=== PATIENT | female | born 1940 | race Caucasian/White ===

== ENCOUNTER 2017-03-21 16:44 | Emergency (ER) | payer MEDICARE, OTHER ==
[2017-03-21] MEDS ORDERED: DOXYcycline CAP(*) 100 MG PO ONE (17:03)
--- NOTE | 2017-03-21 17:10 | UC ---
Skin Complaint HPI - HPI Summary HPI Summary: 76 y/o female with PMX of HTN and Hypothyrodism presents to the urgent care c/o tick that still on her RT knee. Patient reports she was gardening 4 hrs ago and then when she was in the pool she noticed the tick. She didn't attempt to take it out since still alive. Patient denies SOB, fever, chest pain, N/V/D. Patient states took her BP medication this morning. - History of Current Complaint Chief Complaint: UCSkin Time Seen by Provider: 03/21/17 16:49 Stated Complaint: TICK BITE Hx Obtained From: Patient Onset/Duration: Sudden Onset, Lasting Hours, Still Present Skin Exposure Onset/Duration: Hours Ago - 4 hrs Timing: Constant Current Severity: Mild Pain Intensity: 0 Pain Scale Used: 0-10 Numeric Location: Other - tick bite at RT knee Aggravating: Touch Alleviating: Nothing Associated Signs & Symptoms: Negative: Nausea, Vomiting, Fever, Chills, Rash - Allergy/Home Medications Allergies/Adverse Reactions: Allergies Allergy/AdvReac Type Severity Reaction Status Date / Time Nitrofurantoin Allergy Unknown Verified 03/21/17 16:53 [From Macrodantin] Reaction Details Home Medications: Home Medications oxyCODONE SR TAB(*) [Oxycontin 20 mg (*)] 60 mg PO BEDTIME 03/21/17 [History Confirmed 03/21/17] Review of Systems Constitutional: Negative Skin: Other - tick bit donato RT knee Eyes: Negative ENT: Negative Respiratory: Negative Cardiovascular: Negative Gastrointestinal: Negative Genitourinary: Negative Motor: Negative Neurovascular: Negative Musculoskeletal: Negative Neurological: Negative Psychological: Negative All Other Systems Reviewed And Are Negative: Yes PMH/Surg Hx/FS Hx/Imm Hx Endocrine History: Hypothyroidism Cardiovascular History: Hypertension - Surgical History Surgical History: Yes Surgery Procedure, Year, and Place: L4-5 Laminectomy 11/2015. 4 SHOULDER SURGERYS,2 [age] ,HYSTERECTOMY 88,TONSILLECTOMY 1960,GOITER REMOVED BY RADIOACTIVE IODINE 1961,1971 TUMOR REMOVED FROM LEFT OVARY AND FALLOPIAN TUBE ,1996BENIGN, reconstruction surgery right FOOT-2013, [facility] TUMOR REMOVED LT FOOT; Mid right foot fusion 12/30/13 at [facility] in [place], [place] CHEEK , right CARPAL TUNNEL 2001,NEUROMA REMOVED L FOOT 2001, 2008 GANGLION CYST REMOVED FROM LEFT HAND, left eye glaucomasurgery; Mid Right Foot Fusion at Aug 2014 right reverse total shoulder replacement--[facility], dental implant; CATARACT IOL IMPLANT W/ DR SHABAZZ. 12/2016 L5/S1 LAMINECTOMY - Family History Known Family History: Positive: Hypertension, Other - colon cancer - Social History Lives: With Family Alcohol Use: None Substance Use Type: None Smoking Status (MU): Former Smoker Type: Cigarettes Amount Used/How Often: 1-1/2 PPD Length of Time of Smoking/Using Tobacco: 6 YEARS Have You Smoked in the Last Year: No When Did the Patient Quit Smoking/Using Tobacco: 1966 - Immunization History Most Recent Influenza Vaccination: 07/05 Most Recent Tetanus Shot: unknown Physical Exam Triage Information Reviewed: Yes Appearance: Well-Appearing, No Pain Distress, Well-Nourished, Obese Vital Signs: Initial Vital Signs Temp 96.3 F 03/21/17 16:51 Pulse 76 03/21/17 16:51 Resp 16 03/21/17 16:51 BP 154/79 03/21/17 16:51 Pulse Ox 99 03/21/17 16:51 Vital Signs Reviewed: Yes Eye Exam: Normal Eyes: Positive: Conjunctiva Clear ENT Exam: Normal ENT: Positive: Normal ENT inspection, Hearing grossly normal, Pharynx normal, TMs normal Neck exam: Normal Neck: Positive: Supple, Nontender, No Lymphadenopathy Respiratory Exam: Normal Respiratory: Positive: Chest non-tender, Lungs clear, Normal breath sounds Cardiovascular Exam: Normal Cardiovascular: Positive: RRR, No Murmur, Pulses Normal Abdominal Exam: Normal Abdomen Description: Positive: Nontender, No Organomegaly, Soft Bowel Sounds: Positive: Present Musculoskeletal Exam: Normal Neurological Exam: Normal Psychological Exam: Normal Skin: Positive: Other - tick bite on the superior side of the RT knee, Tick alive. Course/Dx - Course Course Of Treatment: Tick was removed from superior part of the RT knee using tick twister technique. After tick removal and the skin cleansing. Pt advised PLease observe the area for the development or Erythema Migrans for upto 30 days following exposure. Components of the tick saliva can cause transient erythema that should no be confused with Erythema Migrans. Antibiotic prophylaxis with Doxycycline given to the patient to prevent lyme Disease.. Pt tolerated well medication. - Differential Diagnoses - Skin Complaint Differential Diagnoses: Cellulitis, Contact Dermatitis, Tick Born Illness, Other - tick bite - Diagnoses Provider Diagnoses: tick bite, uncontrolled HTN Discharge - Discharge Plan Condition: Stable Disposition: HOME Patient Education Materials: Tick Bite (ED), Low Sodium Diet (ED) Referrals: Valentin Sam MD [Primary Care Provider] - Additional Instructions: PLease observe the area for the development or Erythema Migrans for upto 30 days following exposure. Components of the tick saliva can cause transient erythema that should no be confused with Erythema Migrans. Please if a rash or fevedevelops return for further treatment. You were given prophylactic Doxycycline to prevent Lyme Disease. Please decrease salt intake since your BP today was high and f/u with your PCP for further evaluation.
[2017-03-21 17:15] VITALS: BP 154/79
== END 2017-03-21 17:33 | disposition home or self-care (01) ==
LOC: UCEAST 16:44
DX: S80.261A Insect bite (nonvenomous), right knee, initial encounter (principal); W57.XXXA Bitten or stung by nonvenomous insect and other nonvenomous arthropods, initial encounter; Y93.H2 Activity, gardening and landscaping; Y92.017 Garden or yard in single-family (private) house as the place of occurrence of the external cause; Y99.9 Unspecified external cause status; I10 Essential (primary) hypertension
CPT/HCPCS: 99212; A9270-GY; G0463

== ENCOUNTER 2018-04-16 06:21 | Day surgery (SDC) | payer MEDICARE, OTHER ==
[~2018-04-16 06:21] MED LIST: Buffered Lidocaine 0.9% SYRIN* 5 ML/SYR SYRINGE INTRADERM ONE; mitoMYcin PWD* 0.2 MG in Sterile Water for Inj* 1 ML OPHTHALMIC SCH
[2018-04-16] MEDS ORDERED: Lidocaine 2% PF* 10 ML AMP ONE (07:11)
[2018-04-16] MEDS ORDERED: BSS OPTH.SOL* BTL ONE (07:12)
[2018-04-16] MEDS ORDERED: Triamcinolone Acetonide* 40 MG/ML 1 ML VIAL ONE (07:12)
[2018-04-16] MEDS ORDERED: Sodium Bicarbonate 8.4% SYR* 10 ML SYRINGE ONE (07:12)
[2018-04-16] MEDS ORDERED: Acetylcholine 1:100 OPTH* OPHTH.SOLN ONE (07:12)
[2018-04-16] MEDS ORDERED: Neomycin/Polymy/Dex OPTH.SUSP* MAXITROL 0.1% 5 ML ONE (07:13)
[2018-04-16] MEDS ORDERED: Lidocaine 2% EPI 1:200000 MPF*10-20 ML VIAL ONE (07:13)
[2018-04-16] MEDS ORDERED: Hyaluronidase OVINE* 200 UNIT/ML ML SUBCUT ONE (07:13)
[2018-04-16] MEDS ORDERED: Povidone Iodine 5% OPTH* 30 ML BTL ONE (07:13)
[2018-04-16] MEDS ORDERED: Atropine 1% OPHTH.SOL* 2 ML BOT - 2 ML ONE (07:15)
[2018-04-16] MEDS ORDERED: fentaNYL* 50 MCG/ML 2 ML VIAL (100 MCG VIAL) ONE (07:26)
[2018-04-16] MEDS ORDERED: Midazolam* 1 MG/ML 2 ML VIAL (2 MG) ONE (07:26)
[2018-04-16] MEDS ORDERED: Propofol* 10 MG/ML 20 ML BTL IV PUSH ONE (07:43)
[2018-04-16] MEDS ORDERED: Lidocaine 2% MPF* 2 ML VIAL ONE (07:43)
[2018-04-16] MEDS ORDERED: Naloxone* 0.4 MG/ML 1 ML VIAL IV PRN (07:54)
[2018-04-16 09:09] VITALS: BP 120/77
--- NOTE | 2018-04-17 06:58 | OP ---
DATE OF OPERATION: 04/16/18 - [facility] DATE OF : 44 ANESTHESIA: Local with MAC. PRE-OP DIAGNOSIS: Uncontrolled glaucoma, right eye. POST-OP DIAGNOSIS: OPERATIVE PROCEDURE: Trabeculectomy, right eye. COMPLICATIONS: None. DESCRIPTION OF PROCEDURE: The retrobulbar anesthesia was given in the operating room, 50:50 mixture of 0.75% Marcaine with 2% lidocaine with epinephrine, 4 cc given into the muscle cone without difficulty. The eye was prepped and draped in the usual sterile fashion with speculum placed. A superior 6-0 silk traction suture placed through the superior limbus and the eye rotated inferiorly. A fornix- based conjunctival peritomy was made with a Sujit scissors from the 10 o'clock to 12 o'clock position. Hemostasis achieved with cautery. A triangular limbal based half scleral thickness flap was created using the 75 blade and the crescent blade. Anterior chamber entered using a 3-mm keratome. Miochol was instilled into the anterior chamber , a little bit of DisCoVisc. A 3 x 1 trabecular block excised using the Xiomara punch. The triangular flap sutured with three 10-0 nylon sutures. Conjunctiva then closed after placing mitomycin 0.2 mg/mL for 30 seconds. Conjunctiva was closed using a combination of running locking 10-0 nylon and 9-0 Prolene sutures. All wounds checked and found to be watertight. Traction sutures removed. Sub-tenon's Kenalog 40 mg/mL, 1 mL given. Atropine and Maxitrol given and the eye was patched. [id number]/[facility] #: [id number] [facility]
== END 2018-04-16 09:00 | disposition home or self-care (01) ==
LOC: OREAST 06:21
PROVIDERS: ATTEND Specialist
DX: H40.1110 Primary open-angle glaucoma, right eye, stage unspecified (principal); M05.9 Rheumatoid arthritis with rheumatoid factor, unspecified; E78.4 Other hyperlipidemia; D47.2 Monoclonal gammopathy; M54.5 Low back pain; Z87.891 Personal history of nicotine dependence; Z79.899 Other long term (current) drug therapy; E03.9 Hypothyroidism, unspecified; F11.90 Opioid use, unspecified, uncomplicated
CPT/HCPCS: A9270-GY; J2001; J2250; J2704; J3010; J3301; J3471; J9280

== ENCOUNTER 2018-05-14 06:18 | Day surgery (SDC) | payer MEDICARE, OTHER ==
[~2018-05-14 06:18] MED LIST changes: +Proparacaine 0.5% OPHTH.SOL* 15 ML BTL ONE
[2018-05-14] MEDS ORDERED: Acetylcholine 1:100 OPTH* OPHTH.SOLN ONE (07:12)
[2018-05-14] MEDS ORDERED: Triamcinolone Acetonide* 40 MG/ML 1 ML VIAL ONE (07:12)
[2018-05-14] MEDS ORDERED: Lidocaine 2% PF* 10 ML AMP ONE (07:12)
[2018-05-14] MEDS ORDERED: Sodium Bicarbonate 8.4% SYR* 10 ML SYRINGE ONE (07:12)
[2018-05-14] MEDS ORDERED: Lidocaine 2% EPI 1:200000 MPF*10-20 ML VIAL ONE ×2 (07:13→15:29)
[2018-05-14] MEDS ORDERED: BSS OPTH.SOL* BTL ONE (07:13)
[2018-05-14] MEDS ORDERED: Neomycin/Polymy/Dex OPTH.SUSP* MAXITROL 0.1% 5 ML ONE ×2 (07:13→15:29)
[2018-05-14] MEDS ORDERED: Povidone Iodine 5% OPTH* 30 ML BTL ONE ×2 (07:13→15:30)
[2018-05-14] MEDS ORDERED: Hyaluronidase OVINE* 200 UNIT/ML ML SUBCUT ONE (07:14)
[2018-05-14] MEDS ORDERED: Atropine 1% OPHTH.SOL* 2 ML BOT - 2 ML ONE (07:14)
[2018-05-14] MEDS ORDERED: Midazolam* 1 MG/ML 2 ML VIAL (2 MG) ONE ×2 (07:27→07:49)
[2018-05-14] MEDS ORDERED: fentaNYL* 50 MCG/ML 2 ML VIAL (100 MCG VIAL) ONE (07:32)
[2018-05-14] MEDS ORDERED: Ondansetron INJ* 2 MG/ML VIAL IV PRN (08:23)
[2018-05-14] MEDS ORDERED: oxyCODONE TAB* 5 MG TAB PO PRN (08:23)
[2018-05-14] MEDS ORDERED: Naloxone* 0.4 MG/ML 1 ML VIAL IV PRN (08:23)
[2018-05-14 08:51] VITALS: BP 134/78
[2018-05-14] MEDS ORDERED: Lidocaine 1%* 5 ML VIAL ONE (15:29)
[2018-05-14] MEDS ORDERED: acetaZOLAMIDE TAB* 250 MG ONE (15:29)
[2018-05-14] MEDS ORDERED: Cyclopentolate 1% OPTH.SOL* 2 ML BTL ONE (15:29)
[2018-05-14] MEDS ORDERED: Phenylephrine 2.5% OPTH.SOL* 2 ML BTL ONE (15:30)
[2018-05-14] MEDS ORDERED: Proparacaine 0.5% OPHTH.SOL* 15 ML BTL ONE (15:30)
[2018-05-14] MEDS ORDERED: Ketorolac 0.5% OPHTH (NF) 0.5 % 5 ML BTL ONE (15:30)
--- NOTE | 2018-05-15 05:49 | OP ---
DATE OF OPERATION: 05/14/18 - [facility] DATE OF : 44 SURGEON: David Hicks MD. ANESTHESIA: Local with MAC. PREOPERATIVE DIAGNOSES: Glaucoma, left. POSTOPERATIVE DIAGNOSIS: OPERATIVE PROCEDURE: Trabeculectomy, left. COMPLICATIONS: None. DESCRIPTION OF PROCEDURE: The patient was given retrobulbar anesthesia in the operating room, 50:50 mixture of 0.75% Marcaine with 2% lidocaine with epi, 4 cc given into the muscle cone without difficulty. The patient was prepped and draped in the usual sterile fashion with speculum placed. A 6-0 silk traction suture placed through the superior limbus and the eye rotated inferiorly. A fornix-based conjunctival peritomy was made from the 9:30 o'clock to 12 o'clock position with the Sujit scissors. Lidocaine 2% with epinephrine injected sub -tenon's, mitomycin C 0.2 mg/mL left in place for 1 minute, then thoroughly irrigated sub- tenon's. Triangular limbal based half scleral thickness flap was created with the 75 blade and the crescent blade centered at the 10:30 position. Paracentesis was made at the 3 o'clock position with 75 blade. Anterior chamber entered with 3-mm keratome. Miochol and DisCoVisc injected into the anterior chamber. Peripheral iridotomy made with the Vannas scissors, 10:30. Trabecular block 3.3 x 1 mm excised using the Xiomara punch from under the flap. Flap secured with two 10-0 nylon interrupted suture. Then the conjunctiva closed using a running locking 10-0 nylon and 10-0 Vicryl suture closure. Traction suture removed. All wounds checked and found to be water tight. Kenalog 40 mg/mL, 1 mL injected into sub-tenon's inferior temporally. Topical atropine and Maxitrol given and the eye was patched. [id number]/[facility] #: [id number] [facility]
== END 2018-05-14 09:01 | disposition home or self-care (01) ==
LOC: OREAST 06:18
PROVIDERS: ATTEND Specialist
DX: H40.1123 Primary open-angle glaucoma, left eye, severe stage (principal); M06.9 Rheumatoid arthritis, unspecified; E03.9 Hypothyroidism, unspecified; I10 Essential (primary) hypertension; E78.5 Hyperlipidemia, unspecified; G89.29 Other chronic pain; Z79.891 Long term (current) use of opiate analgesic
CPT/HCPCS: A9270-GY; J2001; J2250; J3010; J3301; J3471; J9280

== ENCOUNTER 2018-10-17 13:41 | Inpatient (IN) | payer MEDICARE, OTHER ==
--- NOTE | 2018-10-17 14:16 | ED ---
Neurological HPI - HPI Summary HPI Summary: Time seen by provider: [14:00]. The patient is a 78 y/o F presenting to [facility] with a chief complaint of confusion and aphasia for four days. At time of onset, the patient was playing a game of clue with her grandchildren when they noticed that she was not able to understand anything. She states that she has been unable to put things into words, and she also has been feeling weak with pain in her left arm. She is not feeling any other pain at this time, including chest pain and abd pain. - History of Current Complaint Chief Complaint: EDNeurologicalDeficit Stated Complaint: SLURRING OF SPEECH, PAIN IN LEFT ARM Hx Obtained From: Patient Onset/Duration: Sudden Onset, Started days ago - four, Still Present Timing: Sudden Onset Onset Severity: Moderate Current Severity: Moderate Pain Intensity: 0 Pain Scale Used: 0-10 Numeric Character: Impaired Speech, Confusion Aggravating: Nothing Alleviating: Nothing Associated Signs and Symptoms: Positive: Confusion, Weakness, Pain - in left arm , Impaired Speech. Negative: Chest Pain - Allergy/Home Medications Allergies/Adverse Reactions: Allergies Allergy/AdvReac Type Severity Reaction Status Date / Time nitrofurantoin Allergy Severe See Comment Verified 08/12/18 13:35 [From Macrodantin] PMH/Surg Hx/FS Hx/Imm Hx Endocrine/Hematology History: Reports: Hx Thyroid Disease - had a goiter removed , Hx Anemia - MILD ANEMIA Denies: Hx Diabetes Cardiovascular History: Reports: Hx Hypertension - ON MEDS, Hx Valvular Heart Disease - very small leakage from mitral valve- not remarkable Denies: Hx Angina, Hx Pacemaker/ICD Respiratory History: Denies: Hx Asthma, Hx Chronic Obstructive Pulmonary Disease (COPD) GI History: Reports: Hx Gastroesophageal Reflux Disease, Hx Irritable Bowel, Other GI Disorders - ESOPHAGEAL STRICTURE CORRECTED Denies: Hx Ulcer History: Reports: Other Problems/Disorders - CHRONIC UTI Denies: Hx Renal Disease Musculoskeletal History: Reports: Hx Arthritis - osteoarthritis, Hx Back Problems - chronic back pain, surgery done on 07/24/17 Dr Persaud, Hx Osteoporosis, Other Musculoskeletal History - RHUMATOID ARTHRITIS Sensory History: Reports: Hx Cataracts, Hx Contacts or Glasses - glasses, Hx Glaucoma, Hx Hearing Aid - BRADLEY left ear Opthamlomology History: Reports: Hx Cataracts, Hx Contacts or Glasses - glasses , Hx Glaucoma Neurological History: Reports: Hx Migraine - IN THE DISTANT PAST, Other Neuro Impairments/Disorders - PAIN CLINIC PATIENT Denies: Hx Dementia, Hx Developmental Delay, Hx Nerve Disease, Hx Seizures, Hx Spinal Cord Injury, Hx Transient Ischemic Attacks (TIA) Psychiatric History: Denies: Hx Panic Disorder - Cancer History Cancer Type, Location and Year: see surgical histroy Hx Chemotherapy: No Hx Radiation Therapy: No - Surgical History Surgery Procedure, Year, and Place: Rt shoulder reverse Total x2, 2012 removal of screw from right shoulder, Laminectomy, disc removal x2, Rt foot surgery. hysterectomy 1985, goiter removed 50 years ago, use radiative iodine,. 2016 right eye cataract surgery with IOL and I-stent, left eye cataract surgery Hx Anesthesia Reactions: No - Immunization History Date of Tetanus Vaccine: Up to date Date of Influenza Vaccine: Fall 2011 Infectious Disease History: No Infectious Disease History: Reports: Hx Shingles - 2010 Denies: Hx Clostridium Difficile, Hx Hepatitis, Hx Human Immunodeficiency Virus (HIV), Hx of Known/Suspected MRSA, Hx Tuberculosis, Hx Known/Suspected VRE , Hx Known/Suspected VRSA, History Other Infectious Disease, Traveled Outside the in Last 30 Days - Family History Known Family History: Positive: Hypertension, Other - colon cancer - Social History Alcohol Use: None Substance Use Type: Reports: None Smoking Status (MU): Former Smoker Type: Cigarettes Amount Used/How Often: 1-1/2 PPD, smoked for 5 years Length of Time of Smoking/Using Tobacco: 6 YEARS Have You Smoked in the Last Year: No Review of Systems Negative: Chest Pain Negative: Abdominal Pain Positive: Other - pain in left arm Neurological: Other - aphasia Positive: Weakness, Slurred Speech All Other Systems Reviewed And Are Negative: Yes Physical Exam - Summary Physical Exam Summary: Appearance: The patient is well-nourished in no acute distress and in no acute pain. Skin: The skin is warm and dry and skin color reflects adequate perfusion. HEENT: The head is normocephalic and atraumatic. The pupils are equal and reactive. The conjunctivae are clear and without drainage. Nares are patent and without drainage. Mouth reveals moist mucous membranes and the throat is without erythema and exudate. The external ears are intact. The ear canals are patent and without drainage. The tympanic membranes are intact. Neck: The neck is supple with full range of motion and non-tender. There are no carotid bruits. There is no neck vein distension. Respiratory: Chest is non-tender. Lungs are clear to auscultation and breath sounds are symmetrical and equal. Cardiovascular: Heart is regular rate and rhythm. There is no murmur or rub auscultated. There is no peripheral edema and pulses are symmetrical and equal. Abdomen: The abdomen is soft and non-tender. There are normal bowel sounds heard in all four quadrants and there is no organomegaly palpated. Musculoskeletal: There is no back tenderness noted. Extremities are non-tender with full range of motion. There is good capillary refill. There is no peripheral edema or calf tenderness elicited. Neurological: Patient is alert and oriented to person, place and time but displays signs of mild aphasia. The patient has symmetrical motor strength in all four extremities except left upper extremity displays dysmetria. Cranial nerves are grossly intact. Deep tendon reflexes are symmetrical and equal in all four extremities. GCS: 15. NIH: 2. Psychiatric: The patient has an appropriate affect and does not exhibit any anxiety or depression. Triage Information Reviewed: Yes Vital Signs On Initial Exam: Initial Vitals Temp Pulse Resp BP Pulse Ox 98.8 F 72 16 167/86 99 10/17/18 14:02 10/17/18 14:02 10/17/18 14:02 10/17/18 14:02 10/17/18 14:02 Vital Signs Reviewed: Yes - Edward Coma Scale Best Eye Response: 4 - Spontaneous Best Motor Response: 6 - Obeys Commands Best Verbal Response: 5 - Oriented Coma Scale Total: 15 Diagnostics - Vital Signs Vital Signs Temp Pulse Resp BP Pulse Ox 10/17/18 14:02 98.8 F 72 16 167/86 99 - Laboratory Result Diagrams: 10/17/18 15:01 10/17/18 15:01 Lab Statement: Any lab studies that have been ordered have been reviewed, and results considered in the medical decision making process. - CT Brain CT CT Interpretation Completed By: Radiologist Summary of CT Findings: No acute intracranial pathology. ED physician has reviewed this report. - EKG 14:22 Cardiac Rate: NL - 95 BPM EKG Rhythm: Sinus Rhythm Summary of EKG Findings: No STEMI. NIH Scale - NIH Scale Level of Consciousness: Alert/Keenly Responsive Ask Patient the Month and His/Her Age: Both Correct Ask Pt to Open/Close Eyes and Franchise Manager/Release Non-Paretic Hand: Both Correctly Best Gaze (Only Horizontal Eye Movement): Normal Visual Field Testing: No Visual Loss Facial Paresis-Pt to Smile & Close Eyes or Grimace Symmetry: Normal/Symmetrical Motor Function - Right Arm: No Drift-Holds 10 Seconds Motor Function - Left Arm: Drifts LT 10 seconds Motor Function - Right Leg: No Drift-Holds 10 Seconds Motor Function - Left Leg: No Drift-Holds 10 Seconds Limb Ataxia-Must be out of Proportion to Weakness Present: Absent Sensory (Use Pinprick to Test Arms/Legs/Trunk/Face): Normal Best Language (Describe Picture, Name Items): Some Loss Dysarthria (Read Several Words): Normal Extinction and Inattention: No Abnormality Total Score: 2 Re-Evaluation - Re-Evaluation First Eval Re-Evaluation Time: 15:40 Change: Unchanged Comment: I spoke with the patient concerning admission to [facility]. Course/Dx - Course Course Of Treatment: Ms. Brown presented to the emergency department with a concern for confusion versus aphasia for the last 4 days. It started on [place] when she was playing the game clue. I saw her in the triage area and did a quick NIH stroke scale which revealed some dysmetria on her left upper extremity and some difficulty with expressing what was going on of the picture and that the items were in the picture. She was sent for CT scan and labs and there is no evidence for acute stroke and I contacted who recommended admission to the hospitalist for further workup. While speaking with the hospitalist her calcium returned at 13.3. The hospitalist will evaluate her for admission. - Diagnoses Provider Diagnoses: Acute confusional state, Hypercalcemia - Physician Notifications Discussed Care Of Patient With: James Kim - neurology Time Discussed With Above Provider: 15:30 Instructed by Provider To: Other - I consulted with Dr. Kim, who will come see the patient in the ED. I consulted with Dr. Walker, hospitalist, who accepts the patient for admission. - Critical Care Time Critical Care Time: 30-74 min Discharge - Sign-Out/Discharge Documenting (check all that apply): Patient Departure - Patient will be admitted to [facility] for further care by Dr. Walker. - Discharge Plan Condition: Stable Disposition: ADMITTED TO [facility] - Billing Disposition and Condition Condition: STABLE Disposition: Admitted to [facility] - Attestation Statements Document Initiated by Lizzy: Yes Documenting Scribe: Ana Franklin Provider For Whom Lizzy is Documenting (Include Credential): Dr. Rafael Gibson MD Scribe Attestation: IAna scribed for Dr. Rafael Gibson MD on 10/17/18 at 1839. Scribe Documentation Reviewed: Yes Provider Attestation: The documentation as recorded by the Ana martin accurately reflects the service I personally performed and the decisions made by me, Dr. Rafael Gibson MD Status of Scribe Document: Viewed
--- OUTSIDE RECORDS SUMMARY | 2018-10-17 15:07 | XMS REPORT | Continuity of Care Document ---
:1940 External Reference #:[id number] Author Name Richelle Montoya Care Team Providers Name Role Phone Valentin Sam MD Primary Care Physician Unavailable Payers Type Date Identification Numbers Payment Provider Subscriber Policy Number: [id number] Medicare Yamileth Brown PayID: [id number] [address] [place] [address] Policy Number: [id number] [facility] Yamileth Brown Group Number: [id number] [address] [address] PayID: [id number] [place] [address] Policy Number: [id number] For Life Robin Brown PayID: [id number] [address] [place] [address] Expires: 2018 Policy Number: [id number] [facility] [place] Group Number: [id number] [address] PayID: [id number] [place] [address] Advance Directives Description No Information Available Problems Date Description Provider Status Onset: 12/21/2010 Rheumatoid arthritis Tavo Mosqueda M.D. 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 Active myelopathy Onset: 11/07/2012 Delay when starting to pass urine Tavo Mosqueda M.D. Active Onset: 06/10/2013 Cervical spondylosis without myelopathy Tavo Mosqueda M.D. Active Onset: 06/10/2013 Chronic pain syndrome Tavo Mosqueda M.D. Active Onset: 10/07/2014 Disorder of shoulder Brad Brownlee M.D. Active Onset: 11/09/2014 Low back pain Brad Brownlee M.D. Active Onset: 11/26/2014 Disorder of lumbar disc Tavo Mosqueda M.D. Active Onset: 11/26/2014 Cervical disc disorder Tavo Mosqueda M.D. Active Onset: 11/26/2014 Taking medication Tavo Mosqueda M.D. Active Onset: 09/30/2015 Dyspnea Francine Sparks MD Active Onset: 10/31/2015 Spinal stenosis of lumbar region Prosper Gruber M.D. Active Onset: 10/31/2015 Displacement of lumbar intervertebral Prosper Gruber M.D. Active disc without myelopathy Onset: 10/31/2015 Acquired spondylolisthesis Prosper Gruber M.D. 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 Tobacco Use Start: Unknown Former Cigarette End: Unknown Smoker Smoking Status Reviewed: 10/02/18 Former Cigarette Smoker ETOH Use Denies alcohol use Tobacco Use Start: Unknown Patient is a former pt quit in 1967 End: Unknown smoker Recreational Drug Use Denies Drug Use Recreational Drug Use Denies Drug Use pt is prescribed medical marijuana Exercise Type/Frequency Does not exercise Allergies, Adverse Reactions, Alerts Date Description Reaction Status Severity Comments 12/21/2010 Macrodantin multiple problems Active Severe 05/04/2011 Methotrexate severe fatigue Inactive 05/04/2011 Leflunomide blurred vision, stomach upsetand Inactive diarreha Medications Medication Date Status Form Strength Qnty SIG Indications Ordering Provider Xellucyz 10/02 Active Tablets 5mg 60tab 1 by mouth s twice a Mago, day M.D. Magnesium Oxide 08/20 Active Capsules 500mg 30cap Take one (Antacid) s capsule/ta Mago, blet daily M.D. by mouth as needed for cramps/ spasms/ acid reflux Fluzone High-Dose 08/20 Active Queenie 0.5ml .500m Please M06.9 nishi Quintero M.D. Clotrimazole 08/20 Active Cream 1% 15gm Apply to daily to sondra Mercedes of [place] lips Iron Slow Release 11/14 Active Tablets ER 143(45Fe) 90tab Take one mg s capsule/ta Mago, blet by MJason mouth twice daily Prednisone 11/14 Active Tablets 10mg 30tab Take one s capsule/ta Mago, blet daily M.D. by mouth as needed for flare of Ra Isosorbide 09/23 Active Tablets 5mg 45tab 10/22 tab by Manoj Rodríguez s mouth F. every Mauser, morning M.DJason Vitamin D3 08/20 Active Capsules 2000Unit 1 by mouth M05.40 bid Dameon Mercedes Caltrate 600+D 10/11 Active Tablets 600-800mg 180ta take one E83.51 -Unit bs capsule/ta Mago, blet by Dameon mouth twice daily Cyanocobalamin 05/30 Active Tablets Sub 2500mcg 90tab take one s three Mago, times per M.D. week Botox 09/29 Active Solution as needed Rec for esophageal spasms (usually every 2 years or so) Levothyroxine Active Tablets 88mcg 90tab 1 po qd Unknown Sodium s Cyclobenzaprine Active Tablets 10mg 90tab one po tid Unknown HCL /0000 s prn spasm Ondansetron HCL Active Tablets 8mg 40tab 1 po q8h Unknown / s for nausea Premarin Active Tablets 0.625mg 90tab 1 po qd Unknown s Nitrostat Active Tablets Sub 0.4mg one sl q5min up to 3 doses as needed Oxycontin Active Tab ER 12H 30mg 1 po bid Abuse-Det Multiple Vitamin Active Tablets 1 by mouth every day Librax Active Capsules 5-2.5mg 1 po q am, 2 po qpm Oxycodone HCL Active Tablets 20mg 1 tab twice per day or as needed Metoprolol Active Tablets ER 25mg 1 by mouth Unknown Succinate ER 24HR every day Vitamin C Active Chewtabs 250mg 1 tab by mouth twice a day take with iron Biotin Active Capsules 5mg 1 po bid Unknown Tumeric Active Tablets 1 by mouth daily Medical Active Unknown Mariijuan Folic Acid Active Tablets 1mg 1 by mouth every day Actemra 09/10 Hx Solution 80mg/4ML M06.9 Mago, - M.D. 09/10 Orencia 08/20 Hx Solution 250mg 750 mg M06.9 Rec orencia iv Mago, - every 4 M.D. Clotrimazole 08/20 Hx Cream 2% 21gm apply twice Mago, - daily to M.D. 08/20 sides lips Lipitor 09/23 Hx Tablets 20mg 90tab one tab by Manoj s mouth F. - every Mauser, 04/05 night at M.D. bedtime (0t is not taking 08/20/18) Isosorbide 09/23 Hx Tablets Sub 2.5mg 60tab 1 tab Manoj Dinitrate s sublingual F. - ly every Mauser, 09/23 morning M.D. and 1 tab sublingual ly every noon Vitamin D3 08/14 Hx Capsules 5000Unit 90cap take one M05.40 Strength s capsule/ta Mago, - blet daily M.D. 08/20 by mouth Orencia Clickject 08/14 Hx Solution 125mg/ml 12uni inject one M05.40 Auto-Inject ts pen as Mago, - directed M.D. 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 06/24 Oxycontin 11/09 Hx Tab ER 12H 80mg 90tab 1 tablet Abuse-Det s by mouth Randy, - every 8 M.D. 11/02 hours needed for pain Orencia 08/13 Hx Soln 125mg/ml 4unit inject 1 M06.9 Prefill s prefilled Mago, - Syringe syringe M.D. 08/20 subcutane us weekly (script clarificat ion) Bactrim DS 11/07 Hx Tablets 800-160mg 14tab 1 po bid 788.64 s Endo, - M.D. 11/09 Oxycodone HCL 10/15 Hx Tablets 5mg 30tab 1-2 po q3h s prn pain Young, - M.D. 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 11/09 Fentanyl 08/29 Hx Patches 12mcg/HR 10uni apply one 72HR ts patch Randy, - every 3 M.D. Prednisone 06/27 Hx Tablets 5mg 70tab 4 qd x 1 s week, 3 qd Endo, - x 1 week, M.D. 08/13 2 qd x week, 1 qd x 1 week Humira 04/25 Hx Kit 40mg/0.8M 6unit every L s other week Endo, - M.D. 04/25 Enbrel 04/25 Hx Solution 50mg/ml 12uni Inject ts 50MG Endo, - Subcutaneo M.D. 08/13 usly Once Weekly Oxycodone/Acetami 02/20 Hx Tablets 5-325mg 60tab 2 tabs po Elvin s q4 hours Randy, - prn pain M.D. 06/10 Ciprofloxacin HCL 02/04 Hx Tablets 250mg 10tab 1 bid x 5 s days - 03/18 Folic Acid 02/04 Hx Tablets 1mg 90tab 1 po qd s Endo, - M.D. 01/10 Methotrexate 02/04 Hx Tablets 2.5mg 36tab Take 3 s Tablets By Endo, - Mouth Once M.D. 03/09 Percocet 12/06 Hx Tablets 5-325mg 60tab 1-2 tabs s po q4-6 Randy, - prn pain M.D. 02/20 Voltaren 07/03 Hx Gel 1% 5tube apply to s affected Endo, - area qid M.D. 06/10 Oxycontin 07/03 Hx Tablets ER 20mg 100ta 1-2 po bid 12HR bs Endo, - M.D. 09/07 Nabumetone 07/03 Hx Tablets 750mg 90tab Take One s Tablet By Endo, - Mouth M.D. 11/16 Times A Day Prednisone 05/04 Hx Tablets 5mg 45tab 1 po q am s 1 po q pm Endo, - for 1 week M.D. 03/18 then 1 Enbrel 05/04 Hx Solution 50mg/ml 4unit 1 s subcutaneo Endo, - usly once M.D. 11/16 Azathioprine 02/05 Hx Tablets 50mg 30tab 1/2 qd and s increase Endo, - as M.D. 07/24 Leflunomide 01/31 Hx Tablets 10mg 90tab 1 po qd s Endo, - M.D. 05/04 Prednisone 12/21 Hx Tablets 5mg 1 po qd Endo, - M.D. 05/04 Leflunomide 12/21 Hx Tablets 20mg 30tab 1 tab s every day Endo, - M.D. 01/31 Atenolol Hx Tablets 25mg 100ta 1 po qd Unknown /0000 bs - 08/14 Gemfibrozil Hx Tablets 600mg 60.0t 1 po bid Unknown /0000 abs - 03/09 Librax Hx Capsules 2.5-5mg 1 daily as Unknown /0000 needed - 07/02 Tylenol/Codeine Hx Tablets 300-30mg 40tab 1-2 qid Unknown #3 /0000 s prn - 08/07 Vitamin D-1000 Hx Tablets 50 Miu Jimmy M05.40 Unknown Maximum Strength / - 08/14 Ciprofloxacin HCL Hx Tablets 250mg 10tab 1 bid x 5 Unknown /0000 s days - 02/04 Hyoscyamine Hx Tablets Sub 0.125mg 50tab po tid prn Unknown Sulfate /0000 s sublingual - 11/09 Canasa Hx Suppository 1000mg Unknown / - 09/07 Cosopt Hx Solution 22.3-6.8m 1 drop Unknown /0000 g/ml both eyes - bid 12/23 Travatan Z Hx Solution 0.004% 1 ggt ou Unknown /0000 qhs - 08/30 [place] Oil-1000 Hx Capsules 200mg 2 po qd Unknown / - 08/07 Lutein 00 Hx Capsules 20mg Unknown / - 08/07 Multi Vitamin 00 Hx Tablets 1 po qd Unknown / - 03/09 Amitriptyline HCL 00 Hx Tablets 50mg 30tab 1 po qhs Unknown /0000 s - 02/04 Isosorbide Hx Tablets Sub 2.5mg 1 under Unknown Dinitrate /0000 tounge prn - 06/24 Lyrica Hx Capsules 25mg 60cap 1 po tid Unknown /0000 s - 08/07 Butrans 00 Hx Patches 10mcg/HR 4unit topical Unknown /0000 Weekly s q7days - 08/07 Amoxicillin/Potas Hx Tablets 500-125mg 20tab 1 po bid Unknown sium Clavulanate /0000 s - 02/04 Prednisolone Hx Suspension 1% Unknown Acetate /0000 - 08/07 Valium Hx Tablets 5mg 3tabs 1 po 2 Unknown / hours - prior to 02/23 mri february take one more q 1 hr prn anxiety Nabumetone Hx Tablets 750mg 60tab 1 po bid Unknown /0000 s - 08/07 Hydrocodone/Aceta Hx Tablets 10-325mg 20tab 1 po qid Unknown minophen / s prn - 03/09 Vesicare Hx Tablets 5mg 90tab 1 po qd Unknown / s - 03/09 Alphagan P Hx Solution 0.1% 1 gtt bid Unknown / both eyes - 08/20 Oxycontin Hx Tab ER 12H 60mg 90tab 1 tablet Unknown /0000 Abuse-Det s by mouth - every 10/31 12hou Oxycodone HCL Hx Tablets 20mg 50tab 1 tablet Unknown /0000 s by mouth - qid 09/25 Metronidazole Hx Gel 0.75% Unknown / - 06/24 Metronidazole Hx Tablets 500mg Unknown / - 06/24 Premarin Hx Cream 0.625mg/G use1 Unknown /0000 M applicator - intavagina 11/16 l 2x per /2015 week Isosorbide DN Hx Tablets 2.5mg 60tab 1 by mouth Manoj /0000 s every F. - morning Mauser, 09/23 and 1 by M.D. /2016 mouth every noon Morphine Sulfate Hx Tablets ER 100mg 1 by mouth Unknown ER /0000 twice a - day 11/16 Chlordiazepoxide Hx Capsules 25mg tid Unknown HCL /0000 - 09/24 Bactrim DS Hx Tablets 800-160mg 1 by mouth Unknown /0000 twice a - day 01/10 Medical Marijuana 00/ Hx bid M05.40 Unknown /0000 - 11/14 Iron High-Potency Hx Tablets 325mg 1 by mouth Unknown /0000 every day - 11/14 CBD Hx Unknown /0000 - 08/20 Actemra Hx Soln 162mg/0.9 inject 0.9 Unknown /0000 Prefill ML milliliter - Syringe s subq 09/10 every pre filled syringe once a month Medications Administered in Office Medication Date Status Form Strength Qnty SIG Indications Ordering Provider Depomedrol Administered Injection Elvin 80MG 012 Dameon Padilla Depomedrol Administered Injection Elvin 80MG 011 Dameon Padilla Depomedrol Administered Injection Elvin 80MG 011 Dameon Padilla PPD Administered Injection Nurse Visit 011 RH Immunizations CPT Code Status Date Vaccine Lot # [id number] Given 06/24/2015 Pneumococcal Conjugate Vaccine 13 Valent For [id number] Intramuscular Use Q2037 Given 06/21/2015 Fluvirin Im 3Yrs And Older [id number] Given 06/21/2015 Pneumonia Vaccine [id number] Given 08/13/2013 Flu Vaccine Split Virus Preservative Free For [id number] Indiv 3Yr Older Q2037 Given 08/07/2012 Fluvirin Im 3Yrs And Older [id number] Q2038 Given 09/07/2011 Fluzone Vaccine [id number] Vital Signs Date Vital Result Comment 10/02/2018 8:41am Height 64 inches 5'4" Weight 153.50 lb Heart Rate 89 /min BP Systolic 124 mmHg BP Diastolic 68 mmHg Pain Level 6 O2 % BldC Oximetry 95 % BMI (Body Mass Index) 26.3 kg/m2 09/05/2018 2:43pm Height 64 inches 5'4" Weight 156.50 lb Heart Rate 52 /min BP Systolic Sitting 122 mmHg with shoes BP Diastolic Sitting 78 mmHg with shoes BMI (Body Mass Index) 26.9 kg/m2 Ejection Fraction 60-65% echo 08/27/17 08/20/2018 9:46am Height 64 inches 5'4" Weight 158.00 lb Heart Rate 80 /min BP Systolic Sitting 104 mmHg BP Diastolic Sitting 60 mmHg Respiratory Rate 14 /min Pain Level 4 BMI (Body Mass Index) 27.1 kg/m2 06/20/2018 8:17am Height 64 inches 5'4" Weight 163.38 lb Heart Rate 73 /min BP Systolic Sitting 120 mmHg BP Diastolic Sitting 80 mmHg Pain Level 7 O2 % BldC Oximetry 96 % BMI (Body Mass Index) 28.0 kg/m2 02/12/2018 1:24pm Height 64 inches 5'4" Weight 64.00 lb Heart Rate 72 /min BP Systolic Sitting 110 mmHg BP Diastolic Sitting 70 mmHg Respiratory Rate 14 /min Pain Level 5 BMI (Body Mass Index) 11.0 kg/m2 12/24/2017 1:35pm Height 64 inches 5'4" Weight 147.00 lb Heart Rate 68 /min BP Systolic Sitting 130 mmHg LA, reg cuff BP Diastolic Sitting 68 mmHg LA, reg cuff BMI (Body Mass Index) 25.2 kg/m2 Ejection Fraction 60%-65% echo 08/27/17 11/14/2017 1:45pm Height 64 inches 5'4" Weight 153.00 lb Heart Rate 77 /min BP Systolic Sitting 123 mmHg BP Diastolic Sitting 70 mmHg Respiratory Rate 15 /min Pain Level 6 BMI (Body Mass Index) 26.3 kg/m2 10/08/2017 2:57pm Height 64 inches 5'4" Weight 150.00 lb Heart Rate 68 /min BP Systolic Sitting 134 mmHg Lue reg cuff BP Diastolic Sitting 74 mmHg Lue reg cuff BP Systolic Standing 106 mmHg BP Diastolic Standing 72 mmHg Respiratory Rate 16 /min BMI (Body Mass Index) 25.7 kg/m2 Ejection Fraction 60-65% 08/27/17 08/20/2017 2:01pm Height 64 inches 5'4" Weight 159.00 lb w/shoes Heart Rate 74 /min BP Systolic Sitting 134 mmHg LA lg cuff BP Diastolic Sitting 68 mmHg LA lg cuff BMI (Body Mass Index) 27.3 kg/m2 Ejection Fraction 55-60% Echo 08/19/15 08/14/2017 1:51pm Height 64 inches 5'4" Weight 157.00 lb Heart Rate 68 /min BP Systolic Sitting 109 mmHg BP Diastolic Sitting 58 mmHg Respiratory Rate 14 /min Pain Level 5 BMI (Body Mass Index) 26.9 kg/m2 01/10/2017 11:05am Height 64 inches 5'4" Heart Rate 74 /min BP Systolic Sitting 144 mmHg BP Diastolic Sitting 86 mmHg Respiratory Rate 14 /min Body Temperature 97.5 F 10/11/2016 10:15am Height 64 inches 5'4" Weight 167.00 lb Heart Rate 80 /min BP Systolic Sitting 110 mmHg BP Diastolic Sitting 60 mmHg Respiratory Rate 14 /min Body Temperature 96.0 F Pain Level 4 BMI (Body Mass Index) 28.7 kg/m2 05/30/2016 1:24pm Weight 155.38 lb Heart Rate 72 /min irr irr BP Systolic Sitting 122 mmHg BP Diastolic Sitting 80 mmHg Respiratory Rate 14 /min Body Temperature 98.1 F Pain Level 3 02/24/2016 11:03am Weight 162.00 lb Heart Rate 76 /min BP Systolic Sitting 140 mmHg BP Diastolic Sitting 84 mmHg Respiratory Rate 14 /min Body Temperature 99.0 F Pain Level 3 11/16/2015 9:15am Weight 170.00 lb Heart Rate 84 /min BP Systolic Sitting 146 mmHg BP Diastolic Sitting 80 mmHg O2 % BldC Oximetry 92 % 10/31/2015 1:37pm Height 64 inches 5'4" Weight 162.00 lb BP Systolic 140 mmHg BP Diastolic 90 mmHg Pain Level 8 BMI (Body Mass Index) 27.8 kg/m2 10/28/2015 11:35am Height 64 inches 5'4" Weight 159.00 lb Heart Rate 61 /min BP Systolic Sitting 134 mmHg BP Diastolic Sitting 74 mmHg Respiratory Rate 18 /min O2 % BldC Oximetry 95 % BMI (Body Mass Index) 27.3 kg/m2 09/30/2015 2:56pm Height 64 inches 5'4" Weight 159.00 lb Heart Rate 86 /min BP Systolic Sitting 132 mmHg BP Diastolic Sitting 76 mmHg Respiratory Rate 16 /min O2 % BldC Oximetry 98 % BMI (Body Mass Index) 27.3 kg/m2 06/24/2015 1:26pm Height 64 inches 5'4" Weight 157.25 lb Heart Rate 72 /min BP Systolic Sitting 130 mmHg BP Diastolic Sitting 78 mmHg Pain Level 6 BMI (Body Mass Index) 27.0 kg/m2 04/01/2015 11:23am Height 64 inches 5'4" Weight 167.38 lb Heart Rate 80 /min BP Systolic Sitting 152 mmHg BP Diastolic Sitting 84 mmHg Respiratory Rate 14 /min Pain Level 8 BMI (Body Mass Index) 28.7 kg/m2 01/07/2015 11:16am Height 64 inches 5'4" Weight 173.00 lb Heart Rate 72 /min BP Systolic Sitting 138 mmHg BP Diastolic Sitting 78 mmHg Pain Level 4 BMI (Body Mass Index) 29.7 kg/m2 11/26/2014 10:28am Height 64 inches 5'4" Weight 180.00 lb Heart Rate 84 /min BP Systolic Sitting 120 mmHg BP Diastolic Sitting 64 mmHg Pain Level 7 BMI (Body Mass Index) 30.9 kg/m2 11/09/2014 11:03am Height 64 inches 5'4" Weight 182.00 lb Heart Rate 88 /min BP Systolic Sitting 128 mmHg BP Diastolic Sitting 74 mmHg Pain Level 8 BMI (Body Mass Index) 31.2 kg/m2 10/07/2014 11:12am Weight 173.25 lb Heart Rate 66 /min BP Systolic Sitting 126 mmHg BP Diastolic Sitting 62 mmHg Pain Level 8 06/09/2014 12:51pm Weight 167.00 lb Heart Rate 84 /min BP Systolic Sitting 122 mmHg BP Diastolic Sitting 78 mmHg 03/09/2014 10:16am Height 64 inches 5'4" Heart Rate 81 /min BP Systolic Sitting 118 mmHg BP Diastolic Sitting 56 mmHg 12/25/2013 11:39am Height 64 inches 5'4" Weight 160.00 lb Heart Rate 76 /min BP Systolic Sitting 106 mmHg BP Diastolic Sitting 58 mmHg BMI (Body Mass Index) 27.5 kg/m2 10/30/2013 1:50pm Height 64 inches 5'4" Weight 170.00 lb Heart Rate 84 /min BP Systolic Sitting 112 mmHg BP Diastolic Sitting 78 mmHg BMI (Body Mass Index) 29.2 kg/m2 08/13/2013 1:53pm Height 64 inches 5'4" Weight 162.50 lb Heart Rate 68 /min BP Systolic Sitting 110 mmHg BP Diastolic Sitting 62 mmHg BMI (Body Mass Index) 27.9 kg/m2 06/10/2013 1:01pm Height 64 inches 5'4" Weight 158.00 lb Heart Rate 60 /min BP Systolic 116 mmHg BP Diastolic 58 mmHg BMI (Body Mass Index) 27.1 kg/m2 02/10/2013 1:36pm Height 64 inches 5'4" Weight 162.00 lb Heart Rate 82 /min BP Systolic Sitting 132 mmHg BP Diastolic Sitting 80 mmHg BMI (Body Mass Index) 27.8 kg/m2 11/07/2012 11:35am Height 64 inches 5'4" Weight 150.00 lb Heart Rate 80 /min BP Systolic Sitting 128 mmHg BP Diastolic Sitting 72 mmHg BMI (Body Mass Index) 25.7 kg/m2 08/07/2012 11:29am Height 64 inches 5'4" Weight 155.00 lb Heart Rate 78 /min BP Systolic Sitting 118 mmHg BP Diastolic Sitting 67 mmHg BMI (Body Mass Index) 26.6 kg/m2 06/10/2012 3:51pm Height 64 inches 5'4" Weight 164.00 lb Heart Rate 78 /min BP Systolic Sitting 126 mmHg BP Diastolic Sitting 71 mmHg BMI (Body Mass Index) 28.1 kg/m2 04/25/2012 2:05pm Height 64 inches 5'4" Weight 160.00 lb Heart Rate 73 /min BP Systolic Sitting 120 mmHg BP Diastolic Sitting 66 mmHg BMI (Body Mass Index) 27.5 kg/m2 03/18/2012 1:53pm Height 64 inches 5'4" Weight 160.00 lb Heart Rate 76 /min BP Systolic Sitting 119 mmHg BP Diastolic Sitting 64 mmHg BMI (Body Mass Index) 27.5 kg/m2 02/05/2012 11:49am Height 64 inches 5'4" Weight 164.00 lb Heart Rate 73 /min BP Systolic Sitting 124 mmHg BP Diastolic Sitting 76 mmHg BMI (Body Mass Index) 28.1 kg/m2 11/16/2011 11:52am Height 64 inches 5'4" Weight 158.00 lb Heart Rate 76 /min BP Systolic Sitting 112 mmHg BP Diastolic Sitting 64 mmHg BMI (Body Mass Index) 27.1 kg/m2 09/07/2011 12:01pm Height 64 inches 5'4" Weight 160.00 lb Heart Rate 58 /min BP Systolic Sitting 110 mmHg BP Diastolic Sitting 70 mmHg BMI (Body Mass Index) 27.5 kg/m2 07/24/2011 12:46pm Weight 156.00 lb Heart Rate 76 /min BP Systolic 130 mmHg BP Diastolic 70 mmHg 07/03/2011 10:56am Weight 155.00 lb BP Systolic 118 mmHg BP Diastolic 78 mmHg 05/04/2011 1:35pm Weight 152.00 lb BP Systolic 140 mmHg BP Diastolic 90 mmHg 03/16/2011 11:37am Weight 146.00 lb Heart Rate 80 /min BP Systolic 120 mmHg BP Diastolic 80 mmHg 01/31/2011 1:06pm Weight 147.00 lb Heart Rate 82 /min BP Systolic 122 mmHg BP Diastolic 75 mmHg 12/21/2010 11:25am Height 63 inches 5'3" Weight 148.00 lb Heart Rate 80 /min BP Systolic 130 mmHg BP Diastolic 72 mmHg BMI (Body Mass Index) 26.2 kg/m2 Results Test Date Facility Test Result H/L Range Note Order 09/05/2018 [facility] In-House EKG <pending> Laboratory test 08/20/2018 [facility] [place] CRP C-Reactive <pending> finding Protein Esr Sedimentation Rate <pending> CBC W/Auto Diff 08/20/2018 [facility] [place] Standing Orders White Blood Count <pending> RBC Red Blood Count <pending> Hemoglobin <pending> Hematocrit <pending> MCV (Corpuscular Volume) <pending> MCH (Corpuscular Hemoglobin) <pending> MCHC (Corpuscular Hemog Conc) <pending> RDW <pending> Platelet Count <pending> MPV <pending> Neutrophils <pending> Bands <pending> Lymphocytes <pending> Monocytes <pending> Eosinophils <pending> Basophils <pending> Absolute Basophil <pending> Absolute Eosinophil <pending> Absolute Lymphocyte <pending> Absolute Monocytes <pending> Absolute Neutrophils <pending> CMP Panel 08/20/2018 [facility] [place] Standing Orders Albumin <pending> Alt - SGPT <pending> Calcium <pending> Carbon Dioxide <pending> Chloride <pending> Creatinine <pending> Glucose Serum <pending> Alkaline Phosphatase <pending> Potassium <pending> Total Protein <pending> Sodium <pending> Ast - Sgot <pending> BUN - Urea Nitrogen <pending> Laboratory test finding 08/20/2018 [facility] [place] Standing Orders Magnesium <pending> Lipid Profile 08/12/2018 [facility] Triglycerides 228 mg/dL 1 (Trig/Chol/HDL) [address] [place] [address] [phone] Cholesterol 214 mg/dL 2 HDL Cholesterol 65.9 mg/dL 3 LDL Cholesterol 103 mg/dL 4 Comp Metabolic Panel 08/12/2018 [facility] Sodium 136 mmol/L N 135-145 [address] [place] [address] [phone] Potassium 3.7 mmol/L N 3.5-5.0 Chloride 99 mmol/L Low 101-111 Co2 Carbon Dioxide 32 mmol/L N 22-32 Anion Gap 5 mmol/L N 2-11 Glucose 96 mg/dL N 70-100 Blood Urea Nitrogen 10 mg/dL N 6-24 Creatinine 0.88 mg/dL N 0.51-0.95 BUN/Creatinine Ratio 11.4 N 8-20 Calcium 9.4 mg/dL N 8.6-10.3 Total Protein 6.5 g/dL N 6.4-8.9 Albumin 3.9 g/dL N 3.2-5.2 Globulin 2.6 g/dL N 2-4 Albumin/Globulin Ratio 1.5 N 1-3 Total Bilirubin 0.40 mg/dL N 0.2-1.0 Alkaline Phosphatase 49 U/L N 34-104 Alt 19 U/L N 7-52 Ast 27 U/L N 13-39 Egfr Non- 62.5 >60 Egfr 75.6 >60 5 Laboratory test 08/12/2018 [facility] C Reactive 9.70 mg/L High <8.[address] [place] [address] [phone] CBC Auto Diff 08/12/2018 [facility] White Blood 5.0 N 3.5- 10.[address] Count 10^3/[place] [address] [phone] Red Blood Count 3.65 10^6/uL Low 4.00-5.40 Hemoglobin 12.0 g/dL N 12.0-16.0 Hematocrit 36 % N 35-47 Mean Corpuscular Volume 98 fL High 80-97 Mean Corpuscular Hemoglobin 33 pg High 27-31 Mean Corpuscular HGB Conc 34 g/dL N 31-36 Red Cell Distribution Width 13 % N 10.5-15 Platelet Count 169 10^3/uL N 150-450 Mean Platelet Volume 9.1 um3 N 7.4-10.4 Abs Neutrophils 3.0 10^3/uL N 1.5-7.7 Abs Lymphocytes 1.6 10^3/uL N 1.0-4.8 Abs Monocytes 0.4 10^3/uL N 0-0.8 Abs Eosinophils 0 10^3/uL N 0-0.6 Abs Basophils 0 10^3/uL N 0-0.2 Abs Nucleated RBC 0 10^3/uL Granulocyte % 59.4 % N 38-83 Lymphocyte % 31.8 % N 25-47 Monocyte % 8.1 % High 0-7 Eosinophil % 0.2 % N 0-6 Basophil % 0.5 % N 0-2 Nucleated Red Blood Cells % 0.1 Laboratory test 08/12/2018 [facility] Erythrocyte Sed 44 mm/Hr High 0-[address] [place] [address] [phone] Laboratory test 07/08/2018 [facility] Erythrocyte Sed 57 mm/Hr High 0-[address] [place] [address] [phone] C Reactive Protein 3.21 mg/L N <8.01 CBC W/Auto 07/08/2018 [facility] White Blood 5.7 10^3/uL N 3.5 -10.[address] [place] [address] [phone] Red Blood Count 3.81 10^6/uL Low 4.00-5.40 Hemoglobin 12.5 g/dL N 12.0-16.0 Hematocrit 37 % N 35-47 Mean Corpuscular Volume 97 fL N 80-97 Mean Corpuscular Hemoglobin 33 pg High 27-31 Mean Corpuscular HGB Conc 34 g/dL N 31-36 Red Cell Distribution Width 14 % N 10.5-15 Platelet Count 177 10^3/uL N 150-450 Mean Platelet Volume 9.1 um3 N 7.4-10.4 Abs Neutrophils 3.6 10^3/uL N 1.5-7.7 Abs Lymphocytes 1.6 10^3/uL N 1.0-4.8 Abs Monocytes 0.5 10^3/uL N 0-0.8 Abs Eosinophils 0 10^3/uL N 0-0.6 Abs Basophils 0 10^3/uL N 0-0.2 Abs Nucleated RBC 0 10^3/uL Granulocyte % 63.3 % N 38-83 Lymphocyte % 28.0 % N 25-47 Monocyte % 7.8 % High 0-7 Eosinophil % 0.2 % N 0-6 Basophil % 0.7 % N 0-2 Nucleated Red Blood Cells % 0.3 CMP Panel 07/08/2018 [facility] Sodium 137 mmol/L N 135-[address] [place] [address] [phone] Potassium 4.0 mmol/L N 3.5-5.0 Chloride 100 mmol/L Low 101-111 Co2 Carbon Dioxide 31 mmol/L N 22-32 Anion Gap 6 mmol/L N 2-11 Glucose 110 mg/dL High 70-100 Blood Urea Nitrogen 15 mg/dL N 6-24 Creatinine 0.90 mg/dL N 0.51-0.95 BUN/Creatinine Ratio 16.7 N 8-20 Calcium 9.4 mg/dL N 8.6-10.3 Total Protein 7.1 g/dL N 6.4-8.9 Albumin 4.1 g/dL N 3.2-5.2 Globulin 3.0 g/dL N 2-4 Albumin/Globulin Ratio 1.4 N 1-3 Total Bilirubin 0.30 mg/dL N 0.2-1.0 Alkaline Phosphatase 62 U/L N 34-104 Alt 28 U/L N 7-52 Ast 35 U/L N 13-39 Egfr Non- 61.0 >60 Egfr 73.9 >60 6 Laboratory test 06/19/2018 [facility] C Reactive 6.68 mg/L N < 8.[address] [place] [address] [phone] Erythrocyte Sed Rate 66 mm/Hr High 0-40 CBC W/Auto 06/19/2018 [facility] White Blood 4.7 10^3/uL N 3.5 -10.[address] [place] [address] [phone] Red Blood Count 3.65 10^6/uL Low 4.00-5.40 Hemoglobin 11.9 g/dL Low 12.0-16.0 Hematocrit 36 % N 35-47 Mean Corpuscular Volume 98 fL High 80-97 Mean Corpuscular Hemoglobin 33 pg High 27-31 Mean Corpuscular HGB Conc 33 g/dL N 31-36 Red Cell Distribution Width 14 % N 10.5-15 Platelet Count 186 10^3/uL N 150-450 Mean Platelet Volume 9.1 um3 N 7.4-10.4 Abs Neutrophils 2.7 10^3/uL N 1.5-7.7 Abs Lymphocytes 1.6 10^3/uL N 1.0-4.8 Abs Monocytes 0.3 10^3/uL N 0-0.8 Abs Eosinophils 0 10^3/uL N 0-0.6 Abs Basophils 0 10^3/uL N 0-0.2 Abs Nucleated RBC 0 10^3/uL Granulocyte % 57.7 % N 38-83 Lymphocyte % 34.5 % N 25-47 Monocyte % 7.2 % High 0-7 Eosinophil % 0.2 % N 0-6 Basophil % 0.4 % N 0-2 Nucleated Red Blood Cells % 0.1 CMP Panel 06/19/2018 [facility] Sodium 138 mmol/L N 135-[address] [place] [address] [phone] Potassium 4.0 mmol/L N 3.5-5.0 Chloride 101 mmol/L N 101-111 Co2 Carbon Dioxide 34 mmol/L High 22-32 Anion Gap 3 mmol/L N 2-11 Glucose 72 mg/dL N 70-100 Blood Urea Nitrogen 13 mg/dL N 6-24 Creatinine 0.90 mg/dL N 0.51-0.95 BUN/Creatinine Ratio 14.4 N 8-20 Calcium 8.7 mg/dL N 8.6-10.3 Total Protein 6.2 g/dL Low 6.4-8.9 Albumin 3.7 g/dL N 3.2-5.2 Globulin 2.5 g/dL N 2-4 Albumin/Globulin Ratio 1.5 N 1-3 Total Bilirubin 0.40 mg/dL N 0.2-1.0 Alkaline Phosphatase 65 U/L N 34-104 Alt 24 U/L N 7-52 Ast 25 U/L N 13-39 Egfr Non- 61.0 >60 Egfr 73.9 >60 7 Iron And Tibc Serum 06/19/2018 [facility] Iron 85 g/dL N 50- [address] [place] [address] [phone] Unsaturated Iron Binding 244 g/dL Total Iron Binding Capacity 329 g/dL N 250-450 Transferrin 235 mg/dL N 203-362 % Iron Saturation 26 % N 15-55 Laboratory test 01/23/2018 [facility] Erythrocyte Sed 51 mm/Hr High 0-[address] [place] [address] [phone] C Reactive Protein 9.44 mg/L High < 5.00 8 Comp Metabolic Panel 01/23/2018 [facility] Sodium 137 mmol/L Low 139-[address] [place] [address] [phone] Potassium 3.6 mmol/L N 3.5-5.0 Chloride 99 mmol/L Low 101-111 Co2 Carbon Dioxide 33 mmol/L High 22-32 Anion Gap 5 mmol/L N 2-11 Glucose 121 mg/dL High 70-100 Blood Urea Nitrogen 12 mg/dL N 6-24 Creatinine 0.85 mg/dL N 0.51-0.95 BUN/Creatinine Ratio 14.1 N 8-20 Calcium 9.7 mg/dL N 8.6-10.3 Total Protein 6.3 g/dL Low 6.4-8.9 Albumin 3.7 g/dL N 3.2-5.2 Globulin 2.6 g/dL N 2-4 Albumin/Globulin Ratio 1.4 N 1-3 Total Bilirubin 0.40 mg/dL N 0.2-1.0 Alkaline Phosphatase 59 U/L N 34-104 Alt 26 U/L N 7-52 Ast 27 U/L N 13-39 Egfr Non- 65.2 >60 Egfr 83.9 >60 9 CBC Auto Diff 01/23/2018 [facility] White Blood 4.7 10^3/uL N 3.5-10.[address] [place] [address] [phone] Red Blood Count 3.64 10^6/uL Low 4.0-5.4 Hemoglobin 11.7 g/dL Low 12.0-16.0 Hematocrit 35 % N 35-47 Mean Corpuscular Volume 96 fL N 80-97 Mean Corpuscular Hemoglobin 32 pg High 27-31 Mean Corpuscular HGB Conc 34 g/dL N 31-36 Red Cell Distribution Width 13 % N 10.5-15 Platelet Count 171 10^3/uL N 150-450 Mean Platelet Volume 9.4 um3 N 7.4-10.4 Abs Neutrophils 2.5 10^3/uL N 1.5-7.7 Abs Lymphocytes 1.8 10^3/uL N 1.0-4.8 Abs Monocytes 0.4 10^3/uL N 0-0.8 Abs Eosinophils 0 10^3/uL N 0-0.6 Abs Basophils 0 10^3/uL N 0-0.2 Abs Nucleated RBC 0 10^3/uL Granulocyte % 53.6 % N 38-83 Lymphocyte % 38.2 % N 25-47 Monocyte % 7.7 % High 0-7 Eosinophil % 0.2 % N 0-6 Basophil % 0.3 % N 0-2 Nucleated Red Blood Cells % 0 Iron & Iron Binding 01/23/2018 [facility] Iron 87 g/dL N 50- [address] [place] [address] [phone] Unsaturated Iron Binding 199 g/dL Total Iron Binding Capacity 286 g/dL N 250-450 Transferrin 204 mg/dL N 203-362 % Iron Saturation 30 % N 15-55 Laboratory test 11/06/2017 [facility] Erythrocyte Sed 41 mm/Hr High 0-40 [address] [place] [address] [phone] C Reactive Protein 2.45 mg/L N < 5.00 11 CBC Auto Diff 11/06/2017 [facility] White Blood 4.0 10^3/uL N 3.5-10.[address] [place] [address] [phone] Red Blood Count 3.74 10^6/uL Low 4.0-5.4 Hemoglobin 11.7 g/dL Low 12.0-16.0 Hematocrit 35 % N 35-47 Mean Corpuscular Volume 93 fL N 80-97 Mean Corpuscular Hemoglobin 31 pg N 27-31 Mean Corpuscular HGB Conc 34 g/dL N 31-36 Red Cell Distribution Width 14 % N 10.5-15 Platelet Count 176 10^3/uL N 150-450 Mean Platelet Volume 10 um3 N 7.4-10.4 Abs Neutrophils 2.1 10^3/uL N 1.5-7.7 Abs Lymphocytes 1.5 10^3/uL N 1.0-4.8 Abs Monocytes 0.3 10^3/uL N 0-0.8 Abs Eosinophils 0 10^3/uL N 0-0.6 Abs Basophils 0 10^3/uL N 0-0.2 Abs Nucleated RBC 0 10^3/uL Granulocyte % 53.3 % N 38-83 Lymphocyte % 38.2 % N 25-47 Monocyte % 7.9 % N 1-9 Eosinophil % 0.2 % N 0-6 Basophil % 0.4 % N 0-2 Nucleated Red Blood Cells % 0.1 Comp Metabolic Panel 11/06/2017 [facility] Sodium 135 mmol/L N 133-[address] [place] [address] [phone] Potassium 4.3 mmol/L N 3.5-5.0 Chloride 100 mmol/L Low 101-111 Co2 Carbon Dioxide 29 mmol/L N 22-32 Anion Gap 6 mmol/L N 2-11 Glucose 93 mg/dL N 70-100 Blood Urea Nitrogen 14 mg/dL N 6-24 Creatinine 0.82 mg/dL N 0.51-0.95 BUN/Creatinine Ratio 17.1 N 8-20 Calcium 9.0 mg/dL N 8.6-10.3 Total Protein 6.2 g/dL Low 6.4-8.9 Albumin 3.7 g/dL N 3.2-5.2 Globulin 2.5 g/dL N 2-4 Albumin/Globulin Ratio 1.5 N 1-3 Total Bilirubin 0.30 mg/dL N 0.2-1.0 Alkaline Phosphatase 71 U/L N 34-104 Alt 27 U/L N 7-52 Ast 26 U/L N 13-39 Egfr Non- 68.0 >60 Egfr 87.4 >60 12 Vitamin D 1,25 11/06/2017 [facility] Vitamin D Total 45.6 ng/mL N 20-50 13 And Vitamin D,[address] 25(Oh) [place] [address] [phone] Vitamin D, 1,25 Dihydroxy 31 pg/mL 18-78 14 Laboratory 11/06/2017 [facility] TSH (Thyroid Stim 3.15 N 0.34 -5.60 [address] Horm) mcIU/[place] [address] [phone] Lipid Panel - 11/06/2017 [facility] Creatine 119 U/L N 10-[address] Kinase(CK) [place] [address] [phone] Lipid Profile 11/06/2017 [facility] Triglycerides 177 mg/dL 16 (Trig/Chol/HDL [address] ) [place] [address] [phone] Cholesterol 139 mg/dL 17 HDL Cholesterol 69.2 mg/dL 18 LDL Cholesterol 34 mg/dL 19 Laboratory test 01/04/2017 [facility] Erythrocyte Sed 36 mm/Hr N 0-40 [address] [place] [address] [phone] C Reactive Protein 4.04 mg/L N < 5.00 21 CBC Auto 01/04/2017 [facility] White Blood 12.1 10^3/uL High 3.5-10.[address] [place] [address] [phone] Red Blood Count 4.10 10^6/uL N 4.0-5.4 Hemoglobin 12.6 g/dL N 12.0-16.0 Hematocrit 38 % N 35-47 Mean Corpuscular Volume 94 fL N 80-97 Mean Corpuscular Hemoglobin 31 pg N 27-31 Mean Corpuscular HGB Conc 33 g/dL N 31-36 Red Cell Distribution Width 14 % N 10.5-15 Platelet Count 186 10^3/uL N 150-450 Mean Platelet Volume 11 um3 High 7.4-10.4 Abs Neutrophils 9.4 10^3/uL High 1.5-7.7 Abs Lymphocytes 1.8 10^3/uL N 1.0-4.8 Abs Monocytes 0.8 10^3/uL N 0-0.8 Abs Eosinophils 0 10^3/uL N 0-0.6 Abs Basophils 0 10^3/uL N 0-0.2 Abs Nucleated RBC 0.01 10^3/uL N Granulocyte % 77.8 % N 38-83 Lymphocyte % 15.1 % Low 25-47 Monocyte % 6.8 % N 1-9 Eosinophil % 0 % N 0-6 Basophil % 0.3 % N 0-2 Nucleated Red Blood Cells % 0.1 N Comp Metabolic Panel 01/04/2017 [facility] Sodium 137 mmol/L N 133-[address] [place] [address] [phone] Potassium 3.9 mmol/L N 3.5-5.0 Chloride 100 mmol/L Low 101-111 Co2 Carbon Dioxide 32 mmol/L N 22-32 Anion Gap 5 mmol/L N 2-11 Glucose 118 mg/dL High 70-100 Blood Urea Nitrogen 30 mg/dL High 6-24 Creatinine 0.80 mg/dL N 0.51-0.95 BUN/Creatinine Ratio 37.5 High 8-20 Calcium 8.7 mg/dL N 8.6-10.3 Total Protein 6.3 g/dL Low 6.4-8.9 Albumin 3.7 g/dL N 3.2-5.2 Globulin 2.6 g/dL N 2-4 Albumin/Globulin Ratio 1.4 N 1-3 Total Bilirubin 0.30 mg/dL N 0.2-1.0 Alkaline Phosphatase 55 U/L N 34-104 Alt 38 U/L N 7-52 Ast 17 U/L N 13-39 Egfr Non- 70.1 N >60 Egfr 90.2 N >60 22 Laboratory test 01/04/2017 [facility] Magnesium 2.1 mg/dL N 1.9-2.7 [address] [place] [address] [phone] Comp Metabolic 10/08/2016 [facility] Sodium 135 mmol/L N 133- [address] [place] [address] [phone] Potassium 3.8 mmol/L N 3.5-5.0 Chloride 101 mmol/L N 101-111 Co2 Carbon Dioxide 30 mmol/L N 22-32 Anion Gap 4 mmol/L N 2-11 Glucose 93 mg/dL N 70-100 Blood Urea Nitrogen 14 mg/dL N 6-24 Creatinine 0.80 mg/dL N 0.51-0.95 BUN/Creatinine Ratio 17.5 N 8-20 Calcium 8.2 mg/dL Low 8.6-10.3 Total Protein 6.1 g/dL Low 6.4-8.9 Albumin 3.4 g/dL N 3.2-5.2 Globulin 2.7 g/dL N 2-4 Albumin/Globulin Ratio 1.3 N 1-3 Total Bilirubin 0.20 mg/dL N 0.2-1.0 Alkaline Phosphatase 57 U/L N 34-104 Alt 10 U/L N 7-52 Ast 15 U/L N 13-39 Egfr Non- 70.1 N >60 Egfr 90.2 N >60 24 Laboratory test 10/08/2016 [facility] C Reactive 7.94 mg/L High < 5.00 [address] [place] [address] [phone] CBC Auto Diff 10/08/2016 [facility] White Blood 4.1 N 3.5- 10.[address] Count 10^3/[place] [address] [phone] Red Blood Count 3.67 10^6/uL Low 4.0-5.4 Hemoglobin 11.3 g/dL Low 12.0-16.0 Hematocrit 34 % Low 35-47 Mean Corpuscular Volume 92 fL N 80-97 Mean Corpuscular Hemoglobin 31 pg N 27-31 Mean Corpuscular HGB Conc 33 g/dL N 31-36 Red Cell Distribution Width 13 % N 10.5-15 Platelet Count 170 10^3/uL N 150-450 Mean Platelet Volume 9 um3 N 7.4-10.4 Abs Neutrophils 1.9 10^3/uL N 1.5-7.7 Abs Lymphocytes 1.6 10^3/uL N 1.0-4.8 Abs Monocytes 0.4 10^3/uL N 0-0.8 Abs Eosinophils 0 10^3/uL N 0-0.6 Abs Basophils 0 10^3/uL N 0-0.2 Abs Nucleated RBC 0 10^3/uL N Granulocyte % 47.9 % N 38-83 Lymphocyte % 40.5 % N 25-47 Monocyte % 10.4 % High 1-9 Eosinophil % 0.3 % N 0-6 Basophil % 0.9 % N 0-2 Nucleated Red Blood Cells % 0 N Laboratory test 10/08/2016 [facility] Erythrocyte Sed 64 mm/Hr High 0-40 [address] [place] [address] [phone] Laboratory test 07/20/2016 [facility] Erythrocyte Sed 69 mm/Hr High 0-40 [address] [place] [address] [phone] C Reactive Protein 21.74 mg/L High < 5.00 28 CBC Auto Diff 07/20/2016 [facility] White Blood 4.9 10^3/uL N 3.5-10.[address] [place] [address] [phone] Red Blood Count 3.73 10^6/uL Low 4.0-5.4 Hemoglobin 11.1 g/dL Low 12.0-16.0 Hematocrit 34 % Low 35-47 Mean Corpuscular Volume 92 fL N 80-97 Mean Corpuscular Hemoglobin 30 pg N 27-31 Mean Corpuscular HGB Conc 33 g/dL N 31-36 Red Cell Distribution Width 15 % N 10.5-15 Platelet Count 183 10^3/uL N 150-450 Mean Platelet Volume 10 um3 N 7.4-10.4 Abs Neutrophils 2.9 10^3/uL N 1.5-7.7 Abs Lymphocytes 1.5 10^3/uL N 1.0-4.8 Abs Monocytes 0.4 10^3/uL N 0-0.8 Abs Eosinophils 0 10^3/uL N 0-0.6 Abs Basophils 0 10^3/uL N 0-0.2 Abs Nucleated RBC 0 10^3/uL N Granulocyte % 60.3 % N 38-83 Lymphocyte % 30.0 % N 25-47 Monocyte % 9.1 % High 1-9 Eosinophil % 0 % N 0-6 Basophil % 0.6 % N 0-2 Nucleated Red Blood Cells % 0.1 N Comp Metabolic Panel 07/20/2016 [facility] Sodium 135 mmol/L N 133-145 [address] [place] [address] [phone] Potassium 4.6 mmol/L N 3.5-5.0 Chloride 102 mmol/L N 101-111 Co2 Carbon Dioxide 28 mmol/L N 22-32 Anion Gap 5 mmol/L N 2-11 Glucose 110 mg/dL High 70-100 Blood Urea Nitrogen 14 mg/dL N 6-24 Creatinine 0.88 mg/dL N 0.51-0.95 BUN/Creatinine Ratio 15.9 N 8-20 Calcium 9.0 mg/dL N 8.6-10.3 Total Protein 6.6 g/dL N 6.4-8.9 Albumin 3.7 g/dL N 3.2-5.2 Globulin 2.9 g/dL N 2-4 Albumin/Globulin Ratio 1.3 N 1-3 Total Bilirubin 0.40 mg/dL N 0.2-1.0 Alkaline Phosphatase 67 U/L N 34-104 Alt 10 U/L N 7-52 Ast 16 U/L N 13-39 Egfr Non- 62.8 N >60 Egfr 80.8 N >60 29 Pthi 05/28/2016 [facility] Calcium (PTH Intact) 8.6 mg/dL N 8.6-10.[address] [place] [address] [phone] PTH Intact 5.3 pmol/L N 1.3-9.3 Comp Metabolic Panel 05/28/2016 [facility] Sodium 133 mmol/L N 133-145 [address] [place] [address] [phone] Potassium 4.3 mmol/L N 3.5-5.0 Chloride 101 mmol/L N 101-111 Co2 Carbon Dioxide 26 mmol/L N 22-32 Anion Gap 6 mmol/L N 2-11 Glucose 101 mg/dL High 70-100 Blood Urea Nitrogen 16 mg/dL N 6-24 Creatinine 0.88 mg/dL N 0.51-0.95 BUN/Creatinine Ratio 18.2 N 8-20 Calcium 8.8 mg/dL N 8.6-10.3 Total Protein 6.4 g/dL N 6.4-8.9 Albumin 3.6 g/dL N 3.2-5.2 Globulin 2.8 g/dL N 2-4 Albumin/Globulin Ratio 1.3 N 1-3 Total Bilirubin 0.40 mg/dL N 0.2-1.0 Alkaline Phosphatase 63 U/L N 34-104 Alt 7 U/L N 7-52 Ast 13 U/L N 13-39 Egfr Non- 63.0 N >60 Egfr 81.0 N >60 30 Iron & Iron Binding 05/28/2016 [facility] Iron 90 g/dL N 50- 212 [address] [place] [address] [phone] Unsaturated Iron Binding 277 g/dL N Total Iron Binding Capacity 367 g/dL N 250-450 % Iron Saturation 25 % N 15-55 Laboratory test 05/28/2016 [facility] C Reactive 12.05 mg/L High < 5.00 31 finding [address] [facility] [place] [address] [phone] Ferritin 30.5 ng/mL N 11-307 Vitamin B12 371 pg/mL N 180-914 32 CBC Auto Diff 05/28/2016 [facility] White Blood 3.9 10^3/uL N 3.5-10.[address] [place] [address] [phone] Red Blood Count 4.05 10^6/uL N 4.0-5.4 Hemoglobin 11.7 g/dL Low 12.0-16.0 Hematocrit 36 % N 35-47 Mean Corpuscular Volume 88 fL N 80-97 Mean Corpuscular Hemoglobin 29 pg N 27-31 Mean Corpuscular HGB Conc 33 g/dL N 31-36 Red Cell Distribution Width 15 % N 10.5-15 Platelet Count 157 10^3/uL N 150-450 Mean Platelet Volume 11 um3 High 7.4-10.4 Abs Neutrophils 2.7 10^3/uL N 1.5-7.7 Abs Lymphocytes 0.8 10^3/uL Low 1.0-4.8 Abs Monocytes 0.4 10^3/uL N 0-0.8 Abs Eosinophils 0 10^3/uL N 0-0.6 Abs Basophils 0 10^3/uL N 0-0.2 Abs Nucleated RBC 0 10^3/uL N Granulocyte % 69.0 % N 38-83 Lymphocyte % 21.2 % Low 25-47 Monocyte % 9.3 % High 1-9 Eosinophil % 0 % N 0-6 Basophil % 0.5 % N 0-2 Nucleated Red Blood Cells % 0.1 N Laboratory test 05/28/2016 [facility] Erythrocyte Sed 51 mm/Hr High 0-[address] [place] [address] [phone] Protein 05/28/2016 [facility] Total 6.9 g/dL N 6.3 - Electrophoresis [address] Protein(Pep) 7.9 [place] [address] [phone] Albumin 3.2 g/dL Abnormal 3.4-4.7 Alpha-1 Globulin 0.3 g/dL N 0.1-0.3 Alpha-2 Globulin 1.0 g/dL N 0.6-1.0 Beta Globulin 1.0 g/dL N 0.7-1.2 Gamma Globulin 1.4 g/dL N 0.6-1.6 Albumin/Globulin Ratio 0.87 N M Jong 0.5 g/dL N Impression See Comment N 33 Laboratory test 05/28/2016 [facility] TSH (Thyroid 1.18 mcIU/mL N 0.34-5.[address] Stim Horm) [place] [address] [phone] Free T4 (Free Thyroxine) 0.80 ng/dL N 0.61-1.12 T3 Free 2.90 pg/mL N 2.5-3.9 RBC Folic Acid 05/28/2016 [facility] Red Blood Cell Folate 1474 N [address] [place] [address] [phone] RBC Folate HCT 34.5 N 35 RBC Folate Hemolysate 508.7 N 36 Laboratory test 02/23/2016 [facility] C Reactive 10.43 mg/L High < 5.00 [address] [place] [address] [phone] Erythrocyte Sed Rate 61 mm/Hr High 0-40 38 CBC Auto Diff 02/23/2016 [facility] White Blood 4.5 10^3/uL N 3.5-10.[address] [place] [address] [phone] Red Blood Count 3.45 10^6/uL Low 4.0-5.4 Hemoglobin 10.5 g/dL Low 12.0-16.0 Hematocrit 32 % Low 35-47 Mean Corpuscular Volume 94 fL N 80-97 Mean Corpuscular Hemoglobin 30 pg N 27-31 Mean Corpuscular HGB Conc 32 g/dL N 31-36 Red Cell Distribution Width 14 % N 10.5-15 Platelet Count 212 10^3/uL N 150-450 Mean Platelet Volume 10 um3 N 7.4-10.4 Abs Neutrophils 2.7 10^3/uL N 1.5-7.7 Abs Lymphocytes 1.2 10^3/uL N 1.0-4.8 Abs Monocytes 0.6 10^3/uL N 0-0.8 Abs Eosinophils 0 10^3/uL N 0-0.6 Abs Basophils 0 10^3/uL N 0-0.2 Abs Nucleated RBC 0 10^3/uL N Granulocyte % 59.3 % N 38-83 Lymphocyte % 26.9 % N 25-47 Monocyte % 13.3 % High 1-9 Eosinophil % 0 % N 0-6 Basophil % 0.5 % N 0-2 Nucleated Red Blood Cells % 0.1 N Comp Metabolic Panel 02/23/2016 [facility] Sodium 134 mmol/L N 133-[address] [place] [address] [phone] Potassium 4.0 mmol/L N 3.5-5.0 Chloride 101 mmol/L N 101-111 Co2 Carbon Dioxide 27 mmol/L N 22-32 Anion Gap 6 mmol/L N 2-11 Glucose 94 mg/dL N 70-100 Blood Urea Nitrogen 12 mg/dL N 6-24 Creatinine 0.84 mg/dL N 0.51-0.95 BUN/Creatinine Ratio 14.3 N 8-20 Calcium 8.5 mg/dL Low 8.6-10.3 Total Protein 6.7 g/dL N 6.4-8.9 Albumin 3.8 g/dL N 3.2-5.2 Globulin 2.9 g/dL N 2-4 Albumin/Globulin Ratio 1.3 N 1-3 Total Bilirubin 0.30 mg/dL N 0.2-1.0 Alkaline Phosphatase 63 U/L N 34-104 Alt 15 U/L N 7-52 Ast 20 U/L N 13-39 Egfr Non- 66.5 N >60 Egfr 85.5 N >60 39 CBC Auto 11/11/2015 [facility] White Blood 10.9 10^3/uL High 3.5-10.8 [address] [place] [address] [phone] Red Blood Count 3.74 10^6/uL Low 4.0-5.4 Hemoglobin 11.7 g/dL Low 12.0-16.0 Hematocrit 37 % N 35-47 Mean Corpuscular Volume 98 fL High 80-97 Mean Corpuscular Hemoglobin 31 pg N 27-31 Mean Corpuscular HGB Conc 32 g/dL N 31-36 Red Cell Distribution Width 15 % N 10.5-15 Platelet Count 170 10^3/uL N 150-450 Mean Platelet Volume 10 um3 N 7.4-10.4 Abs Neutrophils 10.2 10^3/uL High 1.5-7.7 Abs Lymphocytes 0.5 10^3/uL Low 1.0-4.8 Abs Monocytes 0.1 10^3/uL N 0-0.8 Abs Eosinophils 0 10^3/uL N 0-0.6 Abs Basophils 0 10^3/uL N 0-0.2 Abs Nucleated RBC 0 10^3/uL N Granulocyte % 94.0 % High 38-83 Lymphocyte % 4.8 % Low 25-47 Monocyte % 1.2 % N 1-9 Eosinophil % 0 % N 0-6 Basophil % 0 % N 0-2 Nucleated Red Blood Cells % 0 N Comp Metabolic Panel 11/11/2015 [facility] Sodium 134 mmol/L N 133-[address] [place] [address] [phone] Potassium 4.4 mmol/L N 3.5-5.0 Chloride 100 mmol/L Low 101-111 Co2 Carbon Dioxide 27 mmol/L N 22-32 Anion Gap 7 mmol/L N 2-11 Glucose 170 mg/dL High 70-100 Blood Urea Nitrogen 19 mg/dL N 6-24 Creatinine 0.80 mg/dL N 0.51-0.95 BUN/Creatinine Ratio 23.8 High 8-20 Calcium 8.5 mg/dL Low 8.6-10.3 Total Protein 6.3 g/dL Low 6.4-8.9 Albumin 4.1 g/dL N 3.2-5.2 Globulin 2.2 g/dL N 2-4 Albumin/Globulin Ratio 1.9 N 1-3 Total Bilirubin 0.30 mg/dL N 0.2-1.0 Alkaline Phosphatase 41 U/L N 34-104 Alt 20 U/L N 7-52 Ast 16 U/L N 13-39 Egfr Non- 70.3 N >60 Egfr 90.4 N >60 41 Laboratory test 11/11/2015 [facility] Erythrocyte Sed 27 mm/Hr N 0-40 [address] [place] [address] [phone] C Reactive Protein 2.89 mg/L N < 5.00 43 Pthi 11/11/2015 [facility] Calcium (PTH Intact) 8.5 mg/dL Low 8.6-10.[address] [place] [address] [phone] PTH Intact 13.0 pmol/L High 1.3-9.3 CBC Auto 06/21/2015 [facility] White Blood 4.6 10^3/uL Low 4.8 -10.[address] [place] [address] [phone] Red Blood Count 3.99 10^6/uL Low 4.0-5.4 Hemoglobin 12.3 g/dL N 12.0-16.0 Hematocrit 38 % N 35-47 Mean Corpuscular Volume 95 fL N 80-97 Mean Corpuscular Hemoglobin 31 pg N 27-31 Mean Corpuscular HGB Conc 32 g/dL N 31-36 Red Cell Distribution Width 14 % N 10.5-15 Platelet Count 186 10^3/uL N 150-450 Mean Platelet Volume 10 um3 N 7.4-10.4 Abs Neutrophils 2.3 10^3/uL N 1.5-7.7 Abs Lymphocytes 1.3 10^3/uL N 1.0-4.8 Abs Monocytes 0.6 10^3/uL N 0-0.8 Abs Eosinophils 0.3 10^3/uL N 0-0.6 Abs Basophils 0.1 10^3/uL N 0-0.2 Abs Nucleated RBC 0.01 10^3/uL N Granulocyte % 50.9 % N 38-83 Lymphocyte % 28.7 % N 25-47 Monocyte % 13.0 % High 1-9 Eosinophil % 5.8 % N 0-6 Basophil % 1.6 % N 0-2 Nucleated Red Blood Cells % 0.1 N Comp Metabolic Panel 06/21/2015 [facility] Sodium 136 mmol/L N 133-[address] [place] [address] [phone] Potassium 4.8 mmol/L N 3.5-5.0 Chloride 101 mmol/L N 101-111 Co2 Carbon Dioxide 31 mmol/L N 22-32 Anion Gap 4 mmol/L N 2-11 Glucose 105 mg/dL High 70-100 Blood Urea Nitrogen 12 mg/dL N 6-24 Creatinine 0.80 mg/dL N 0.51-0.95 BUN/Creatinine Ratio 15.0 N 8-20 Calcium 9.0 mg/dL N 8.6-10.3 Total Protein 6.7 g/dL N 6.4-8.9 Albumin 3.9 g/dL N 3.2-5.2 Globulin 2.8 g/dL N 2-4 Albumin/Globulin Ratio 1.4 N 1-3 Total Bilirubin 0.40 mg/dL N 0.2-1.0 Alkaline Phosphatase 62 U/L N 34-104 Alt 12 U/L N 7-52 Ast 17 U/L N 13-39 Egfr Non- 70.5 N >60 Egfr 90.7 N >60 44 Laboratory test 06/21/2015 [facility] C Reactive 10.66 mg/L High < 5.00 [address] [place] [address] [phone] Erythrocyte Sed Rate 60 mm/Hr High 0-40 CBC Auto 05/24/2015 [facility] White Blood 3.1 10^3/uL Low 4.8 -10.[address] [place] [address] [phone] Red Blood Count 3.74 10^6/uL Low 4.0-5.4 Hemoglobin 11.6 g/dL Low 12.0-16.0 Hematocrit 35 % N 35-47 Mean Corpuscular Volume 95 fL N 80-97 Mean Corpuscular Hemoglobin 31 pg N 27-31 Mean Corpuscular HGB Conc 33 g/dL N 31-36 Red Cell Distribution Width 13 % N 10.5-15 Platelet Count 166 10^3/uL N 150-450 Mean Platelet Volume 10 um3 N 7.4-10.4 Abs Neutrophils 1.6 10^3/uL N 1.5-7.7 Abs Lymphocytes 0.9 10^3/uL Low 1.0-4.8 Abs Monocytes 0.4 10^3/uL N 0-0.8 Abs Eosinophils 0.1 10^3/uL N 0-0.6 Abs Basophils 0 10^3/uL N 0-0.2 Abs Nucleated RBC 0 10^3/uL N Granulocyte % 52.4 % N 38-83 Lymphocyte % 30.0 % N 25-47 Monocyte % 12.0 % High 1-9 Eosinophil % 4.6 % N 0-6 Basophil % 1.0 % N 0-2 Nucleated Red Blood Cells % 0.1 N Comp Metabolic Panel 05/24/2015 [facility] Sodium 136 mmol/L N 133-[address] [place] [address] [phone] Potassium 4.7 mmol/L N 3.5-5.0 Chloride 103 mmol/L N 101-111 Co2 Carbon Dioxide 30 mmol/L N 22-32 Anion Gap 3 mmol/L N 2-11 Glucose 106 mg/dL High 70-100 Blood Urea Nitrogen 10 mg/dL N 6-24 Creatinine 0.88 mg/dL N 0.51-0.95 BUN/Creatinine Ratio 11.4 N 8-20 Calcium 9.0 mg/dL N 8.6-10.3 Total Protein 6.2 g/dL Low 6.4-8.9 Albumin 3.8 g/dL N 3.2-5.2 Globulin 2.4 g/dL N 2-4 Albumin/Globulin Ratio 1.6 N 1-3 Total Bilirubin 0.40 mg/dL N 0.2-1.0 Alkaline Phosphatase 52 U/L N 34-104 Alt 15 U/L N 7-52 Ast 23 U/L N 13-39 Egfr Non- 63.2 N >60 Egfr 81.2 N >60 46 Laboratory test 05/24/2015 [facility] Erythrocyte Sed 47 mm/Hr High 0-[address] [place] [address] [phone] C Reactive Protein 8.05 mg/L High < 5.00 47 Urinalysis Profile 04/07/2015 [facility] Urine Color Yellow N [address] [place] [address] [phone] Urine Appearance Cloudy N Urine Specific [place] 1.013 N 1.010-1.030 Urine pH 5.0 N 5-9 Urine Urobilinogen Negative N Negative Urine Ketones Negative N Negative Urine Protein Negative N Negative Urine Leukocytes Negative N Negative Urine Blood Negative N Negative Urine Nitrite Negative N Negative Urine Bilirubin Negative N Negative Urine Glucose Negative N Negative Lipid Profile 04/07/2015 [facility] Triglycerides 154 mg/dL N 48 (Trig/Chol/HDL) [address] [place] [address] [phone] Cholesterol 191 mg/dL N 49 HDL Cholesterol 59.8 mg/dL N 50 LDL Cholesterol 100 mg/dL N 51 Laboratory test 04/07/2015 [facility] Creatine 122 U/L N 10- [address] Kinase(CK) [place] [address] [phone] TSH (Thyroid Stim Horm) 4.90 ?IU/mL N 0.34-5.60 CBC Auto 04/07/2015 [facility] White Blood 3.5 10^3/uL Low 4.8 -10.[address] [place] [address] [phone] Red Blood Count 3.97 10^6/uL Low 4.0-5.4 Hemoglobin 12.2 g/dL N 12.0-16.0 Hematocrit 37 % N 35-47 Mean Corpuscular Volume 94 fL N 80-97 Mean Corpuscular Hemoglobin 31 pg N 27-31 Mean Corpuscular HGB Conc 33 g/dL N 31-36 Red Cell Distribution Width 13 % N 10.5-15 Platelet Count 165 10^3/uL N 150-450 Mean Platelet Volume 9 um3 N 7.4-10.4 Abs Neutrophils 1.9 10^3/uL N 1.5-7.7 Abs Lymphocytes 1.1 10^3/uL N 1.0-4.8 Abs Monocytes 0.5 10^3/uL N 0-0.8 Abs Eosinophils 0 10^3/uL N 0-0.6 Abs Basophils 0 10^3/uL N 0-0.2 Abs Nucleated RBC 0 10^3/uL N Granulocyte % 54.9 % N 38-83 Lymphocyte % 30.0 % N 25-47 Monocyte % 13.2 % High 1-9 Eosinophil % 1.0 % N 0-6 Basophil % 0.9 % N 0-2 Nucleated Red Blood Cells % 0.1 N Comp Metabolic Panel 04/07/2015 [facility] Sodium 135 mmol/L N 133-145 [address] [place] [address] [phone] Potassium 4.0 mmol/L N 3.5-5.0 Chloride 99 mmol/L Low 101-111 Co2 Carbon Dioxide 29 mmol/L N 22-32 Anion Gap 7 mmol/L N 2-11 Glucose 105 mg/dL High 70-100 Blood Urea Nitrogen 12 mg/dL N 6-24 Creatinine 0.88 mg/dL N 0.51-0.95 BUN/Creatinine Ratio 13.6 N 8-20 Calcium 9.1 mg/dL N 8.6-10.3 Total Protein 6.6 g/dL N 6.4-8.9 Albumin 3.9 g/dL N 3.2-5.2 Globulin 2.7 g/dL N 2-4 Albumin/Globulin Ratio 1.4 N 1-3 Total Bilirubin 0.40 mg/dL N 0.2-1.0 Alkaline Phosphatase 52 U/L N 34-104 Alt 12 U/L N 7-52 Ast 18 U/L N 13-39 Egfr Non- 63.2 N >60 Egfr 81.2 N >60 52 Laboratory test 04/07/2015 [facility] C Reactive 12.00 mg/L High < 5.00 [address] [place] [address] [phone] Erythrocyte Sed Rate 54 mm/Hr High 0-40 Laboratory test 01/06/2015 [facility] Erythrocyte Sed 46 mm/Hr High 0-[address] [place] [address] [phone] C Reactive Protein 13.29 mg/L High < 5.00 54 Comp Metabolic Panel 01/06/2015 [facility] Sodium 133 mmol/L N 133-[address] [place] [address] [phone] Potassium 4.3 mmol/L N 3.5-5.0 Chloride 100 mmol/L Low 101-111 Co2 Carbon Dioxide 31 mmol/L N 22-32 Anion Gap 2 mmol/L N 2-11 Glucose 112 mg/dL High 70-100 Blood Urea Nitrogen 12 mg/dL N 6-24 Creatinine 0.90 mg/dL N 0.51-0.95 BUN/Creatinine Ratio 13.3 N 8-20 Calcium 9.2 mg/dL N 8.6-10.3 Total Protein 6.7 g/dL N 6.4-8.9 Albumin 3.9 g/dL N 3.2-5.2 Globulin 2.8 g/dL N 2-4 Albumin/Globulin Ratio 1.4 N 1-3 Total Bilirubin 0.30 mg/dL N 0.2-1.0 Alkaline Phosphatase 55 U/L N 34-104 Alt 15 U/L N 7-52 Ast 20 U/L N 13-39 Egfr Non- 61.5 N >60 Egfr 79.2 N >60 55 CBC Auto 01/06/2015 [facility] White Blood 4.2 10^3/uL Low 4.8 -10.[address] [place] [address] [phone] Red Blood Count 3.98 10^6/uL Low 4.0-5.4 Hemoglobin 12.1 g/dL N 12.0-16.0 Hematocrit 37 % N 35-47 Mean Corpuscular Volume 92 fL N 80-97 Mean Corpuscular Hemoglobin 30 pg N 27-31 Mean Corpuscular HGB Conc 33 g/dL N 31-36 Red Cell Distribution Width 14 % N 10.5-15 Platelet Count 198 10^3/uL N 150-450 Mean Platelet Volume 10 um3 N 7.4-10.4 Abs Neutrophils 2.3 10^3/uL N 1.5-7.7 Abs Lymphocytes 1.5 10^3/uL N 1.0-4.8 Abs Monocytes 0.4 10^3/uL N 0-0.8 Abs Eosinophils 0 10^3/uL N 0-0.6 Abs Basophils 0 10^3/uL N 0-0.2 Abs Nucleated RBC 0 10^3/uL N Granulocyte % 53.9 % N 38-83 Lymphocyte % 35.6 % N 25-47 Monocyte % 9.7 % High 1-9 Eosinophil % 0.1 % N 0-6 Basophil % 0.7 % N 0-2 Nucleated Red Blood Cells % 0 N CBC Auto 10/29/2014 [facility] White Blood 4.6 10^3/uL Low 4.8 -10.[address] [place] [address] [phone] Red Blood Count 3.48 10^6/uL Low 4.0-5.4 Hemoglobin 11.0 g/dL Low 12.0-16.0 Hematocrit 33 % Low 35-47 Mean Corpuscular Volume 96 fL N 80-97 Mean Corpuscular Hemoglobin 32 pg High 27-31 Mean Corpuscular HGB Conc 33 g/dL N 31-36 Red Cell Distribution Width 13 % N 10.5-15 Platelet Count 218 10^3/uL N 150-450 Mean Platelet Volume 9 um3 N 7.4-10.4 Abs Neutrophils 2.8 10^3/uL N 1.5-7.7 Abs Lymphocytes 1.3 10^3/uL N 1.0-4.8 Abs Monocytes 0.4 10^3/uL N 0-0.8 Abs Eosinophils 0 10^3/uL N 0-0.6 Abs Basophils 0 10^3/uL N 0-0.2 Abs Nucleated RBC 0 10^3/uL N Granulocyte % 61.4 % N 38-83 Lymphocyte % 28.8 % N 25-47 Monocyte % 9.0 % N 1-9 Eosinophil % 0.1 % N 0-6 Basophil % 0.7 % N 0-2 Nucleated Red Blood Cells % 0.1 N Comp Metabolic Panel 10/29/2014 [facility] Sodium 133 mmol/L N 133-[address] [place] [address] [phone] Potassium 4.6 mmol/L N 3.5-5.0 Chloride 98 mmol/L Low 101-111 Co2 Carbon Dioxide 32 mmol/L N 22-32 Anion Gap 3 mmol/L N 2-11 Glucose 100 mg/dL N 70-100 Blood Urea Nitrogen 10 mg/dL N 6-24 Creatinine 0.84 mg/dL N 0.51-0.95 BUN/Creatinine Ratio 11.9 N 8-20 Calcium 8.7 mg/dL N 8.6-10.3 Total Protein 6.6 g/dL N 6.4-8.9 Albumin 3.7 g/dL N 3.2-5.2 Globulin 2.9 g/dL N 2-4 Albumin/Globulin Ratio 1.3 N 1-3 Total Bilirubin 0.30 mg/dL N 0.2-1.0 Alkaline Phosphatase 82 U/L N 34-104 Alt 6 U/L Low 7-52 Ast 12 U/L Low 13-39 Egfr Non- 66.6 N >60 Egfr 85.7 N >60 56 Laboratory test 10/29/2014 [facility] C Reactive 18.35 mg/L High < 5.00 [address] [place] [address] [phone] Erythrocyte Sed Rate 73 mm/Hr High 0-40 CBC Auto 06/08/2014 [facility] White Blood 3.7 10^3/uL Low 4.8 -10.[address] [place] [address] [phone] Red Blood Count 3.80 10^6/uL Low 4.0-5.4 Hemoglobin 11.8 g/dL Low 12.0-16.0 Hematocrit 35 % N 35-47 Mean Corpuscular Volume 92 fL N 80-97 Mean Corpuscular Hemoglobin 31 pg N 27-31 Mean Corpuscular HGB Conc 34 g/dL N 31-36 Red Cell Distribution Width 14 % N 10.5-15 Platelet Count 179 10^3/uL N 150-450 Mean Platelet Volume 9 um3 N 7.4-10.4 Abs Neutrophils 1.7 10^3/uL N 1.5-7.7 Abs Lymphocytes 1.5 10^3/uL N 1.0-4.8 Abs Monocytes 0.5 10^3/uL N 0-0.8 Abs Eosinophils 0 10^3/uL N 0-0.6 Abs Basophils 0 10^3/uL N 0-0.2 Abs Nucleated RBC 0 10^3/uL N Granulocyte % 46.1 % N 38-83 Lymphocyte % 39.9 % N 25-47 Monocyte % 13.0 % High 1-9 Eosinophil % 0 % N 0-6 Basophil % 1.0 % N 0-2 Nucleated Red Blood Cells % 0.1 N Comp Metabolic Panel 06/08/2014 [facility] Sodium 136 mmol/L N 133-[address] [place] [address] [phone] Potassium 4.1 mmol/L N 3.7-5.6 Chloride 102 mmol/L N 101-111 Co2 Carbon Dioxide 30 mmol/L N 22-32 Anion Gap 4 mmol/L N 2-11 Glucose 123 mg/dL High 70-100 Blood Urea Nitrogen 10 mg/dL N 6-24 Creatinine 0.83 mg/dL N 0.51-0.95 BUN/Creatinine Ratio 12.0 N 8-20 Calcium 9.0 mg/dL N 8.6-10.3 Total Protein 7.0 g/dL N 6.4-8.9 Albumin 3.6 g/dL N 3.2-5.2 Globulin 3.4 g/dL N 2-4 Albumin/Globulin Ratio 1.1 N 1-3 Total Bilirubin 0.30 mg/dL N 0.2-1.0 Alkaline Phosphatase 67 U/L N 34-104 Alt 9 U/L N 7-52 Ast 14 U/L N 13-39 Egfr Non- 67.8 N >60 Egfr 87.2 N >60 58 Laboratory test 06/08/2014 [facility] Erythrocyte Sed 52 mm/Hr High 0-[address] [place] [address] [phone] C Reactive Protein 18.09 mg/L High < 5.00 59 Comp Metabolic Panel 10/28/2013 [facility] Sodium 136 mmol/L 133-[address] [place] [address] [phone] Potassium 4.2 mmol/L 3.5-5.0 Chloride 100 mmol/L Low 101-111 Co2 Carbon Dioxide 30.0 mmol/L 22-32 Anion Gap 6.0 mmol/L 2-11 Glucose 92 mg/dL 70-100 Blood Urea Nitrogen 13 mg/dL 6-24 Creatinine 0.90 mg/dL 0.50-1.40 BUN/Creatinine Ratio 14.4 8-20 Calcium 8.7 mg/dL 8.1-9.9 Total Protein 6.4 g/dL 6.2-8.1 Albumin 3.6 g/dL 3.2-5.2 Globulin 2.8 g/dL 2-4 Albumin/Globulin Ratio 1.3 1-3 Total Bilirubin 0.6 mg/dL 0.4-1.5 Alkaline Phosphatase 42 U/L 30-110 Alt 15 U/L 14-54 Ast 22 U/L 12-42 Egfr Non- 61.7 >60 Egfr 79.4 >60 60 Laboratory test 10/28/2013 [facility] C Reactive 1.1 mg/dL High Less than finding [address] Protein 0.5 [place] [address] [phone] CBC With Manual 10/28/2013 [facility] White Blood 5.1 4.8- 10.[address] Count 10^3/[place] [address] [phone] Red Blood Count 3.78 10^6/uL Low 4.0-5.4 Hemoglobin 12.6 g/dL 12.0-16.0 Hematocrit 36 % 35-47 Mean Corpuscular Volume 95 fL 80-97 Mean Corpuscular Hemoglobin 33 pg High 27-31 Mean Corpuscular HGB Conc 35 g/dL 31-36 Red Cell Distribution Width 13 % 10.5-15 Platelet Count 188 10^3/uL 150-450 Mean Platelet Volume 10 um3 7.4-10.4 Abs Neutrophils 2.3 10^3/uL 1.5-7.7 Abs Lymphocytes 2.0 10^3/uL 1.0-4.8 Abs Monocytes 0.6 10^3/uL 0-0.8 Abs Eosinophils 0.2 10^3/uL 0-0.6 Abs Basophils 0 10^3/uL 0-0.2 Abs Nucleated RBC 0.02 10^3/uL Neutrophil % 44 % 38-83 Band % 2 % 0-8 Lymphocytes % 32 % 25-47 Monocytes % 13 % 0-13 Eosinophils % 3 % 0-6 Reactive Lymph % 6 % 0-6 RBC Morphology Normal Normal Laboratory test 10/28/2013 [facility] Erythrocyte Sed 30 mm/Hr 0-[address] [place] [address] [phone] Comp Metabolic 06/05/2013 [facility] Sodium 138 mmol/L 133- [address] [place] [address] [phone] Potassium 4.1 mmol/L 3.5-5.0 Chloride 104 mmol/L 101-111 Co2 Carbon Dioxide 29.0 mmol/L 22-32 Anion Gap 5.0 mmol/L 2-11 Glucose 94 mg/dL 70-100 Blood Urea Nitrogen 7 mg/dL 6-24 Creatinine 0.80 mg/dL 0.50-1.40 BUN/Creatinine Ratio 8.8 8-20 Calcium 8.9 mg/dL 8.1-9.9 Total Protein 5.7 g/dL Low 6.2-8.1 Albumin 3.5 g/dL 3.2-5.2 Globulin 2.2 g/dL 2-4 Albumin/Globulin Ratio 1.6 1-3 Total Bilirubin 0.3 mg/dL Low 0.4-1.5 Alkaline Phosphatase 46 U/L 30-110 Alt 20 U/L 14-54 Ast 24 U/L 12-42 Egfr Non- 70.9 >60 Egfr 91.2 >60 61 Laboratory test 06/05/2013 [facility] C Reactive 0.7 mg/dL High Less than finding [address] Protein 0.5 [place] [address] [phone] CBC With Manual 06/05/2013 [facility] White Blood 4.4 Low 4.8- 10.[address] Count 10^3/[place] [address] [phone] Red Blood Count 3.42 10^6/uL Low 4.0-5.4 Hemoglobin 11.3 g/dL Low 12.0-16.0 Hematocrit 34 % Low 35-47 Mean Corpuscular Volume 99 fL High 80-97 Mean Corpuscular Hemoglobin 33 pg High 27-31 Mean Corpuscular HGB Conc 34 g/dL 31-36 Red Cell Distribution Width 13 % 10.5-15 Platelet Count 160 10^3/uL 150-450 Mean Platelet Volume 11 um3 High 7.4-10.4 Abs Neutrophils 2.2 10^3/uL 1.5-7.7 Abs Lymphocytes 1.7 10^3/uL 1.0-4.8 Abs Monocytes 0.4 10^3/uL 0-0.8 Abs Eosinophils 0.1 10^3/uL 0-0.6 Abs Basophils 0 10^3/uL 0-0.2 Abs Nucleated RBC 0 10^3/uL Neutrophil % 48 % 38-83 Band % 1 % 0-8 Lymphocytes % 40 % 25-47 Monocytes % 7 % 0-13 Eosinophils % 3 % 0-6 Reactive Lymph % 1 % 0-6 Hypochromasia 1+ Laboratory test 06/05/2013 [facility] Erythrocyte Sed 28 mm/Hr 0-[address] [place] [address] [phone] CBC With Manual 05/12/2013 [facility] White Blood 3.9 Low 4.8- 10.[address] Count 10^3/uL [place], [place] [id number] [phone] Red Blood Count 3.68 10^6/uL Low 4.0-5.4 Hemoglobin 12.4 g/dL 12.0-16.0 Hematocrit 36 % 35-47 Mean Corpuscular Volume 99 fL High 80-97 Mean Corpuscular Hemoglobin 34 pg High 27-31 Mean Corpuscular HGB Conc 34 g/dL 31-36 Red Cell Distribution Width 12 % 10.5-15 Platelet Count 197 10^3/uL 150-450 Mean Platelet Volume 11 um3 High 7.4-10.4 Abs Neutrophils 1.9 10^3/uL 1.5-7.7 Abs Lymphocytes 1.4 10^3/uL 1.0-4.8 Abs Monocytes 0.6 10^3/uL 0-0.8 Abs Eosinophils 0 10^3/uL 0-0.6 Abs Basophils 0 10^3/uL 0-0.2 Abs Nucleated RBC 0 10^3/uL Neutrophil % 46 % 38-83 Band % 1 % 0-8 Lymphocytes % 42 % 25-47 Monocytes % 7 % 0-13 Reactive Lymph % 4 % 0-6 Macrocytosis 1+ Comp Metabolic Panel 05/12/2013 [facility] Sodium 133 mmol/L 133-[address] [place] [address] [phone] Potassium 4.0 mmol/L 3.5-5.0 Chloride 100 mmol/L Low 101-111 Co2 Carbon Dioxide 27.0 mmol/L 22-32 Anion Gap 6.0 mmol/L 2-11 Glucose 107 mg/dL High 70-100 Blood Urea Nitrogen 11 mg/dL 6-24 Creatinine 1.00 mg/dL 0.50-1.40 BUN/Creatinine Ratio 11.0 8-20 Calcium 8.8 mg/dL 8.1-9.9 Total Protein 6.0 g/dL Low 6.2-8.1 Albumin 3.5 g/dL 3.2-5.2 Globulin 2.5 g/dL 2-4 Albumin/Globulin Ratio 1.4 1-3 Total Bilirubin 0.5 mg/dL 0.4-1.5 Alkaline Phosphatase 46 U/L 30-110 Alt 17 U/L 14-54 Ast 21 U/L 12-42 Egfr Non- 54.8 >60 Egfr 70.5 >60 62 Laboratory test 05/12/2013 [facility] C Reactive 0.8 mg/dL High Less than finding [address] Protein 0.5 [place] [address] [phone] Erythrocyte Sed Rate 35 mm/Hr 0-40 Laboratory test 01/27/2013 [facility] Erythrocyte Sed 22 mm/Hr 0-[address] [place] [address] [phone] CBC With Manual 01/27/2013 [facility] White Blood 4.1 Low 4.8- 10.[address] Count 10^3/[place] [address] [phone] Red Blood Count 3.18 10^6/uL Low 4.0-5.4 Hemoglobin 11.0 g/dL Low 12.0-16.0 Hematocrit 32 % Low 35-47 Mean Corpuscular Volume 101 fL High 80-97 Mean Corpuscular Hemoglobin 35 pg High 27-31 Mean Corpuscular HGB Conc 34 g/dL 31-36 Red Cell Distribution Width 14 % 10.5-15 Platelet Count 182 10^3/uL 150-450 Mean Platelet Volume 10 um3 7.4-10.4 Abs Neutrophils 1.8 10^3/uL 1.5-7.7 Abs Lymphocytes 1.8 10^3/uL 1.0-4.8 Abs Monocytes 0.4 10^3/uL 0-0.8 Abs Eosinophils 0 10^3/uL 0-0.6 Abs Basophils 0 10^3/uL 0-0.2 Abs Nucleated RBC 0 10^3/uL Neutrophil % 39 % 38-83 Band % 4 % 0-8 Lymphocytes % 41 % 25-47 Monocytes % 15 % High 0-13 Reactive Lymph % 1 % 0-6 RBC Morphology Normal Normal Laboratory test 01/27/2013 [facility] C Reactive 0.5 mg/dL Less than finding [address] Protein 0.5 [place] [address] [phone] Comp Metabolic 01/27/2013 [facility] Sodium 137 mmol/L 133- [address] [place] [address] [phone] Potassium 4.0 mmol/L 3.5-5.0 Chloride 106 mmol/L 101-111 Co2 Carbon Dioxide 27.0 mmol/L 22-32 Anion Gap 4.0 mmol/L 2-11 Glucose 89 mg/dL 70-100 Blood Urea Nitrogen 12 mg/dL 6-24 Creatinine 0.60 mg/dL 0.50-1.40 BUN/Creatinine Ratio 20.0 8-20 Calcium 8.5 mg/dL 8.1-9.9 Total Protein 6.0 g/dL Low 6.2-8.1 Albumin 3.3 g/dL 3.2-5.2 Globulin 2.7 g/dL 2-4 Albumin/Globulin Ratio 1.2 1-3 Total Bilirubin 0.3 mg/dL Low 0.4-1.5 Alkaline Phosphatase 40 U/L 30-110 Alt 13 U/L Low 14-54 Ast 19 U/L 12-42 Egfr Non- 98.8 >60 Egfr 127.1 >60 63 Comp Metabolic Panel 11/04/2012 [facility] Sodium 139 mmol/L 133-[address] [place] [address] [phone] Potassium 3.7 mmol/L 3.5-5.0 Chloride 106 mmol/L 101-111 Co2 Carbon Dioxide 27.0 mmol/L 22-32 Anion Gap 6.0 mmol/L 2-11 Glucose 151 mg/dL High 70-100 Blood Urea Nitrogen 10 mg/dL 6-24 Creatinine 0.90 mg/dL 0.50-1.40 BUN/Creatinine Ratio 11.1 8-20 Calcium 8.8 mg/dL 8.1-9.9 Total Protein 5.6 g/dL Low 6.2-8.1 Albumin 3.5 g/dL 3.2-5.2 Globulin 2.1 g/dL 2-4 Albumin/Globulin Ratio 1.7 1-3 Total Bilirubin 0.5 mg/dL 0.4-1.5 Alkaline Phosphatase 43 U/L 30-110 Alt 15 U/L 14-54 Ast 22 U/L 12-42 Egfr Non- 61.9 >60 Egfr 79.6 >60 64 Laboratory test 11/04/2012 [facility] C Reactive < 0.5 Less than finding [address] Protein mg/dL 0.5 [place] [address] [phone] CBC With Manual 11/04/2012 [facility] White Blood 3.6 Low 4.8- 10.[address] Count 10^3/[place] [address] [phone] Red Blood Count 3.66 10^6/uL Low 4.0-5.4 Hemoglobin 12.3 g/dL 12.0-16.0 Hematocrit 36 % 35-47 Mean Corpuscular Volume 99 fL High 80-97 Mean Corpuscular Hemoglobin 34 pg High 27-31 Mean Corpuscular HGB Conc 34 g/dL 31-36 Red Cell Distribution Width 14 % 10.5-15 Platelet Count 186 10^3/uL 150-450 Mean Platelet Volume 11 um3 High 7.4-10.4 Abs Neutrophils 1.5 10^3/uL 1.5-7.7 Abs Lymphocytes 1.7 10^3/uL 1.0-4.8 Abs Monocytes 0.4 10^3/uL 0-0.8 Abs Eosinophils 0 10^3/uL 0-0.6 Abs Basophils 0 10^3/uL 0-0.2 Abs Nucleated RBC 0 10^3/uL Neutrophil % 40 % 38-83 Band % 3 % 0-8 Lymphocytes % 47 % 25-47 Monocytes % 8 % 0-13 Reactive Lymph % 1 % 0-6 Metamyelocytes % 1 % 0-2 Macrocytosis 1+ Laboratory test 11/04/2012 [facility] Pathologist Review (SEE NOTE) [address] [place] [address] [phone] Erythrocyte Sed Rate 22 mm/Hr 0-40 Comp Metabolic Panel 08/13/2012 [facility] Sodium 133 mmol/L 133-[address] [place] [address] [phone] Potassium 4.6 mmol/L 3.5-5.0 Chloride 102 mmol/L 101-111 Co2 Carbon Dioxide 26.0 mmol/L 22-32 Anion Gap 5.0 mmol/L 2-11 Glucose 127 mg/dL High 70-100 Blood Urea Nitrogen 14 mg/dL 6-24 Creatinine 0.80 mg/dL 0.50-1.40 BUN/Creatinine Ratio 17.5 8-20 Calcium 9.2 mg/dL 8.1-9.9 Total Protein 6.2 GM/DL 6.2-8.1 Albumin 3.6 GM/DL 3.2-5.2 Globulin 2.6 GM/DL 2-4 Albumin/Globulin Ratio 1.4 1-3 Total Bilirubin 0.5 mg/dL 0.1-1.0 66 Alkaline Phosphatase 51 U/L 30-110 Alt 16 U/L 14-54 Ast 22 U/L 12-42 Egfr Non- 70.9 >60 Egfr 91.2 >60 67 Laboratory test 08/13/2012 [facility] C Reactive 0.9 mg/dL High Less Than finding [address] Protein 0.5 [place] [address] [phone] CBC With Manual 08/13/2012 [facility] White Blood 3.8 Low 4.8- 10.[address] Count 10^3/[place] [address] [phone] Red Blood Count 3.67 10^6/uL Low 4.0-5.4 Hemoglobin 12.0 g/dL 12.0-16.0 Hematocrit 35 % 35-47 Mean Corpuscular Volume 96 fL 80-97 Mean Corpuscular Hemoglobin 33 pg High 27-31 Mean Corpuscular HGB Conc 34 g/dL 31-36 Red Cell Distribution Width 14 % 10.5-15 Platelet Count 191 10^3/uL 150-450 Mean Platelet Volume 10 um3 7.4-10.4 Abs Neutrophils 2.4 10^3/uL 1.5-7.7 Abs Lymphocytes 0.9 10^3/uL Low 1.0-4.8 Abs Monocytes 0.6 10^3/uL 0-0.8 Abs Eosinophils 0 10^3/uL 0-0.6 Abs Basophils 0 10^3/uL 0-0.2 Abs Nucleated RBC 0 10^3/uL Neutrophil % 64.0 % 38-83 Band % 6.0 % 0-8 Lymphocytes % 15.0 % Low 25-47 Monocytes % 13.0 % 0-13 Eosinophils % 0 % 0-6 Basophil % 0 % 0-2 Reactive Lymph % 2.0 % 0-6 Metamyelocytes % 0 % 0-2 Myelocytes % 0 % 0-1 Promyelocytes % 0 % Blast % 0 % RBC Morphology Normal Normal Laboratory test 08/13/2012 [facility] Erythrocyte Sed 43 MM/HR High 0-[address] [place] [address] [phone] Basic Metabolic 06/04/2012 [facility] Sodium 135 135-[address] mmol/[place] [address] [phone] Potassium 4.8 mmol/L 3.5-5.0 Chloride 101 mmol/L 101-111 Co2 (Carbon Dioxide) 29.0 mmol/L 22-32 Anion Gap 5.0 mmol/L 2-11 68 Glucose 96 mg/dL 70-100 BUN 8 mg/dL 6-24 Creatinine 0.8 mg/dL 0.50-1.40 One Over Creatinine 1.25 BUN/Creatinine Ratio 10.0 8-20 Calcium 9.6 mg/dL 8.1-9.9 eGFR Non- 71.1 > 60 eGFR 91.5 > 60 69 Liver Function 06/04/2012 [facility] Total Protein 7.2 GM/DL 6.2-8.[address] [place] [address] [phone] Albumin 4.1 GM/DL 3.2-5.2 Globulin 3.1 GM/DL 2-4 Albumin/Globulin Ratio 1.3 1-3 Bilirubin Total 0.6 mg/dL 0.4-1.5 70 Bilirubin Direct 0.1 mg/dL 0.1-0.5 Indirect Bilirubin 0.5 mg/dL 0.3-1.0 71 Alkaline Phosphatase 56 U/L 30-110 Alt (SGPT) 23 U/L 14-54 Ast (Sgot) 28 U/L 12-42 Laboratory test 06/04/2012 [facility] C Reactive 0.5 mg/dL Less Than finding [address] Protein 0.5 [place] [address] [phone] CBC With Manual 06/04/2012 [facility] White Blood 3.6 CUMM Low 4.8-10.[address] [place] [address] [phone] Red Cell Count 3.80 CUMM Low 4.2-5.4 Hemoglobin 12.6 g/dL 12.0-16.0 Hematocrit 36 % 35-47 Mean Corpuscular Volume 95 um3 79-97 Mean Corpuscular Hemoglob 33 pg High 27-31 Mean Corpuscular HGB Cone 35 g/dL 32-36 Redcell Distribution WDTH 13 % 10.5-15 Platelet Count 195 CUMM 150-450 Mean Platelet Volume 10.4 um3 7.4-10.4 Absolute Neutrophil Count 2.3 1.5-7.7 Polysegmented Neutrophil 65 % 38-83 Lymphocyte 35 % 25-47 RBC Morphology NORMAL Laboratory test 06/04/2012 [facility] Erythrocyte Sed 34 MM/HR 0-[address] [place] [address] [phone] Basic Metabolic 04/22/2012 [facility] Sodium 137 mmol/L 135- [address] [place] [address] [phone] Potassium 4.8 mmol/L 3.5-5.0 Chloride 103 mmol/L 101-111 Co2 (Carbon Dioxide) 29.0 mmol/L 22-32 Anion Gap 5.0 mmol/L 2-11 72 Glucose 90 mg/dL 70-100 BUN 9 mg/dL 6-24 Creatinine 0.6 mg/dL 0.50-1.40 One Over Creatinine 1.66 BUN/Creatinine Ratio 15.0 8-20 Calcium 8.8 mg/dL 8.1-9.9 eGFR Non- 99.1 > 60 eGFR 127.5 > 60 73 Liver Function 04/22/2012 [facility] Total Protein 6.3 GM/DL 6.2-8.[address] [place] [address] [phone] Albumin 3.4 GM/DL 3.2-5.2 Globulin 2.9 GM/DL 2-4 Albumin/Globulin Ratio 1.2 1-3 Bilirubin Total 0.5 mg/dL 0.4-1.5 74 Bilirubin Direct 0.1 mg/dL 0.1-0.5 Indirect Bilirubin 0.4 mg/dL 0.3-1.0 75 Alkaline Phosphatase 54 U/L 30-110 Alt (SGPT) 19 U/L 14-54 Ast (Sgot) 28 U/L 12-42 Laboratory test 04/22/2012 [facility] C Reactive 1.3 mg/dL High Less Than finding [address] Protein 0.5 [place] [address] [phone] CBC With Manual 04/22/2012 [facility] White Blood 4.8 CUMM 4.8-10.[address] [place] [address] [phone] Red Cell Count 3.52 CUMM Low 4.2-5.4 Hemoglobin 11.1 g/dL Low 12.0-16.0 Hematocrit 33 % Low 35-47 Mean Corpuscular Volume 94 um3 79-97 Mean Corpuscular Hemoglob 32 pg High 27-31 Mean Corpuscular HGB Cone 34 g/dL 32-36 Redcell Distribution WDTH 13 % 10.5-15 Platelet Count 188 CUMM 150-450 Mean Platelet Volume 10.0 um3 7.4-10.4 Absolute Neutrophil Count 3.5 1.5-7.7 Polysegmented Neutrophil 78 % 38-83 Lymphocyte 15 % Low 25-47 Monocyte 7 % 0-13 RBC Morphology NORMAL Laboratory test 04/22/2012 [facility] Erythrocyte Sed 62 MM/HR High 0-[address] [place] [address] [phone] CBC With Manual 02/28/2012 [facility] White Blood 6.2 CUMM 4.8-10.[address] [place] [address] [phone] Red Cell Count 3.58 CUMM Low 4.2-5.4 Hemoglobin 11.6 g/dL Low 12.0-16.0 Hematocrit 34 % Low 35-47 Mean Corpuscular Volume 94 um3 79-97 Mean Corpuscular Hemoglob 33 pg High 27-31 Mean Corpuscular HGB Cone 35 g/dL 32-36 Redcell Distribution WDTH 14 % 10.5-15 Platelet Count 313 CUMM 150-450 Mean Platelet Volume 9.1 um3 7.4-10.4 Polysegmented Neutrophil 79 % 38-83 Lymphocyte 15 % Low 25-47 Monocyte 5 % 0-13 Atypical Lymph 1 % 0-6 Absolute Neutrophil Count 4.80 Anisocytosis SLIGHT Hypochromasia SLIGHT Laboratory test 02/28/2012 [facility] Erythrocyte Sed 92 MM/HR High 0-[address] [place] [address] [phone] Basic Metabolic 02/28/2012 [facility] Sodium 137 135-[address] mmol/[place] [address] [phone] Potassium 5.3 mmol/L High 3.5-5.0 Chloride 101 mmol/L 101-111 Co2 (Carbon Dioxide) 28.0 mmol/L 22-32 Anion Gap 8.0 mmol/L 2-11 76 Glucose 91 mg/dL 70-100 BUN 11 mg/dL 6-24 Creatinine 0.8 mg/dL 0.50-1.40 One Over Creatinine 1.25 BUN/Creatinine Ratio 13.8 8-20 Calcium 9.4 mg/dL 8.1-9.9 eGFR Non- 71.1 > 60 eGFR 91.5 > 60 77 Liver Function 02/28/2012 [facility] Total Protein 6.9 GM/DL 6.2-8.[address] [place] [address] [phone] Albumin 3.8 GM/DL 3.2-5.2 Globulin 3.1 GM/DL 2-4 Albumin/Globulin Ratio 1.2 1-3 Bilirubin Total 0.5 mg/dL 0.4-1.5 78 Bilirubin Direct 0.1 mg/dL 0.1-0.5 Indirect Bilirubin 0.4 mg/dL 0.3-1.0 79 Alkaline Phosphatase 83 U/L 30-110 Alt (SGPT) 15 U/L 14-54 Ast (Sgot) 20 U/L 12-42 Laboratory test 02/28/2012 [facility] C Reactive 1.4 mg/dL High Less Than finding [address] Protein 0.5 [place] [address] [phone] 1 Desirable: <150 Borderline High: 150-199 High: 200-499 Very High: >500 2 Desirable: <200 Borderline High: 200-239 High: >239 3 Low: <40 Desirable: 40-60 High: >60 4 Desirable: <100 Near Optimal: 100-129 Borderline High: 130-159 High: 160-189 Very High: >189 5 Because ethnic data is not always readily available, this report includes an eGFR for both -Americans and non- Americans. The National Kidney Disease Education Program (NKDEP) does not endorse the use of the MDRD equation for patients that are not between the ages of 18 and 70, are , have extremes of body size, muscle mass, or nutritional status, or are non- or non-. According to the National Kidney Foundation, irrespective of diagnosis, the stage of the disease is based on the level of kidney function: Stage Description GFR(mL/min/1.73 m(2)) 1 Kidney damage with normal or decreased GFR 90 2 Kidney damage with mild decrease in GFR 60-89 3 Moderate decrease in GFR 30-59 4 Severe decrease in GFR 15-29 5 Kidney failure <15 (or dialysis) 6 Because ethnic data is not always readily available, this report includes an eGFR for both -Americans and non- Americans. The National Kidney Disease Education Program (NKDEP) does not endorse the use of the MDRD equation for patients that are not between the ages of 18 and 70, are , have extremes of body size, muscle mass, or nutritional status, or are non- or non-. According to the National Kidney Foundation, irrespective of diagnosis, the stage of the disease is based on the level of kidney function: Stage Description GFR(mL/min/1.73 m(2)) 1 Kidney damage with normal or decreased GFR 90 2 Kidney damage with mild decrease in GFR 60-89 3 Moderate decrease in GFR 30-59 4 Severe decrease in GFR 15-29 5 Kidney failure <15 (or dialysis) 7 Because ethnic data is not always readily available, this report includes an eGFR for both -Americans and non- Americans. The National Kidney Disease Education Program (NKDEP) does not endorse the use of the MDRD equation for patients that are not between the ages of 18 and 70, are , have extremes of body size, muscle mass, or nutritional status, or are non- or non-. According to the National Kidney Foundation, irrespective of diagnosis, the stage of the disease is based on the level of kidney function: Stage Description GFR(mL/min/1.73 m(2)) 1 Kidney damage with normal or decreased GFR 90 2 Kidney damage with mild decrease in GFR 60-89 3 Moderate decrease in GFR 30-59 4 Severe decrease in GFR 15-29 5 Kidney failure <15 (or dialysis) 8 Acute inflammation: >10.00 9 Because ethnic data is not always readily available, this report includes an eGFR for both -Americans and non- Americans. The National Kidney Disease Education Program (NKDEP) does not endorse the use of the MDRD equation for patients that are not between the ages of 18 and 70, are , have extremes of body size, muscle mass, or nutritional status, or are non- or non-. According to the National Kidney Foundation, irrespective of diagnosis, the stage of the disease is based on the level of kidney function: Stage Description GFR(mL/min/1.73 m(2)) 1 Kidney damage with normal or decreased GFR 90 2 Kidney damage with mild decrease in GFR 60-89 3 Moderate decrease in GFR 30-59 4 Severe decrease in GFR 15-29 5 Kidney failure <15 (or dialysis) 10 Please check 2 days before follow up 11 Acute inflammation: >10.00 12 Because ethnic data is not always readily available, this report includes an eGFR for both -Americans and non- Americans. The National Kidney Disease Education Program (NKDEP) does not endorse the use of the MDRD equation for patients that are not between the ages of 18 and 70, are , have extremes of body size, muscle mass, or nutritional status, or are non- or non-. According to the National Kidney Foundation, irrespective of diagnosis, the stage of the disease is based on the level of kidney function: Stage Description GFR(mL/min/1.73 m(2)) 1 Kidney damage with normal or decreased GFR 90 2 Kidney damage with mild decrease in GFR 60-89 3 Moderate decrease in GFR 30-59 4 Severe decrease in GFR 15-29 5 Kidney failure <15 (or dialysis) 13 Please check 2 days before follow up 14 ADDITIONAL INFORMATION This test was developed and its performance characteristics determined by [facility] in a manner consistent with CLIA requirements. This test has not been cleared or approved by the U.S. Food and Drug Administration. Test Performed by: [facility] [address] [place] [id number] 15 Please check 2 days before follow up 16 Desirable: <150 Borderline High: 150-199 High: 200-499 Very High: >500 17 Desirable: <200 Borderline High: 200-239 High: >239 18 Low: <40 Desirable: 40-60 High: >60 19 Desirable: <100 Near Optimal: 100-129 Borderline High: 130-159 High: 160-189 Very High: >189 20 Please check labs every 3 months 21 Acute inflammation: >10.00 22 Because ethnic data is not always readily available, this report includes an eGFR for both -Americans and non- Americans. The National Kidney Disease Education Program (NKDEP) does not endorse the use of the MDRD equation for patients that are not between the ages of 18 and 70, are , have extremes of body size, muscle mass, or nutritional status, or are non- or non-. According to the National Kidney Foundation, irrespective of diagnosis, the stage of the disease is based on the level of kidney function: Stage Description GFR(mL/min/1.73 m(2)) 1 Kidney damage with normal or decreased GFR 90 2 Kidney damage with mild decrease in GFR 60-89 3 Moderate decrease in GFR 30-59 4 Severe decrease in GFR 15-29 5 Kidney failure <15 (or dialysis) 23 Please check labs every 3 months 24 Because ethnic data is not always readily available, this report includes an eGFR for both -Americans and non- Americans. The National Kidney Disease Education Program (NKDEP) does not endorse the use of the MDRD equation for patients that are not between the ages of 18 and 70, are , have extremes of body size, muscle mass, or nutritional status, or are non- or non-. According to the National Kidney Foundation, irrespective of diagnosis, the stage of the disease is based on the level of kidney function: Stage Description GFR(mL/min/1.73 m(2)) 1 Kidney damage with normal or decreased GFR 90 2 Kidney damage with mild decrease in GFR 60-89 3 Moderate decrease in GFR 30-59 4 Severe decrease in GFR 15-29 5 Kidney failure <15 (or dialysis) 25 Acute inflammation: >10.00 26 STANDING ORDER VALID 05/30/16-11/30/16 Q 8 WEEKS 27 STANDING ORDER VALID 05/30/16-11/30/16 Q 8 WEEKS 28 Acute inflammation: >10.00 29 Because ethnic data is not always readily available, this report includes an eGFR for both -Americans and non- Americans. The National Kidney Disease Education Program (NKDEP) does not endorse the use of the MDRD equation for patients that are not between the ages of 18 and 70, are , have extremes of body size, muscle mass, or nutritional status, or are non- or non-. According to the National Kidney Foundation, irrespective of diagnosis, the stage of the disease is based on the level of kidney function: Stage Description GFR(mL/min/1.73 m(2)) 1 Kidney damage with normal or decreased GFR 90 2 Kidney damage with mild decrease in GFR 60-89 3 Moderate decrease in GFR 30-59 4 Severe decrease in GFR 15-29 5 Kidney failure <15 (or dialysis) 30 Because ethnic data is not always readily available, this report includes an eGFR for both -Americans and non- Americans. The National Kidney Disease Education Program (NKDEP) does not endorse the use of the MDRD equation for patients that are not between the ages of 18 and 70, are , have extremes of body size, muscle mass, or nutritional status, or are non- or non-. According to the National Kidney Foundation, irrespective of diagnosis, the stage of the disease is based on the level of kidney function: Stage Description GFR(mL/min/1.73 m(2)) 1 Kidney damage with normal or decreased GFR 90 2 Kidney damage with mild decrease in GFR 60-89 3 Moderate decrease in GFR 30-59 4 Severe decrease in GFR 15-29 5 Kidney failure <15 (or dialysis) 31 Acute inflammation: >10.00 32 Normal Range 180 to 914 Indeterminate Range 145 to 180 Deficient Range <145 33 M-spike in gamma fraction. Size of monoclonal protein not changed significantly since 04/09/2016. Test Performed by: [place] [address] [employer] Fitter: Martin Su II, M.D., Ph.D. 34 units: ng/mL range: >498 35 units: % range: 34.0-46.6 36 units: ng/mL range: not established 01 RN [facility] [address] [id number] Dir: Hortencia Robertson MD For inquiries, the physician may contact Branch: [phone] Lab: [phone] 37 Acute inflammation: >10.00 38 TO do 1 week before her visit 39 Because ethnic data is not always readily available, this report includes an eGFR for both -Americans and non- Americans. The National Kidney Disease Education Program (NKDEP) does not endorse the use of the MDRD equation for patients that are not between the ages of 18 and 70, are , have extremes of body size, muscle mass, or nutritional status, or are non- or non-. According to the National Kidney Foundation, irrespective of diagnosis, the stage of the disease is based on the level of kidney function: Stage Description GFR(mL/min/1.73 m(2)) 1 Kidney damage with normal or decreased GFR 90 2 Kidney damage with mild decrease in GFR 60-89 3 Moderate decrease in GFR 30-59 4 Severe decrease in GFR 15-29 5 Kidney failure <15 (or dialysis) [address] SAM TO BE AWARE OF PT'S ELEVATED GLUCOSE. DR. MERCEDES IS ADDRESSING THE HYPOCALCEMIA BY ADDING ON SERUM INTACT PTH 41 Because ethnic data is not always readily available, this report includes an eGFR for both -Americans and non- Americans. The National Kidney Disease Education Program (NKDEP) does not endorse the use of the MDRD equation for patients that are not between the ages of 18 and 70, are , have extremes of body size, muscle mass, or nutritional status, or are non- or non-. According to the National Kidney Foundation, irrespective of diagnosis, the stage of the disease is based on the level of kidney function: Stage Description GFR(mL/min/1.73 m(2)) 1 Kidney damage with normal or decreased GFR 90 2 Kidney damage with mild decrease in GFR 60-89 3 Moderate decrease in GFR 30-59 4 Severe decrease in GFR 15-29 5 Kidney failure <15 (or dialysis) 42 STANDING ORDER DIRECTED 43 Acute inflammation: >10.00 44 Because ethnic data is not always readily available, this report includes an eGFR for both -Americans and non- Americans. The National Kidney Disease Education Program (NKDEP) does not endorse the use of the MDRD equation for patients that are not between the ages of 18 and 70, are , have extremes of body size, muscle mass, or nutritional status, or are non- or non-. According to the National Kidney Foundation, irrespective of diagnosis, the stage of the disease is based on the level of kidney function: Stage Description GFR(mL/min/1.73 m(2)) 1 Kidney damage with normal or decreased GFR 90 2 Kidney damage with mild decrease in GFR 60-89 3 Moderate decrease in GFR 30-59 4 Severe decrease in GFR 15-29 5 Kidney failure <15 (or dialysis) 45 Acute inflammation: >10.00 46 Because ethnic data is not always readily available, this report includes an eGFR for both -Americans and non- Americans. The National Kidney Disease Education Program (NKDEP) does not endorse the use of the MDRD equation for patients that are not between the ages of 18 and 70, are , have extremes of body size, muscle mass, or nutritional status, or are non- or non-. According to the National Kidney Foundation, irrespective of diagnosis, the stage of the disease is based on the level of kidney function: Stage Description GFR(mL/min/1.73 m(2)) 1 Kidney damage with normal or decreased GFR 90 2 Kidney damage with mild decrease in GFR 60-89 3 Moderate decrease in GFR 30-59 4 Severe decrease in GFR 15-29 5 Kidney failure <15 (or dialysis) 47 Acute inflammation: >10.00 48 Desirable <150 Borderline high 150-199 High 200-499 Very High >500 49 Desirable <200 Borderline high 200-239 High >239 50 Low <40 Desirable: 40-60 High: >60 51 Desirable: <100 mg/dL Near Optimal: 100-129 mg/dL Borderline High: 130-159 mg/dL High: 160-189 mg/dL Very High: >189 mg/dL 52 Because ethnic data is not always readily available, this report includes an eGFR for both -Americans and non- Americans. The National Kidney Disease Education Program (NKDEP) does not endorse the use of the MDRD equation for patients that are not between the ages of 18 and 70, are , have extremes of body size, muscle mass, or nutritional status, or are non- or non-. According to the National Kidney Foundation, irrespective of diagnosis, the stage of the disease is based on the level of kidney function: Stage Description GFR(mL/min/1.73 m(2)) 1 Kidney damage with normal or decreased GFR 90 2 Kidney damage with mild decrease in GFR 60-89 3 Moderate decrease in GFR 30-59 4 Severe decrease in GFR 15-29 5 Kidney failure <15 (or dialysis) 53 Acute inflammation: >10.00 54 Acute inflammation: >10.00 55 Because ethnic data is not always readily available, this report includes an eGFR for both -Americans and non- Americans. The National Kidney Disease Education Program (NKDEP) does not endorse the use of the MDRD equation for patients that are not between the ages of 18 and 70, are , have extremes of body size, muscle mass, or nutritional status, or are non- or non-. According to the National Kidney Foundation, irrespective of diagnosis, the stage of the disease is based on the level of kidney function: Stage Description GFR(mL/min/1.73 m(2)) 1 Kidney damage with normal or decreased GFR 90 2 Kidney damage with mild decrease in GFR 60-89 3 Moderate decrease in GFR 30-59 4 Severe decrease in GFR 15-29 5 Kidney failure <15 (or dialysis) 56 Because ethnic data is not always readily available, this report includes an eGFR for both -Americans and non- Americans. The National Kidney Disease Education Program (NKDEP) does not endorse the use of the MDRD equation for patients that are not between the ages of 18 and 70, are , have extremes of body size, muscle mass, or nutritional status, or are non- or non-. According to the National Kidney Foundation, irrespective of diagnosis, the stage of the disease is based on the level of kidney function: Stage Description GFR(mL/min/1.73 m(2)) 1 Kidney damage with normal or decreased GFR 90 2 Kidney damage with mild decrease in GFR 60-89 3 Moderate decrease in GFR 30-59 4 Severe decrease in GFR 15-29 5 Kidney failure <15 (or dialysis) 57 Acute inflammation: >10.00 58 Because ethnic data is not always readily available, this report includes an eGFR for both -Americans and non- Americans. The National Kidney Disease Education Program (NKDEP) does not endorse the use of the MDRD equation for patients that are not between the ages of 18 and 70, are , have extremes of body size, muscle mass, or nutritional status, or are non- or non-. According to the National Kidney Foundation, irrespective of diagnosis, the stage of the disease is based on the level of kidney function: Stage Description GFR(mL/min/1.73 m(2)) 1 Kidney damage with normal or decreased GFR 90 2 Kidney damage with mild decrease in GFR 60-89 3 Moderate decrease in GFR 30-59 4 Severe decrease in GFR 15-29 5 Kidney failure <15 (or dialysis) 59 Acute inflammation: >10.00 60 Because ethnic data is not always readily available, this report includes an eGFR for both -Americans and non- Americans. The National Kidney Disease Education Program (NKDEP) does not endorse the use of the MDRD equation for patients that are not between the ages of 18 and 70, are , have extremes of body size, muscle mass, or nutritional status, or are non- or non-. According to the National Kidney Foundation, irrespective of diagnosis, the stage of the disease is based on the level of kidney function: Stage Description GFR(mL/min/1.73 m(2)) 1 Kidney damage with normal or decreased GFR 90 2 Kidney damage with mild decrease in GFR 60-89 3 Moderate decrease in GFR 30-59 4 Severe decrease in GFR 15-29 5 Kidney failure <15 (or dialysis) 61 Because ethnic data is not always readily available, this report includes an eGFR for both -Americans and non- Americans. The National Kidney Disease Education Program (NKDEP) does not endorse the use of the MDRD equation for patients that are not between the ages of 18 and 70, are , have extremes of body size, muscle mass, or nutritional status, or are non- or non-. According to the National Kidney Foundation, irrespective of diagnosis, the stage of the disease is based on the level of kidney function: Stage Description GFR(mL/min/1.73 m(2)) 1 Kidney damage with normal or decreased GFR 90 2 Kidney damage with mild decrease in GFR 60-89 3 Moderate decrease in GFR 30-59 4 Severe decrease in GFR 15-29 5 Kidney failure <15 (or dialysis) 62 Because ethnic data is not always readily available, this report includes an eGFR for both -Americans and non- Americans. The National Kidney Disease Education Program (NKDEP) does not endorse the use of the MDRD equation for patients that are not between the ages of 18 and 70, are , have extremes of body size, muscle mass, or nutritional status, or are non- or non-. According to the National Kidney Foundation, irrespective of diagnosis, the stage of the disease is based on the level of kidney function: Stage Description GFR(mL/min/1.73 m(2)) 1 Kidney damage with normal or decreased GFR 90 2 Kidney damage with mild decrease in GFR 60-89 3 Moderate decrease in GFR 30-59 4 Severe decrease in GFR 15-29 5 Kidney failure <15 (or dialysis) 63 Because ethnic data is not always readily available, this report includes an eGFR for both -Americans and non- Americans. The National Kidney Disease Education Program (NKDEP) does not endorse the use of the MDRD equation for patients that are not between the ages of 18 and 70, are , have extremes of body size, muscle mass, or nutritional status, or are non- or non-. According to the National Kidney Foundation, irrespective of diagnosis, the stage of the disease is based on the level of kidney function: Stage Description GFR(mL/min/1.73 m(2)) 1 Kidney damage with normal or decreased GFR 90 2 Kidney damage with mild decrease in GFR 60-89 3 Moderate decrease in GFR 30-59 4 Severe decrease in GFR 15-29 5 Kidney failure <15 (or dialysis) 64 Because ethnic data is not always readily available, this report includes an eGFR for both -Americans and non- Americans. The National Kidney Disease Education Program (NKDEP) does not endorse the use of the MDRD equation for patients that are not between the ages of 18 and 70, are , have extremes of body size, muscle mass, or nutritional status, or are non- or non-. According to the National Kidney Foundation, irrespective of diagnosis, the stage of the disease is based on the level of kidney function: Stage Description GFR(mL/min/1.73 m(2)) 1 Kidney damage with normal or decreased GFR 90 2 Kidney damage with mild decrease in GFR 60-89 3 Moderate decrease in GFR 30-59 4 Severe decrease in GFR 15-29 5 Kidney failure <15 (or dialysis) 65 REVIEWED BY PREET GU MD CBC and smear reviewed. Inverted PMN/lymph ratio noted. No blasts seen. 66 A metabolite of Naproxen, O-desmethylnaproxen, has been shown to interfere with the Jendrassik-Alix method for measuring total bilirubin. Samples from patients who have taken Naproxen have shown spurious elevation in total bilirubin levels. 67 Because ethnic data is not always readily available, this report includes an eGFR for both -Americans and non- Americans. The National Kidney Disease Education Program (NKDEP) does not endorse the use of the MDRD equation for patients that are not between the ages of 18 and 70, are , have extremes of body size, muscle mass, or nutritional status, or are non- or non-. According to the National Kidney Foundation, irrespective of diagnosis, the stage of the disease is based on the level of kidney function: Stage Description GFR(mL/min/1.73 m(2)) 1 Kidney damage with normal or decreased GFR 90 2 Kidney damage with mild decrease in GFR 60-89 3 Moderate decrease in GFR 30-59 4 Severe decrease in GFR 15-29 5 Kidney failure <15 (or dialysis) 68 Anion gap measurement may be of limited value in the presence of any alkalosis, especially in a combined acid base disorder. . 69 Because ethnic data is not always readily available, this report includes an eGFR for both -Americans and non- Americans. The National Kidney Disease Education Program (NKDEP) does not endorse the use of the MDRD equation for patients that are not between the ages of 18 and 70, are , have extremes of body size, muscle mass, or nutritional status, or are non- or non-. According to the National Kidney Foundation, irrespective of diagnosis, the stage of the disease is based on the level of kidney function: Stage Description GFR(mL/min/1.73 m(2)) 1 Kidney damage with normal or decreased GFR 90 2 Kidney damage with mild decrease in GFR 60-89 3 Moderate decrease in GFR 30-59 4 Severe decrease in GFR 15-29 5 Kidney failure <15 (or dialysis) 70 A metabolite of Naproxen, O-desmethylnaproxen, has been shown to interfere with the Jendrassik-Latanya method for measuring total bilirubin. Samples from patients who have taken Naproxen have shown spurious elevation in total bilirubin levels. 71 Please note updated reference range, effective 05/11/10 72 Anion gap measurement may be of limited value in the presence of any alkalosis, especially in a combined acid base disorder. . 73 Because ethnic data is not always readily available, this report includes an eGFR for both -Americans and non- Americans. The National Kidney Disease Education Program (NKDEP) does not endorse the use of the MDRD equation for patients that are not between the ages of 18 and 70, are , have extremes of body size, muscle mass, or nutritional status, or are non- or non-. According to the National Kidney Foundation, irrespective of diagnosis, the stage of the disease is based on the level of kidney function: Stage Description GFR(mL/min/1.73 m(2)) 1 Kidney damage with normal or decreased GFR 90 2 Kidney damage with mild decrease in GFR 60-89 3 Moderate decrease in GFR 30-59 4 Severe decrease in GFR 15-29 5 Kidney failure <15 (or dialysis) 74 A metabolite of Naproxen, O-desmethylnaproxen, has been shown to interfere with the Jendrassik-Alix method for measuring total bilirubin. Samples from patients who have taken Naproxen have shown spurious elevation in total bilirubin levels. 75 Please note updated reference range, effective 05/11/10 76 Anion gap measurement may be of limited value in the presence of any alkalosis, especially in a combined acid base disorder. . 77 Because ethnic data is not always readily available, this report includes an eGFR for both -Americans and non- Americans. The National Kidney Disease Education Program (NKDEP) does not endorse the use of the MDRD equation for patients that are not between the ages of 18 and 70, are , have extremes of body size, muscle mass, or nutritional status, or are non- or non-. According to the National Kidney Foundation, irrespective of diagnosis, the stage of the disease is based on the level of kidney function: Stage Description GFR(mL/min/1.73 m(2)) 1 Kidney damage with normal or decreased GFR 90 2 Kidney damage with mild decrease in GFR 60-89 3 Moderate decrease in GFR 30-59 4 Severe decrease in GFR 15-29 5 Kidney failure <15 (or dialysis) 78 A metabolite of Naproxen, O-desmethylnaproxen, has been shown to interfere with the Jendrassik-Latanya method for measuring total bilirubin. Samples from patients who have taken Naproxen have shown spurious elevation in total bilirubin levels. 79 Please note updated reference range, effective 05/11/10 Procedures Date Code Description Status 09/05/2018 54534 EKG Tracing & Interpretation Completed 12/24/2017 47028 EKG Tracing & Interpretation Completed 09/20/2017 74044 Treadmill Interp/Report Only Completed 09/20/2017 71471 Stress Test Supervsn W/Out I/R Completed 08/27/2017 18612 ECHO Transthoracic, Real-Time 2D With Doppler And Color Completed Flow 08/20/2017 09710 EKG Tracing & Interpretation Completed 08/30/2015 67189 Diffusing Capacity Completed 08/30/2015 04212 Spirometry Incl Graphic Record Completed 08/19/2015 64628 ECHO Transthoracic, Real-Time 2D With Doppler And Color Completed Flow 05/19/2013 20227 ECHO Transthorasic Realtime 2D W Doppler & Color Flow Hosp Completed 05/19/2013 54036 Pulse Wave/Continuous-Interp.RPT Completed 05/19/2013 45651 Color Flow Doppler/Interp & Reprt Completed 05/01/2012 51685 Rad Exam; Ankle Comp Completed 03/28/2012 79660 Rad Shoulder Comp, Min. 2 Views Completed 03/06/2012 56570 Removal Implant Deep Wire,Screw Nail,Santo Or Plate Completed 02/28/2012 60233 Rad Shoulder Comp, Min. 2 Views Completed 02/18/2012 44315 Repair Ruptured Musculotendinous Cuff Open, Chronic Completed 02/18/2012 17471 Repair Ruptured Musculotendinous Cuff Open, Chronic Completed 02/18/2012 47672 FX Scapula Open TX Includes Internal Fixation When Completed Performed 02/18/2012 49341 FX Scapula Open TX Includes Internal Fixation When Completed Performed 01/09/2012 50916 Rad Shoulder Comp, Min. 2 Views Completed 12/11/2011 49483 Rad Shoulder Comp, Min. 2 Views Completed 12/03/2011 70723 Arthroscopy Shoulder Debridement Limited Completed 12/03/2011 13651 Arthroscopy Shoulder Debridement Limited Completed 12/03/2011 93778 FX Scapula Open TX Includes Internal Fixation When Completed Performed 12/03/2011 48026 FX Scapula Open TX Includes Internal Fixation When Completed Performed 12/03/2011 73312 Repair Rotator Cuff Rupture open Acute Completed 12/03/2011 57178 Repair Rotator Cuff Rupture open Acute Completed 10/30/2011 67986 Inject/Drain Joint/Bursa Major W/O US Completed 07/18/2011 01167 Rad Exam; Spine, Cervical Completed 06/27/2011 Inject/Drain Joint/Bursa Major W/O US Completed 05/10/2011 08096 Rad Shoulder Comp, Min. 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 D64.9 Anemia, unspecified Z79.899 Other long-term (current) drug therapy E83.51 Hypocalcemia L65.9 Nonscarring hair loss, unspecified Office Visit 01/10/2017 11:00a Rheumatology David 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 D64.9 Anemia, unspecified Z79.899 Other long-term (current) drug therapy E83.51 Hypocalcemia Office Visit 10/11/2016 10:00a Rheumatology David 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 therapy E83.51 Hypocalcemia Office Visit 10/31/2015 2:00p Neurosurgery Prosper Gruber, M48.06 Spinal Services Of [facility]im[facility] Xiao stenosis, lumbar region M51.26 Other intervertebral disc displacement, lumbar region M43.16 Spondylolisthesis, lumbar region Office Visit 10/28/2015 11:30a Pulmonology And Francine R06.02 Shortness of Sleep Services Of MD Clare breath [facility] R06.02 Shortness of breath Office Visit 09/30/2015 2:45p Pulmonology And Francine R06.02 Shortness of Sleep Services Of MD Clare breath [facility] M06.9 Rheumatoid arthritis, unspecified Office Visit 06/24/2015 1:30p Rheumatology Antony Brooks, 714.0 Rheumatoid Services Of [facility] Arthritis 726.2 Shoulder Region Affections Other Not Elsewhere Class 722.93 Disc Disorder Other & Unspec Lumbar Region V58.69 Medications 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 Inspector (Current) Use Encounter V03.82 Streptococcus Pneumoniae Vaccination Spec Other 715.91 Osteoarthrosis Unspec Genlzd Or Localized Shoulder 722.52 Intervertebral Disc Degeneration Lumbar Office Visit 04/01/2015 11:20a Rheumatology Tavo Mosqueda, 714.0 [facility] Of [facility] Xiao Arthritis 722.91 Disc Disorder Other & Unspec Cervical Region 726.2 Shoulder Region Affections Other Not Elsewhere Class V58.69 Medications 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 Inspector (Current) Use Encounter 722.93 Disc Disorder Other & Unspec Lumbar Region Office Visit 01/07/2015 11:20a Rheumatology Tavo Mosqueda, 714.0 Rheumatoid Services Of [facility] Xiao Arthritis 722.93 Disc Disorder Other & Unspec Lumbar Region 722.91 Disc Disorder Other & Unspec Cervical Region 726.2 Shoulder Region Affections Other Not Elsewhere Class V58.69 Medications Senior Living (Current) Use Encounter Office Visit 11/26/2014 10:40a Rheumatology Tavo Mosqueda, 714.0 Rheumatoid Services Of Abim[facility] Xiao Arthritis 722.93 Disc Disorder Other & Unspec Lumbar Region 722.91 Disc Disorder Other & Unspec Cervical Region 726.2 Shoulder Region Affections Other Not Elsewhere Class V58.69 Medications [facility] Living (Current) Use Encounter Office Visit 11/09/2014 10:40a Rheumatology Brad Brownlee, 714.0 Rheumatoid Services Of [facility] Xiao Arthritis 338.4 Chronic Pain Syndrome 724.2 Lumbago Office Visit 10/07/2014 10:40a Rheumatology Brad Brownlee, 714.0 Rheumatoid Services Of [facility] Xiao Arthritis 726.2 Shoulder Region Affections Other Not Elsewhere Class Office Visit 06/09/2014 1:00p Rheumatology Tavo Mosqueda, 714.0 Rheumatoid Services Of [facility] Xiao Arthritis 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 V58.69 Medications 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 Inspector (Current) Use Encounter Office Visit 03/09/2014 10:20a Rheumatology Tavo Mosqueda, 714.0 Rheumatoid Services Of [facility] Ahumada.Tony Arthritis 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 338.4 Chronic Pain Syndrome Office Visit 05/19/2013 10:57a [place] Dee Giles 435.9 [facility],pc Rene Currie C[facility] Hospitalists Transient Unspec 401.9 Hypertension Unspec 714.0 Rheumatoid Arthritis 272.1 Hypertriglyceridemia Pure Office Visit 05/18/2013 10:57a [facility] Ruth Aguila 435.9 TIA Ischemia Assoc,lázaro Xiao Cerebral Hospitalists Transient Unspec 401.9 Hypertension Unspec 714.0 Rheumatoid Arthritis 272.1 Hypertriglyceridemia Pure Office Visit 05/18/2013 11:21a [facility] Coco Young 435.9 TIA Ischemia Services Of Abimael Xiao Cerebral Transient Unspec 401.9 Hypertension Unspec Office Visit 02/25/2013 Orthopedic Chan 715.27 Osteoarthrosis 1:15p Services Of Marcial Hand M.D. 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 & Foot Office Visit 11/19/2012 3:00p Orthopedic Chan 714.0 Rheumatoid Services Of Marcial Hand M.D. Arthritis Office Visit 11/07/2012 11:40a Rheumatology Tavo Mosqueda 714.0 Rheumatoid Services Of Abim[facility] Xiao Arthritis 721.3 Spondylosis Lumbar W/O Myelopathy V58.69 Medications Senior Living (Current) Use Encounter 788.64 Urinary Hesitancy Office Visit 10/02/2012 1:45p Orthopedic Surya Guerrero, 716.91 Arthropathy Unspec Services Of M.D. Shoulder Region C.M.A. 840.4 Sprains & Strains Rotator Cuff (Capsule) Office Visit 08/29/2012 1:15p Orthopedic Services Elvin 840.4 Sprains & Of C.MBeatriz Padilla M.D. Strains Rotator Cuff (Capsule) Office Visit 08/20/2012 11:15a Orthopedic Services Elvin 840.4 Sprains & Of C.M.Helen Padilla M.D. Strains Rotator Cuff (Capsule) Office Visit 08/07/2012 11:00a Rheumatology Tavo Mosqueda, 714.0 Rheumatoid Services Of Expert Medical Writer M.D. Arthritis V58.69 Medications Senior Living (Current) Use Encounter 721.3 Spondylosis Lumbar W/O Myelopathy V04.81 Need For Prophylactic Vaccination & Inoculation/Influenza Office Visit 07/02/2012 2:15p Orthopedic Elvin Padilla, 840.4 Sprains & Services Of M.D. Strains Rotator C.M.A. Cuff (Capsule) 726.2 Shoulder Region Affections Other Not Elsewhere Class Office Visit 06/10/2012 4:00p Rheumatology Tavo Mosqueda, 714.0 Rheumatoid Services Of Expert Medical Writer M.D. Arthritis V58.69 Medications [facility] Living (Current) Use Encounter Office Visit 06/04/2012 2:00p Orthopedic Elvin Padilla, 840.4 Sprains & Services Of M.D. Strains Rotator C.M.A. Cuff (Capsule) 726.2 Shoulder Region Affections Other Not Elsewhere Class 840.4 Sprains & Strains Rotator Cuff (Capsule) Office Visit 04/25/2012 2:00p Rheumatology Tavo Mosqueda, 714.0 Rheumatoid Services Of [facility] [employer] Writer M.D. 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 Arthritis V58.69 Medications 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 Inspector (Current) Use Encounter Office Visit 02/05/2012 11:40a Rheumatology Tavo Mosqueda, 714.0 Rheumatoid Services Of [facility] [employer] Writer M.D. Arthritis V58.69 Medications [facility] Living (Current) Use Encounter 726.10 Bursae & Tendon Disorders Shoulder Region Unspec 840.4 Sprains & Strains Rotator Cuff (Capsule) Office Visit 11/16/2011 11:40a Rheumatology Tavo Mosqueda, 714.0 Rheumatoid Services Of Abimael MJason Arthritis V58.69 Medications [facility] Living (Current) Use Encounter Office Visit 11/13/2011 Carmella Oconnor 726.2 Shoulder Region 11:15a Services Of Marcial Padilla M.D. Affections Other Not Elsewhere Class Office Visit 10/30/2011 Carmella Oconnor 726.2 Shoulder Region 11:45a Services Of Marcial Padilla M.D. Affections Other Not Elsewhere Class Office Visit 09/12/2011 Carmella Oconnor 840.4 Sprains & Strains 2:00p Services Of Marcial Padilla M.D. Rotator Cuff (Capsule) Office Visit 09/07/2011 Rheumatology Tavo Mosqueda, v04.81 Need For 11:40a Services Of Abimael Xiao Prophylactic Vaccination & Inoculation/Influe nza 714.0 Rheumatoid Arthritis 721.3 Spondylosis Lumbar W/O Myelopathy V58.69 Medications [facility] Living (Current) Use Encounter Office Visit 08/08/2011 1:30p Orthopedic Elvin Padilla, 840.4 Sprains & Services Of M.D. Strains Rotator C.M.A. Cuff (Capsule) 726.2 Shoulder Region Affections Other Not Elsewhere Class Office Visit 07/24/2011 1:00p Rheumatology Tavo Mosqueda, 714.0 Rheumatoid Services Of [facility] [employer] Writer M.D. Arthritis V58.69 Medications [facility] Living (Current) Use Encounter 840.4 Sprains & Strains Rotator Cuff (Capsule) Office Visit 07/18/2011 10:15a Carmella Padilla, 714.0 Rheumatoid Services Of M.D. Arthritis C.M.A. 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 Arthritis C.M.A. Office Visit 06/21/2011 9:00a Carmella Padilla 726.2 Shoulder Region Services Of M.D. Affections Other C.M.A. Not Elsewhere Class 840.4 Sprains & Strains Rotator Cuff (Capsule) Office Visit 05/10/2011 8:00a Orthopedic Elvin Padilla, 726.2 Shoulder Region Services Of Brandyn.D. Affections Other C.M.A. Not Elsewhere Class 726.19 Shoulder Disorders Other Spec Office Visit 05/04/2011 1:40p Rheumatology Tavo Endo, 714.0 Rheumatoid Services Of [facility] M.Tony Arthritis V58.69 Medications Senior Living (Current) Use Encounter 053.9 Herpes Zoster W/O Complication Office Visit 03/20/2011 Rheumatology Tavo Endo, V58.69 Medications Long 10:00a Services Of [facility] M.D. Term (Current) Use Encounter Office Visit 03/16/2011 Rheumatology Tavo Endo, 714.0 Rheumatoid 11:20a Services Of [facility] M.D. Arthritis V58.69 Medications 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 Inspector (Current) Use Encounter Office Visit 01/31/2011 1:00p Rheumatology Tavo Endo, 714.0 Rheumatoid Services Of Expert Medical Writer M.D. Arthritis V58.69 Medications Senior Living (Current) Use Encounter 715.94 Osteoarthrosis Unspec Genlzd Or Localized Hand Office Visit 12/21/2010 11:00a Rheumatology Tavo Endo, 714.0 Rheumatoid Services Of [facility] M.DJason Arthritis V58.69 Medications 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 Inspector (Current) Use Encounter Plan of Treatment Future Appointment(s):11/20/2018 9:40 am - David Mercedes M.D. at [facility]10/02/2018 - David Mercedes M.D.M06.9 Rheumatoid arthritis, unspecifiedFollow up:Follow up in 5 to 6 weeks or sooner if [id number] Other long-term (current) drug bgdzihkT40.9 Anemia, exaaeznhjqfR28.40 Rheumatoid myopathy with rheumatoid arthritis of unspecified
--- OUTSIDE RECORDS SUMMARY | 2018-10-17 15:07 | XMS REPORT | Continuity of Care Document ---
:1940 External Reference #:[id number] Author Name David Hicks M.D. Address [address] [place] [address] Care Team Providers Name Role Phone Valentin Sam M.D. Primary Care Physician Unavailable Payers Type Date Identification Numbers Payment Provider Subscriber Policy Number: [id number] Medicare - NGS Yamileth Winreal PayID: [id number] [address] [place] [address] Policy Number: [id number] [facility] Yamileth Brown Group Number: [id number] [address] [address] Group Name: [id number] [place] [address] PayID: [id number] Policy Number: [id number] [place] [address] Yamileth Winreal PayID: [id number] [address] [place] [address] Advance Directives Description No Information Available Problems Date Description Provider Status Onset: 05/10/2015 Rheumatoid arthritis David Hicks M.D. Active Onset: 05/10/2015 Chronic back pain David Hicks M.D. Active Onset: 05/10/2015 Hypothyroidism David Hicks M.D. Active Onset: 05/10/2015 Essential hypertension David Hicks M.D. Active Onset: 05/10/2015 Cellulitis David Hicks M.D. Active Onset: 05/10/2015 Primary open angle glaucoma David Hicks M.D. Active Onset: 05/10/2015 Nuclear senile cataract David Hicks M.D. Active Onset: 05/10/2015 Severe / Advanced / End Stage Glaucoma David Hicks M.D. Active Onset: 05/10/2015 Pseudophakia David Hicks M.D. Active Onset: 09/02/2015 Combined form of senile cataract David Hicks M.D. Active Onset: 03/29/2016 Presence of intraocular lens David Hicks M.D. Active Onset: 11/20/2016 Bilateral primary open angle glaucoma David Hicks M.D. Active Family History Date Family Member(s) Problem(s) Comments Father No Current Problems Mother No Current Problems Social History Type Date Description Comments Sex Unknown Marital Status Legal Status: Occupation [employer] Work Status Retired ETOH Use Denies alcohol use Tobacco Use Start: Unknown Patient has never smoked Recreational Drug Use Denies Drug Use Smoking Status Reviewed: 09/23/18 Patient has never smoked Allergies, Adverse Reactions, Alerts Date Description Reaction Status Severity Comments 05/10/2015 Macrodantin Active Medications Medication Date Status Form Strength Qnty SIG Indications Ordering Provider Brimonidine 09/02 Active Solution 0.2% 20uni Instill 1 David Moise Tartrate ts Drop Into Arleo, Both Eyes M.D. Two Times A Day Travatan Z 08/14 Active Solution 0.004% 15ml 1 drop Sheri Moise /2017 both eyes Stock[place], every O.D. night Artificial Tears 04/11 Active Solution 1.4% 1 drop David Moise both eyes Arleo, as needed M.D. Chlordiazepoxide Active Capsules 5-2.5mg prn Shallish, HCL/Clidinium / Valentin M.DJason [place] Oxycodone HCL Active Tablets 30mg [place], /0000 Zeyad Briggs M.D. Nitrostat Active Tablets Sub 0.3mg Shallish, /0000 Valentin M.DJason Folic Acid Active Tablets 1mg Shallish, /0000 Valentin M.DJason Cyclobenzaprine Active Tablets 10mg Shallish, HCL /0000 Valentin M.DJason Vitamin D Active Capsules [id number] Shallish, (Ergocalciferol) /0000 Valentin M.D. Premarin Active Tablets 0.625mg Shallish, /0000 Valentin M.D. Levothyroxine Active Tablets 88mcg Take One Unknown Sodium Tablet By Mouth Every Day Oxycontin Active Tab ER 12H 20mg Unknown Abuse-Det Calcium 500/D Active Chewtabs 500-400mg -Unit Isosorbide Active Tablets 5mg Mauser, Dinitrate MD Manoj Metoprolol Active Tablets ER 25mg Unknown Succinate ER 24HR Iron Active Tablets 325(65Fe) mg Biotin Active Chewtabs 3000mcg Vitamin C Active Tablets 250mg Medical Marijuana Active Gel Tab as needed Actemra 08/01 Hx Solution 80mg/4ML (unsure of MG) - 09/22 Prednisolone 07/04 Hx Suspension 1% 15ml One drop David JJason Acetate left eye Arleo, - twice per M.D. Atropine Sulfate 05/16 Hx Solution 1% 3 times Sheri J. daily left Stock[place], - eye O.D. 05/29 Vigamox 04/04 Hx Solution 0.5% 6ml one drop David Briggs. left eye [place]o, - three M.D. 05/29 times day Prednisolone 04/04 Hx Suspension 1% 15ml 1 drop David Moise Acetate both eyes Arleo, - 2 times M.D. 07/07 Travatan Z 04/03 Hx Solution 0.004% One drop David Moise left eye [place], - every M.D. 05/14 night before bed Alphagan P 04/03 Hx Solution 0.1% 15uni One drop David Moise /2017 ts left eye [place]o, - twice per M.D. Pilocarpine HCL /03 Hx Solution 1% 15uni instill 1 H40.1133 David Briggs. /2018 ts drop four [place]o, - times M.D. 03/10 daily in both eyes Pilocarpine HCL 05/03 Hx Solution 1% 15uni instill 1 H40.1133 David Briggs. /2018 ts drop four [place]leo, - times M.D. 04/03 daily in both eyes. Pred Forte 12/26 Hx Suspension 1% 5ml one drop H40.1133 David Moise three [place]o, - times a M.D. 01/20 day in the right eye for three days, then discontinu e. Azopt 10/31 Hx Suspension 1% 45ml One drop David Moise left eye [place]o, - twice per M.D. Timolol Maleate 10/31 Hx Solution 0.5% 15ml One drop David Moise left eye [place]o, - twice per M.D. Pred Forte 11/20 Hx Suspension 1% 5ml One drop H40.1133 David Moise three [place]leo, - times a M.D. 01/21 day in the left eye for three days, then discontinu e. Ciprofloxacin HCL 03/08 Hx Solution 0.3% 10ml instill David Moise one drop Ardavid, - in the M.D. 04/11 right eye /2015 three times a day, start the day before surgery Ketorolac 03/08 Hx Solution 0.5% 10ml use one David Moise Tromethamine /2015 drop in [place]o, - the right M.D. 08/06 eye times a day, start the day before surgery Prednisolone 03/08 Hx Suspension 1% 15ml 1 drops David Moise Acetate right eye Arleo, - three M.D. 08/06 times a day. taper as directed Acetazolamide 03/08 Hx Tablets 250mg 60tab 1 tab by David Moise /2015 s mouth Armyrnao, - every 6 M.D. 07/31 hours Pred Forte 09/02 Hx Suspension 1% 1ml One drop H40.11x3 David Moise three [place]o, - times a M.D. 10/11 day in the right eye for three days, then discontinu e. Dorzolamide 09/02 Hx Solution 22.3-6.8m 90day 1 drop H40.11x3 David Moise HCL/Timolol /2014 g/ml both eyes Arleo, Maleate - twice a M.D. Atenolol 00/00 Hx Tablets 25mg Shallish, /0000 Valentin M.D. - 12/25 Gemfibrozil 00/00 Hx Tablets 600mg Shallish, /0000 Valentin M.D. - 12/25 Orencia /00 Hx Soln 125mg/ml Endo, /0000 Prefill Tavo, - Syringe M.D. 04/03 Oxycontin /00 Hx Tab ER 12H 80mg [place], /0000 Abuse-Det Zeyad Briggs - M.DJason 11/02 Leflunomide /00 Hx Tablets 10mg Endo, /0000 Tavo - M.DJason 10/11 Levothyroxine Hx Tablets 75mcg Shallish, Sodium /0000 Valentin M.D. - 09/25 Alphagan P Hx Solution 0.1% 90day 1 drop David Briggs. /0000 both eyes Kurt, - twice a M.D. Diazepam /00 Hx Tablets 10mg Shallish, /0000 Valentin M.D. - 03/07 Morphine Sulfate 00/ Hx Caps ER 100mg Unknown ER /0000 24HR - 03/07 Nystatin 00 Hx Suspension [id number] Swish 5 ML Unknown /0000 t/ML To 10 ML - By Mouth 08/18 Four Times A Day For 2 Minutes Then Spit Atorvastatin Hx Tablets 20mg Unknown Calcium /0000 - 01/20 Prednisone 00/00 Hx Tablets 10mg Unknown /0000 - 01/20 Canasa Hx Suppository 1000mg Unknown /0000 - 01/20 Botox 00/00 Hx Solution 100Unit for Unknown /0000 Rec esophageal - spasm 04/03 CBD Capsules 00/00 Hx Unknown (Hemp) /0000 - 01/20 Travatan Z 00 Hx Solution 0.004% 7.5un Instill David J. /0000 its One Drop Kurt, - In Each M.D. 04/03 Eye Evening Atropine Sulfate 00/00 Hx Solution 1% 5ml 1 drop David Briggs. /0000 right eye Kurt, - three M.D. 07/12 times day Immunizations Description No Information Available Vital Signs Date Vital Result Comment 01/06/2018 3:08pm BP Systolic 122 mmHg BP Diastolic 75 mmHg Heart Rate 74 /min Respiratory Rate 16 /min 12/25/2016 2:50pm BP Systolic 126 mmHg BP Diastolic 74 mmHg Heart Rate 64 /min Respiratory Rate 12 /min Results Description No Information Available Procedures Date Code Description Status 09/02/2018 13762 Est Patient Intermediate Exam Completed 08/01/2018 57639 Est Patient Comprehensive Exam Completed 05/14/2018 83837 Fistulization Sclera For Glaucoma, Trabeculectomy AB Completed Externo 04/16/2018 94097 Fistulization Sclera For Glaucoma, Trabeculectomy AB Completed Externo 01/06/2018 28392 Trabeculoplasty By Laser Surgery Completed 12/26/2017 73899 Visual Field Exam Extended Completed 12/26/2017 48820 Est Patient Intermediate Exam Completed 09/26/2017 55455 Visual Field Exam Extended Completed 09/26/2017 73469 Est Patient Intermediate Exam Completed 04/30/2017 78403 Scanning Computerized Ophthalmic Diagnostic Imag Posterior Completed Seg On 04/30/2017 10808 Visual Field Exam Extended Completed 04/30/2017 16018 Est Patient Intermediate Exam Completed 12/25/2016 17890 Trabeculoplasty By Laser Surgery Completed 11/20/2016 97809 Scanning Computerized Ophthalmic Diagnostic Imag Posterior Completed Seg On 11/20/2016 77361 Visual Field Exam Extended Completed 11/20/2016 05780 Est Patient Intermediate Exam Completed 08/07/2016 27730 Est Patient Intermediate Exam Completed 03/28/2016 99680 Extracapsular Cataract Extraction W/Intraocular Lens Completed 03/28/2016 0191T I-Stent Aqueous Drainage Device Completed 03/08/2016 89814 Ophthalmic Biometry Completed 03/08/2016 85754 Scanning Computerized Opthalmic Diagnostic Posterior Seg Completed Retina 03/08/2016 25475 Visual Field Exam Extended Completed 11/03/2015 34640 Scanning Computerized Ophthalmic Diagnostic Imag Posterior Completed Seg On 11/03/2015 36693 Est Patient Comprehensive Exam Completed 09/12/2015 89191 Trabeculoplasty By Laser Surgery Completed 09/02/2015 12264 Est Patient Intermediate Exam Completed 05/31/2015 40691 Est Patient Intermediate Exam Completed 05/31/2015 09057 Pachymetry Completed 05/27/2015 34701 Visual Field Exam Extended Completed 05/10/2015 38858 New Patient Comprehensive Exam Completed 03/08/2010 67242 Visual Field Exam Extended Completed 03/08/2010 85959 Est Patient Intermediate Exam Completed 11/01/2009 47657 Est Patient Intermediate Exam Completed 11/01/2009 45713 Scanning Laser W/Interp And Report Completed 08/01/2009 08467 Visual Field Exam Extended Completed 08/01/2009 80482 Est Patient Intermediate Exam Completed 08/01/2009 519 Eyeglass Garment Presser Completed 04/05/2009 29922 Determination Of Refractive State Completed 04/05/2009 27083 Est Patient Intermediate Exam Completed 12/30/2008 64362 Visual Field Exam Extended Completed 12/30/2008 54986 Est Patient Intermediate Exam Completed 11/11/2008 22217 Scanning Laser W/Interp And Report Completed 11/11/2008 95278 Est Patient Intermediate Exam Completed 09/07/2008 85663 Trabeculoplasty By Laser Surgery Completed 08/03/2008 74339 Visual Field Exam Extended Completed 04/14/2008 17030 Trabeculoplasty By Laser Surgery Completed 04/06/2008 29018 Fundus Photography With Interpretation And Report Completed 04/06/2008 59992 Gonioscopy Completed 04/05/2008 85502 Visual Field Exam Extended Completed 03/29/2008 29051 Est Patient Intermediate Exam Completed 11/06/2007 53212 Est Patient Intermediate Exam Completed 08/06/2007 40066 Scanning Laser W/Interp And Report Completed 08/06/2007 29916 Visual Field Exam Extended Completed 05/06/2007 86918 Est Patient Intermediate Exam Completed 03/12/2007 63575 Visual Field Exam Extended Completed 12/30/2006 57041 Determination Of Refractive State Completed 12/30/2006 23172 Est Patient Comprehensive Exam Completed 03/29/2006 09717 Visual Field Exam Extended Completed 10/23/2005 19678 Est Patient Intermediate Exam Completed 10/19/2005 29807 Scanning Laser W/Interp And Report Completed 10/19/2005 37505 Visual Field Exam Extended Completed 09/21/2005 28418 Est Patient Intermediate Exam Completed 08/20/2005 94531 Fundus Photography With Interpretation And Report Completed 08/20/2005 23396 Determination Of Refractive State Completed 08/20/2005 34701 New Patient Comprehensive Exam Completed 08/20/2005 74057 Pachymetry Completed Encounters Type Date Location Provider Dx Diagnosis Office Visit 05/02/2018 David Clayton, H40.1123 Primary 11:00a lázaro ARGUETA M.D. open-angle glaucoma, left eye, severe stage H40.1113 Primary open-angle glaucoma, right eye, severe stage Z96.1 Presence of intraocular lens Office Visit 04/04/2018 11:15a David Moise H40.1113 Yamile Hicks MD, lázaro Hicks M.D. open-angle glaucoma, right eye, severe stage H40.1123 Primary open-angle glaucoma, left eye, severe stage Z96.1 Presence of intraocular lens Office Visit 03/11/2018 11:30a David Moise H40.1133 Yamile Hicks MD, lázaro Hicks M.D. open-angle glaucoma, bilateral, severe stage Z96.1 Presence of intraocular lens Office Visit 02/20/2018 11:00a David Moise H40.1133 Yamile Hicks MD, lázaro Hicks M.D. open-angle glaucoma, bilateral, severe stage Z96.1 Presence of intraocular lens Office Visit 01/21/2018 11:00a David Moise H40.1133 Yamile Hicks MD, lázaro Hicks M.D. open-angle glaucoma, bilateral, severe stage Office Visit 01/22/2017 11:15a David Moise H40.1123 Yamile Hicks MD, lázaro Hicks M.D. open-angle glaucoma, left eye, severe stage H40.1113 Primary open-angle glaucoma, right eye, severe stage Z96.1 Presence of intraocular lens Office Visit 03/08/2016 12:45p David Moise H25.811 Combined forms of MD Kurt, lázaro Hicks M.D. age-related cataract, right eye Z96.1 Presence of intraocular lens H40.11x3 Primary open-angle glaucoma, severe stage Office Visit 08/10/2008 1:45p David Clayton 365.11 Primary Open lázaro ARGUETA M.D. Angle Glaucoma Office Visit 05/28/2008 9:15a David Clayton 365.11 Primary Open lázaro ARGUETA M.D. Angle Glaucoma Office Visit 04/06/2008 8:30a David Clayton.11 Primary Open lázaro ARGUETA M.D. Angle Glaucoma Office Visit 08/06/2007 9:00a David Clayton.11 Primary Open lázaro ARGUETA M.D. Angle Glaucoma Office Visit 08/06/2007 8:15a David Clayton.11 Primary Open lázaro ARGUETA M.D. Angle Glaucoma Office Visit 05/24/2006 11:00a David Clayton.11 Primary Open lázaro ARGUETA M.D. Angle Glaucoma Office Visit 02/22/2006 1:15p David Clayton.11 Primary lázaro Chapa MD, M.D. Angle Glaucoma Plan of Treatment 09/23/2018 - David Hicks M.D.H40.1133 Primary open-angle glaucoma, bilateral, severe stageComments:Smoking can increase the risk of developing or worsening any eye related disease, as well as affect your overall health. If you are a smoker, we strongly recommend that you quit.If you are not a smoker, we strongly recommend that you do not start. Your glaucoma is stable at this time.Your eye pressure is within an acceptable range, and your testing does not show any further deterioration at this time. Please continue your treatment.Follow up:3 Month Follow Up IOP Check Visual Field, Central 10 At your next visit, we are not planning to dilate your eyes. However, if you have any changes in your vision or new symptoms, there are certain situations that require us to dilate your eyes. If Dr. Hicks requests any additional testing, that may require extra time. If you have any questions before your next appointment, please call our office [phone].z96.7 Presence of intraocular lensComments:The artificial lens implants in both eyes appear to be stable at this time.
[2018-10-17 15:22] LABS: INR 1.02 (0.77-1.02)
[2018-10-17 15:27] LABS: ABS Basophils 0 10^3/ul (0-0.2); ABS Eosinophils 0 10^3/ul (0-0.6); ABS Lymphocytes 1.5 10^3/ul (1.0-4.8); ABS Monocytes 0.2 10^3/ul (0-0.8); ABS Neutrophils 8.5 10^3/ul (1.5-7.7); ABS Nucleated RBC 0 10^3/ul; Eosinophil % 0 %; Hematocrit 35 % (35-47); Hemoglobin 12.1 g/dl (12.0-16.0); Mean Corpuscular HGB Conc 35 g/dl (31-36); Mean Corpuscular Hemoglobin 32 pg (27-31); Mean Corpuscular Volume 90 fL (80-97); Mean Platelet Volume 7.9 fL (7.4-10.4); Nucleated Red Blood Cells % 0; Platelet Count 85 10^3/ul (150-450); Red Blood Count 3.83 10^6/ul (4.00-5.40); Red Cell Distribution Width 13 % (10.5-15); White Blood Count 10.3 10^3/ul (3.5-10.8)
[2018-10-17 15:29] LABS: ALT 40 U/L (7-52); AST 66 U/L (13-39); Albumin 4.1 g/dL (3.2-5.2); Albumin/Globulin Ratio 1.2 (1-3); Alkaline Phosphatase 120 U/L (34-104); Anion Gap 9 mmol/L (2-11); BUN/Creatinine Ratio 15.7 (8-20); Blood Urea Nitrogen 20 mg/dL (6-24); CO2 Carbon Dioxide 32 mmol/L (22-32); Chloride 96 mmol/L (101-111); EGFR African American 49.5 (>60); EGFR Non-African American 40.9 (>60); Globulin 3.3 g/dL (2-4); Glucose 140 mg/dL (70-100); Potassium 3.6 mmol/L (3.5-5.0); Sodium 137 mmol/L (135-145); Total Protein 7.4 g/dL (6.4-8.9)
[2018-10-17 15:30] LABS: Troponin I 0.03 ng/mL (<0.04)
[2018-10-17] MEDS ORDERED: Aspirin TAB* 325 MG PO ONE (15:34)
[2018-10-17 15:35] LABS: Calcium 13.3 mg/dL (8.6-10.3)
[2018-10-17 15:41] LABS: Alcohol < 10 mg/dL (<10)
[2018-10-17] MEDS ORDERED: Aspirin 81 mg CHEW TAB* 81 MG TAB.CHEW ONE (16:04)
[2018-10-17] MEDS ORDERED: Aspirin 81 mg CHEW TAB* 81 MG TAB.CHEW PO ONE (16:05)
[2018-10-17] MEDS ORDERED: Ondansetron INJ* 2 MG/ML VIAL IV PRN (16:33)
[2018-10-17 16:35] LABS: Vitamin D Total 25(OH) 78.7 ng/mL (20-50)
[2018-10-17] MEDS ORDERED: chlordiazePOXIDE/Clidinium 1 CAP CAP PO PRN (16:37)
[2018-10-17] MEDS ORDERED: oxyCODONE TAB* 5 MG TAB PO PRN (16:37)
[2018-10-17 16:52] LABS: T4, Total 10.05 g/dL (6.09-12.23)
--- NOTE | 2018-10-17 20:47 | HP ---
CC: Dr. Valentin Sam; Dr. Robin Walker* ADMISSION HISTORY AND PHYSICAL: DATE OF ADMISSION: 10/17/18 PRIMARY CARE PROVIDER: Dr. Valentin Sma. MY ATTENDING WHILE IN THE HOSPITAL: Dr. Robin Walker* (dictated by LURDES Rolle). CHIEF COMPLAINT: Difficulty with word-finding x4 days. HISTORY OF PRESENT ILLNESS: Ms. Brown is a 78-year-old female with past medical history significant for rheumatoid arthritis, osteoporosis, hypothyroidism after radioactive iodine treatment, and high blood pressure, who presents to the emergency department after [place]. On 10/13/18, her family began to notice that she was having a hard time finding words and was generally talking very slow. The patient has general difficulty ambulating due to her rheumatoid arthritis, but did not notice any increase in this nor any other focal weakness. The patient's family noticed no other neurologic deficits except for that she can be confused at times, but they cannot elaborate on this. The patient had some high doses of narcotics and was having pain in her shoulder that began on 10/13/18, was localized to the anterolateral portion of her shoulder and was not associated with any pops or clicks or trauma. The patient has not had pain in her shoulder like this before. The patient did not increase her narcotic dosing after this. The patient actually stopped her cyclobenzaprine due to possible interaction with her opiates per the recommendation of her . The patient continued to have symptoms of word- finding difficulty over the past 4 days, not getting any better or worse. The patient has not had any falls. The patient was recently started on Xeljanz for her rheumatoid arthritis. On 10/04/18, the patient was also started on D- mannose by her urologist due to frequent urinary tract infections. Due to ongoing concern and pressure from the children, the patient presented to the emergency department today for evaluation. In the emergency department, there was concern that the patient had a TIA and was seen in consultation by Dr. Kim of Neurology, who recommended admission and workup for CVA. However, the patient was found to have a calcium of 13.3 on her BMP. The patient is on high doses of vitamin D supplementation. The patient takes 50,000 units monthly as well as supplementation twice daily in oral tabs of unknown strength in combination with calcium for her osteoporosis and rheumatoid arthritis. The patient has never had issues with overtly high calcium before. The patient has had no recent illnesses, sick contacts, or other changes in her medications. Due to concern for hypercalcemia and possible TIA, we were asked to evaluate for admission. PAST MEDICAL HISTORY: Rheumatoid arthritis, hypertension, irritable bowel syndrome, hypertriglyceridemia, frequent urinary tract infections, iatrogenic hypothyroidism after radioactive iodine treatment for goiter, Zenker diverticulum, osteopenia, previous evaluation for TIA with left-sided facial droop. PAST SURGICAL HISTORY: Hysterectomy in 1985, bilateral carpal tunnel release, bilateral shoulder surgeries, ovarian tumor removal, Roland neuroma removal. MEDICATIONS: Per medication reconciliation which was confirmed by the patient' s : 1. Premarin 0.625 mg daily. 2. Synthroid 88 mcg p.o. daily. 3. Librax 1 cap p.o. t.i.d. as needed. 4. Cyclobenzaprine 10 mg p.o. t.i.d. as needed. 5. Metoprolol succinate 25 mg p.o. q.a.m. 6. Vitamin C 500 mg p.o. b.i.d. 7. Isosorbide dinitrate 2.5 mg p.o. q.a.m. 8. Caltrate 600 plus D 1 to 2 p.o. b.i.d. 9. Zofran 8 mg p.o. q.6 hours as needed. 10. Vitamin D3 50,000 units p.o. monthly. 11. Oxycodone 20 mg 1 tab p.o. q.6 hours as needed. 12. OxyContin 30mg p.o. b.i.d. 13. Multivitamin 1 tab p.o. q.a.m. 14. Biotin 3000 mcg p.o. q.a.m. 15. Folic acid 1 mg p.o. q.a.m. 16. Ferrous sulfate 65 mg p.o. q.a.m. 17. MegaRed [place]-3 Krill Oil 2 caps p.o. q.a.m. ALLERGIES: NITROFURANTOIN. FAMILY HISTORY: The patient's mother of colon cancer. The patient's father of heart disease. The patient's brother of complications of an abdominal surgery. The patient has a sister who is alive and well. SOCIAL HISTORY: The patient smoked for a brief time, approximately 30 years ago. The patient has never drank alcohol. The patient was on medical marijuana , but uses no other illicit drugs. 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 The patient's surrogate decision maker will be her , Gamal Brown. REVIEW OF SYSTEMS: A 14-point review of systems was reviewed and is negative except as above in the HPI. PHYSICAL EXAMINATION GENERAL: The patient is a 78-year-old female, who appears stated age and is sitting comfortably in bed, in no acute distress. VITAL SIGNS: Temperature 98.8, pulse rate 72, respiratory rate 16, oxygen saturation 99% on room air, blood pressure 167/86. HEENT: Head: Normocephalic, atraumatic. Sclerae anicteric. No conjunctival injection. Nasal mucosa moist. Oral mucosa moist. No pharyngeal erythema, discharge, or exudate. NECK: Supple, nontender. No lymphadenopathy. No carotid bruits auscultated. No JVD. RESPIRATORY: Clear to auscultation bilaterally. No wheezes, rales, or rhonchi. Good air exchange bilaterally. CARDIAC: Regular rate and rhythm. No clicks, murmurs, gallops, or rubs. Pulses are 2+ in the bilateral dorsalis pedis, posterior tibialis, and radial areas. No bilateral lower extremity edema noted. ABDOMEN: Soft, nontender, nondistended. Bowel sounds present and normoactive in all 4 quadrants. No hepatosplenomegaly. No abdominal bruits auscultated. No hepatojugular reflux. GENITOURINARY: No suprapubic or CVA tenderness. NEUROLOGIC: Cranial nerves II through XII intact except for slight left-sided facial droop in the eye and corner of the mouth with symmetrical forehead wrinkling bilaterally, which corrects with smiling. Strength preserved in the bilateral upper and lower extremities distally and proximally. Normal sensation to light touch in the bilateral upper and lower extremities distally and proximally. Reflexes are 1+ throughout. Downgoing Babinski's bilaterally. Possible slight dysmetria symmetrical bilaterally with [id number] testing. Finger taps equal bilaterally. Occasional word-finding difficulty. Alert and oriented x3. PSYCHIATRIC: Pleasant and cooperative. SKIN: Clean, dry, and intact. No rash except for slight bruising on the right shoulder. DIAGNOSTIC STUDIES/LAB DATA: White blood cell count of 10.3, hemoglobin 12.1, hematocrit 35, platelet count 85. INR 1.02. Sodium 137, potassium 3.6, chloride 96, carbon dioxide 32, anion gap 9, BUN 20, creatinine 1.27, glucose 140, lactic acid 1.3, calcium 13.3. Bilirubin 0.8, AST 33, ALT 40, alkaline phosphatase 120. Ammonia 43. Troponin I of 0.03. Total protein 7.4, albumin 4.1, globulin 3.3. Vitamin D 78.8. TSH 1.4, PTH less than 1. Alcohol less than 10. Studies: Brain CT read as no acute intracranial pathology. Electrocardiogram read as normal sinus rhythm, QTc of 444, rate of 95. No hypertrophy or enlargement. No ST segment abnormalities. No blocks. ASSESSMENT AND PLAN: Impression: Ms. Brown is a 78-year-old female with past medical history significant for rheumatoid arthritis, osteoporosis, frequent urinary tract infections, hypertension, and hypothyroidism, who presents to the emergency department with 5 days of word-finding difficulty and mild confusion. The patient was found to have hypercalcemia and admitted to the hospital for treatment of possible symptomatic hypercalcemia as well as evaluation for transient ischemic attack/cerebrovascular accident. 1. Confusion, word-finding difficulty. The most likely cause of this is symptomatic hypercalcemia likely due to vitamin D intoxication. The patient is on a large amount of vitamin D supplementation, has an elevated vitamin D level at this time. The patient's PTH level is appropriately suppressed with her hypercalcemia. The patient will have her vitamin D held at this time. The patient will be fluid expanded. The patient appears to be possibly somewhat dehydrated. The patient is also having elevated creatinine, which could be contributing to decreased clearance of calcium. Other causes of hypercalcemia are unlikely at this time and will be further investigated if response to primary treatment is not seen. Given the patient's osteoporosis, age, and rheumatoid arthritis, consideration for bisphosphonate therapy outpatient should be made with her primary care provider. 2. Hypercalcemia. Treatment as above. 3. Possible transient ischemic attack. The patient will have an evaluation for carotid stenosis and an MRI of her brain. The patient had negative CT scan of her head. The patient will have lipid profile as well as a hemoglobin A1c. The patient will be started on aspirin, but will not be started on clopidogrel at this time due to alternative explanation being more likely that clopidogrel will be added on if the patient was found to have a cerebrovascular accident on MRI. The patient will also have echocardiogram to assess for patent foramen ovale and anticoagulation will be instituted as indicated. 4. Rheumatoid arthritis. The patient's Xeljanz will be held while she is in the hospital. This may be resumed at discharge. 5. Frequent urinary tract infections. The patient's D-mannose will be held while in the hospital as well due to the temporal relationship to the onset of her symptoms. The patient may resume this at discharge after returning to her baseline. 6. Hypothyroidism. TFTs are pending at this time, continue levothyroxine at current dose. 7. DVT prophylaxis: Heparin subcu. 8. FEN: Fluids as above. The patient will have a heart-healthy diet without caffeine after passing her dysphagia screening. 9. Code status: The patient would like to be a full code. 10. Disposition: The patient is admitted to observation. TIME SPENT: Approximately 60 minutes were spent on the admission of this patient, 30 of which was spent [id number] with the patient obtaining history and physical and discussing treatment plan. Plan was discussed with my attending, Dr. Robin Walker, and he is in agreement. LURDES ROLLE [id number]/CPS #: [id number] EDD
[2018-10-17] MEDS: oxyCODONE SR TAB(*) 15 MG TAB.SR PO SCH (21:36)
[2018-10-17] MEDS: Heparin VIAL(*) 5000 UNITS/ML VIAL (FIVE THOUSAND) SUBCUT SCH ×2 (21:40→22:18)
[2018-10-17] MEDS: NS 0.9% 1000 ML** 1,000 ML IV SCH (21:53)
[2018-10-18 00:37] LABS: Urine Appearance Cloudy; Urine Bilirubin Negative (Negative); Urine Blood Negative (Negative); Urine Color Yellow; Urine Glucose Negative (Negative); Urine Ketones Negative (Negative); Urine Nitrite Negative (Negative); Urine Protein Negative (Negative); Urine Specific Gravity 1.008 (1.010-1.030); Urine Urobilinogen Negative (Negative)
[2018-10-18] MEDS: NS 0.9% 1000 ML** 1,000 ML IV SCH ×3 (05:29→20:25)
[2018-10-18] MEDS: Heparin VIAL(*) 5000 UNITS/ML VIAL (FIVE THOUSAND) SUBCUT SCH (05:30)
[2018-10-18] MEDS: Levothyroxine TAB* 88 MCG TAB PO SCH (05:30)
[2018-10-18 05:54] LABS: ABS Basophils 0 10^3/ul (0-0.2); ABS Eosinophils 0 10^3/ul (0-0.6); ABS Lymphocytes 2.9 10^3/ul (1.0-4.8); ABS Monocytes 0.7 10^3/ul (0-0.8); ABS Nucleated RBC 0 10^3/ul; Eosinophil % 0 %; Hematocrit 30 % (35-47); Hemoglobin 10.7 g/dl (12.0-16.0); Lymphocyte % 24.8 %; Mean Corpuscular HGB Conc 36 g/dl (31-36); Mean Corpuscular Hemoglobin 32 pg (27-31); Mean Corpuscular Volume 90 fL (80-97); Mean Platelet Volume 8.3 fL (7.4-10.4); Nucleated Red Blood Cells % 0.3; Platelet Count 73 10^3/ul (150-450); Red Blood Count 3.32 10^6/ul (4.00-5.40); Red Cell Distribution Width 13 % (10.5-15); White Blood Count 11.6 10^3/ul (3.5-10.8)
[2018-10-18 06:12] LABS: BUN/Creatinine Ratio 18.9 (8-20); Calcium 11.7 mg/dL (8.6-10.3); EGFR African American 51.9 (>60); EGFR Non-African American 42.9 (>60); HDL Cholesterol 70.5 mg/dL; Magnesium 1.4 mg/dL (1.9-2.7); Phosphorus 3.1 mg/dL (2.5-5.0)
[2018-10-18] MEDS ORDERED: Potassium Chloride LIQUID* 20 MEQ PACKET PO ONE (07:09)
[2018-10-18] MEDS ORDERED: Magnesium Sulfate IV* 3 GM in NS 0.9% 100 ML* 100 ML IVPB ONE (07:30)
[2018-10-18] MEDS: oxyCODONE SR TAB(*) 15 MG TAB.SR PO SCH ×2 (08:33→20:18)
[2018-10-18] MEDS: Folic Acid TAB* 1 MG PO SCH (08:33)
[2018-10-18] MEDS: Metoprolol Succinate XL TAB* 25 MG PO SCH ×2 (08:33→08:36)
[2018-10-18] MEDS ORDERED: Aspirin EC TAB* 81 MG TAB.EC PO SCH (09:00)
[2018-10-18] MEDS: oxyCODONE TAB* 5 MG TAB PO PRN ×2 (10:45→16:51)
--- NOTE | 2018-10-18 11:57 | PN ---
Subjective Date of Service: 10/18/18 Interval History: Patient is feeling better. Patient is having significant back pain, but her oxycodone was inadvertently decreased significantly at admission. Patient and state she has had significantly decreased word finding difficulty. Patient denies F/C, N/V, abdominal pain, diarrhea, constipation, CP, SOB. Family History: Unchanged from Admission Social History: Unchanged from Admission Past Medical History: Unchanged from Admission Objective Active Medications: Acetaminophen (Tylenol Tab*) 650 mg PO Q6H PRN PRN Reason: FEVER/PAIN Aspirin (Aspirin Ec Tab*) 81 mg PO DAILY [facility] Last Admin: 10/18/18 08:33 Dose: 81 mg Folic Acid (Folvite Tab*) 1 mg PO QAM [facility] Last Admin: 10/18/18 08:33 Dose: 1 mg Sodium Chloride (Ns 0.9% 1000 Ml*) 1,000 mls @ 150 mls/hr IV PER RATE [facility] Last Admin: 10/18/18 05:29 Dose: 150 mls/hr Levothyroxine Sodium (Synthroid Tab*) 88 mcg PO QAM@0600 [facility] Last Admin: 10/18/18 05:30 Dose: 88 mcg Metoprolol Succinate (Toprol Xl Tab*) 25 mg PO QAM [facility] Last Admin: 10/18/18 08:36 Dose: 25 mg Ondansetron HCl (Zofran Inj*) 4 mg IV Q6H PRN PRN Reason: NAUSEA Oxycodone HCl (Oxycontin(*)) 30 mg PO BID [facility] Last Admin: 10/18/18 08:33 Dose: 30 mg Oxycodone HCl (Roxycodone Tab*) 20 mg PO Q6H PRN PRN Reason: PAIN Last Admin: 10/18/18 10:45 Dose: 20 mg Vital Signs - 8 hr 10/18/18 10/18/18 10/18/18 07:41 08:33 10:45 Temperature 98.1 F Pulse Rate 91 Respiratory 16 16 16 Rate Blood Pressure 149/81 (mmHg) O2 Sat by Pulse 96 Oximetry Oxygen Devices in Use Now: None Appearance: Patient is a 78yo female who appears stated age and is sitting in the bed in [facility]. Eyes: No Scleral Icterus, PERRLA Ears/Nose/Mouth/Throat: NL Teeth, Lips, Gums, Clear Oropharnyx, Mucous Membranes Moist Neck: NL Appearance and Movements; NL JVP, Trachea Midline Respiratory: Symmetrical Chest Expansion and Respiratory Effort, Clear to Auscultation Cardiovascular: NL Sounds; No Murmurs; No JVD, RRR, No Edema Abdominal: NL Sounds; No Tenderness; No Distention, No Hepatosplenomegaly Lymphatic: No Cervical Adenopathy Extremities: No Edema, No Clubbing, Cyanosis Skin: No Rash or Ulcers, No Nodules or Sclerosis Neurological: Alert and Oriented x 3, NL Sensation, NL Muscle Strength and Tone , - - CN II-XII intact. No focal deficits. Single instance of word-finding difficulty. Result Diagrams: 10/18/18 05:19 10/18/18 05:19 Assess/Plan/Problems-Billing Assessment: Patient is a 78yo female with a PMH RA, HTN, Chronic Pain, and Osteopenia who presented with 4 days of word finding difficulty and confusion and was found to be profoundly hypercalcemic with hypervitaminosis D who is improving with fluids. - Patient Problems (1) Hypercalcemia Current Visit: Yes Status: Acute Code(s): E83.52 - HYPERCALCEMIA SNOMED Code(s): 72546637 Comment: - Likely caused by hypervitaminosis D. Stop Vitamin D and calcium supplementation - Improving with fluids - Neurological deficits improving with calcium level - MRI brain negative. Discontinue rest of TIA evaluation - No indication for Bisphosphonates or other more advanced treatments at this time. (2) Chronic pain Current Visit: Yes Status: Acute Code(s): G89.29 - OTHER CHRONIC PAIN SNOMED Code(s): 44890099 Comment: - Back Pain - Continue home meds (3) Rheumatoid arthritis Current Visit: No Status: Chronic Code(s): M06.9 - RHEUMATOID ARTHRITIS, UNSPECIFIED SNOMED Code(s): 32603085 Comment: - Patient recently started on Xeljanz. - Minimal disease activity - Thrombocytopenic, possibly due to Xeljanz, rare adverse reaction - Not likely due to RA with low disease activity. No splenomegaly on exam. - Plan to hold at discharge and follow up with Dr. Mercedes (4) Hypertension Current Visit: No Status: Chronic Code(s): I10 - ESSENTIAL (PRIMARY) HYPERTENSION SNOMED Code(s): 14107757 Comment: - Continue Metoprolol - Slightly Hypertensive (5) Full code status Current Visit: Yes Status: Acute Code(s): Z78.9 - OTHER SPECIFIED HEALTH STATUS SNOMED Code(s): 539942690 (6) DVT prophylaxis Current Visit: Yes Status: Acute Code(s): WUW4933 - SNOMED Code(s): 706520595 Comment: - SCDs and Ambulation per patient preference. Status and Disposition: Inpatient with persistent neurological deficits from high calcium level and possible need for more intensive intervention.
[2018-10-18] MEDS: Acetaminophen TAB* 325 MG PO PRN (20:17)
[2018-10-19] MEDS: oxyCODONE TAB* 5 MG TAB PO PRN (03:43)
[2018-10-19] MEDS ORDERED: hydrALAZINE IV* 20 MG/ML VIAL IV SLOW PU ONE (03:58)
[2018-10-19] MEDS: NS 0.9% 1000 ML** 1,000 ML IV SCH ×2 (04:32→12:15)
[2018-10-19] MEDS: Levothyroxine TAB* 88 MCG TAB PO SCH (05:47)
[2018-10-19 06:31] LABS: ABS Basophils 0 10^3/ul (0-0.2); ABS Eosinophils 0 10^3/ul (0-0.6); ABS Lymphocytes 2.4 10^3/ul (1.0-4.8); ABS Monocytes 0.5 10^3/ul (0-0.8); ABS Neutrophils 5.8 10^3/ul (1.5-7.7); ABS Nucleated RBC 0 10^3/ul; Eosinophil % 0 %; Hematocrit 30 % (35-47); Hemoglobin 10.7 g/dl (12.0-16.0); Lymphocyte % 27.5 %; Mean Corpuscular HGB Conc 36 g/dl (31-36); Mean Corpuscular Hemoglobin 33 pg (27-31); Mean Corpuscular Volume 90 fL (80-97); Mean Platelet Volume 7.6 fL (7.4-10.4); Nucleated Red Blood Cells % 0.1; Platelet Count 52 10^3/ul (150-450); Red Cell Distribution Width 13 % (10.5-15); White Blood Count 8.7 10^3/ul (3.5-10.8)
[2018-10-19 06:42] LABS: BUN/Creatinine Ratio 15.4 (8-20); Calcium 11.1 mg/dL (8.6-10.3); EGFR African American 62.3 (>60); EGFR Non-African American 51.5 (>60); Magnesium 1.4 mg/dL (1.9-2.7)
[2018-10-19] MEDS ORDERED: Potassium Chloride LIQUID* 20 MEQ PACKET PO ONE (07:01)
[2018-10-19] MEDS ORDERED: KCL 20 MEQ/100 ML IVPREMIX* 20 MEQ/100 ML BAG IV ONE (07:02)
[2018-10-19 07:51] LABS: C Reactive Protein 23.9 mg/L (<8.01)
[2018-10-19] MEDS ORDERED: Magnesium Sulfate IV* 3 GM in NS 0.9% 100 ML* 100 ML IVPB ONE (08:00)
[2018-10-19] MEDS ORDERED: Potassium Chlor TAB* 20 MEQ TAB.ER PO ONE (08:12)
[2018-10-19] MEDS: oxyCODONE SR TAB(*) 15 MG TAB.SR PO SCH ×2 (09:12→20:42)
[2018-10-19] MEDS: Folic Acid TAB* 1 MG PO SCH (09:12)
[2018-10-19] MEDS: Metoprolol Succinate XL TAB* 25 MG PO SCH (09:12)
[2018-10-19] MEDS ORDERED: amLODIPine TAB* 5 MG PO ONE (10:29)
[2018-10-19] MEDS ORDERED: Zoledronic Acid* 4 MG in NS 0.9% 100 ML* 95 ML IVPB ONE (10:30)
[2018-10-19] MEDS: Calcitonin (Salmon) INJ* 200 UNITS/ML 2 ML VIAL SUBCUT SCH ×2 (12:31→20:52)
--- NOTE | 2018-10-19 14:41 | PN ---
Subjective Date of Service: 10/19/18 Interval History: Patient has stable but persistent slow cognition and word finding difficulty. Patient has a mild tremor. Patient is urinating frequently and is not sleeping well. Patient denies F/C, N/V, abdominal pain, dysuria, diarrhea, CP, SOB, or other pain. Patient was unable to state why she previously was seen by hematology but stated that whatever that reason was has now resolved. Family History: Unchanged from Admission Social History: Unchanged from Admission Past Medical History: Unchanged from Admission Objective Active Medications: Acetaminophen (Tylenol Tab*) 650 mg PO Q6H PRN PRN Reason: FEVER/PAIN Last Admin: 10/18/18 20:17 Dose: 650 mg Calcitonin Lewis (Miacalcin Inj*) 50 units SUBCUT BID [facility] Stop: 10/19/18 21:01 Last Admin: 10/19/18 12:31 Dose: 50 units Folic Acid (Folvite Tab*) 1 mg PO QAM [facility] Last Admin: 10/19/18 09:12 Dose: 1 mg Sodium Chloride (Ns 0.9% 1000 Ml*) 1,000 mls @ 100 mls/hr IV PER RATE [facility] Last Admin: 10/19/18 12:15 Dose: 100 mls/hr Levothyroxine Sodium (Synthroid Tab*) 88 mcg PO QAM@0600 [facility] Last Admin: 10/19/18 05:47 Dose: 88 mcg Metoprolol Succinate (Toprol Xl Tab*) 25 mg PO QAM [facility] Last Admin: 10/19/18 09:12 Dose: 25 mg Ondansetron HCl (Zofran Inj*) 4 mg IV Q6H PRN PRN Reason: NAUSEA Oxycodone HCl (Oxycontin(*)) 30 mg PO BID [facility] Last Admin: 10/19/18 09:12 Dose: 30 mg Oxycodone HCl (Roxycodone Tab*) 20 mg PO Q6H PRN PRN Reason: PAIN Last Admin: 10/19/18 03:43 Dose: 20 mg Vital Signs - 8 hr 10/19/18 10/19/18 10/19/18 07:26 08:00 09:12 Temperature 98.1 F Pulse Rate 89 Respiratory 16 16 16 Rate Blood Pressure 175/92 (mmHg) O2 Sat by Pulse 97 Oximetry 10/19/18 11:35 Temperature 97.7 F Pulse Rate 86 Respiratory 16 Rate Blood Pressure 144/73 (mmHg) O2 Sat by Pulse 99 Oximetry Oxygen Devices in Use Now: None Appearance: Patient is a 78yo female who appears stated age and is sitting in the bed in [facility]. Eyes: No Scleral Icterus, PERRLA Ears/Nose/Mouth/Throat: NL Teeth, Lips, Gums, Clear Oropharnyx, Mucous Membranes Moist Neck: NL Appearance and Movements; NL JVP, Trachea Midline Respiratory: Symmetrical Chest Expansion and Respiratory Effort, Clear to Auscultation Cardiovascular: NL Sounds; No Murmurs; No JVD, RRR, No Edema Abdominal: NL Sounds; No Tenderness; No Distention, No Hepatosplenomegaly Lymphatic: No Cervical Adenopathy Extremities: No Edema, No Clubbing, Cyanosis Skin: No Rash or Ulcers, No Nodules or Sclerosis Neurological: Alert and Oriented x 3, NL Sensation, NL Muscle Strength and Tone , - - CN II- XII intact. Occasional tremor. Occasional word finding difficulty and slow responses. Result Diagrams: 10/19/18 05:47 10/19/18 05:47 Assess/Plan/Problems-Billing Assessment: Patient is a 78yo female with a PMH RA, HTN, Chronic Pain, and Osteopenia who presented with 4 days of word finding difficulty and confusion and was found to be profoundly hypercalcemic with hypervitaminosis D who is improving with fluids. - Patient Problems (1) Hypercalcemia Current Visit: Yes Status: Acute Code(s): E83.52 - HYPERCALCEMIA SNOMED Code(s): 20724755 Comment: - Likely caused by hypervitaminosis D. Stop Vitamin D and calcium supplementation - Was getting over 3,000 iu daily of D3 and 50,00iu monthly of D2. - Improving with fluids, will add on calcitonin and Zolendronic acid and decrease fluids to avoid fluid overload. - Neurological deficits improving with calcium level - MRI brain negative. Discontinue rest of TIA evaluation (2) Thrombocytopenia Current Visit: Yes Status: Acute Code(s): D69.6 - THROMBOCYTOPENIA, UNSPECIFIED SNOMED Code(s): 469559187 Comment: - Platelets down to 52 today. - Possibly due to Xeljanz. - Avoid AC - Hematology input appreciated. SPEP ordered for possible MM and consult pending. - No signs of bleeding. (3) Chronic pain Current Visit: Yes Status: Acute Code(s): G89.29 - OTHER CHRONIC PAIN SNOMED Code(s): 72989673 Comment: - Back Pain - Continue home meds (4) Rheumatoid arthritis Current Visit: No Status: Chronic Code(s): M06.9 - RHEUMATOID ARTHRITIS, UNSPECIFIED SNOMED Code(s): 35232981 Comment: - Patient recently started on Xeljanz. - Minimal disease activity - Thrombocytopenic, possibly due to Xeljanz, rare adverse reaction - Not likely due to RA with low disease activity. No splenomegaly on exam. - Plan to hold at discharge and follow up with Dr. Mercedes (5) Hypertension Current Visit: No Status: Chronic Code(s): I10 - ESSENTIAL (PRIMARY) HYPERTENSION SNOMED Code(s): 76814118 Comment: - Continue Metoprolol - Slightly Hypertensive (6) Full code status Current Visit: Yes Status: Acute Code(s): Z78.9 - OTHER SPECIFIED HEALTH STATUS SNOMED Code(s): 320323818 (7) DVT prophylaxis Current Visit: Yes Status: Acute Code(s): QHY2703 - SNOMED Code(s): 027271490 Comment: - SCDs and Ambulation per patient preference. Status and Disposition: Inpatient with persistent neurological deficits from high calcium level and possible need for more intensive intervention as well as thrombocytopenia.
[2018-10-19] MEDS: LORazepam TAB(*) 0.5 MG PO SCH ×2 (16:50→20:42)
[2018-10-20] MEDS: Acetaminophen TAB* 325 MG PO PRN (00:46)
[2018-10-20] MEDS: NS 0.9% 1000 ML** 1,000 ML IV SCH ×2 (00:49→20:32)
[2018-10-20] MEDS: Levothyroxine TAB* 88 MCG TAB PO SCH ×2 (04:59)
[2018-10-20 05:45] LABS: ABS Basophils 0 10^3/ul (0-0.2); ABS Eosinophils 0 10^3/ul (0-0.6); ABS Monocytes 0.3 10^3/ul (0-0.8); ABS Neutrophils 11.7 10^3/ul (1.5-7.7); ABS Nucleated RBC 0 10^3/ul; Eosinophil % 0 %; Hematocrit 34 % (35-47); Hemoglobin 12.3 g/dl (12.0-16.0); Lymphocyte % 7.8 %; Mean Corpuscular HGB Conc 37 g/dl (31-36); Mean Corpuscular Hemoglobin 33 pg (27-31); Mean Corpuscular Volume 90 fL (80-97); Mean Platelet Volume 8.1 fL (7.4-10.4); Nucleated Red Blood Cells % 0.1; Platelet Count 51 10^3/ul (150-450); Red Blood Count 3.77 10^6/ul (4.00-5.40); Red Cell Distribution Width 13 % (10.5-15)
[2018-10-20 06:08] LABS: Anion Gap 8 mmol/L (2-11); BUN/Creatinine Ratio 10.3 (8-20); Blood Urea Nitrogen 9 mg/dL (6-24); CO2 Carbon Dioxide 26 mmol/L (22-32); Calcium 9.4 mg/dL (8.6-10.3); Chloride 102 mmol/L (101-111); EGFR African American 76.6 (>60); EGFR Non-African American 63.3 (>60); Glucose 124 mg/dL (70-100); Magnesium 1.3 mg/dL (1.9-2.7); Potassium 3.3 mmol/L (3.5-5.0); Sodium 136 mmol/L (135-145)
[2018-10-20] MEDS: oxyCODONE TAB* 5 MG TAB PO PRN ×2 (06:26→13:10)
[2018-10-20] MEDS ORDERED: Magnesium Sulf 4 GM/100 ML IV* 4,000 MG/100 ML BAG IVPB ONE (07:30)
[2018-10-20] MEDS: KCL 20 MEQ/100 ML IVPREMIX* 20 MEQ/100 ML BAG IV SCH ×2 (08:06→15:06)
[2018-10-20] MEDS: LORazepam TAB(*) 0.5 MG PO SCH ×2 (08:07→22:06)
[2018-10-20] MEDS: Folic Acid TAB* 1 MG PO SCH (08:07)
[2018-10-20] MEDS: Metoprolol Succinate XL TAB* 25 MG PO SCH (08:07)
[2018-10-20] MEDS: oxyCODONE SR TAB(*) 15 MG TAB.SR PO SCH ×2 (08:07→22:05)
--- NOTE | 2018-10-20 08:23 | PN ---
Progress Note - Progress Note Date of Service: 10/20/18 SOAP: Patient well known to our service, as she follows with Dr. Matuet for IgG kappa MGUS. Most recently seen in July when her M-spike was stable at 0.5 g/dL. she had relatively recently been started on Actrema for her RA. She comes in now with AMS and is noted to have hypercalcemia, ARF, and new thrombocytopenia. At my request she was given zometa yesterday after 2 days of hydration and calcitonin failed to significantly lower her calcium. Today she is 9.4. Subjective: very confused this am. per daughter it has worsened significantly over the weekend. she is unable to tell me where she is or why. Objective: Vital Signs Temp Pulse Resp BP Pulse Ox 98.9 F 102 16 153/76 98 10/20/18 07:49 10/20/18 07:49 10/20/18 08:07 10/20/18 07:49 10/20/18 07:49 sitting up, confused op dry CTA bl s1 s2 tachy soft nt +bs no le edema RA changes hands confused, did not ambulate, following some directions Laboratory Results - last 24 hr 10/20/18 10/20/18 05:19 05:19 WBC 13.0 H RBC 3.77 L Hgb 12.3 Hct 34 L MCV 90 MCH 33 H MCHC 37 H RDW 13 Plt Count 51 L MPV 8.1 Neut % (Auto) 90.0 Lymph % (Auto) 7.8 [place] % (Auto) 2.0 Eos % (Auto) 0 Baso % (Auto) 0.2 Absolute Neuts (auto) 11.7 H Absolute Lymphs (auto) 1.0 Absolute Monos (auto) 0.3 Absolute Eos (auto) 0 Absolute Basos (auto) 0 Absolute Nucleated RBC 0 Nucleated RBC % 0.1 Sodium 136 Potassium 3.3 L Chloride 102 Carbon Dioxide 26 Anion Gap 8 BUN 9 Creatinine 0.87 Est GFR ( Amer) 76.6 Est GFR (Non-Af Amer) 63.3 BUN/Creatinine Ratio 10.3 Glucose 124 H Calcium 9.4 Magnesium 1.3 L Acetaminophen (Tylenol Tab*) 650 mg PO Q6H PRN PRN Reason: FEVER/PAIN Last Admin: 10/20/18 00:46 Dose: 650 mg Folic Acid (Folvite Tab*) 1 mg PO QAM [facility] Last Admin: 10/20/18 08:07 Dose: 1 mg Sodium Chloride (Ns 0.9% 1000 Ml*) 1,000 mls @ 100 mls/hr IV PER RATE [facility] Last Admin: 10/20/18 00:49 Dose: 100 mls/hr Magnesium Sulfate (Magnesium Sulf 4 Gm/100 Ml Iv*) 4,000 mg in 100 mls @ 33.333 mls/hr IVPB ONCE ONE Stop: 10/20/18 10:29 Potassium Chloride (Potassium Chloride 20 Meq/100 Ml Ivpremix*) 20 meq in 100 mls @ 50 mls/hr IV Q2H [facility] Stop: 10/20/18 10:59 Last Admin: 10/20/18 08:06 Dose: 50 mls/hr Levothyroxine Sodium (Synthroid Tab*) 88 mcg PO QAM@0600 [facility] Last Admin: 10/20/18 04:59 Dose: Not Given Lorazepam (Ativan Inj*) 0.5 mg IV PUSH Q4H PRN PRN Reason: ANXIETY Lorazepam (Ativan Tab(*)) 0.25 mg PO BID [facility] Last Admin: 10/20/18 08:07 Dose: 0.25 mg Metoprolol Succinate (Toprol Xl Tab*) 25 mg PO QAM [facility] Last Admin: 10/20/18 08:07 Dose: 25 mg Ondansetron HCl (Zofran Inj*) 4 mg IV Q6H PRN PRN Reason: NAUSEA Oxycodone HCl (Oxycontin(*)) 30 mg PO BID [facility] Last Admin: 10/20/18 08:07 Dose: 30 mg Oxycodone HCl (Roxycodone Tab*) 10 mg PO Q6H PRN PRN Reason: PAIN Last Admin: 10/20/18 06:26 Dose: 10 mg Laboratory Tests 10/17/18 10/20/18 15:01 05:19 WBC 13.0 H Hgb 12.3 MCV 90 Plt Count 51 L Creatinine 1.27 H Calcium 13.3 H* 25-OH Vitamin D Total 78.7 H Assessment: complicated 78 yo F w RA newly on acterma, also with IgG MGUS now p/w hypercalcemia, renal failure and thrombocytopenia. Her hypercalcemia may be explained by the elevated vitamin D, though honestly it is not so markedly elevated to expect a calcium that high. Her renal dysfunction was most certainly from the hypercalcemia and is resolved. Her thrombocytopenia may be from her RA drug, however with all of these together we are obligated to rule out multiple myeloma. Her daughter understands the rationale for that. Plan: -bone marrow biopsy and aspiration today -skeletal survey -repeat head CT given worsened AMS -check B12 we will continue to follow with you.
--- NOTE | 2018-10-20 09:10 | PN ---
Subjective Date of Service: 10/20/18 Interval History: Patient seen and examined at bedside with daughter, Ritu, present. Ms. Brown is using the bathroom when I enter. I assisted Ritu in getting Ms. Brown back to bed and note that Ms. Brown requires repeat prompts in order to complete her ADLs (i.e, "turn toward the sink," "wash your hands") and requires commands to be repeated multiple times. She often closes her eyes and her gaze and pupillary reactions are slowed. She is able to tell me who she is and who her daughter is but otherwise is tired and difficult to engage. She reports back pain which is chronic; she refused her pain medications overnight. Her daughter also notes that her mother has chronically been on opiates and Librium for several years (close to 30 years); upon admission, her medications were decreased and Librium was discontinued. Lorazepam was reinitiated yesterday due to concern for benzodiazepine withdrawal. Family History: Unchanged from Admission Social History: Unchanged from Admission Past Medical History: Unchanged from Admission Objective Active Medications: Acetaminophen (Tylenol Tab*) 650 mg PO Q6H PRN PRN Reason: FEVER/PAIN Last Admin: 10/20/18 00:46 Dose: 650 mg Folic Acid (Folvite Tab*) 1 mg PO QAM [facility] Last Admin: 10/20/18 08:07 Dose: 1 mg Sodium Chloride (Ns 0.9% 1000 Ml*) 1,000 mls @ 100 mls/hr IV PER RATE [facility] Last Admin: 10/20/18 00:49 Dose: 100 mls/hr Magnesium Sulfate (Magnesium Sulf 4 Gm/100 Ml Iv*) 4,000 mg in 100 mls @ 33.333 mls/hr IVPB ONCE ONE Stop: 10/20/18 10:29 Potassium Chloride (Potassium Chloride 20 Meq/100 Ml Ivpremix*) 20 meq in 100 mls @ 50 mls/hr IV Q2H [facility] Stop: 10/20/18 10:59 Last Admin: 10/20/18 08:06 Dose: 50 mls/hr Levothyroxine Sodium (Synthroid Tab*) 88 mcg PO QAM@0600 [facility] Last Admin: 10/20/18 04:59 Dose: Not Given Lorazepam (Ativan Inj*) 0.5 mg IV PUSH Q4H PRN PRN Reason: ANXIETY Lorazepam (Ativan Tab(*)) 0.25 mg PO BID [facility] Last Admin: 10/20/18 08:07 Dose: 0.25 mg Metoprolol Succinate (Toprol Xl Tab*) 25 mg PO QAM [facility] Last Admin: 10/20/18 08:07 Dose: 25 mg Ondansetron HCl (Zofran Inj*) 4 mg IV Q6H PRN PRN Reason: NAUSEA Oxycodone HCl (Oxycontin(*)) 30 mg PO BID [facility] Last Admin: 10/20/18 08:07 Dose: 30 mg Oxycodone HCl (Roxycodone Tab*) 10 mg PO Q6H PRN PRN Reason: PAIN Last Admin: 10/20/18 06:26 Dose: 10 mg Vital Signs - 8 hr 10/20/18 10/20/18 10/20/18 04:33 05:08 06:26 Temperature 99.0 F Pulse Rate 105 102 Respiratory 16 20 Rate Blood Pressure 167/99 148/74 (mmHg) O2 Sat by Pulse 99 Oximetry 10/20/18 10/20/18 10/20/18 07:49 07:52 08:07 Temperature 98.9 F Pulse Rate 102 Respiratory 18 18 16 Rate Blood Pressure 153/76 (mmHg) O2 Sat by Pulse 98 Oximetry Oxygen Devices in Use Now: None Appearance: 78 yo female, in NAD, appears to have some confusion and does not always respond or follow commands appropriately. Eyes: No Scleral Icterus, PERRLA Ears/Nose/Mouth/Throat: Clear Oropharnyx, Mucous Membranes Moist Neck: NL Appearance and Movements; NL JVP Respiratory: Symmetrical Chest Expansion and Respiratory Effort, Clear to Auscultation Cardiovascular: NL Sounds; No Murmurs; No JVD, RRR - tachycardic Abdominal: NL Sounds; No Tenderness; No Distention Lymphatic: No Cervical Adenopathy Extremities: No Edema, No Clubbing, Cyanosis Skin: No Rash or Ulcers Neurological: - - Awake, closes eyes frequently, oriented to self and that she' s in a hospital. Slow gait. Slowed responses Lines/Tubes/Other Access: Clean, Dry and Intact Peripheral IV Nutrition: Taking PO's Result Diagrams: 10/20/18 05:19 10/20/18 05:19 Microbiology and Other Data: Microbiology 10/19/18 16:32 Stool Occult Blood (MARIS) - Final Stool Assess/Plan/Problems-Billing Assessment: Ms. Brown is a 78yo female with a PMH of RA, MGUS, HTN, chronic pain, and osteopenia who presented with 4 days of word finding difficulty and confusion and was found to be profoundly hypercalcemic with hypervitaminosis D; hypercalcemia has improved with IVF and treatment but patient persists with AMS that is worsening. - Patient Problems (1) Altered mental status Code(s): R41.82 - ALTERED MENTAL STATUS, UNSPECIFIED Comment: Daughter and report acute neurological change on 10/13/18 from baseline. At baseline, has some forgetfulness and confusion but can make needs known, independently perform ADLs. Hypercalcemia and renal function have improved but mental status has worsened, even while here in hospital. Start more comprehensive neuro workup with CT brain, LFTs, ammonia, VBG, and evaluation for infection. Check EEG Consider neurology consultation MRI brain on admission did not find acute pathology. (2) Hypercalcemia Code(s): E83.52 - HYPERCALCEMIA Comment: Now improved With hypervitaminosis D on admission. Vitamin D and calcium supplementation discontinued. Was getting over 3,000 iu daily of D3 and 50,00iu monthly of D2. Improved with fluids, calcitonin, and Zolendronic acid (3) MGUS (monoclonal gammopathy of unknown significance) Code(s): D47.2 - MONOCLONAL GAMMOPATHY Comment: Follows with Dr. Matute as outpatient Appreciate oncology consult today Concern for multiple myeloma, given thrombocytopenia, renal dysfunction, and hypercalcemia Plan for bone scan and bone marrow biopsy SPEP sent and pending (4) Thrombocytopenia Code(s): D69.6 - THROMBOCYTOPENIA, UNSPECIFIED Comment: Platelets stable at 51,000 (52,000 yesterday) Possibly due to Xeljanz but also consider malignancy Anticoagulation not indicated Hematology input appreciated. SPEP ordered for possible MM and consult pending. No signs of bleeding. (5) Chronic pain Code(s): G89.29 - OTHER CHRONIC PAIN Comment: Back Pain Continue home meds (6) Rheumatoid arthritis Code(s): M06.9 - RHEUMATOID ARTHRITIS, UNSPECIFIED Comment: Patient recently started on Xeljanz. Minimal disease activity Thrombocytopenic, possibly due to Xeljanz, rare adverse reaction. Not likely due to RA with low disease activity. No splenomegaly on exam. Plan to hold at discharge and follow up with Dr. Mercedes (7) Hypertension Code(s): I10 - ESSENTIAL (PRIMARY) HYPERTENSION Comment: Continue metoprolol Slightly hypertensive (pain may be contributing factor). (8) DVT prophylaxis Comment: SCDs and Ambulation per patient preference. (9) Full code status Code(s): Z78.9 - OTHER SPECIFIED HEALTH STATUS Status and Disposition: Inpatient with persistent neurological deficits. More complex neurological evaluation needed. Attending: Chan Slater
[2018-10-20] MEDS ORDERED: Lidocaine 2% PF * 5 ML VIAL INJ ONE (09:30)
[2018-10-20] MEDS ORDERED: Lidocaine 2% PF * 5 ML VIAL ONE (09:30)
[2018-10-20 09:35] LABS: ALT 45 U/L (7-52); AST 76 U/L (13-39); Albumin/Globulin Ratio 1.3 (1-3); Alkaline Phosphatase 102 U/L (34-104); C Reactive Protein 43.84 mg/L (<8.01); Globulin 3.2 g/dL (2-4); Total Protein 7.2 g/dL (6.4-8.9)
--- NOTE | 2018-10-20 12:38 | PROCNOTE ---
Hematology/Oncology Procedure Hematology/Oncology Procedure Note: Bone Marrow Biopsy: Informed consent obtained from patient's . Time out completed per protocol. Anesthesia, 2% lidocaine, 5 mLs administered with good effect. Bone marrow biopsy and aspirate performed to left posterior superior iliac creast without obvious complications. Pt. tolerated well. Minimal blood loss.
[2018-10-20] MEDS ORDERED: levETIRAcetam IV* 1,000 MG in NS 0.9% 100 ML* 100 ML IVPB ONE (14:30)
[2018-10-20 16:52] LABS: INR 1.14 (0.77-1.02)
[2018-10-20] MEDS ORDERED: Morphine VIAL* 4 MG/ML VIAL (1 ml vial) IV ONE (17:08)
--- NOTE | 2018-10-20 17:20 | ECHO ---
Patient: ALFREDO FERMIN [facility] Rec#: [id number] : 1940 Date: 10/20/2018 Age: 78y Height: 163 cm / 64.2 in Weight: 66.7 kg / 147.0 lbs Sex: F BSA: 1.7 Room#: 434 Admit Date#: 10/19/2018 Type: Inpatient Referring: Disha Griffin Reading: Mikhail Alexander MD Critical Care Nurse: Tiff Ribeiro RN RDCS CC: Valentin Sam MD Transthoracic Echocardiogram Indication: TIA/CVA BP: 153/76 HR: 78 Rhythm: NSR Findings History: HTN, TIA, RA, hypothyroid Technical Comments: The study quality is fair. Left Ventricle: The left ventricular chamber size is decreased. Mild concentric left ventricular hypertrophy is observed. There is increased basal septal hypertrophy noted without evidence of an increased gradient across the left ventricular outflow tract. Global left ventricular wall motion and contractility are within normal limits. There is normal left ventricular systolic function. The estimated ejection fraction is 55-60%. There is no consistent Doppler evidence of clinically significant diastolic dysfunction. Left Atrium: The left atrial chamber size is normal. Right Ventricle: The right ventricular chamber size and systolic function are within normal limits. Right Atrium: The right atrial cavity size is normal. The bubble study is negative. A patent foramen ovale is not demonstrated with color Doppler and agitated contrast. Aortic Valve: The aortic valve is trileaflet. The aortic valve leaflets are mildly thickened. There is mild to moderate aortic regurgitation. There is no evidence of aortic stenosis. Mitral Valve: The mitral valve leaflets are mildly thickened. There is mild to moderate mitral regurgitation. Tricuspid Valve: The tricuspid valve leaflets are normal. There is trace to mild tricuspid regurgitation. No pulmonary hypertension is noted. Pulmonic Valve: The pulmonic valve appears normal. There is a trace pulmonic regurgitation. There is no pulmonic stenosis. Pericardium: There is no significant pericardial effusion. Aorta: There is mild dilatation of the ascending aorta. There is no dilatation of the aortic arch. There is no dilation of the aortic root. Pulmonary Artery: The main pulmonary artery is not well visualized. Venous: The inferior vena cava appears normal in size. There is a greater than 50% respiratory change in the inferior vena cava dimension. Contrast: Normal saline was used as contrast for the bubble study. Images 108 and 109. The patient was unable to perform Valsalva or cough. Conclusions There is normal left ventricular systolic function. The estimated ejection fraction is 55-60%. Global left ventricular wall motion and contractility are within normal limits. The left ventricular chamber size is decreased. Mild concentric left ventricular hypertrophy is observed. There is mild to moderate aortic regurgitation. There is mild to moderate mitral regurgitation. There is mild dilatation of the ascending aorta. A patent foramen ovale is not demonstrated with color Doppler and agitated contrast. Since the prior echocardiogram completed 05/19/13, mild dilatation of the ascending aorta is newly noted. Measurements Name Value Normal Range RVIDd (AP) 2D 2.3 cm (0.9 - 2.6) RVDdMajor (2D) 2.6 cm (2.2 - 4.4) RAd ISD 4CH 4.4 cm (3.4 - 4.9) RA (A4C)W 3.2 cm (2.9 - 4.6) IVSd (2D) 1.2 cm (0.6 - 1) LVPWd (2D) 1.1 cm (0.6 - 1) LVIDd (2D) 2.8 cm (3.6 - 5.4) LVIDs (2D) 2.1 cm - LV FS (2D) 25 % (25 - 45) Aortic Annulus 1.8 cm (1.4 - 2.6) Ao root diameter (2D) 3 cm (2.1 - 3.5) Ascending Ao 3.6 cm (2.1 - 3.4) Aortic arch 2.5 cm (1.8 - 3.4) LA dimension (AP) 2D 2.8 cm (2.3 - 3.8) LAd ISD 4CH 4.3 cm (2.9 - 5.3) LA ISD 4CH W 3.8 cm (2.5 - 4.5) Name Value Normal Range LA ESV BP (A/L) index 22.4 ml/m2 - Name Value Normal Range MV E-wave Vmax 0.93 m/sec - MV deceleration time 176 msec - MV A-wave Vmax 1 m/sec - LV septal e' Vmax 0.07 m/sec - LV lateral e' Vmax 0.09 m/sec - LV E:e' septal ratio 13.3 ratio - LV E:e' lateral ratio 10.3 ratio - Name Value Normal Range AV Vmax 1.5 m/sec - AV VTI 30.2 cm - AV peak gradient 9 mmHg - AV mean gradient 6 mmHg - LVOT Vmax 1.2 m/sec - LVOT VTI 24 cm - LVOT peak gradient 6 mmHg - LVOT mean gradient 4 mmHg - AR PHT 412 msec - ARON Vmax 0.7 m/sec - Name Value Normal Range TR Vmax 2.7 m/sec - TR peak gradient 29 mmHg - RAP 3 mmHg - RVSP 32 mmHg - IVC diameter 1.1 cm - Name Value Normal Range PV Vmax 0.99 m/sec -
[2018-10-20 17:28] LABS: Urine Appearance Clear; Urine Bacteria 1+ (Absent); Urine Bilirubin Negative (Negative); Urine Blood 1+ (Negative); Urine Color Yellow; Urine Glucose Negative (Negative); Urine Ketones Negative (Negative); Urine Nitrite Negative (Negative); Urine Protein Negative (Negative); Urine Red Blood Cell Trace(0-2/hpf) (Absent); Urine Squamous Epithelial Cell Present (Absent); Urine Urobilinogen Negative (Negative); Urine White Blood Cell Trace(0-5/hpf) (Absent)
--- NOTE | 2018-10-20 17:29 | CONSULT ---
Consult Consult: Ms. Brown is a 78 year old woman with a history of rheumatoid arthritis; recently failed Actemra and was started on Xejanz. She was admitted with altered mental status, hypercalcemia (which has resolved) and a bone survey concerning for multiple myeloma. She is having a bone marrow biopsy done and also LP and further imaging. Discussed her care with her daughter and hospitalist. Will pursue autoimmune evaluation.
--- NOTE | 2018-10-20 17:49 | PN ---
Hospitalist Progress Note Date of Service: 10/20/18 Ms. Brown seen for additional 60 minutes of care this shift, secondary to complex medical presentation and coordination of care, as well as re-evaluation for urinary retention and pain concerns. Appreciate neurology and rheumatology consults and recommendation. Plan to repeat MRI with contrast, obtain LP following infusion of platelets per anesthesiology. Autoimmune encephalitis panel and paraneoplastic antibodies sent. Echo ordered to evaluate for embolic causes. Patient continues to have pain control difficulties this afternoon, likely due to refusing previous doses of medication as well as downward titration of dose. Gave one time dose of IV morphine this afternoon with good effect. Continue prn dosing and increase frequency of oxycodone to q4h with careful attention to sedation and response. While we would like to avoid oversedation in a patient with AMS, we also recognize that uncontrolled pain can also contribute to increased confusion. Continue prn lorazepam for suspected benzodiazepine withdrawal.
[2018-10-20 18:49] LABS: Mean Platelet Volume 7.4 fL (7.4-10.4); Platelet Count 48 10^3/ul (150-450)
[2018-10-20 19:32] LABS: Body Fluid Source Cerebral Spinal
--- NOTE | 2018-10-20 19:41 | CONS ---
CONSULTATION REPORT: DATE OF CONSULT: 10/20/18 PATIENT OF: Disha Griffin NP; Dr. Mercedes; Dr. Sam. HISTORY OF PRESENT ILLNESS: This is a 78-year-old woman who I am asked to evaluate for confusion and speech difficulties. She has a complicated history with rheumatoid arthritis, receiving immunosuppressive infusions, but these were discontinued recently. Beginning the [place], she has had progressive difficulty with word finding and confusion. The family notes that in the past 2 days she has went from using a cane to having difficulty walking without a walker. She had recent frequent urinary tract infections. She had recently been started on Xeljanz for her rheumatoid arthritis, but this was stopped. She apparently was seen by Dr. Kim in the emergency room when the elevated calcium came back, there is no formal note in the chart for consultation. The family notes that her speech and confusion has gotten progressively worse in the past few days' time. She has had no headache, no visual symptoms, had noticed no ptosis. She has had no double vision. No numbness or weakness. She has had no recent rash. There has been no past history of double vision or ptosis. She has a history of rheumatoid arthritis, hypertension, irritable bowel syndrome, hypertriglyceridemia, frequent urinary tract infections, hypothyroidism after radioactive iodine treatment for goiter, Zenker's diverticulum, osteopenia. She has had a prior TIA workup with left facial droop. She is status post hysterectomy in 1985, bilateral carpal tunnel release , bilateral shoulder surgeries and she has recently had significant pain in her shoulder. She has had an ovarian tumor removal and a Roland's neuroma removal. MEDICINES ON ADMISSION: Include: 1. Premarin 0.625 daily. 2. Synthroid 88 mcg daily. 3. Librax 1 capsule t.i.d. p.r.n. 4. Cyclobenzaprine 10 mg t.i.d. p.r.n. 5. Metoprolol 25 mg p.o. q.a.m. 6. Isosorbide dinitrate 2.5 mg q.a.m. 7. Caltrate 600 mg 1 to 2 b.i.d. 8. Zofran 8 mg q.6 hours as needed. 9. Oxycodone 20 mg q.6 hours as needed. 10. OxyContin 30 mg b.i.d. 11. Vitamins. 12. [place]-3. ALLERGIES: She is allergic to NITROFURANTOIN. FAMILY HISTORY: Her mother of colon cancer. Father of heart disease. The brother of complications with abdominal surgery. She smoked a brief time 30 years ago and never drank. She has been on medical marijuana, but no illicit drugs. She is and has 2 children. REVIEW OF SYSTEMS: Negative in all 14 spheres other than the HPI. PHYSICAL EXAM: She is a poor historian. Much of her history is through her family, both her and daughter. Temperature 98.9, pulse 102, respirations 16, blood pressure 153/76. She is alert. She did not know her age. She knew she was in the hospital. She knew her name. She tended to perseverate and was confused. She had word finding difficulty but could name some but not all objects since she had significant hesitancy in her speech and this has been progressive. Cranial nerves II through XII showed a left ptosis, which was clearly worse on upper gaze for short of 15 seconds. She has full extraocular movements without double vision. No facial weakness. Discs were sharp. [id number]-ht-[id number] was intact. Strength was 5/5, although she was diffusely of frail appearance. She was not consistent with her sensory exam at all, including even to slight touch due to confusion. She was able to walk and take steps with assistance, but had a wide-based gait. Reflexes were 1 and equal with present ankle jerks. Toes were downgoing. Neck was supple. Chest: Clear. Cardiovascular: Regular rate and rhythm. Abdomen is soft with positive bowel sounds. DIAGNOSTIC STUDIES/LAB DATA: I reviewed both her MRI scan from the as well as her MRI scan from 2012. She has a pattern of white matter disease, which could be small vessel but could be due to other possibilities, especially since she had multiple subcortical lesions in this pattern that was present back in 2013, but appears to be changed over that interval with some of the lesions no longer present, but some others possibly being new. White count is 13 today, hematocrit 34, platelet count 51,000. She has an INR of 1.02, an unremarkable venous blood gas. CMP with a potassium of 3.3, glucose 122, magnesium today 1.3, AST 76, ammonia 42, C-reactive protein of 43 today, LDL of 68, B12 of 1450, calcium 13.3, PTH less than 1.0. UA was negative. Toxicology negative for alcohol. The EEG showed diffuse slowing as well as some left frontal sharp waves. ASSESSMENT AND PLAN: I discussed with the family and Disha Griffin in detail that this is a complicated case. She has both a generalized encephalopathy with some left frontal symptoms. It is possible that she has a meningoencephalitis either on the basis of autoimmune disease, paraneoplastic disease, something like cryptococcal or even herpes and because of this she is going to have a spinal tap looking for these possibilities including routine studies, VDRL, autoimmune encephalitis panel, cryptococcal antigen, herpes PCR, and cytology and discussed this with Disha Griffin. It is possible that this could represent autoimmune disease and the spinal tap would help with this or it could be immunological, if there is an underlying cancer she is being worked up for possible multiple myeloma. She has other things besides her confusion and aphasia from a neurological point of view. The EEG denotes a risk for seizures. It is possible that she even had subclinical seizures and for the time being we will have her on [facility], and Disha Griffin is loading and then we will go from there. In addition, she has ptosis, which appears fatigable. It is unclear from the family who did not notice it today when asked except after upper gaze where it became much more pronounced. If this is new, this could be some sort of myasthenic syndrome related to autoimmune disease or possibly paraneoplastic such as even Lambert. We are getting MuSK antibodies and acetylcholine receptor antibodies for now. I do not think that this is the primary problem but this is maybe one of the things that is going on. I have also asked her cardiolipin antibodies given the white matter disease as well as getting an MRI scan with contrast to see if there is any enhancement. We will do a cardiac echo to make sure there is no vegetation given the pattern of, on the MRI scan basis. This is unlikely to show a problem since her findings on MRI scan may have changed but they have been longstanding. Her gait disturbance may be secondary to a central process. It is possible that she could have a neuropathy in addition, she is very difficult to test in terms of her sensory exam. She does have intact reflexes but if things are changing, the reflexes may still be positive now but she could lose them. The has had Guillain [place] in the past, and we discussed that this would not be the only thing that is going on but it is something that we will need to continue to look for the CSF, may have a formulation and I would suggest this but again the gait disturbance has only begun in the past 2 days or so, and so it may be early for the spinal tap to show this and depending on how she evolves , we may need to pursue this further. We will get this workup started today but Dr. Patrick will be on tomorrow, signed out this case to him. Thank you for sharing her case. [id number]/[facility] #: [id number] EDD
[2018-10-20] MEDS: LORazepam INJ* 2 MG/ML 1 ML VIAL IV PUSH PRN (19:58)
[2018-10-20 20:09] LABS: Body Fluid Band 7 %; Body Fluid Mono 17 %
--- NOTE | 2018-10-20 20:49 | EEG ---
ELECTROENCEPHALOGRAPHY: DATE OF STUDY: - ROOM #434 DATE OF DICTATION: 10/20/18 PATIENT OF: Disha Griffin NP. CLINICAL PROBLEM: This is a 78-year-old woman with word finding difficulties and confusion, who was initially evaluated for a stroke. MEDICATIONS: Include: 1. Metoprolol. 2. Zofran. 3. Levothyroxine. 4. Folic acid. 5. Oxycodone. 6. OxyContin. 7. Lorazepam. REPORT: With the patient awake, background cerebral activity consists of moderate amplitude diffuse 6 Hz rhythm. There is frequent sharp activity arising out of the left frontal head region. No electrographic seizures are noted. The patient never falls asleep. CLINICAL IMPRESSION: This EEG is abnormal because of the diffuse slowing of background as well as left frontal sharp wave focus raising the issue of a tendency towards focal seizures or underlying focal irritation in addition to the generalized slowing noted. The EEG was discussed with Disha Griffin. [id number]/[facility] #: [id number] EDD
[2018-10-20] MEDS: levETIRAcetam TAB* 500 MG PO SCH (22:07)
[2018-10-20] MEDS ORDERED: levETIRAcetam 500 MG IVPREMIX* 500 MG/100 ML BAG IV ONE (22:35)
[2018-10-20] MEDS: Morphine VIAL* 4 MG/ML VIAL (1 ml vial) IV PRN (22:37)
[2018-10-21] MEDS: LORazepam INJ* 2 MG/ML 1 ML VIAL IV PUSH PRN ×2 (00:43→05:05)
--- NOTE | 2018-10-21 01:30 | CONS ---
CONSULTATION NOTE: DATE OF CONSULT: 10/20/18 CONSULTING PHYSICIAN: Disha Griffin NP REASON FOR CONSULT: Altered mental status in the setting of rheumatoid arthritis. CHIEF COMPLAINT: Altered mental status and confusion. HISTORY OF PRESENT ILLNESS: Yamileth Brown is a 78-year-old woman with a longstanding history of rheumatoid arthritis; initially followed by Dr. Mosqueda and then by myself. She had been on Actemra for her rheumatoid arthritis. I had seen her on 10/02/18 and it was decided that she would benefit from switching her disease-modifying drug from Actemra to Xeljanz. Also, she has a complicated history of a monoclonal gammopathy of unknown significance and has been seen by Dr. Matute for this. She does have a chronic pain syndrome in part related to degenerative disk disease as well. She has been on chronic immunosuppressive therapy. According to her daughter, as well as the chart, who I consulted this evening, she had progressive confusion over the last 2 days. It was initially felt that she may have some sort of dementia, but her symptoms progressively worsened. She had difficulty with finding words and she also had difficulty with ambulation as well as her gait. Of note, she does have a history of degenerative disk disease as well as frequent urinary tract infections in the past but her confusion has been the acute issue. It has progressed to the point that she has been unable to function or do regular activities. She was seen in the emergency room where a workup revealed hypercalcemia. This did improve, but she was also noted to have thrombocytopenia. Imaging studies were done showing no acute changes, but it was felt that she might have an underlying encephalopathic-type process. She had a bone skeletal survey, which showed some regions that were concerning for evolution of her hematologic condition to multiple myeloma and in deed to confirm this, she had a bone marrow biopsy done today. Given her thrombocytopenia, it was felt that an LP does carry some risk and therefore in order to do the lumbar puncture, she is receiving platelets to boost her platelet count up. She is being followed by Hematology as well as Neurology. In terms of her acute status, she has had increasing confusion over the last couple of days. It has persisted while she has been hospitalized and currently she complains of very severe pain, although she is able to recognize me and answer some simple questions. She denies any double vision, although she was noted to have some ptosis. She denies any recent rash. She does have a history of chronic pain as noted above as well as irritable bowel syndrome with chronic bladder infections. She has a longstanding history of hypothyroidism as well with treatment for this and a prior TIA with a left facial droop in the past. PAST SURGICAL HISTORY: She had a radioactive treatment for a goiter as well as a Zenker's diverticulum and she is status post hysterectomy in 1985, bilateral carpal tunnel release, bilateral shoulder surgeries, and recent increasing discomfort in her shoulder, but she has also had an ovarian tumor removal and a Roland's neuroma removal as well too. MEDICATIONS: On admission, include: 1. Premarin 0.625 mg daily. 2. Synthroid 88 mcg daily. 3. Librax 1 capsule t.i.d. p.r.n. 4. Cyclobenzaprine 10 mg t.i.d. p.r.n. 5. Metoprolol 25 mg in the morning. 6. Isosorbide dinitrate 2.5 mg in the morning. 7. Caltrate 600 mg 1 to 2 b.i.d. 8. Zofran 8 mg every 6 hours as needed. 9. Oxycodone 20 mg every 6 hours as needed. 10. OxyContin 30 mg b.i.d. 11. Vitamins. 12. Arnold-3 fatty acids. 13. She has also been on Xeljanz, however; which is on hold. ALLERGIES: Include NITROFURANTOIN. FAMILY HISTORY: Notable for father with heart disease, brother of complications from abdominal surgery. Her mother from colon cancer. SOCIAL HISTORY: She herself smoked for a very brief time 30 years ago, but never drank alcohol. She had been on medical marijuana, but no illicit drugs. She is , with 2 children. REVIEW OF SYSTEMS: General: She has been acutely confused. HEENT: No acute vision changes. Ears, Nose, and Mouth: Mildly dry mouth, but no acute symptoms. Cardiac: Denies chest wall pain. Pulmonary: Denies acute shortness of breath. GI: Denies abdominal discomfort currently, but she does complain of diffuse pain and she is in a curled position. 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 Hematologic: She is being seen by Hematology right now, but no acute bleeding has been noted or bruising. Neurologic: As noted above. Psychiatric: Some anxiety and as noted above. Other 14-point review of systems were reviewed, are otherwise negative. PHYSICAL EXAM: She had a temperature of 98.9, pulse initially of 102, respiratory rate 16 to 18, blood pressure 153/76. General: She appeared to be alert and comfortable, but she was able to answer simple questions. She was aware of who I was and recalled who I was. She was aware that she was in the hospital, but did not know the date and she was only able to answer simple questions. She had no facial weakness. It was difficult to do a neurologic exam as she was curled up in a position lying on the side of the bed. HEENT exam was normocephalic; otherwise, atraumatic. Lungs were clear to auscultation bilaterally. Cardiovascular exam revealed a regular rate and rhythm. Normal S1 and S2. No S3 or S4. Abdominal exam is benign. No organomegaly. Extremities: No cyanosis, clubbing, or edema. Neurologic: As noted above. She did seem to have some spasticity in her arms and gait and I was unable to assess her gait given that she was curled up. Musculoskeletal: Otherwise, she had no synovitis. Skin: No rash. Endocrine: No glandular swelling. DIAGNOSTIC STUDIES/LAB DATA: She had an MRI from 10/17/18 as well as from 2012. She did have a pattern of white matter disease, which felt could be a small vessel, but possibly other possibilities with subcortical lesions that was present in 2013, but appeared to be changed over that interval, some lesions no longer present, some other possibly being new. White count was 13,000, hematocrit of 34,000, platelet up to 21,000. She had an INR of 1.02 and an unremarkable blood gas. CMP with a potassium of 3.3, glucose of 122, magnesium of 1.3, AST of 76, ammonia 42, CRP at 43, LDL of 68, B12 of 1415, her calcium initially of 13.3. PTH less than 1. UA was negative. Toxicology negative for alcohol. EEG showed diffuse slowing as well as some left frontal sharp waves per Neurology. ASSESSMENT AND PLAN: Ms. Brown has a history of rheumatoid arthritis. She has been on chronic immunosuppressive therapy. Most recently over the last month, her Actemra was changed to Xeljanz. It it not clear how much Xeljanz she has actually taken but it has been held recently. Xeljanz does have a very short half life, so if there is any possibility of a toxicity from this medication it should be resolving. Mental status changes would not, however, be a common side effect from this medicine nor would hypercalcemia. I agree with holding Xeljanz in light of the acute alteration of her mental status and thrombocytopenia and also because a possible infection is in the differential diagnosis (she will have an LP done as soon as her platelets stabilize). There is alsoa concern for malignancy; in particular she had a monoclonal gammopathy of unknown significance which be evolving into a multiple myeloma pattern and this is suggested by her bone scan skeletal survey. She is (as noted ) also having an LP done and I agree that the differential includes an autoimmune disease, paraneoplastic disease, or some kind of viral encephalitis or autoimmune encephalitis. She have may have a paraneoplastic-type process as well, which is being reflected by her central nervous status changes. She is getting acetylcholine receptor antibodies checked as well as MuSK antibodies and Neurology notes that they have asked for anticardiolipin antibodies. To complete serologically her autoimmune workup, I would also add a connective tissue panel as well as ANCA and she will have her plasma cell dyscrasia followed up by Hematology as well too. I also agree with a cardiac echo to rule out any kind of agitation which seems unlikely. We will continue to follow daily. In terms of her RA, this seems stable with no active synovitis on exam. I suspect that her elevated inflammatory markers are due to another acute inflammatory process In terms of chronic pain, she has been on chronic pain medication therapy and is now having her acute pain addressed. [id number]/[facility] #: [id number] [facility] MEDICAL CENTERMarlee
[2018-10-21] MEDS: Morphine VIAL* 4 MG/ML VIAL (1 ml vial) IV PRN ×3 (04:50→14:50)
[2018-10-21] MEDS ORDERED: Levothyroxine INJ* 100 MCG/5 ML VIAL IV SCH (06:00)
[2018-10-21 07:13] LABS: ABS Basophils 0 10^3/ul (0-0.2); ABS Eosinophils 0 10^3/ul (0-0.6); ABS Lymphocytes 0.8 10^3/ul (1.0-4.8); ABS Monocytes 0.4 10^3/ul (0-0.8); ABS Neutrophils 8.9 10^3/ul (1.5-7.7); ABS Nucleated RBC 0 10^3/ul; Eosinophil % 0 %; Hematocrit 31 % (35-47); Hemoglobin 10.8 g/dl (12.0-16.0); Lymphocyte % 7.7 %; Mean Corpuscular HGB Conc 36 g/dl (31-36); Mean Corpuscular Hemoglobin 32 pg (27-31); Mean Corpuscular Volume 90 fL (80-97); Nucleated Red Blood Cells % 0.1; Platelet Count 64 10^3/ul (150-450); Red Blood Count 3.38 10^6/ul (4.00-5.40); Red Cell Distribution Width 13 % (10.5-15); White Blood Count 10.1 10^3/ul (3.5-10.8)
[2018-10-21] MEDS: NS 0.9% 1000 ML** 1,000 ML IV SCH ×2 (07:26→23:37)
[2018-10-21 07:47] LABS: Calcium 7.8 mg/dL (8.6-10.3); EGFR African American 88.2 (>60); EGFR Non-African American 72.9 (>60); Magnesium 1.6 mg/dL (1.9-2.7); Potassium 3.4 mmol/L (3.5-5.0)
[2018-10-21] MEDS: oxyCODONE SR TAB(*) 15 MG TAB.SR PO SCH ×2 (08:48→20:53)
[2018-10-21] MEDS: Folic Acid TAB* 1 MG PO SCH (08:48)
[2018-10-21] MEDS: levETIRAcetam TAB* 500 MG PO SCH (08:49)
[2018-10-21] MEDS: LORazepam TAB(*) 0.5 MG PO SCH ×2 (08:49→20:53)
[2018-10-21] MEDS: Metoprolol Succinate XL TAB* 25 MG PO SCH (08:49)
[2018-10-21] MEDS ORDERED: Magnesium Sulf 4 GM/100 ML IV* 4,000 MG/100 ML BAG IVPB ONE (10:56)
[2018-10-21] MEDS ORDERED: Potassium Chlor TAB* 20 MEQ TAB.ER PO SCH (11:00)
[2018-10-21] MEDS ORDERED: LORazepam INJ* 2 MG/ML 1 ML VIAL IV PUSH ONE (11:11)
--- NOTE | 2018-10-21 11:12 | PN ---
Subjective Date of Service: 10/21/18 Interval History: Yamileth is in the room with her daughter; she was reported to be progressively more agitated overnight, unable to complete MRI. She slept for a few hours only. She is in bed right now with only blankets covering her and is notably restless. She states she is angry but then cannot elaborate. Word repetition noted ("I'm feeling feeling feeling..."). Agitation more pronounced and notable since late afternoon and early evening yesterday. Family History: Unchanged from Admission Social History: Unchanged from Admission Past Medical History: Unchanged from Admission Objective Active Medications: Acetaminophen (Tylenol Tab*) 650 mg PO Q6H PRN PRN Reason: FEVER/PAIN Last Admin: 10/20/18 00:46 Dose: 650 mg Folic Acid (Folvite Tab*) 1 mg PO QAM [facility] Last Admin: 10/21/18 08:48 Dose: 1 mg Sodium Chloride (Ns 0.9% 1000 Ml*) 1,000 mls @ 100 mls/hr IV PER RATE [facility] Last Admin: 10/21/18 07:26 Dose: 100 mls/hr Magnesium Sulfate (Magnesium Sulf 4 Gm/100 Ml Iv*) 4,000 mg in 100 mls @ 33.333 mls/hr IVPB ONCE ONE Stop: 10/21/18 13:55 Levetiracetam (Keppra Tab*) 500 mg PO BID [facility] Last Admin: 10/21/18 08:49 Dose: 500 mg Levothyroxine Sodium (Synthroid Inj*) 44 mcg IV 0600 [facility] Last Admin: 10/21/18 07:26 Dose: 44 mcg Lorazepam (Ativan Inj*) 0.5 mg IV PUSH Q4H PRN PRN Reason: ANXIETY Last Admin: 10/21/18 05:05 Dose: 0.5 mg Lorazepam (Ativan Tab(*)) 0.25 mg PO BID [facility] Last Admin: 10/21/18 08:49 Dose: 0.25 mg Lorazepam (Ativan Inj*) 0.5 mg IV PUSH ONCE ONE Stop: 10/21/18 11:12 Metoprolol Succinate (Toprol Xl Tab*) 25 mg PO QAM [facility] Last Admin: 10/21/18 08:49 Dose: 25 mg Morphine Sulfate (Morphine Vial*) 2 mg IV Q2H PRN PRN Reason: PAIN - MILD Last Admin: 10/21/18 07:39 Dose: 2 mg Ondansetron HCl (Zofran Inj*) 4 mg IV Q6H PRN PRN Reason: NAUSEA Oxycodone HCl (Oxycontin(*)) 30 mg PO BID [facility] Last Admin: 10/21/18 08:48 Dose: 30 mg Oxycodone HCl (Roxycodone Tab*) 10 mg PO Q4H PRN PRN Reason: PAIN Potassium Chloride (Klor Con Er Tab*) 20 meq PO BID [facility] Vital Signs - 8 hr 10/21/18 10/21/18 10/21/18 04:50 05:05 05:42 Temperature 97.0 F Pulse Rate 96 Respiratory 24 22 16 Rate Blood Pressure 123/59 (mmHg) O2 Sat by Pulse 97 Oximetry 10/21/18 10/21/18 10/21/18 06:00 06:06 07:38 Temperature 99.2 F Pulse Rate 102 Respiratory 16 16 20 Rate Blood Pressure 167/54 (mmHg) O2 Sat by Pulse 99 Oximetry 10/21/18 10/21/18 10/21/18 07:39 08:00 08:48 Temperature Pulse Rate Respiratory 20 16 16 Rate Blood Pressure (mmHg) O2 Sat by Pulse Oximetry 10/21/18 08:49 Temperature Pulse Rate Respiratory 16 Rate Blood Pressure (mmHg) O2 Sat by Pulse Oximetry Oxygen Devices in Use Now: None Appearance: 78 yo female, restless, lying in bed, does not fully cooperate with exam Eyes: No Scleral Icterus, PERRLA Ears/Nose/Mouth/Throat: Clear Oropharnyx, Mucous Membranes Moist Neck: NL Appearance and Movements; NL JVP Respiratory: Symmetrical Chest Expansion and Respiratory Effort, Clear to Auscultation Cardiovascular: NL Sounds; No Murmurs; No JVD, RRR, No Edema Extremities: No Clubbing, Cyanosis Neurological: - - Alert, oriented to self, cannot determine further orientation due to agitation Lines/Tubes/Other Access: Clean, Dry and Intact Peripheral IV Nutrition: Taking PO's Result Diagrams: 10/21/18 07:00 10/21/18 07:00 Microbiology and Other Data: Microbiology 10/19/18 16:32 Stool Occult Blood (MARIS) - Final Stool Assess/Plan/Problems-Billing Assessment: Ms. Brown is a 78yo female with a PMH of RA, MGUS, HTN, chronic pain, and osteopenia who presented with 4 days of word finding difficulty and confusion and was found to be profoundly hypercalcemic with hypervitaminosis D; hypercalcemia has improved with IVF and treatment but patient persists with AMS that is worsening. - Patient Problems (1) Altered mental status Code(s): R41.82 - ALTERED MENTAL STATUS, UNSPECIFIED Comment: Appreciate input from neurology and rheumatology Suspect increased agitation today may be secondary to Keppra, initiated yesterday. Discussed with Dr. Patrick - give loading dose IV depakote and start BID depakote. Depakote carries risk of thrombocytopenia over time - will need to closely follow CBC with history of monoclonal gammopathy and likely multiple myeloma. EEG with concern for left frontal sharp wave focus that may indicate focal seizures or underlying focal irritation. MRI brain with contrast pending - will reattempt on Saturday10/22/18. Patient is s/p LP, results pending. Paraneoplastic and autoimmune encephalitis diagnostic panels collected and sent. Daughter and report acute neurological change on 10/13/18 from baseline. At baseline, has some forgetfulness and confusion but can make needs known, independently perform ADLs. Hypercalcemia and renal function have improved but mental status has worsened, even while here in hospital. (2) Hypercalcemia Code(s): E83.52 - HYPERCALCEMIA Comment: Resolved With hypervitaminosis D on admission. Vitamin D and calcium supplementation discontinued. Was getting over 3,000 iu daily of D3 and 50,00iu monthly of D2. Improved with fluids, calcitonin, and Zolendronic acid (3) MGUS (monoclonal gammopathy of unknown significance) Code(s): D47.2 - MONOCLONAL GAMMOPATHY Comment: Follows with Dr. Matute as outpatient Appreciate oncology consult today Concern for multiple myeloma, given thrombocytopenia, renal dysfunction, and hypercalcemia Bone scan with concern for lytic lesions Bone marrow biopsy complete with results pending SPEP sent and pending (4) Thrombocytopenia Code(s): D69.6 - THROMBOCYTOPENIA, UNSPECIFIED Comment: Platelets 64,000 (s/p transfusion yesterday prior to LP) Possibly due to Xeljanz but also consider malignancy Anticoagulation not indicated Hematology input appreciated. SPEP ordered for possible MM. No signs of bleeding. (5) Chronic pain Code(s): G89.29 - OTHER CHRONIC PAIN Comment: Back Pain Continue home meds Patient has been on opiates and benzodiazepines for several years (close to 30 years per family); will require slow taper to avoid withdrawal if medications decreased. (6) Rheumatoid arthritis Code(s): M06.9 - RHEUMATOID ARTHRITIS, UNSPECIFIED Comment: Patient recently started on Xeljanz. Minimal disease activity Thrombocytopenic, possibly due to Xeljanz, rare adverse reaction. Not likely due to RA with low disease activity. No splenomegaly on exam. Plan to hold at discharge and follow up with Dr. Mercedes (7) Hypertension Code(s): I10 - ESSENTIAL (PRIMARY) HYPERTENSION Comment: Continue metoprolol Slightly hypertensive (pain and agitation may be contributing factor). (8) DVT prophylaxis Comment: SCDs and Ambulation per patient preference. (9) Full code status Code(s): Z78.9 - OTHER SPECIFIED HEALTH STATUS Status and Disposition: Inpatient with persistent neurological deficits. Neurological and rheumatological workup underway. Oncology following. Anticipate extended LOS due to complexity. Attending: Luma Robledo
[2018-10-21] MEDS ORDERED: Valproic Acid IV(*) 500 MG in NS 0.9% 100 ML* 100 ML IVPB ONE (11:22)
[2018-10-21] MEDS ORDERED: NS 0.9% w/ 40 Meq KCL 1000 ML* 1,000 ML IV SCH (12:00)
[2018-10-21] MEDS: oxyCODONE TAB* 5 MG TAB PO PRN (18:06)
[2018-10-21] MEDS: Divalproex DR TAB(*) 500 MG PO SCH (20:54)
[2018-10-21] MEDS: PTO: Brimonidine 0.2% 5 ML BTL BOTH EYES SCH (21:03)
[2018-10-21] MEDS: CARBOXYMETHYLCELLULOSE LUBRICANT EYE BOTH EYES SCH (21:04)
[2018-10-21] MEDS: GLYCERI BOTH EYES SCH (21:04)
[2018-10-22] MEDS: Morphine VIAL* 4 MG/ML VIAL (1 ml vial) IV PRN ×3 (00:22→16:20)
[2018-10-22] MEDS: Levothyroxine TAB* 88 MCG TAB PO SCH (05:23)
[2018-10-22 05:35] LABS: ABS Basophils 0.1 10^3/ul (0-0.2); ABS Eosinophils 0 10^3/ul (0-0.6); ABS Lymphocytes 1.6 10^3/ul (1.0-4.8); ABS Monocytes 0.3 10^3/ul (0-0.8); ABS Neutrophils 5.9 10^3/ul (1.5-7.7); ABS Nucleated RBC 0 10^3/ul; Eosinophil % 0 %; Hematocrit 27 % (35-47); Hemoglobin 9.8 g/dl (12.0-16.0); Lymphocyte % 20.8 %; Mean Corpuscular HGB Conc 36 g/dl (31-36); Mean Corpuscular Hemoglobin 32 pg (27-31); Mean Corpuscular Volume 89 fL (80-97); Mean Platelet Volume 8.2 fL (7.4-10.4); Nucleated Red Blood Cells % 0.2; Platelet Count 50 10^3/ul (150-450); Red Blood Count 3.04 10^6/ul (4.00-5.40); Red Cell Distribution Width 13 % (10.5-15); White Blood Count 7.9 10^3/ul (3.5-10.8)
[2018-10-22 05:51] LABS: Albumin/Globulin Ratio 1.2 (1-3); BUN/Creatinine Ratio 12.7 (8-20); EGFR African American 96.8 (>60); Globulin 2.6 g/dL (2-4); Magnesium 1.9 mg/dL (1.9-2.7); Potassium 3.6 mmol/L (3.5-5.0); Total Bilirubin 0.6 mg/dL (0.2-1.0); Total Protein 5.6 g/dL (6.4-8.9)
[2018-10-22] MEDS: oxyCODONE SR TAB(*) 15 MG TAB.SR PO SCH ×2 (09:37→21:03)
[2018-10-22] MEDS: Divalproex DR TAB(*) 500 MG PO SCH ×2 (09:37→21:03)
[2018-10-22] MEDS: LORazepam TAB(*) 0.5 MG PO SCH ×2 (09:38→21:02)
[2018-10-22] MEDS: Metoprolol Succinate XL TAB* 25 MG PO SCH (09:39)
[2018-10-22] MEDS: Folic Acid TAB* 1 MG PO SCH (09:39)
[2018-10-22] MEDS: CARBOXYMETHYLCELLULOSE LUBRICANT EYE BOTH EYES SCH ×3 (09:41→21:04)
[2018-10-22] MEDS: PTO: Brimonidine 0.2% 5 ML BTL BOTH EYES SCH ×2 (09:41→21:04)
[2018-10-22] MEDS: GLYCERI BOTH EYES SCH ×3 (09:41→21:04)
[2018-10-22] MEDS: NS 0.9% 1000 ML** 1,000 ML IV SCH (09:46)
[2018-10-22] MEDS: LORazepam INJ* 2 MG/ML 1 ML VIAL IV PUSH PRN (11:23)
--- NOTE | 2018-10-22 11:31 | PN ---
Progress Note - Progress Note Date of Service: 10/22/18 SOAP: Subjective: []Feeling OK today. Had significant confusion yesterday evening and overnight, however resolved this AM. Has MRI of brain with contrast scheduled for this AM. and daughter at bedside. past cancer screening: spastic colon with difficulty completing full colonoscopy Unknown last [facility]OVER exam - pelvic US 06/2017: hysterectomy, minimal post void residual CTA chest 03/2017 without masses - smoker in early 20s but quit approx. 50 years ago Mammo 02/2018 annually with breast exam by primary Family cancer history: mother and maternal grandmother with colon cancer Medications: Acetaminophen (Tylenol Tab*) 650 mg PO Q6H PRN PRN Reason: FEVER/PAIN Last Admin: 10/20/18 00:46 Dose: 650 mg Brimonidine Tartrate (Alphagan 0.2%) 1 drop BOTH EYES BID [facility] Last Admin: 10/22/18 09:41 Dose: 1 drp Carboxymethylcellulose/Glycerin (Refresh Optive Gel Eye Gel) 1 applic BOTH EYES BID [facility] Last Admin: 10/22/18 09:45 Dose: 1 applic Divalproex Sodium (Depakote Dr Tab(*)) 500 mg PO BID [facility] Last Admin: 10/22/18 09:37 Dose: 500 mg Folic Acid (Folvite Tab*) 1 mg PO QAM [facility] Last Admin: 10/22/18 09:39 Dose: 1 mg Sodium Chloride (Ns 0.9% 1000 Ml*) 1,000 mls @ 100 mls/hr IV PER RATE [facility] Last Admin: 10/22/18 09:46 Dose: 100 mls/hr Levothyroxine Sodium (Synthroid Tab*) 88 mcg PO DAILY@0600 [facility] Last Admin: 10/22/18 05:23 Dose: 88 mcg Lorazepam (Ativan Inj*) 0.5 mg IV PUSH Q4H PRN PRN Reason: ANXIETY Last Admin: 10/22/18 11:23 Dose: 0.5 mg Lorazepam (Ativan Tab(*)) 0.25 mg PO BID [facility] Last Admin: 10/22/18 09:38 Dose: 0.25 mg Metoprolol Succinate (Toprol Xl Tab*) 25 mg PO QAM [facility] Last Admin: 10/22/18 09:39 Dose: 25 mg Morphine Sulfate (Morphine Vial*) 2 mg IV Q2H PRN PRN Reason: PAIN - MILD Last Admin: 10/22/18 05:23 Dose: 2 mg Ondansetron HCl (Zofran Inj*) 4 mg IV Q6H PRN PRN Reason: NAUSEA Oxycodone HCl (Oxycontin(*)) 30 mg PO BID [facility] Last Admin: 10/22/18 09:37 Dose: 30 mg Oxycodone HCl (Roxycodone Tab*) 10 mg PO Q4H PRN PRN Reason: PAIN Last Admin: 10/21/18 18:06 Dose: 10 mg Objective: [] Vital Signs Temp Pulse Resp BP Pulse Ox 97.8 F 83 18 153/71 100 10/22/18 07:45 10/22/18 07:45 10/22/18 11:23 10/22/18 07:45 10/22/18 07:45 A&Ox3, EOMI, communicating clearly HRR LS clear +BS, abd. soft and non-tender with no hepatosplenomegaly noted Bilat. breasts symmetrical without masses felt, no evidence for inflammation, no nipple retraction or discharge No nodes felt to axillary, supraclavicular, and cervical areas Laboratory Results - last 24 hr 10/20/18 10/20/18 10/22/18 19:05 19:05 05:04 WBC RBC Hgb Hct MCV MCH MCHC RDW Plt Count MPV Neut % (Auto) Lymph % (Auto) [place] % (Auto) Eos % (Auto) Baso % (Auto) Absolute Neuts (auto) Absolute Lymphs (auto) Absolute Monos (auto) Absolute Eos (auto) Absolute Basos (auto) Absolute Nucleated RBC Nucleated RBC % Sodium 136 Potassium 3.6 Chloride 107 Carbon Dioxide 23 Anion Gap 6 BUN 9 Creatinine 0.71 Est GFR ( Amer) 96.8 Est GFR (Non-Af Amer) 80.0 BUN/Creatinine Ratio 12.7 Glucose 91 Calcium 7.0 L Magnesium 1.9 Total Bilirubin 0.60 AST 72 H ALT 40 Alkaline Phosphatase 75 Total Protein 5.6 L Albumin 3.0 L Globulin 2.6 Albumin/Globulin Ratio 1.2 Fluid Cell Count Rvw By CSF Total Protein 72 H 10/22/18 05:15 WBC 7.9 RBC 3.04 L Hgb 9.8 L Hct 27 L MCV 89 MCH 32 H MCHC 36 RDW 13 Plt Count 50 L MPV 8.2 Neut % (Auto) 74.5 Lymph % (Auto) 20.8 [place] % (Auto) 4.0 Eos % (Auto) 0 Baso % (Auto) 0.7 Absolute Neuts (auto) 5.9 Absolute Lymphs (auto) 1.6 Absolute Monos (auto) 0.3 Absolute Eos (auto) 0 Absolute Basos (auto) 0.1 Absolute Nucleated RBC 0 Nucleated RBC % 0.2 Sodium Potassium Chloride Carbon Dioxide Anion Gap BUN Creatinine Est GFR ( Amer) Est GFR (Non-Af Amer) BUN/Creatinine Ratio Glucose Calcium Magnesium Total Bilirubin AST ALT Alkaline Phosphatase Total Protein Albumin Globulin Albumin/Globulin Ratio Fluid Cell Count Rvw By CSF Total Protein Assessment/Plan: []78 yo female presenting to the hospital with acute confusion found to have hypercalcemia, anemia, and thrombocytopnia, initially concerning for progressive MGUS to myeloma with positive lytic lesions on skeletal survey, now s/p bone marrow biopsy with preliminary results revealing adenocarcinoma. Implications of current information reviewed with pt. and family at length. At this time she has metastatic disease to the bones with primary unknown, though differential includes breast, lung, and GI source. Further staining on the bone marrow will often provide a more definitive diagnosis. I recommend pursuing further work-up with full staging CT chest/abd/pelvic with contrast, however due to acute confusion with spikes on EEG she needs her MRI with contrast today. Patient and family asking appropriate questions including prognosis and staging, reviewed understanding of adenocarcinoma origins ( primary sites most common), need for full staging to determine primary, and prognosis dependent on the primary and subsequent options for treatment. At this time we are still in the information gather stage and once a more definitive diagnosis is available we will be able to provide more specific information. Pt. and family state good understanding and are very appreciative of discussion. []
[2018-10-22] MEDS ORDERED: Gadoteridol* (CONTRAST) 279.3 MG/ML 10 ML IV ONE (12:14)
[2018-10-22] MEDS ORDERED: Gadoteridol* (CONTRAST) 279.3 MG/ML 10 ML IV SCH (13:00)
--- NOTE | 2018-10-22 14:55 | PN ---
Subjective Date of Service: 10/22/18 Interval History: HOSPITALIST PROGRESS NOTE Patient seen and examined at bedside. Care reviewed and d/w Ayla Garcia RN. She feels better today. Remembers coming to the hospital, but not exactly why. Remembers being admitted to floor, but not much after that. Daughter is present at bedside and fells her mental status is much improved. Her major complaint is back pain and anxiety while she waits for MRI. Family History: Unchanged from Admission Social History: Unchanged from Admission Past Medical History: Unchanged from Admission Objective Active Medications: Acetaminophen (Tylenol Tab*) 650 mg PO Q6H PRN PRN Reason: FEVER/PAIN Last Admin: 10/20/18 00:46 Dose: 650 mg Brimonidine Tartrate (Alphagan 0.2%) 1 drop BOTH EYES BID [facility] Last Admin: 10/22/18 09:41 Dose: 1 drp Carboxymethylcellulose/Glycerin (Refresh Optive Gel Eye Gel) 1 applic BOTH EYES BID [facility] Last Admin: 10/22/18 09:45 Dose: 1 applic Divalproex Sodium (Depakote Dr Tab(*)) 500 mg PO BID [facility] Last Admin: 10/22/18 09:37 Dose: 500 mg Folic Acid (Folvite Tab*) 1 mg PO QAM [facility] Last Admin: 10/22/18 09:39 Dose: 1 mg Gadoteridol (Prohance* (Contrast)) 13 ml IV ONCE [facility] Stop: 10/24/18 12:13 Sodium Chloride (Ns 0.9% 1000 Ml*) 1,000 mls @ 100 mls/hr IV PER RATE [facility] Last Admin: 10/22/18 09:46 Dose: 100 mls/hr Levothyroxine Sodium (Synthroid Tab*) 88 mcg PO DAILY@0600 [facility] Last Admin: 10/22/18 05:23 Dose: 88 mcg Lorazepam (Ativan Inj*) 0.5 mg IV PUSH Q4H PRN PRN Reason: ANXIETY Last Admin: 10/22/18 11:23 Dose: 0.5 mg Lorazepam (Ativan Tab(*)) 0.25 mg PO BID [facility] Last Admin: 10/22/18 09:38 Dose: 0.25 mg Metoprolol Succinate (Toprol Xl Tab*) 25 mg PO QAM [facility] Last Admin: 01/02/19 09:39 Dose: 25 mg Morphine Sulfate (Morphine Vial*) 2 mg IV Q2H PRN PRN Reason: PAIN - MILD Last Admin: 10/22/18 05:23 Dose: 2 mg Ondansetron HCl (Zofran Inj*) 4 mg IV Q6H PRN PRN Reason: NAUSEA Oxycodone HCl (Oxycontin(*)) 30 mg PO BID [facility] Last Admin: 10/22/18 09:37 Dose: 30 mg Oxycodone HCl (Roxycodone Tab*) 10 mg PO Q4H PRN PRN Reason: PAIN Last Admin: 10/21/18 18:06 Dose: 10 mg Vital Signs - 8 hr 10/22/18 10/22/18 10/22/18 07:45 08:00 09:37 Temperature 97.8 F Pulse Rate 83 Respiratory 16 18 18 Rate Blood Pressure 153/71 (mmHg) O2 Sat by Pulse 100 Oximetry 10/22/18 10/22/18 10/22/18 09:38 11:15 11:23 Temperature Pulse Rate Respiratory 18 18 18 Rate Blood Pressure (mmHg) O2 Sat by Pulse Oximetry Oxygen Devices in Use Now: None Appearance: Elderly lady lying in bed in NAD. Eyes: No Scleral Icterus Ears/Nose/Mouth/Throat: Mucous Membranes Moist Neck: Trachea Midline Respiratory: Symmetrical Chest Expansion and Respiratory Effort, Clear to Auscultation Cardiovascular: RRR - Normal S1 and S2 Neurological: Alert and Oriented x 3, NL Muscle Strength and Tone Result Diagrams: 10/22/18 05:15 10/22/18 05:04 Assess/Plan/Problems-Billing Assessment: Ms. Brown is a 78yo female with a PMH of RA, MGUS, HTN, chronic pain, and osteopenia who presented with 4 days of word finding difficulty and confusion and was found to be profoundly hypercalcemic with hypervitaminosis D; hypercalcemia has improved with IVF and treatment but encephalopathy was persistent. - Patient Problems (1) Altered mental status Comment: - Multifactorial. - Daughter and report acute neurological change on 10/13/18 from baseline. At baseline, has some forgetfulness and confusion but can make needs known, independently perform ADLs. - EEG with concern for left frontal sharp wave focus that may indicate focal seizures - her worsening MS was likely secondary to Keppra, as she's doing much better today. Continue Depakote - as it carries risk of thrombocytopenia over time, will need to closely follow CBC. - Her BM prelim result is of metastatic adenocarcinoma of unknown source. Her encephalopathy can certainly be paraneoplastic. Initial hypercalcemia was playing a role, but other factors, including benzo/opiate use contributing. - For MRI brain with contrast today. - s/p LP, results pending. Paraneoplastic and autoimmune encephalitis diagnostic panels collected and sent. (2) Hypercalcemia Comment: - Resolved. - Secondary to bone mets and hypervitaminosis D on admission. (3) Thrombocytopenia Comment: - Secondary to BM invasion by adenocarcinoma - no signs of bleeding - continue to monitor. (4) Chronic pain Comment: - Chronic Back Pain. - Continue home meds including Oxycontin and oxycodone IR. - Patient has been on opiates and benzodiazepines for several years (close to 30 years per family); will require slow taper to avoid withdrawal if medications decreased. (5) Rheumatoid arthritis Comment: - Rheumatology input appreciated - recently started on Xeljanz with minimal disease activity. - On hold for now. (6) HTN (hypertension) Comment: - Controlled. - Continue Metoprolol. (7) Metastatic adenocarcinoma Comment: - BM shows metastatic adenocarcinoma. - Suspect colon as she has family h/o colon CA, but breast and lung on differential. - For CT chest/abdome/pelvis tomorrow. (8) DVT prophylaxis Comment: - SCDs and Ambulation, especially in the setting of thrombocytopenia. (9) Full code status Status and Disposition: Inpatient with complex picture including neurological symptoms, now found to have metastatic adenocarcinoma of unknown source. Anticipate extended LOS due to complexity. Daughter updated at bedside.
[2018-10-22] MEDS ORDERED: NS 0.9% 1000 ML** 1,000 ML IV SCH (15:01)
[2018-10-22 17:41] LABS: Kappa Free Light Chain 3.38 mg/dL; Lambda Free Light Chain 1.17 mg/dL
[2018-10-22 18:02] LABS: Albumin 2.8 g/dL (3.4-4.7); Albumin/Globulin Ratio 0.84; Gamma Globulin 1.2 g/dL (0.6-1.6); Total Protein(PEP) 6.1 g/dL (6.3 - 7.9)
--- NOTE | 2018-10-22 18:21 | PN ---
Subjective - Subjective Date of Service: 10/22/18 - Chief complain: mental status changes, history of RA History: Overall is feeling better. No specific complaints. She is feeling better than yesterday Active Problems: Active Problems Altered mental status (Acute) R41.82 - Multifactorial. - Daughter and report acute neurological change on from baseline. At baseline, has some forgetfulness and confusion but can make needs known, independently perform ADLs. - EEG with concern for left frontal sharp wave focus that may indicate focal seizures - her worsening MS was likely secondary to Keppra, as she's doing much better today. Continue Depakote - as it carries risk of thrombocytopenia over time, will need to closely follow CBC. - Her BM prelim result is of metastatic adenocarcinoma of unknown source. Her encephalopathy can certainly be paraneoplastic. Initial hypercalcemia was playing a role, but other factors, including benzo/opiate use contributing. - For MRI brain with contrast today. - s/p LP, results pending. Paraneoplastic and autoimmune encephalitis diagnostic panels collected and sent. DVT prophylaxis (Acute) [id number] - SCDs and Ambulation, especially in the setting of thrombocytopenia. Full code status (Acute) Z78.9 HTN (hypertension) (Acute) I10 - Controlled. - Continue Metoprolol. Hypercalcemia (Acute) E83.52 - Resolved. - Secondary to bone mets and hypervitaminosis D on admission. Metastatic adenocarcinoma (Acute) C79.9 - BM shows metastatic adenocarcinoma. - Suspect colon as she has family h/o colon CA, but breast and lung on differential. - For CT chest/abdome/pelvis tomorrow. Thrombocytopenia (Acute) D69.6 - Secondary to BM invasion by adenocarcinoma - no signs of bleeding - continue to monitor. Chronic pain (Chronic) G89.29 - Chronic Back Pain. - Continue home meds including Oxycontin and oxycodone IR. - Patient has been on opiates and benzodiazepines for several years (close to 30 years per family); will require slow taper to avoid withdrawal if medications decreased. MGUS (monoclonal gammopathy of unknown significance) (Chronic) D47.[address] Matute as outpatient Appreciate oncology consult today Concern for multiple myeloma, given thrombocytopenia, renal dysfunction, and hypercalcemia Bone scan with concern for lytic lesions Bone marrow biopsy complete with results pending SPEP sent and pending Rheumatoid arthritis (Chronic) M06.9 - Rheumatology input appreciated - recently started on Xeljanz with minimal disease activity. - On hold for now. Current Medications: Current Medications Acetaminophen (Tylenol Tab*) 650 mg PO Q6H PRN PRN Reason: FEVER/PAIN Last Admin: 10/20/18 00:46 Dose: 650 mg Brimonidine Tartrate (Alphagan 0.2%) 1 drop BOTH EYES BID [facility] Last Admin: 10/22/18 09:41 Dose: 1 drp Carboxymethylcellulose/Glycerin (Refresh Optive Gel Eye Gel) 1 applic BOTH EYES BID [facility] Last Admin: 10/22/18 09:45 Dose: 1 applic Divalproex Sodium (Depakote Dr Tab(*)) 500 mg PO BID [facility] Last Admin: 10/22/18 09:37 Dose: 500 mg Folic Acid (Folvite Tab*) 1 mg PO QAM [facility] Last Admin: 10/22/18 09:39 Dose: 1 mg Gadoteridol (Prohance* (Contrast)) 13 ml IV ONCE [facility] Stop: 10/24/18 12:13 Sodium Chloride (Ns 0.9% 1000 Ml*) 1,000 mls @ 75 mls/hr IV PER RATE [facility] Levothyroxine Sodium (Synthroid Tab*) 88 mcg PO DAILY@0600 [facility] Last Admin: 10/22/18 05:23 Dose: 88 mcg Lorazepam (Ativan Inj*) 0.5 mg IV PUSH Q4H PRN PRN Reason: ANXIETY Last Admin: 10/22/18 11:23 Dose: 0.5 mg Lorazepam (Ativan Tab(*)) 0.25 mg PO BID [facility] Last Admin: 10/22/18 09:38 Dose: 0.25 mg Metoprolol Succinate (Toprol Xl Tab*) 25 mg PO QAM [facility] Last Admin: 10/22/18 09:39 Dose: 25 mg Morphine Sulfate (Morphine Vial*) 2 mg IV Q2H PRN PRN Reason: PAIN - MILD Last Admin: 10/22/18 16:20 Dose: 2 mg Ondansetron HCl (Zofran Inj*) 4 mg IV Q6H PRN PRN Reason: NAUSEA Oxycodone HCl (Oxycontin(*)) 30 mg PO BID [facility] Last Admin: 10/22/18 09:37 Dose: 30 mg Oxycodone HCl (Roxycodone Tab*) 10 mg PO Q4H PRN PRN Reason: PAIN Last Admin: 10/21/18 18:06 Dose: 10 mg - Review of Systems Constitutional Symptoms: Yes: Weakness Musculoskeletal: Positive: Joint Stiffness, Joint Deformities Allergic/Immunologic: Positive: Immunocompromise Home Medications: Home Medications Medication Instructions Recorded Confirmed Type Conjugated Estrogens TAB* 0.625 mg PO QAM 03/17/13 10/17/18 History [Premarin TAB*] Levothyroxine TAB* [Synthroid 75 88 mcg PO QAM 03/17/13 10/17/18 History MCG TAB*] chlordiazePOXIDE/Clidinium [Librax] 1 cap PO TID PRN 05/18/13 10/17/18 History Cyclobenzaprine TAB* [Flexeril 10 10 mg PO TID PRN 02/25/17 10/17/18 History MG TAB*] Metoprolol Succinate [Toprol Xl] 25 mg PO QAM 08/20/17 10/17/18 History Ascorbic Acid [Vitamin C] 500 mg PO BID 09/17/17 10/17/18 History Calcium Carbonate/Vitamin D3 1 chw PO BID 09/19/17 10/17/18 History [Caltrate 600 + D Soft Chew Tab] Isosorbide Dinitrate 2.5 mg PO QAM 09/19/17 10/17/18 History Ondansetron TAB* [Zofran 4 MG Tab*] 8 mg PO Q6H PRN 09/24/17 10/17/18 History Cholecalciferol (Vitamin D3) 50,000 unit PO MONTHLY 11/28/17 10/17/18 History [Replesta] Oxycodone HCl 1 tab PO Q6H PRN 11/28/17 10/17/18 History Oxycodone HCl [Oxycodone HCl ER 30 30 mg PO BID 11/28/17 10/17/18 History mg] Biotin/Calcium Carbonate [Biotin 3,000 mcg PO QAM 03/25/18 10/17/18 History 800 Mcg Tablet] Calcium Carb, Citrate/Vit D3 1 tab PO QAM 03/25/18 10/17/18 History [Calcium+D3 Gradual Releas] Ferrous Sulfate [Ra High Potency 65 mg PO QAM 03/25/18 10/17/18 History Iron] Folic Acid TAB* [Folvite TAB*] 1 mg PO QAM 03/25/18 10/17/18 History Multivitamin [Multivitamins] 1 cap PO QAM 03/25/18 10/17/18 History Krill/Om-3/Dha/Epa/Phospho/Ast 2 cap PO QAM 04/14/18 10/17/18 History [Megared [place]-3 Krill Oil Sfgl] Allergies: Allergies Allergy/AdvReac Type Severity Reaction Status Date / Time nitrofurantoin Allergy Severe See Comment Verified 08/12/18 13:35 [From Macrodantin] Objective - Vital Signs Vital Signs: Vital Signs 10/21/18 10/21/18 10/21/18 18:46 20:00 20:49 Temperature 98.3 F Pulse Rate 82 Respiratory 18 18 18 Rate Blood Pressure 154/72 (mmHg) O2 Sat by Pulse 100 Oximetry 10/21/18 10/21/18 10/21/18 20:53 23:30 23:58 Temperature 98.3 F Pulse Rate 83 Respiratory 18 18 18 Rate Blood Pressure 126/76 (mmHg) O2 Sat by Pulse 98 Oximetry 10/22/18 10/22/18 10/22/18 00:22 01:30 04:04 Temperature 98.4 F Pulse Rate 88 Respiratory 18 18 16 Rate Blood Pressure 128/50 (mmHg) O2 Sat by Pulse 100 Oximetry 10/22/18 10/22/18 10/22/18 05:23 06:30 07:45 Temperature 97.8 F Pulse Rate 83 Respiratory 20 18 16 Rate Blood Pressure 153/71 (mmHg) O2 Sat by Pulse 100 Oximetry 10/22/18 10/22/18 10/22/18 08:00 09:37 09:38 Temperature Pulse Rate Respiratory 18 18 18 Rate Blood Pressure (mmHg) O2 Sat by Pulse Oximetry 10/22/18 10/22/18 10/22/18 11:15 11:23 15:34 Temperature 98.3 F Pulse Rate 80 Respiratory 18 18 16 Rate Blood Pressure 126/56 (mmHg) O2 Sat by Pulse 96 Oximetry 10/22/18 10/22/18 16:20 17:23 Temperature Pulse Rate Respiratory 18 18 Rate Blood Pressure (mmHg) O2 Sat by Pulse Oximetry - Intake and Output Intake and Output: Intake & Output 10/20/18 10/21/18 10/22/1803/19 06:59 06:59 06:59 06:59 Intake Total 2948 1831 3396 873 Output Total 4000 900 2050 1600 Balance -3245 002 3760 -727 Weight 147 lb Intake: IV Fluids 2502 762 3191 393 NS (0.9%) 6213 891 1450 393 NS with 40 meq K 1010 Potassium 100 646 valproic acid 110 IVPB 433 105 Keppra 110 105 MG 110 Potassium 213 Medicated IV 106 GEN - Magnesium 106 Oral 340 550 100 480 Platelets 86 Output: Urine 4000 400 700 North 1350 1600 Residual 500 North 16 Fr 500 Other: # Bowel Movements 1 0 Estimated Stool Amount Medium ADLs: Meal Record Start: 10/17/18 17: 47 Freq: DAILY@0900,1400,1800 Status: Active Protocol: Created 10/17/18 17:47 System (Rec: 10/17/18 17:47 System TELE-C03) Document 10/18/18 09:00 [id number] (Rec: 10/18/18 13:39 [id number] TELE-C08) Document 10/18/18 13:52 [id number] (Rec: 10/18/18 13:54 [id number] TELE-C08) Document 10/18/18 18:00 [id number] (Rec: 10/18/18 20:04 [id number] TELE-C10) Document 10/19/18 14:00 [id number] (Rec: 10/19/18 14:56 [id number] TELE-C08) Document 10/19/18 18:00 [id number] (Rec: 10/19/18 18:27 [id number] TELE-C11) Document 10/20/18 09:00 [id number] (Rec: 10/20/18 14:53 RSQ9253 TELE-C05) Document 10/20/18 14:00 [id number] (Rec: 10/20/18 15:01 [id number] TELE-C05) Document 10/20/18 18:00 HEY0743 (Rec: 10/20/18 18:22 UVZ8669 TELE-C10) Document 10/21/18 09:00 [id number] (Rec: 10/21/18 10:36 ALE0734 TELE-C13) Document 10/21/18 14:00 [id number] (Rec: 10/21/18 16:00 WCB6752 TELE-C11) Document 10/21/18 18:00 [id number] (Rec: 10/21/18 21:18 [id number] TELE-C11) Document 10/22/18 09:00 [id number] (Rec: 10/22/18 11:13 [id number] TELE-C08) Document 10/22/18 14:00 [id number] (Rec: 10/22/18 15:20 HRQ9699 TELE-C08) Intake and Output Start: 10/17/18 17: 47 Freq: DAILY@0600,1400,2200 Status: Active Protocol: Created 10/17/18 17:47 System (Rec: 10/17/18 17:47 System TELE-C03) Document 10/17/18 21:19 [id number] (Rec: 10/17/18 21:20 [id number] TELE-C01) Document 10/18/18 05:44 [id number] (Rec: 10/18/18 05:45 QXR2525 TELE-C35) Document 10/18/18 09:54 SNX8566 (Rec: 10/18/18 09:54 GVW2004 TELE-C10) Document 10/18/18 13:52 [id number] (Rec: 10/18/18 13:54 HSZ8340 TELE-C08) Document 10/18/18 22:00 [id number] (Rec: 10/18/18 22:15 XZE1425 TELE-C11) Document 10/19/18 05:11 RDO5764 (Rec: 10/19/18 05:12 WNS1272 TELE-C34) Document 10/19/18 14:00 [id number] (Rec: 10/19/18 17:48 FMN6038 TELE-C10) Document 10/19/18 20:56 [id number] (Rec: 10/19/18 20:56 XHZ4033 TELE-M03) Document 10/20/18 02:26 [id number] (Rec: 10/20/18 02:26 DRX0276 TELE-C03) Document 10/20/18 05:46 [id number] (Rec: 10/20/18 05:47 [id number] HOSP-C11) Document 10/20/18 14:00 [id number] (Rec: 10/20/18 15:01 NFB3228 TELE-C05) Document 10/20/18 19:00 DUP4059 (Rec: 10/20/18 21:39 IAM9413 TELE-C10) Document 10/20/18 20:36 [id number] (Rec: 10/20/18 20:37 VUO4333 TELE-M02) Document 10/20/18 22:00 [id number] (Rec: 10/20/18 22:02 GVF6256 TELE-C03) Document 10/21/18 14:00 [id number] (Rec: 10/21/18 15:54 XDJ1057 TELE-C13) Document 10/21/18 22:00 [id number] (Rec: 10/21/18 22:26 [id number] TELE-C11) Document 10/22/18 06:00 [id number] (Rec: 10/22/18 06:45 LOQ4716 TELE-C33) Document 10/22/18 11:13 [id number] (Rec: 10/22/18 11:13 [id number] TELE-C08) - Physical Exam General Physical Exam Comment: No acute distress, sitting up conversative. No active synovitis Results - Results Lab Results: Laboratory Results - last 24 hr 10/19/18 10/20/18 10/22/18 05:42 19:05 05:04 WBC RBC Hgb Hct MCV MCH MCHC RDW Plt Count MPV Neut % (Auto) Lymph % (Auto) Daniels % (Auto) Eos % (Auto) Baso % (Auto) Absolute Neuts (auto) Absolute Lymphs (auto) Absolute Monos (auto) Absolute Eos (auto) Absolute Basos (auto) Absolute Nucleated RBC Nucleated RBC % Sodium 136 Potassium 3.6 Chloride 107 Carbon Dioxide 23 Anion Gap 6 BUN 9 Creatinine 0.71 Est GFR ( Amer) 96.8 Est GFR (Non-Af Amer) 80.0 BUN/Creatinine Ratio 12.7 Glucose 91 Calcium 7.0 L Magnesium 1.9 Total Bilirubin 0.60 AST 72 H ALT 40 Alkaline Phosphatase 75 Total Protein 5.6 L Total Protein (PEP) 6.1 L Albumin 3.0 L Albumin (PEP) 2.8 L Globulin 2.6 Albumin/Globulin Ratio 1.2 Albumin/Globulin (PEP) 0.84 Qbfrz-5-[place] 0.4 H Rilni-7-Bhtambtmd 0.9 Tjfw-6-Qldbrlel 0.8 Gamma Globulins 1.2 M-Jong Not Reportable M-Jong 2 0.5 PEP Impression See comment Fluid Cell Count Rvw By Ama Light Chain 3.38 H Lambda Light Chain 1.17 Ama/Lambda Ratio 2.89 H 10/22/18 05:15 WBC 7.9 RBC 3.04 L Hgb 9.8 L Hct 27 L MCV 89 MCH 32 H MCHC 36 RDW 13 Plt Count 50 L MPV 8.2 Neut % (Auto) 74.5 Lymph % (Auto) 20.8 Daniels % (Auto) 4.0 Eos % (Auto) 0 Baso % (Auto) 0.7 Absolute Neuts (auto) 5.9 Absolute Lymphs (auto) 1.6 Absolute Monos (auto) 0.3 Absolute Eos (auto) 0 Absolute Basos (auto) 0.1 Absolute Nucleated RBC 0 Nucleated RBC % 0.2 Sodium Potassium Chloride Carbon Dioxide Anion Gap BUN Creatinine Est GFR ( Amer) Est GFR (Non-Af Amer) BUN/Creatinine Ratio Glucose Calcium Magnesium Total Bilirubin AST ALT Alkaline Phosphatase Total Protein Total Protein (PEP) Albumin Albumin (PEP) Globulin Albumin/Globulin Ratio Albumin/Globulin (PEP) Nnfxq-4-Jopyghqaz Enxgw-5-Bpqsgbzty Oxjb-5-Srylvcov Gamma Globulins M-Jong M-Jong 2 PEP Impression Fluid Cell Count Rvw By Ama Light Chain Lambda Light Chain Ama/Lambda Ratio Assessment - Problem List Assessment: Patient Problems Altered mental status (Acute) DVT prophylaxis (Acute) Full code status (Acute) HTN (hypertension) (Acute) Hypercalcemia (Acute) Metastatic adenocarcinoma (Acute) Thrombocytopenia (Acute) Chronic pain (Chronic) MGUS (monoclonal gammopathy of unknown significance) (Chronic) Rheumatoid arthritis (Chronic) Mitral insufficiency (Acute) Dyspnea on exertion (Chronic) Hypertension (Chronic) Plan: Mental status changes RA Recent oncologic history noted. We should hold RA therapy, which I discussed with her family, based on workup and recommendations of heme/onc. Autoimmune serologies were checked on admission, but I suspect that her hypercalcemia and Mental status changes may be related to her malignancy as a paraneoplastic syndrome
[2018-10-23] MEDS: oxyCODONE TAB* 5 MG TAB PO PRN (03:50)
[2018-10-23] MEDS: Morphine VIAL* 4 MG/ML VIAL (1 ml vial) IV PRN ×2 (04:01→18:29)
[2018-10-23] MEDS: LORazepam INJ* 2 MG/ML 1 ML VIAL IV PUSH PRN (04:46)
[2018-10-23] MEDS: Levothyroxine TAB* 88 MCG TAB PO SCH (05:24)
[2018-10-23 06:50] LABS: ABS Basophils 0 10^3/ul (0-0.2); ABS Eosinophils 0 10^3/ul (0-0.6); ABS Lymphocytes 1.7 10^3/ul (1.0-4.8); ABS Monocytes 0.6 10^3/ul (0-0.8); ABS Neutrophils 3.2 10^3/ul (1.5-7.7); ABS Nucleated RBC 0 10^3/ul; Eosinophil % 0 %; Hematocrit 28 % (35-47); Hemoglobin 9.8 g/dl (12.0-16.0); Lymphocyte % 31.1 %; Mean Corpuscular HGB Conc 36 g/dl (31-36); Mean Corpuscular Hemoglobin 32 pg (27-31); Mean Corpuscular Volume 88 fL (80-97); Mean Platelet Volume 8.8 fL (7.4-10.4); Nucleated Red Blood Cells % 0.2; Platelet Count 50 10^3/ul (150-450); Red Blood Count 3.13 10^6/ul (4.00-5.40); Red Cell Distribution Width 13 % (10.5-15); White Blood Count 5.5 10^3/ul (3.5-10.8)
[2018-10-23 07:05] LABS: BUN/Creatinine Ratio 12.5 (8-20); Calcium 6.9 mg/dL (8.6-10.3); EGFR African American 109.2 (>60); EGFR Non-African American 90.2 (>60); Potassium 3.3 mmol/L (3.5-5.0)
[2018-10-23] MEDS: Metoprolol Succinate XL TAB* 25 MG PO SCH (08:31)
[2018-10-23] MEDS: LORazepam TAB(*) 0.5 MG PO SCH ×2 (08:31→20:14)
[2018-10-23] MEDS: Folic Acid TAB* 1 MG PO SCH (08:32)
[2018-10-23] MEDS: Divalproex DR TAB(*) 500 MG PO SCH ×2 (08:33→20:14)
[2018-10-23] MEDS: oxyCODONE SR TAB(*) 15 MG TAB.SR PO SCH ×2 (08:33→20:14)
[2018-10-23] MEDS: CARBOXYMETHYLCELLULOSE LUBRICANT EYE BOTH EYES SCH ×2 (08:34→20:15)
[2018-10-23] MEDS: GLYCERI BOTH EYES SCH ×2 (08:34→20:15)
[2018-10-23] MEDS: PTO: Brimonidine 0.2% 5 ML BTL BOTH EYES SCH ×2 (08:34→20:15)
[2018-10-23] MEDS ORDERED: Iohexol 300* (CONTRAST) 10 ML SDV IV ONE (09:09)
[2018-10-23] MEDS: Potassium Chlor TAB* 20 MEQ TAB.ER PO SCH ×2 (11:17→20:13)
[2018-10-23] MEDS ORDERED: LORazepam TAB(*) 0.5 MG PO ONE (13:52)
[2018-10-23] MEDS ORDERED: LORazepam TAB(*) 0.5 MG PO SCH (13:56)
[2018-10-23] MEDS ORDERED: oxyCODONE TAB* 5 MG TAB PO PRN (13:57)
--- NOTE | 2018-10-23 14:02 | PN ---
Progress Note - Progress Note Date of Service: 10/23/18 SOAP: Subjective: []Feeling well overall and has been much more alert per nursing. Concern however that her oxycodone dose may be contributing to her confusion. Family at bedside involved in care. Medications: Acetaminophen (Tylenol Tab*) 650 mg PO Q6H PRN PRN Reason: FEVER/PAIN Last Admin: 10/20/18 00:46 Dose: 650 mg Brimonidine Tartrate (Alphagan 0.2%) 1 drop BOTH EYES BID [facility] Last Admin: 10/23/18 08:34 Dose: 1 drp Carboxymethylcellulose/Glycerin (Refresh Optive Gel Eye Gel) 1 applic BOTH EYES BID [facility] Last Admin: 10/23/18 08:34 Dose: 1 applic Divalproex Sodium (Depakote Dr Tab(*)) 500 mg PO BID [facility] Last Admin: 10/23/18 08:33 Dose: 500 mg Folic Acid (Folvite Tab*) 1 mg PO QAM [facility] Last Admin: 10/23/18 08:32 Dose: 1 mg Gadoteridol (Prohance* (Contrast)) 13 ml IV ONCE [facility] Stop: 10/24/18 12:13 Levothyroxine Sodium (Synthroid Tab*) 88 mcg PO DAILY@0600 [facility] Last Admin: 10/23/18 05:24 Dose: 88 mcg Lorazepam (Ativan Inj*) 0.5 mg IV PUSH Q4H PRN PRN Reason: ANXIETY Last Admin: 10/23/18 04:46 Dose: 0.5 mg Lorazepam (Ativan Tab(*)) 0.5 mg PO BEDTIME ONE Stop: 10/23/18 13:53 Lorazepam (Ativan Tab(*)) 0.25 mg PO BID [facility] Metoprolol Succinate (Toprol Xl Tab*) 25 mg PO QAM [facility] Last Admin: 10/23/18 08:31 Dose: 25 mg Morphine Sulfate (Morphine Vial*) 2 mg IV Q2H PRN PRN Reason: PAIN - MILD Last Admin: 10/23/18 04:01 Dose: 2 mg Ondansetron HCl (Zofran Inj*) 4 mg IV Q6H PRN PRN Reason: NAUSEA Oxycodone HCl (Oxycontin(*)) 30 mg PO BID [facility] Last Admin: 10/23/18 08:33 Dose: 30 mg Oxycodone HCl (Roxycodone Tab*) 5 mg PO Q4H PRN PRN Reason: PAIN Potassium Chloride (Klor Con Er Tab*) 20 meq PO BID [facility] Last Admin: 10/23/18 11:17 Dose: 20 meq Objective: [] Vital Signs Temp Pulse Resp BP Pulse Ox 98.0 F 83 14 144/65 97 10/23/18 07:40 10/23/18 07:40 10/23/18 10:21 10/23/18 07:40 10/23/18 07:40 A&Ox3, involved in discussion and communicating clearly Sitting upright in chair in no acute distress Resp. even and non-labored without audible wheeze or rhonchi HRR, SR on tele Laboratory Results - last 24 hr 10/19/18 10/20/18 10/21/18 05:42 12:27 00:18 WBC RBC Hgb Hct MCV MCH MCHC RDW Plt Count MPV Neut % (Auto) Lymph % (Auto) Bullock % (Auto) Eos % (Auto) Baso % (Auto) Absolute Neuts (auto) Absolute Lymphs (auto) Absolute Monos (auto) Absolute Eos (auto) Absolute Basos (auto) Absolute Nucleated RBC Nucleated RBC % Sodium Potassium Chloride Carbon Dioxide Anion Gap BUN Creatinine Est GFR ( Amer) Est GFR (Non-Af Amer) BUN/Creatinine Ratio Glucose Calcium Total Protein (PEP) 6.1 L Albumin (PEP) 2.8 L Albumin/Globulin (PEP) 0.84 Uvjcc-1-Nzbewcqhm 0.4 H Fwrzx-8-Ofxowaqnh 0.9 Ocyq-1-Cehdrasy 0.8 Gamma Globulins 1.2 M-Jong Not Reportable M-Jong 2 0.5 PEP Impression See comment Orland Light Chain 3.38 H Lambda Light Chain 1.17 Orland/Lambda Ratio 2.89 H Proteinase 3 (PR3) < 0.2 Myeloperoxidase Ab 0.3 Anti-Ribosomal Ab <0.2 CMV IgG Ab CMV IgM Ab Flow Intrp 2-8 Markers tnp Flow Intrp 9-15 Marker Flow Intrp 16+ Markers tnp 10/21/18 10/23/18 10/23/18 00:18 06:23 06:23 WBC 5.5 RBC 3.13 L Hgb 9.8 L Hct 28 L MCV 88 MCH 32 H MCHC 36 RDW 13 Plt Count 50 L MPV 8.8 Neut % (Auto) 58.3 Lymph % (Auto) 31.1 Bullock % (Auto) 10.0 Eos % (Auto) 0 Baso % (Auto) 0.6 Absolute Neuts (auto) 3.2 Absolute Lymphs (auto) 1.7 Absolute Monos (auto) 0.6 Absolute Eos (auto) 0 Absolute Basos (auto) 0 Absolute Nucleated RBC 0 Nucleated RBC % 0.2 Sodium 141 Potassium 3.3 L Chloride 109 Carbon Dioxide 24 Anion Gap 8 BUN 8 Creatinine 0.64 Est GFR ( Amer) 109.2 Est GFR (Non-Af Amer) 90.2 BUN/Creatinine Ratio 12.5 Glucose 87 Calcium 6.9 L Total Protein (PEP) Albumin (PEP) Albumin/Globulin (PEP) Hfnlh-4-Wumnzcwpe Zpqjw-1-Vhcmcuhhz Kslh-6-Aqfgmpgr Gamma Globulins M-Jong M-Jong 2 PEP Impression Orland Light Chain Lambda Light Chain Orland/Lambda Ratio Proteinase 3 (PR3) Myeloperoxidase Ab Anti-Ribosomal Ab CMV IgG Ab Negative CMV IgM Ab Negative Flow Intrp 2-8 Markers Flow Intrp 9-15 Marker Flow Intrp 16+ Markers CT Chest/Abd/Pelvis IMPRESSION: 1. THERE IS ASYMMETRIC MUCOSAL THICKENING OF THE DISTAL RECTUM. THE DIFFERENTIAL INCLUDES MUCOSAL NEOPLASM. RECOMMEND CONSIDERATION OF CORRELATION WITH DIRECT VISUALIZATION. 2. THERE IS A 2 CM OSTEOLYTIC LESION OF THE LATERAL MARGIN OF THE L4 VERTEBRAL BODY NOT CLEARLY EVIDENT ON THE PREVIOUS MRI OF THE LUMBAR SPINE CONCERNING FOR OSSEOUS METASTATIC DISEASE GIVEN THE CLINICAL HISTORY. 3. THERE IS A SCLEROTIC LESION OF THE RIGHT ILIAC BONE. WHILE THIS MAY REPRESENT A GIANT BONE ISLAND, OSTEOBLASTIC METASTATIC DISEASE IS ALSO WITHIN THE DIFFERENTIAL. 4. THERE IS A PARTIALLY CALCIFIED LESION OF THE RIGHT LOBE OF THE LIVER. THE DIFFERENTIAL INCLUDES CALCIFIED METASTATIC DISEASE WHICH CAN BE ASSOCIATED WITH COLONIC ADENOCARCINOMA. 5. THERE IS BILIARY DILATATION IS EXTENSIVE THE LEVEL OF THE AMPULLA. THERE IS NO APPRECIABLE PANCREATIC HEAD MASS. THERE IS NO PANCREATIC DUCTAL DILATATION. <Electronically signed by Marquise James MD in [place]> 10/23/18 1048 Dictated By: Marquise James MD Dictated Date/Time: 10/23/18 1048 Transcribed Date/Time: 10/23/18 1037 MRI Brain Negative Microbiology 10/20/18 19:05 CSF Gram Stain (Tube 3) - Final Cerebral Spinal Fluid CSF Culture - Preliminary No Growth Day 3 10/20/18 16:54 Urine Culture - Final Urine No Growth (<1,000 CFU/mL) 10/19/18 16:32 Stool Occult Blood (MARIS) - Final Stool Assessment: []78 yo female with history of MGUS presenting with new anemia, thrombocytopenia , and hypercalcemia with confusion found to have metastatic adenocarcinoma with work-up still pending. Her confusion appears resolved and she working with PT/ OT. Plan: []1. 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 Beckford and ER+ which would be most common in breast, [employer] cancers, and rare in colon and lung). Transfer to onc. service. Dr. Rousseau to see pt. tomorrow to discuss further work-up following review of radiology and path. - CT personally reviewed and the liver lesion is not convincingly a met. however in current setting reasonable to consider biopsy, mucosal thickening of rectum though this would be rare to have met to bones and she has not tolerated colonoscopy in the past. Will need to consider GI consult and/or liver biopsy. 2. Confusion: appears related to keppra, now discontinued. Question of relationship to narcotics so will do a trial of lower dose oxycodone as this appears to cause the most sedation per nursing. Continue long acting, though could also consider a 15 mg long acting mid-day dose. - question of paraneoplastic process, labs sent out 3. Anemia of chronic disease: monitor for now, normal B12, indices do not indicate NERISSA and iron levels normal in Aug., however with acute change will check iron studies with AM labs 4. Thrombocytopenia: r/t bone mets, follow 5. Electrolyte imbalances: cont. to monitor labs and replace as needed, however can d/c tele now 6. Pain: chronic lower back pain, however with bone lesions. After discussion with nursing will attempt to modify timing of ativan and decrease oral dose of oxycodone. Suggest attempting to avoid IV narcotics and benzo overnight to evaluate her pain management on oral agents only. Dispo: will need to be free of confusion for at least another 24 hours, working with PT and OT regarding independence (home vs. rehab), however may be able to pursue rest of work-up as outpatient - d/c tristan catheter today >40 min spent with majority of time spent face to face counselknigs
--- NOTE | 2018-10-23 14:36 | PN ---
Subjective Date of Service: 10/23/18 Interval History: HOSPITALIST PROGRESS NOTE Patient seen and examined at bedside. Care reviewed and d/w Ayla Garcia RN. She is alert and oriented today. Complains of back pain, but there is concern Oxycodone may be playing a role in her confusion also. Family History: Unchanged from Admission Social History: Unchanged from Admission Past Medical History: Unchanged from Admission Objective Active Medications: Acetaminophen (Tylenol Tab*) 650 mg PO Q6H PRN PRN Reason: FEVER/PAIN Last Admin: 10/20/18 00:46 Dose: 650 mg Brimonidine Tartrate (Alphagan 0.2%) 1 drop BOTH EYES BID [facility] Last Admin: 10/23/18 08:34 Dose: 1 drp Carboxymethylcellulose/Glycerin (Refresh Optive Gel Eye Gel) 1 applic BOTH EYES BID [facility] Last Admin: 10/23/18 08:34 Dose: 1 applic Divalproex Sodium (Depakote Dr Tab(*)) 500 mg PO BID [facility] Last Admin: 10/23/18 08:33 Dose: 500 mg Folic Acid (Folvite Tab*) 1 mg PO QAM [facility] Last Admin: 10/23/18 08:32 Dose: 1 mg Gadoteridol (Prohance* (Contrast)) 13 ml IV ONCE [facility] Stop: 10/24/18 12:13 Levothyroxine Sodium (Synthroid Tab*) 88 mcg PO DAILY@0600 [facility] Last Admin: 10/23/18 05:24 Dose: 88 mcg Lorazepam (Ativan Inj*) 0.5 mg IV PUSH Q4H PRN PRN Reason: ANXIETY Last Admin: 10/23/18 04:46 Dose: 0.5 mg Lorazepam (Ativan Tab(*)) 0.25 mg PO BID [facility] Metoprolol Succinate (Toprol Xl Tab*) 25 mg PO QAM [facility] Last Admin: 10/23/18 08:31 Dose: 25 mg Morphine Sulfate (Morphine Vial*) 2 mg IV Q2H PRN PRN Reason: PAIN - MILD Last Admin: 10/23/18 04:01 Dose: 2 mg Ondansetron HCl (Zofran Inj*) 4 mg IV Q6H PRN PRN Reason: NAUSEA Oxycodone HCl (Oxycontin(*)) 30 mg PO BID [facility] Last Admin: 10/23/18 08:33 Dose: 30 mg Oxycodone HCl (Roxycodone Tab*) 5 mg PO Q4H PRN PRN Reason: PAIN Potassium Chloride (Klor Con Er Tab*) 20 meq PO BID [facility] Last Admin: 10/23/18 11:17 Dose: 20 meq Vital Signs - 8 hr 10/23/18 10/23/18 10/23/18 07:27 07:40 08:31 Temperature 98.0 F Pulse Rate 83 Respiratory 18 14 14 Rate Blood Pressure 144/65 (mmHg) O2 Sat by Pulse 97 Oximetry 10/23/18 10/23/18 08:33 10:21 Temperature Pulse Rate Respiratory 14 14 Rate Blood Pressure (mmHg) O2 Sat by Pulse Oximetry Oxygen Devices in Use Now: None Appearance: Pleasant elderly lady lying in bed in NAD. Eyes: No Scleral Icterus Ears/Nose/Mouth/Throat: Mucous Membranes Moist Neck: Trachea Midline Respiratory: Symmetrical Chest Expansion and Respiratory Effort, Clear to Auscultation Cardiovascular: RRR - Normal S1 and S2 Neurological: Alert and Oriented x 3 Result Diagrams: 10/23/18 06:23 10/23/18 06:23 Assess/Plan/Problems-Billing Assessment: Ms. Brown is a 78yo female with a PMH of RA, MGUS, HTN, chronic pain, and osteopenia who presented with 4 days of word finding difficulty and confusion and was found to be profoundly hypercalcemic with hypervitaminosis D; hypercalcemia has improved with IVF and treatment but encephalopathy was persistent. - Patient Problems (1) Altered mental status Comment: - Multifactorial. - Daughter and report acute neurological change on 10/13/18. At baseline , has some forgetfulness and confusion but can make needs known, independently perform ADLs. - EEG with concern for left frontal sharp wave focus that may indicate focal seizures - her worsening MS was likely secondary to Keppra, as she's doing much better today. Continue Depakote - as it carries risk of thrombocytopenia over time, will need to closely follow CBC. - Her BM prelim result is of metastatic adenocarcinoma of unknown source. Her encephalopathy can certainly be paraneoplastic. Initial hypercalcemia was playing a role, but other factors, including benzo/opiate use contributing. - MRI brain with contrast was negative. - s/p LP, results pending. Paraneoplastic and autoimmune encephalitis diagnostic panels collected and sent. (2) Hypercalcemia Comment: - Resolved. - Secondary to bone mets and hypervitaminosis D on admission. (3) Thrombocytopenia Comment: - Secondary to BM invasion by adenocarcinoma - no signs of bleeding - continue to monitor. (4) Chronic pain Comment: - Chronic Back Pain. - Continue home meds including Oxycontin and oxycodone IR. - Patient has been on opiates and benzodiazepines for several years (close to 30 years per family); will require slow taper to avoid withdrawal if medications decreased. (5) Rheumatoid arthritis Comment: - Rheumatology input appreciated - recently started on Xeljanz with minimal disease activity. - On hold for now. (6) HTN (hypertension) Comment: - Controlled. - Continue Metoprolol. (7) Metastatic adenocarcinoma Comment: - BM shows metastatic adenocarcinoma. - Suspect colon as she has family h/o colon CA, but breast and lung on differential. - CT chest/abdome/pelvis shows asymmetric mucosal thickening of the distal rectum suggestive of mucosal neoplasm; L4 osteolytic lesion, and others suggestive of metastatic disease. - Oncology will be taking over w/u. (8) DVT prophylaxis Comment: - SCDs and Ambulation, especially in the setting of thrombocytopenia. (9) Full code status Status and Disposition: Inpatient with complex picture including neurological symptoms, now found to have metastatic adenocarcinoma of unknown source. Anticipate extended LOS due to complexity. updated at bedside.
[2018-10-23 16:17] LABS: Cytomegalovirus IgG Antibody Negative (Negative)
[2018-10-23 16:37] LABS: Ribosomal Antibody <0.2 U
[2018-10-23] MEDS ORDERED: Potassium Chlor TAB* 20 MEQ TAB.ER PO ONE (17:14)
[2018-10-23 20:43] LABS: Beta 2 Glycoprotein IgG <9.4 U/mL
[2018-10-23 21:13] LABS: Cyclic Citrullinated Peptide 63.7 U
[2018-10-23 22:04] LABS: HSV 1 PCR, CSF Negative (Negative); HSV 2 PCR, CSF Negative (Negative)
[2018-10-24] MEDS: LORazepam INJ* 2 MG/ML 1 ML VIAL IV PUSH PRN (01:27)
[2018-10-24] MEDS: Levothyroxine TAB* 88 MCG TAB PO SCH (05:32)
[2018-10-24 06:01] LABS: Hematocrit 30 % (35-47); Hemoglobin 10.7 g/dl (12.0-16.0); Mean Corpuscular HGB Conc 36 g/dl (31-36); Mean Corpuscular Hemoglobin 32 pg (27-31); Mean Corpuscular Volume 88 fL (80-97); Mean Platelet Volume 8.4 fL (7.4-10.4); Platelet Count 64 10^3/ul (150-450); Red Blood Count 3.41 10^6/ul (4.00-5.40); Red Cell Distribution Width 13 % (10.5-15); White Blood Count 7.8 10^3/ul (3.5-10.8)
[2018-10-24 06:23] LABS: ALT 34 U/L (7-52); AST 52 U/L (13-39); Albumin 3.2 g/dL (3.2-5.2); Alkaline Phosphatase 87 U/L (34-104); Anion Gap 8 mmol/L (2-11); BUN/Creatinine Ratio 13.4 (8-20); Blood Urea Nitrogen 9 mg/dL (6-24); CO2 Carbon Dioxide 25 mmol/L (22-32); Calcium 7.4 mg/dL (8.6-10.3); Chloride 105 mmol/L (101-111); EGFR African American 103.5 (>60); EGFR Non-African American 85.6 (>60); Globulin 3.2 g/dL (2-4); Glucose 83 mg/dL (70-100); Magnesium 1.4 mg/dL (1.9-2.7); Potassium 4.1 mmol/L (3.5-5.0); Sodium 138 mmol/L (135-145); Total Protein 6.4 g/dL (6.4-8.9)
[2018-10-24 06:24] LABS: % Iron Saturation 36 % (15-55); Iron 92 ug/dL (50-212); Total Iron Binding Capacity 258 mcg/dL (250-450); Transferrin 184 mg/dL (203-362)
[2018-10-24 06:36] LABS: ABS Basophils 0 10^3/ul (0-0.2); ABS Eosinophils 0 10^3/ul (0-0.6); ABS Lymphocytes 2.3 10^3/ul (1.0-4.8); ABS Monocytes 0.7 10^3/ul (0-0.8); ABS Neutrophils 4.7 10^3/ul (1.5-7.7); ABS Nucleated RBC 0 10^3/ul
[2018-10-24 06:39] LABS: Immature Granulocytes 7 % (0-9); Lymphocytes % 33 %; Monocytes % 8 %; Myelocytes % 4 % (0-1); Neutrophil % 51 %; Promyelocytes % 1 %; Variant Lymph % 1 % (0-6)
[2018-10-24 06:41] LABS: ABS Neutrophils 4.5 10^3/ul (1.5-7.7)
[2018-10-24 06:43] LABS: Ferritin 852.9 ng/mL (11-307)
[2018-10-24] MEDS: Morphine VIAL* 4 MG/ML VIAL (1 ml vial) IV PRN ×5 (06:55→23:32)
[2018-10-24] MEDS: oxyCODONE SR TAB(*) 15 MG TAB.SR PO SCH ×2 (08:29→19:51)
[2018-10-24] MEDS: LORazepam TAB(*) 0.5 MG PO SCH ×3 (08:30→19:52)
[2018-10-24] MEDS: Metoprolol Succinate XL TAB* 25 MG PO SCH (08:31)
[2018-10-24] MEDS: Folic Acid TAB* 1 MG PO SCH (08:31)
[2018-10-24] MEDS: Potassium Chlor TAB* 20 MEQ TAB.ER PO SCH ×2 (08:32→19:52)
[2018-10-24] MEDS: Divalproex DR TAB(*) 500 MG PO SCH ×2 (08:33→19:52)
[2018-10-24] MEDS: GLYCERI BOTH EYES SCH ×2 (08:36→19:53)
[2018-10-24] MEDS: PTO: Brimonidine 0.2% 5 ML BTL BOTH EYES SCH ×2 (08:36→19:52)
[2018-10-24] MEDS: CARBOXYMETHYLCELLULOSE LUBRICANT EYE BOTH EYES SCH ×2 (08:36→19:53)
--- NOTE | 2018-10-24 10:00 | PN ---
Hospitalist Progress Note Date of Service: 10/24/18 Spoke w/Dr. Robledo this AM and mentioned she had discussed case w/Miguel for possible transfer of service to Heme/Onc today. Touched base with Miguel who confirmed transfer of service cleared by Dr. Rousseau. Will S/O of case at this time. Please call us if we can be of any assistance in the future. Thank you.
[2018-10-24 11:38] LABS: LAC PT Mix 1:1 12.2 sec; LUP Hexthrombin Time (Bovine) 19 sec (15 - 23)
[2018-10-24 13:06] LABS: Lyme Disease Serology Negative (Negative)
[2018-10-24 14:26] LABS: CSF VDRL Negative (Negative)
[2018-10-24 14:26] LABS: Phospholipid Ab IgG < 9.4 GPL; Phospholipid Ab IgM, S < 9.4 MPL
[2018-10-24 16:54] LABS: LAC APTT 30 sec (26 - 36); LAC INR 1.3; Prothrombin Time(LAC) 14.2 sec; Special Coagulation Interp Performed
[2018-10-25] MEDS: Morphine VIAL* 4 MG/ML VIAL (1 ml vial) IV PRN (04:17)
[2018-10-25] MEDS: Levothyroxine TAB* 88 MCG TAB PO SCH (05:56)
[2018-10-25] MEDS: Metoprolol Succinate XL TAB* 25 MG PO SCH (08:15)
[2018-10-25] MEDS: Potassium Chlor TAB* 20 MEQ TAB.ER PO SCH (08:15)
[2018-10-25] MEDS: GLYCERI BOTH EYES SCH ×2 (08:16→20:55)
[2018-10-25] MEDS: Divalproex DR TAB(*) 500 MG PO SCH ×2 (08:16→20:56)
[2018-10-25] MEDS: LORazepam TAB(*) 0.5 MG PO SCH ×3 (08:16→20:56)
[2018-10-25] MEDS: oxyCODONE SR TAB(*) 15 MG TAB.SR PO SCH ×2 (08:16→20:56)
[2018-10-25] MEDS: Folic Acid TAB* 1 MG PO SCH (08:16)
[2018-10-25] MEDS: CARBOXYMETHYLCELLULOSE LUBRICANT EYE BOTH EYES SCH ×2 (08:16→20:55)
[2018-10-25] MEDS: PTO: Brimonidine 0.2% 5 ML BTL BOTH EYES SCH ×2 (08:16→20:56)
[2018-10-25] MEDS ORDERED: Magnesium Sulfate IV* 3 GM in NS 0.9% 100 ML* 100 ML IVPB ONE (09:10)
--- NOTE | 2018-10-25 09:22 | PN ---
Progress Note - Progress Note Date of Service: 10/25/18 SOAP: Subjective: []She is not eating, continues to be in pain but is very sleepy from pain medicaiton. Mentation is better then admission but not at baseline. Has not worked with PT yet but they are coming by. Pain is lower back and is chronic, worse this week then has been. Acetaminophen (Tylenol Tab*) 650 mg PO Q6H PRN PRN Reason: FEVER/PAIN Last Admin: 10/20/18 00:46 Dose: 650 mg Brimonidine Tartrate (Alphagan 0.2%) 1 drop BOTH EYES BID [facility] Last Admin: 10/25/18 08:16 Dose: 1 drp Carboxymethylcellulose/Glycerin (Refresh Optive Gel Eye Gel) 1 applic BOTH EYES BID [facility] Last Admin: 10/25/18 08:16 Dose: 1 applic Divalproex Sodium (Depakote Dr Tab(*)) 500 mg PO BID [facility] Last Admin: 10/25/18 08:16 Dose: 500 mg Folic Acid (Folvite Tab*) 1 mg PO QAM [facility] Last Admin: 10/25/18 08:16 Dose: 1 mg Hydromorphone HCl (Dilaudid Tab*) 4 mg PO Q4H PRN PRN Reason: PAIN Magnesium Sulfate 3 gm/ Sodium (Chloride) 106 mls @ 53 mls/hr IVPB ONCE ONE Stop: 10/25/18 11:09 Levothyroxine Sodium (Synthroid Tab*) 88 mcg PO DAILY@0600 [facility] Last Admin: 10/25/18 05:56 Dose: 88 mcg Lorazepam (Ativan Tab(*)) 0.5 mg PO BEDTIME [facility] Last Admin: 10/24/18 19:52 Dose: 0.5 mg Lorazepam (Ativan Tab(*)) 0.25 mg PO 1400 [facility] Metoprolol Succinate (Toprol Xl Tab*) 25 mg PO QAM [facility] Last Admin: 10/25/18 08:15 Dose: 25 mg Morphine Sulfate (Morphine Vial*) 2 mg IV Q2H PRN PRN Reason: PAIN - SEVERE Naproxen (Naprosyn Tab*) 250 mg PO Q12H [facility] Ondansetron HCl (Zofran Inj*) 4 mg IV Q6H PRN PRN Reason: NAUSEA Oxycodone HCl (Oxycontin(*)) 30 mg PO BID [facility] Last Admin: 10/25/18 08:16 Dose: 30 mg Potassium Chloride (Klor Con Er Tab*) 20 meq PO DAILY [facility] Objective: [] Vital Signs Temp Pulse Resp BP Pulse Ox 98.4 F 98 16 149/63 100 10/25/18 07:31 10/25/18 07:31 10/25/18 08:16 10/25/18 07:31 10/25/18 07:31 HEENT: pale, dry OM, no thrush CTA RRR S1S2 no breast exam +BS, mild distension NT Ext w/o edema mamogram 1.7 cm breast mass, spiculated CT C/A/P - can see breast mass on left near chest wall. No disease in lung or liver. There are lytic bone lesions in L4 and R pelvis. Cannot see base of skull or humerous lesions. bone disease under represented BMBx: ER+ 100% MBC, H2N 0 Breast Bx pending but not clear Bx o breast mass Assessment: []78 yo female with history of MGUS presenting with new anemia, thrombocytopenia , and hypercalcemia with confusion found to have metastatic adenocarcinoma consistent with ER positive breast cancer. Breast biopsy pending but unclear that monographic lesion was targeted. We discussed diagnosis of metastatic breast cancer to bone. While bone only ER + MBC has a favorable prognosis. I am concerned she has aggressive disease. We discussed options for therapy including HT, H + Ibrance and chemotherapy. My recommendation is for initial chemotherapy with weekly Taxol for 3 months followed by HT with or without ibrance. SE and risks of chemotherapy discussed as well ad HT and ibrance. Plan: []1. Adenocarcinoma to the bone. Working diagnosis of MBC. - Breast biopsy pending - Discussed chemotherapy and hormone therapy, would like to start one or the other on Saturday. - Prognosis BC discussed. - send CA 15-2 adn 27-29 2. Confusion. High Ca improved and I suspect medication effect. -Keppra, now discontinued. - Will taper Ativan, used for muscle spasm. Go to 0.5 mg qhs and 0.25 at 1400 for now. - Revise pain medication as noted. 3. Pain. Chronic and poorly controlled. Cancer may be only minor contributor and expect pain will not get better. Discussed difficulty of pain and MS changes. - Keep Oxycontin - Try Dilaudid 4 mg q 4 short acting - IV Morphine only pain after Dilaudid - Stop oxycodone - Naproxin 250 po bid with PPI 4. Anemia Thrombocytopenia. Second to bone mets, follow as therapy starts. 5. Electrolyte imbalances. Mg 3 G IV and d/c K-dur 6. Dispo: will need to be free of confusion for at least another 24 hours, working with PT and OT regarding independence (home vs. rehab), and she needs to eat. >40 min spent with majority of time spent face to face counseling
[2018-10-25] MEDS: HYDROmorphone TAB* 4 MG PO PRN ×2 (10:46→15:22)
[2018-10-25] MEDS: Naproxen TAB* 250 MG PO SCH ×2 (10:46→20:56)
[2018-10-26] MEDS: HYDROmorphone TAB* 4 MG PO PRN ×2 (03:53→13:21)
[2018-10-26 05:34] LABS: Hematocrit 30 % (35-47); Hemoglobin 10.7 g/dl (12.0-16.0); Mean Corpuscular HGB Conc 36 g/dl (31-36); Mean Corpuscular Hemoglobin 32 pg (27-31); Mean Corpuscular Volume 89 fL (80-97); Mean Platelet Volume 8.2 fL (7.4-10.4); Platelet Count 100 10^3/ul (150-450); Red Blood Count 3.35 10^6/ul (4.00-5.40); Red Cell Distribution Width 13 % (10.5-15); White Blood Count 7.1 10^3/ul (3.5-10.8)
[2018-10-26] MEDS: Levothyroxine TAB* 88 MCG TAB PO SCH (05:40)
[2018-10-26 05:47] LABS: Albumin 3.5 g/dL (3.2-5.2); Albumin/Globulin Ratio 1.3 (1-3); BUN/Creatinine Ratio 17.3 (8-20); Calcium 7.7 mg/dL (8.6-10.3); EGFR African American 90.9 (>60); EGFR Non-African American 75.1 (>60); Globulin 2.7 g/dL (2-4); Magnesium 2.4 mg/dL (1.9-2.7); Potassium 4.5 mmol/L (3.5-5.0); Total Bilirubin 0.6 mg/dL (0.2-1.0); Total Protein 6.2 g/dL (6.4-8.9)
[2018-10-26 05:59] LABS: ABS Basophils 0 10^3/ul (0-0.2); ABS Eosinophils 0 10^3/ul (0-0.6); ABS Lymphocytes 2.2 10^3/ul (1.0-4.8); ABS Monocytes 0.6 10^3/ul (0-0.8); ABS Neutrophils 4.3 10^3/ul (1.5-7.7)
[2018-10-26 06:02] LABS: Immature Granulocytes 6 % (0-9); Lymphocytes % 25 %; Monocytes % 8 %; Myelocytes % 5 % (0-1); Neutrophil % 61 %; Nucleated Red Blood Cells/100 1 (0-0)
[2018-10-26 06:04] LABS: ABS Neutrophils 4.7 10^3/ul (1.5-7.7)
[2018-10-26] MEDS: Divalproex DR TAB(*) 500 MG PO SCH ×2 (08:11→20:12)
[2018-10-26] MEDS: oxyCODONE SR TAB(*) 15 MG TAB.SR PO SCH (08:11)
[2018-10-26] MEDS: PTO: Brimonidine 0.2% 5 ML BTL BOTH EYES SCH ×2 (08:11→20:12)
[2018-10-26] MEDS: Folic Acid TAB* 1 MG PO SCH (08:11)
[2018-10-26] MEDS: CARBOXYMETHYLCELLULOSE LUBRICANT EYE BOTH EYES SCH ×2 (08:11→20:12)
[2018-10-26] MEDS: GLYCERI BOTH EYES SCH ×2 (08:11→20:12)
[2018-10-26] MEDS: Metoprolol Succinate XL TAB* 25 MG PO SCH (08:11)
[2018-10-26] MEDS ORDERED: Potassium Chlor TAB* 20 MEQ TAB.ER PO SCH (09:00)
[2018-10-26] MEDS: Naproxen TAB* 250 MG PO SCH ×2 (09:33→21:02)
--- NOTE | 2018-10-26 13:40 | PN ---
Progress Note - Progress Note Date of Service: 10/26/18 SOAP: Subjective: []Still confused, more awake today and pain is a little better. Difficulty understanding conversation and decision making. Wants to proceed with chemotherapy in am. Acetaminophen (Tylenol Tab*) 650 mg PO Q6H PRN PRN Reason: FEVER/PAIN Last Admin: 10/20/18 00:46 Dose: 650 mg Brimonidine Tartrate (Alphagan 0.2%) 1 drop BOTH EYES BID [facility] Last Admin: 10/26/18 08:11 Dose: 1 drp Carboxymethylcellulose/Glycerin (Refresh Optive Gel Eye Gel) 1 applic BOTH EYES BID [facility] Last Admin: 10/26/18 08:11 Dose: 1 applic Divalproex Sodium (Depakote Dr Tab(*)) 500 mg PO BID [facility] Last Admin: 10/26/18 08:11 Dose: 500 mg Folic Acid (Folvite Tab*) 1 mg PO QAM [facility] Last Admin: 10/26/18 08:11 Dose: 1 mg Hydromorphone HCl (Dilaudid Tab*) 4 mg PO Q4H PRN PRN Reason: PAIN Last Admin: 10/26/18 13:21 Dose: 4 mg Levothyroxine Sodium (Synthroid Tab*) 88 mcg PO DAILY@0600 [facility] Last Admin: 10/26/18 05:40 Dose: 88 mcg Lorazepam (Ativan Tab(*)) 0.5 mg PO BEDTIME [facility] Last Admin: 10/25/18 20:56 Dose: 0.5 mg Lorazepam (Ativan Tab(*)) 0.25 mg PO 1400 [facility] Last Admin: 10/25/18 15:23 Dose: 0.25 mg Metoprolol Succinate (Toprol Xl Tab*) 25 mg PO QAM [facility] Last Admin: 10/26/18 08:11 Dose: 25 mg Morphine Sulfate (Morphine Vial*) 2 mg IV Q2H PRN PRN Reason: PAIN - SEVERE Naproxen (Naprosyn Tab*) 250 mg PO Q12H [facility] Last Admin: 10/26/18 09:33 Dose: 250 mg Ondansetron HCl (Zofran Inj*) 4 mg IV Q6H PRN PRN Reason: NAUSEA Oxycodone HCl (Oxycontin(*)) 30 mg PO BID [facility] Last Admin: 10/26/18 08:11 Dose: 30 mg Objective: [] Vital Signs Temp Pulse Resp BP Pulse Ox 98.7 F 87 18 139/70 98 10/26/18 08:05 10/26/18 08:05 10/26/18 13:21 10/26/18 08:05 10/26/18 08:05 HEENT: pale, dry OM, no thrush CTA RRR S1S2 no breast exam +BS, mild distension NT Ext w/o edema mamogram 1.7 cm breast mass, spiculated CT C/A/P - can see breast mass on left near chest wall. No disease in lung or liver. There are lytic bone lesions in L4 and R pelvis. Cannot see base of skull or humerous lesions. bone disease under represented BMBx: ER+ 100% MBC, H2N 0 Breast Bx pending but not clear Bx o breast mass Assessment: []78 yo female with history of MGUS presenting with new anemia, thrombocytopenia , and hypercalcemia with confusion found to have metastatic adenocarcinoma consistent with ER positive breast cancer. Breast biopsy pending but unclear that monographic lesion was targeted. Today continues to experience pain and confusion. Per discussion yesterday, plan will be for weekly Taxol followed by HT. Plan: []1. Adenocarcinoma to the bone. Working diagnosis of MBC. - Breast biopsy pending - Plan Taxol on Saturday - Prognosis BC discussed. - CA 15-2 adn 27-29 pending 2. Confusion. High Ca improved and I suspect medication effect. -Keppra, now discontinued. - Will taper Ativan to 0.25 mg bid - Revise pain medication as noted. 3. Pain. Chronic and poorly controlled. Cancer may be only minor contributor and expect pain will not get better. Discussed difficulty of pain and MS changes. - Keep Oxycontin, may taper tomorrow - Try Dilaudid 4 mg q 4 short acting - IV Morphine only pain after Dilaudid - Naproxin 250 po bid with PPI 4. Anemia Thrombocytopenia. Second to bone mets, improved 5. Electrolyte imbalances improved, follow 6. Dispo: will need to be free of confusion for at least another 24 hours, working with PT and OT regarding independence (home vs. rehab), and she needs to eat. Family interested in acute re-hab
[2018-10-26] MEDS: LORazepam TAB(*) 0.5 MG PO SCH ×2 (17:03→20:15)
[2018-10-26] MEDS: oxyCODONE SR TAB(*) 20 MG TAB.SR PO SCH (20:13)
[2018-10-27] MEDS: HYDROmorphone TAB* 4 MG PO PRN ×4 (02:34→16:20)
[2018-10-27] MEDS: Morphine VIAL* 4 MG/ML VIAL (1 ml vial) IV PRN (04:15)
[2018-10-27] MEDS: Levothyroxine TAB* 88 MCG TAB PO SCH (05:05)
[2018-10-27 05:45] LABS: Hematocrit 30 % (35-47); Hemoglobin 10.7 g/dl (12.0-16.0); Mean Corpuscular HGB Conc 36 g/dl (31-36); Mean Corpuscular Hemoglobin 32 pg (27-31); Mean Corpuscular Volume 89 fL (80-97); Mean Platelet Volume 7.9 fL (7.4-10.4); Platelet Count 102 10^3/ul (150-450); Red Blood Count 3.37 10^6/ul (4.00-5.40); Red Cell Distribution Width 13 % (10.5-15); White Blood Count 9.1 10^3/ul (3.5-10.8)
[2018-10-27 06:03] LABS: Albumin 3.2 g/dL (3.2-5.2); BUN/Creatinine Ratio 16.9 (8-20); Calcium 7.6 mg/dL (8.6-10.3); EGFR African American 88.2 (>60); EGFR Non-African American 72.9 (>60); Globulin 3.2 g/dL (2-4); Potassium 4.3 mmol/L (3.5-5.0); Total Bilirubin 0.6 mg/dL (0.2-1.0); Total Protein 6.4 g/dL (6.4-8.9)
[2018-10-27 07:45] LABS: Lymphocytes % 27 %; Monocytes % 3 %; Neutrophil % 67 %
[2018-10-27 07:46] LABS: Immature Granulocytes 3 % (0-9); Myelocytes % 1 % (0-1); Nucleated Red Blood Cells/100 1 (0-0)
[2018-10-27 07:48] LABS: ABS Neutrophils 6.3 10^3/ul (1.5-7.7)
[2018-10-27] MEDS: oxyCODONE SR TAB(*) 20 MG TAB.SR PO SCH ×2 (08:29→20:05)
[2018-10-27] MEDS: Folic Acid TAB* 1 MG PO SCH (08:29)
[2018-10-27] MEDS: Divalproex DR TAB(*) 500 MG PO SCH ×2 (08:30→20:05)
[2018-10-27] MEDS: Metoprolol Succinate XL TAB* 25 MG PO SCH (08:30)
[2018-10-27] MEDS: GLYCERI BOTH EYES SCH ×2 (08:31→20:05)
[2018-10-27] MEDS: CARBOXYMETHYLCELLULOSE LUBRICANT EYE BOTH EYES SCH ×2 (08:31→20:05)
[2018-10-27] MEDS: PTO: Brimonidine 0.2% 5 ML BTL BOTH EYES SCH ×2 (08:31→20:05)
[2018-10-27] MEDS: Naproxen TAB* 250 MG PO SCH (09:47)
--- NOTE | 2018-10-27 10:40 | PN ---
Progress Note - Progress Note Date of Service: 10/27/18 SOAP: Subjective: []Still very confused, no better. did not eat well yesterday but had a good breakfast. did walk yesterday with . Acetaminophen (Tylenol Tab*) 650 mg PO Q6H PRN PRN Reason: FEVER/PAIN Last Admin: 10/20/18 00:46 Dose: 650 mg Brimonidine Tartrate (Alphagan 0.2%) 1 drop BOTH EYES BID [facility] Last Admin: 10/27/18 08:31 Dose: 1 drp Carboxymethylcellulose/Glycerin (Refresh Optive Gel Eye Gel) 1 applic BOTH EYES BID [facility] Last Admin: 10/27/18 08:31 Dose: 1 applic Divalproex Sodium (Depakote Dr Tab(*)) 500 mg PO BID [facility] Last Admin: 10/27/18 08:30 Dose: 500 mg Folic Acid ([facility]ite [facility]*) [facility] Admin: 10/27/18 08:29 Dose: 1 mg Hydromorphone HCl (Dilaudid Tab*) 4 mg PO Q4H PRN PRN Reason: PAIN Last Admin: 10/27/18 07:41 Dose: 4 mg Levothyroxine Sodium (Synthroid Tab*) 88 mcg PO DAILY@0600 [facility] Last Admin: 10/27/18 05:05 Dose: 88 mcg Lorazepam (Ativan Tab(*)) 0.25 mg PO 1400 [facility] Last Admin: 10/26/18 17:03 Dose: Not Given Lorazepam (Ativan Tab(*)) 0.25 mg PO BEDTIME [facility] Last Admin: 10/26/18 20:15 Dose: 0.25 mg Metoprolol Succinate (Toprol Xl Tab*) 25 mg PO QAM [facility] Last Admin: 10/27/18 08:30 Dose: 25 mg Morphine Sulfate (Morphine Vial*) 2 mg IV Q2H PRN PRN Reason: PAIN - SEVERE Last Admin: 10/27/18 04:15 Dose: 2 mg Naproxen (Naprosyn Tab*) 250 mg PO Q12H [facility] Last Admin: 10/27/18 09:47 Dose: 250 mg Ondansetron HCl (Zofran Inj*) 4 mg IV Q6H PRN PRN Reason: NAUSEA Last Admin: 10/26/18 17:33 Dose: 4 mg Oxycodone HCl (Oxycontin(*)) 20 mg PO BID [facility] Last Admin: 10/27/18 08:29 Dose: 20 mg Objective: [] Vital Signs Temp Pulse Resp BP Pulse Ox 97.9 F 86 20 154/66 97 10/27/18 07:41 10/27/18 07:41 10/27/18 08:29 10/27/18 07:41 10/27/18 07:41 HEENT: pale, dry OM, no thrush CTA RRR S1S2 no breast exam +BS, mild distension NT Ext w/o edema Neuro- Not oriented, difficulty following two step commands. Strength preserved. mamogram 1.7 cm breast mass, spiculated CT C/A/P - can see breast mass on left near chest wall. No disease in lung or liver. There are lytic bone lesions in L4 and R pelvis. Cannot see base of skull or humerous lesions. bone disease under represented BMBx: ER+ 100% MBC, H2N 0. 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 Plan: []1. Breast cancer. Given continued weakness and confusion as well as improved blood counts. Will start hormone therapy, letrozole 2.5 mg po daily. Will differ chemotherapy and follow blood counts. Discussed that prognosis from breast cancer is favorable if her PS improves, recovery from acute episode is largest variable. - Prognosis BC discussed. - CA 15-2 adn 27-29 pending 2. Confusion. Delirium second to hospital stay, medication effect, inflammatory disease and prior high calcium is most likely. Prior EEG with left sided findings that raise question of seizure. - Will taper Ativan as tolerated. - Revise pain medication as noted. 3. Pain. Chronic and poorly controlled. Cancer may be only minor contributor and expect pain will not get better. Discussed difficulty of pain and MS changes. - Oxycontin decreased but frequent dilaudid. - Tylenol 650 mg po q 8 standing - Has responded to Prednisone in the past, trial prednisone 30 mg po dialy. - check ESR and RF - Stop naproxen 4. Anemia Thrombocytopenia. Second to bone mets, improved 5. Electrolyte imbalances improved, follow 6. Dispo: will need to be free of confusion for at least another 24 hours, working with PT and OT regarding independence (home vs. rehab), and she needs to eat. Family interested in acute re-hab may be able to provide fci at home.
[2018-10-27] MEDS: predniSONE TAB* 10 MG PO SCH (11:24)
[2018-10-27] MEDS: Acetaminophen TAB* 325 MG PO SCH ×2 (11:24→20:05)
[2018-10-27 12:00] LABS: Erythrocyte Sed Rate 84 mm/Hr (0-40)
[2018-10-27] MEDS: CMCS: Letrozole (NF) 2.5 MG TAB PO SCH (13:14)
[2018-10-27] MEDS: LORazepam TAB(*) 0.5 MG PO SCH ×2 (13:18→19:56)
[2018-10-27 14:27] LABS: Plasma Cell Dis Res Summary Insufficient
[2018-10-28] MEDS: Acetaminophen TAB* 325 MG PO SCH ×3 (02:45→19:13)
[2018-10-28] MEDS: HYDROmorphone TAB* 4 MG PO PRN ×5 (03:20→23:40)
[2018-10-28] MEDS: Levothyroxine TAB* 88 MCG TAB PO SCH (04:59)
[2018-10-28] MEDS: Morphine VIAL* 4 MG/ML VIAL (1 ml vial) IV PRN ×3 (05:03→15:31)
[2018-10-28 06:04] LABS: Hematocrit 30 % (35-47); Hemoglobin 10.6 g/dl (12.0-16.0); Mean Corpuscular HGB Conc 35 g/dl (31-36); Mean Corpuscular Hemoglobin 32 pg (27-31); Mean Corpuscular Volume 90 fL (80-97); Mean Platelet Volume 7.7 fL (7.4-10.4); Platelet Count 130 10^3/ul (150-450); Red Blood Count 3.34 10^6/ul (4.00-5.40); Red Cell Distribution Width 13 % (10.5-15); White Blood Count 13.8 10^3/ul (3.5-10.8)
[2018-10-28 06:23] LABS: Albumin 3.4 g/dL (3.2-5.2); Albumin/Globulin Ratio 1.1 (1-3); BUN/Creatinine Ratio 22.7 (8-20); Calcium 8.1 mg/dL (8.6-10.3); EGFR African American 90.9 (>60); EGFR Non-African American 75.1 (>60); Globulin 3.2 g/dL (2-4); Potassium 4.1 mmol/L (3.5-5.0); Total Bilirubin 0.6 mg/dL (0.2-1.0); Total Protein 6.6 g/dL (6.4-8.9)
[2018-10-28 06:38] LABS: Immature Granulocytes 6 % (0-9); Lymphocytes % 18 %; Metamyelocytes % 1 % (0-2); Monocytes % 2 %; Myelocytes % 5 % (0-1); Neutrophil % 74 %
[2018-10-28 06:39] LABS: Polychromasia 1+
[2018-10-28 06:40] LABS: ABS Neutrophils 11.04 10^3/ul (1.5-7.7)
[2018-10-28] MEDS: PTO: Brimonidine 0.2% 5 ML BTL BOTH EYES SCH ×2 (07:58→20:19)
[2018-10-28] MEDS: GLYCERI BOTH EYES SCH ×2 (07:58→20:19)
[2018-10-28] MEDS: CARBOXYMETHYLCELLULOSE LUBRICANT EYE BOTH EYES SCH ×2 (07:58→20:19)
[2018-10-28] MEDS: Folic Acid TAB* 1 MG PO SCH (07:59)
[2018-10-28] MEDS: Divalproex DR TAB(*) 500 MG PO SCH ×2 (07:59→20:18)
[2018-10-28] MEDS: CMCS: Letrozole (NF) 2.5 MG TAB PO SCH (07:59)
[2018-10-28] MEDS: predniSONE TAB* 10 MG PO SCH (07:59)
[2018-10-28] MEDS: Metoprolol Succinate XL TAB* 25 MG PO SCH (07:59)
[2018-10-28] MEDS: oxyCODONE SR TAB(*) 20 MG TAB.SR PO SCH ×2 (08:00→20:18)
[2018-10-28] MEDS: LORazepam TAB(*) 0.5 MG PO SCH ×2 (14:03→20:22)
[2018-10-28] MEDS ORDERED: Lidocaine 1%* 5 ML VIAL ONE (15:25)
[2018-10-28] MEDS ORDERED: fentaNYL* 50 MCG/ML 2 ML VIAL (100 MCG VIAL) ONE (15:36)
--- NOTE | 2018-10-28 17:36 | PN ---
Subjective Date of Service: 10/28/18 Length of Stay: 11 Days Neurology is following Mrs. Brown for the evaluation and management of confusion. Interval History: Brief review of the medical history: The patient was initially seen and extensively evaluated by Dr. Marsh on 10/20. The consultation was for confusion and speech difficulty in a patient with complicated history of RA, receiving immunosuppressive infusions. She was also diagnosed with breast cancer with mets to the bone. She presented with severe hypercalcemia that was thought to be related to cancer. She is on vitamin D supplementation and her 25-OH vitamin D level was elevated. According to the evaluation the patient was apparently having progressive difficulty with words and appeared disoriented. This began around [place]. She has not worsened since then. She continues to have trouble with memory. She is having difficulty using a walker because of persistent ataxia. She had nonspecific intermittent headache during the past two weeks. Extensive evaluation for stroke or metastatic disease has been negative. She had an abnormal EEG which I personally reviewed. The EEG showed multifocal discharges, independent, mostly involving the right and left temporal areas. She had overall diffuse slowing consistent with a mild-moderate encephalopathy. Overall, the patient has not progressed but is not getting any better regarding her cognitive impairment. She has no current headaches or focal weakness. She is tired of all the testing and feels fatigued. She has intervals where she responds and interacts appropriately but then back to a confusion more of a psychomotor slowing state. Review of Systems: Denied CP, SOB, or palpitations. Family History: Unchanged from Admission Social History: Unchanged from Admission Past Medical History: Unchanged from Admission Objective Active Medications: Acetaminophen (Tylenol Tab*) 650 mg PO Q8H [facility] Last Admin: 10/28/18 12:12 Dose: 650 mg Brimonidine Tartrate (Alphagan 0.2%) 1 drop BOTH EYES BID [facility] Last Admin: 10/28/18 07:58 Dose: 1 drp Carboxymethylcellulose/Glycerin (Refresh Optive Gel Eye Gel) 1 applic BOTH EYES BID [facility] Last Admin: 10/28/18 07:58 Dose: 1 applic Divalproex Sodium (Depakote Dr Tab(*)) 500 mg PO BID [facility] Last Admin: 10/28/18 07:59 Dose: 500 mg Folic Acid (Folvite Tab*) 1 mg PO QAM [facility] Last Admin: 10/28/18 07:59 Dose: 1 mg Hydromorphone HCl (Dilaudid Tab*) 4 mg PO Q4H PRN PRN Reason: PAIN Last Admin: 10/28/18 14:00 Dose: 4 mg Letrozole (Femara (Nf)) 2.5 mg PO DAILY [facility]; Protocol Last Admin: 10/28/18 07:59 Dose: 2.5 mg Levothyroxine Sodium (Synthroid Tab*) 88 mcg PO DAILY@0600 [facility] Last Admin: 10/28/18 04:59 Dose: 88 mcg Lorazepam (Ativan Tab(*)) 0.25 mg PO 1400 [facility] Last Admin: 10/28/18 14:03 Dose: Not Given Lorazepam (Ativan Tab(*)) 0.25 mg PO BEDTIME [facility] Last Admin: 10/27/18 19:56 Dose: Not Given Metoprolol Succinate (Toprol Xl Tab*) 25 mg PO QAM [facility] Last Admin: 10/28/18 07:59 Dose: 25 mg Morphine Sulfate (Morphine Vial*) 2 mg IV Q2H PRN PRN Reason: PAIN - SEVERE Last Admin: 10/28/18 15:31 Dose: 2 mg Ondansetron HCl (Zofran Inj*) 4 mg IV Q6H PRN PRN Reason: NAUSEA Last Admin: 10/26/18 17:33 Dose: 4 mg Oxycodone HCl (Oxycontin(*)) 20 mg PO BID [facility] Last Admin: 10/28/18 08:00 Dose: 20 mg Prednisone (Deltasone Tab*) 30 mg PO DAILY [facility] Last Admin: 10/28/18 07:59 Dose: 30 mg 10/28/18 10/28/18 10/28/18 15:31 16:36 16:38 Temperature 98.1 F Pulse Rate 93 Respiratory 16 16 16 Rate Blood Pressure 153/71 (mmHg) O2 Sat by Pulse 99 Oximetry Intake and Output Last 24 Hours 10/26/18 10/27/18 10/28/18 10/29/18 06:59 06:59 06:59 06:59 Intake Total 1171 1665 860 240 Output Total 0 0 0 Balance 1171 1665 860 240 Intake: IV Fluids 15 MG 15 IVPB 106 MG 106 Oral 1050 1665 860 240 Output: Urine 0 0 0 Other: # Bowel Movements 0 # Voids 2 1 1 Oxygen Devices in Use Now: None Neurology Exam: General: Ill appearing frail female in no acute distress. Pleasantly mildly confused. HEENT: Normocephalic/atraumatic, sclera anicteric, mucous membranes moist Neck: Supple Chest: Clear to auscultation bilaterally Cardiovascular: Regular rate and rhythm without murmurs, rubs, gallops Extremities: No clubbing, cyanosis, or edema Neurological Findings: Awake, alert to self, place, but not time. She knew who the president was but not the exact name. She is aware of her medical condition and became frustrated when I asked to talk to her daughter outside the room-requesting to talk in front of her. She has mild psychmotor slowing. Speech: fluent without dysrhythmia, repetition intact Cranial Nerve: PERRL, EOM intact, mild left sided non-fatigable ptosis. Negative Curtain sign. No nystagmus, face symmetric bilaterally, facial sensation intact, hearing intact to finger rub bilaterally, palate elevates symmetrically, tongue midline, SCM and Trapezius s/s. Motor: s/s throughout, proximal and distal extremities x4 tone/bulk normal Sensation: intact to LT/PP bilaterally upper and lower extremities Deep Tendon Reflex: 2+ symmetric in the upper/lower extremities, Babinski - down going Finger to nose, rapid alternating movements intact without tremor, no dysdiadochokinesia Gait: wide based gait, required one person assist. Result Diagrams: 10/28/18 05:56 10/28/18 05:56 Additional Lab and Data: Laboratory results ESR: 84 (10/27/18) Ammonia: 42 (10/20/2018) CRP: 43 (10/20/2018) Vitamin B12: >1450 (10/20/18) 25-OH Vitamin D: 78 (10/17/18) RF: 35 CCP: 63 SPEP: [place] 3.38 Lyme disease: negative CSF analysis: Protein: 72 WBC: 1 [id number] Negative CSF VDRL, cryptococcus, HSV I, herpes II. Microbiology and Other Data: Microbiology 10/19/18 16:32 Stool Occult Blood ([facility]) - Final Stool Diagnostic Imaging: MRI brain without contrast: 10/17/2018: no acute brain infarct. age related atrophy. Reviewed. There is extensive T1 holes suggestive of small vessel disease involving the temporal lobes bilaterally. MRI brain with and without contrast 10/22/2018: Diffuse involutional change with chronic small vessel ischemic changes. CT abdomen/pelvis: 2cm osteolytic lesion of the lateral margin of the L4 vertebral body, concerning for osseous metastatic disease. Assessment/Plan Mrs. Yamileth Brown is a 78-year-old female with breast cancer who presented to [facility] [place] on 12with confusion. 1. Mild subacute encephalopathy manifesting as cognitive decline associated with left eye ptosis, intermittent headaches, and ataxia- Extensive workup so far has been unrevealing. She was treated for possible seizures with levetiracetam but it hasn't improved her cognition. From the extensive chart review over the past 2 weeks, there has been no work- up for leptomeningeal disease (she has intermittent headaches and CN involvement ) or paraneoplastic syndrome (cerebellar degeneration related to Anti-Yo or [id number] (Anti-Ri). She was checked for anti-MuSK antibody but I don't see the acetylcholine receptor. Although I don't think she has a neuromuscular junction disorder ( Since the ptosis is not fatigable), Recommendations: - Obtain a repeat large volume LP to check for the following: cell count and diff, protein, glucose, cytology, flow cytometry, and paraneoplastic panel. - Continue PT/OT treatment - Ordered acetylcholine receptor antibody (binding, blocking, modulating). - Some of this work-up will result within the next 24 hours to make some decision regarding long-term care. - Continue Depakote 500 mg twice daily for presumed seizures - Obtain valproic acid trough level tomorrow. - Neuro check every 4 hours - We may want to repeat an EEG tomorrow to see if there are any new areas of cortical irritation or to assess for improvement Neurology will continue to follow. I spent an extensive 90 minutes of which > 50% was spent reviewing the electronic medical records, obtaining further history from the patient and her daughter at bedside, examining the patient, and discussing the treatment plan with the primary team.
[2018-10-29] MEDS: Morphine VIAL* 4 MG/ML VIAL (1 ml vial) IV PRN ×2 (04:06→19:19)
[2018-10-29] MEDS: Acetaminophen TAB* 325 MG PO SCH ×3 (04:07→19:19)
[2018-10-29] MEDS: Levothyroxine TAB* 88 MCG TAB PO SCH (05:40)
[2018-10-29] MEDS: PTO: Brimonidine 0.2% 5 ML BTL BOTH EYES SCH ×2 (08:17→21:58)
[2018-10-29] MEDS: predniSONE TAB* 10 MG PO SCH (08:19)
[2018-10-29] MEDS: HYDROmorphone TAB* 4 MG PO PRN ×3 (08:19→17:56)
[2018-10-29] MEDS: Folic Acid TAB* 1 MG PO SCH (08:19)
[2018-10-29] MEDS: oxyCODONE SR TAB(*) 20 MG TAB.SR PO SCH ×2 (08:19→21:43)
[2018-10-29] MEDS: CMCS: Letrozole (NF) 2.5 MG TAB PO SCH (08:19)
[2018-10-29] MEDS: CARBOXYMETHYLCELLULOSE LUBRICANT EYE BOTH EYES SCH ×2 (08:20→21:58)
[2018-10-29] MEDS: GLYCERI BOTH EYES SCH ×2 (08:20→21:58)
[2018-10-29] MEDS: Divalproex DR TAB(*) 500 MG PO SCH ×2 (08:20→21:44)
[2018-10-29] MEDS: Metoprolol Succinate XL TAB* 25 MG PO SCH (08:24)
[2018-10-29 09:40] LABS: Body Fluid Source Cerebral Spinal
[2018-10-29 09:47] LABS: Body Fluid Mono 7 %
[2018-10-29 09:56] LABS: CSF Glucose 76 mg/dL (40-70)
--- NOTE | 2018-10-29 10:44 | PN ---
Progress Note - Progress Note Date of Service: 10/29/18 SOAP: Subjective: frustrated that she is still here. feels much better mentally. Objective: Vital Signs Temp Pulse Resp BP Pulse Ox 97.7 F 88 20 164/70 98 10/29/18 07:24 10/29/18 07:24 10/29/18 08:19 10/29/18 07:24 10/29/18 07:24 sitting up, articulate, in nad perr eomi op dry cta bl s1 s2 nl soft nt +bs trace le edema scattered ecchymoses A+O x 2, much more interactive Acetaminophen (Tylenol Tab*) 650 mg PO Q8H [facility] Last Admin: 10/29/18 04:07 Dose: 650 mg Brimonidine Tartrate (Alphagan 0.2%) 1 drop BOTH EYES BID [facility] Last Admin: 10/29/18 08:17 Dose: 1 drp Carboxymethylcellulose/Glycerin (Refresh Optive Gel Eye Gel) 1 applic BOTH EYES BID [facility] Last Admin: 10/29/18 08:20 Dose: 1 applic Divalproex Sodium (Depakote Dr Tab(*)) 500 mg PO BID [facility] Last Admin: 10/29/18 08:20 Dose: 500 mg Folic Acid (Folvite Tab*) 1 mg PO QAM [facility] Last Admin: 10/29/18 08:19 Dose: 1 mg Hydromorphone HCl (Dilaudid Tab*) 4 mg PO Q4H PRN PRN Reason: PAIN Last Admin: 10/29/18 08:19 Dose: 4 mg Letrozole (Femara (Nf)) 2.5 mg PO DAILY [facility]; Protocol Last Admin: 10/29/18 08:19 Dose: 2.5 mg Levothyroxine Sodium (Synthroid Tab*) 88 mcg PO DAILY@0600 [facility] Last Admin: 10/29/18 05:40 Dose: 88 mcg Lorazepam (Ativan Tab(*)) 0.25 mg PO 1400 [facility] Last Admin: 10/28/18 14:03 Dose: Not Given Lorazepam (Ativan Tab(*)) 0.25 mg PO BEDTIME [facility] Last Admin: 10/28/18 20:22 Dose: Not Given Metoprolol Succinate (Toprol Xl Tab*) 25 mg PO QAM [facility] Last Admin: 01/09/19 08:24 Dose: 25 mg Morphine Sulfate (Morphine Vial*) 2 mg IV Q2H PRN PRN Reason: PAIN - SEVERE Last Admin: 10/29/18 04:06 Dose: 2 mg Ondansetron HCl (Zofran Inj*) 4 mg IV Q6H PRN PRN Reason: NAUSEA Last Admin: 10/26/18 17:33 Dose: 4 mg Oxycodone HCl (Oxycontin(*)) 20 mg PO BID [facility] Last Admin: 10/29/18 08:19 Dose: 20 mg Prednisone (Deltasone Tab*) 30 mg PO DAILY [facility] Last Admin: 10/29/18 08:19 Dose: 30 mg Assessment: 78 yo F w RA and extensive metastatic ER + BCA, now on letrazole, with course c/ b confusion that is likely multifactorial including toxic metabolic encephalopathy and seizures, now clinically improving. Agree with plan to rule out leptomeningeal disease and paraneoplastic encephalopathy. Plan: -fu LP from yesterday -cont letrazole -discussed with case management preparing for d/c hopefully tomorrow with services -pancytopenia resolving faster than one would expect from just letrazole so likely some component of medication suppressing marrow as well.
[2018-10-29] MEDS: LORazepam TAB(*) 0.5 MG PO SCH ×2 (13:13→23:13)
--- NOTE | 2018-10-29 14:32 | PN ---
Subjective Date of Service: 10/29/18 Length of Stay: 12 Days Neurology is following for seizure and confusion. Interval History: She continues to show gradual improvement day by day. No reported seizures. She is tolerating Depakote. She can now walk without her walker. The patient's daughter informed me that the patient has had short-term memory loss for the past 12 months. She stopped driving a year ago and stopped doing any house related bills 4 months before this hospitalization due to her memory. She was never diagnosed with dementia. Review of Systems: Denied CP, SOB, or palpitations. Family History: Unchanged from Admission Social History: Unchanged from Admission Past Medical History: Unchanged from Admission Objective Active Medications: Acetaminophen (Tylenol Tab*) 650 mg PO Q8H [facility] Last Admin: 10/29/18 12:10 Dose: 650 mg Brimonidine Tartrate (Alphagan 0.2%) 1 drop BOTH EYES BID [facility] Last Admin: 10/29/18 08:17 Dose: 1 drp Carboxymethylcellulose/Glycerin (Refresh Optive Gel Eye Gel) 1 applic BOTH EYES BID [facility] Last Admin: 10/29/18 08:20 Dose: 1 applic Divalproex Sodium (Depakote Dr Tab(*)) 500 mg PO BID [facility] Last Admin: 10/29/18 08:20 Dose: 500 mg Folic Acid (Folvite Tab*) 1 mg PO QAM [facility] Last Admin: 10/29/18 08:19 Dose: 1 mg Hydromorphone HCl (Dilaudid Tab*) 4 mg PO Q4H PRN PRN Reason: PAIN Last Admin: 10/29/18 13:13 Dose: 4 mg Letrozole (Femara (Nf)) 2.5 mg PO DAILY [facility]; Protocol Last Admin: 10/29/18 08:19 Dose: 2.5 mg Levothyroxine Sodium (Synthroid Tab*) 88 mcg PO DAILY@0600 [facility] Last Admin: 10/29/18 05:40 Dose: 88 mcg Lorazepam (Ativan Tab(*)) 0.25 mg PO 1400 [facility] Last Admin: 10/29/18 13:13 Dose: 0.25 mg Lorazepam (Ativan Tab(*)) 0.25 mg PO BEDTIME [facility] Last Admin: 10/28/18 20:22 Dose: Not Given Metoprolol Succinate (Toprol Xl Tab*) 25 mg PO QAM [facility] Last Admin: 10/29/18 08:24 Dose: 25 mg Morphine Sulfate (Morphine Vial*) 2 mg IV Q2H PRN PRN Reason: PAIN - SEVERE Last Admin: 10/29/18 04:06 Dose: 2 mg Ondansetron HCl (Zofran Inj*) 4 mg IV Q6H PRN PRN Reason: NAUSEA Last Admin: 10/26/18 17:33 Dose: 4 mg Oxycodone HCl (Oxycontin(*)) 20 mg PO BID [facility] Last Admin: 10/29/18 08:19 Dose: 20 mg Prednisone (Deltasone Tab*) 30 mg PO DAILY [facility] Last Admin: 10/29/18 08:19 Dose: 30 mg Vital Signs 10/28/18 10/28/18 10/28/18 15:31 16:36 16:38 Temperature 98.1 F Pulse Rate 93 Respiratory 16 16 16 Rate Blood Pressure 153/71 (mmHg) O2 Sat by Pulse 99 Oximetry 10/28/18 10/28/18 10/28/18 18:35 19:19 19:30 Temperature 98.0 F Pulse Rate 95 Respiratory 16 16 16 Rate Blood Pressure 166/76 (mmHg) O2 Sat by Pulse 98 Oximetry 10/28/18 10/28/18 10/28/18 20:18 21:26 22:51 Temperature Pulse Rate Respiratory 16 16 16 Rate Blood Pressure (mmHg) O2 Sat by Pulse Oximetry 10/28/18 10/28/18 10/29/18 23:21 23:40 04:06 Temperature 98.0 F Pulse Rate 78 Respiratory 14 16 16 Rate Blood Pressure 143/60 (mmHg) O2 Sat by Pulse 97 Oximetry 10/29/18 10/29/18 10/29/18 05:28 07:10 07:24 Temperature 97.7 F Pulse Rate 88 Respiratory 16 16 16 Rate Blood Pressure 164/70 (mmHg) O2 Sat by Pulse 98 Oximetry 10/29/18 10/29/18 10/29/18 08:15 08:19 10:58 Temperature Pulse Rate Respiratory 22 20 18 Rate Blood Pressure (mmHg) O2 Sat by Pulse Oximetry 10/29/18 10/29/18 10:59 13:13 Temperature Pulse Rate Respiratory 18 18 Rate Blood Pressure (mmHg) O2 Sat by Pulse Oximetry Intake and Output Last 24 Hours 10/27/18 10/28/18 10/29/18 01/10/19 06:59 06:59 06:59 06:59 Intake Total 1665 860 240 120 Output Total 0 0 Balance 1665 860 240 120 Intake: Oral 1665 860 240 120 Output: Urine 0 0 Other: Estimated Void Medium # Bowel Movements 0 # Voids 2 1 1 Oxygen Devices in Use Now: None Neurology Exam: General: Ill appearing frail female in no acute distress. Pleasantly mildly confused. HEENT: Normocephalic/atraumatic, sclera anicteric, mucous membranes moist Neck: Supple Chest: Clear to auscultation bilaterally Cardiovascular: Regular rate and rhythm without murmurs, rubs, gallops Extremities: No clubbing, cyanosis, or edema Neurological Findings: Awake, alert to self, place, but not year. She knew who the president was but not the exact name. MOCA () testing was done at bedside. She was unable to do the puzzle, or place the hands on the clock. She was able to name and read. Fluency was impaired. She was unable to calculate using simple serial 7s. She only was able to recall 2/5 words. Speech: fluent without dysrhythmia, repetition intact Cranial Nerve: PERRL, EOM intact, mild left sided non-fatigable ptosis. Negative Curtain sign. She has a right, inferior quadrantonopia on examination. No nystagmus, face symmetric bilaterally, facial sensation intact , hearing intact to finger rub bilaterally, palate elevates symmetrically, tongue midline, SCM and Trapezius s/s. Motor: s/s throughout, proximal and distal extremities x4 tone/bulk normal Sensation: intact to LT/PP bilaterally upper and lower extremities Deep Tendon Reflex: 2+ on the left with 3+ on the right and absent at the ankles bilaterally. Babinski - down going Finger to nose, rapid alternating movements intact without tremor, no dysdiadochokinesia Gait: wide based gait,swaying to the right but not falls. She did not require a walker. Result Diagrams: 10/28/18 05:56 10/28/18 05:56 Additional Lab and Data: Laboratory results ESR: 84 (10/27/18) Ammonia: 42 (10/20/2018) CRP: 43 (10/20/2018) Vitamin B12: >1450 (10/20/18) 25-OH Vitamin D: 78 (10/17/18) RF: 35 CCP: 63 SPEP: [place] 3.38 Lyme disease: negative CSF analysis: Protein: 72 WBC: 1 [id number] Negative CSF VDRL, cryptococcus, HSV I, herpes II. Microbiology and Other Data: Microbiology 10/19/18 16:32 Stool Occult Blood ([facility]) - Final Stool Diagnostic Imaging: MRI brain without contrast: 10/17/2018: no acute brain infarct. age related atrophy. Reviewed. There is extensive T1 holes suggestive of small vessel disease involving the temporal lobes bilaterally. MRI brain with and without contrast 10/22/2018: Diffuse involutional change with chronic small vessel ischemic changes. CT abdomen/pelvis: 2cm osteolytic lesion of the lateral margin of the L4 vertebral body, concerning for osseous metastatic disease. Assessment/Plan Mrs. Yamileth Brown is a 78-year-old female with breast cancer who presented to [facility] on 12with confusion. 1. Mild subacute encephalopathy manifesting as cognitive decline associated with left eye ptosis, intermittent headaches, and ataxia- Extensive workup so far has been unrevealing. I suspect this is related to a combination of toxic-metabolic encephalopathy ( hypercalcemia, side effects related to Xeljanz and levetiracetam). Pending paraneoplastic syndrome and cytology; however, since the protein has improved, I suspect she may have had transient elevated CSF protein due to possible seizure. Acethylcholine receptor antibodies are pending. 2. Suspect underlying undiagnosed dementia- repeat cognitive testing to be done as outpatient. B12 and TSH were checked and are unremarkable. 3. Asymmetrical reflexes, gait ataxia, and right inferior quadrantanopia- all point towards a left hemispheric (parietal) lesion but repeat MRI is negative. Not sure if this is cortical irritation from possible seizures, or she has an underlying process (metastatic disease) which is not yet visualized on MRI. Recommend repeating an MRI in 6 weeks. Recommendations: - pending: work-up for leptomeningeal disease or paraneoplastic syndrome ( cerebellar degeneration related to Anti-Yo or [id number] (Anti- Ri), acetylcholine receptor antibody (binding, blocking, modulating). - Continue Depakote 500 mg twice daily for presumed seizures. If she is going to start chemotherapy, I recommend switching to another anti-seizure agent as depakote has a high drug-drug interactions. This can be done as an outpatient. - Obtain valproic acid trough level tomorrow. - Neuro check every 4 hours. - Repeat MRI brain with and without contrast in 6 weeks, or earlier if she has new neurological deficits. - She could be discharged tomorrow and we can complete the work-up as an outpatient. - D/w Dr. Quinn I will sign off but note that we are available for any questions or concerns.
[2018-10-29] MEDS ORDERED: Morphine VIAL* 4 MG/ML VIAL (1 ml vial) IV ONE (20:18)
[2018-10-30] MEDS: Acetaminophen TAB* 325 MG PO SCH ×2 (03:24→12:35)
[2018-10-30] MEDS: HYDROmorphone TAB* 4 MG PO PRN ×2 (03:24→10:36)
[2018-10-30] MEDS: Morphine VIAL* 4 MG/ML VIAL (1 ml vial) IV PRN ×2 (05:32→12:35)
[2018-10-30] MEDS: Levothyroxine TAB* 88 MCG TAB PO SCH (05:34)
[2018-10-30 07:48] VITALS: BP 166/78
[2018-10-30] MEDS: CARBOXYMETHYLCELLULOSE LUBRICANT EYE BOTH EYES SCH (07:58)
[2018-10-30] MEDS: predniSONE TAB* 10 MG PO SCH (07:58)
[2018-10-30] MEDS: Metoprolol Succinate XL TAB* 25 MG PO SCH (07:58)
[2018-10-30] MEDS: GLYCERI BOTH EYES SCH (07:58)
[2018-10-30] MEDS: PTO: Brimonidine 0.2% 5 ML BTL BOTH EYES SCH (07:58)
[2018-10-30] MEDS: Folic Acid TAB* 1 MG PO SCH (07:58)
[2018-10-30] MEDS: oxyCODONE SR TAB(*) 20 MG TAB.SR PO SCH (07:59)
[2018-10-30] MEDS: CMCS: Letrozole (NF) 2.5 MG TAB PO SCH (07:59)
[2018-10-30] MEDS: Divalproex DR TAB(*) 500 MG PO SCH (07:59)
--- NOTE | 2018-10-30 09:26 | DS ---
- Discharge Summary Admission Date: 10/17/18 Discharge Date: 10/30/18 Discharge Diagnosis: 1. 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 Started on Letrozole 2. Hypercalcemia secondary to malignant bone marrow: resolved following zoledronic acid 4 mg IV given 10/19/18 3. Confusion: appears multi-factorial including toxic metabolic encephalopathy related to hypercalcemia, subsequent eizures, and possibly medications, neuro following as she may have some early dementia 4. Rheumatoid arthritis: off meds during admission and will need f/u with pipe stress engineer as outpatient, holding off on resuming meds due to acute incident Discharge Medications: Medication Instructions Recorded Confirmed Type Levothyroxine TAB* [Synthroid 75 88 mcg PO QAM 03/17/13 10/17/18 History MCG TAB*] Cyclobenzaprine TAB* [Flexeril 10 10 mg PO TID PRN 02/25/17 10/17/18 History MG TAB*] Metoprolol Succinate [Toprol Xl] 25 mg PO QAM 08/20/17 10/17/18 History Ondansetron TAB* [Zofran 4 MG Tab*] 8 mg PO Q6H PRN 09/24/17 10/17/18 History Folic Acid TAB* [Folvite TAB*] 1 mg PO QAM 03/25/18 10/17/18 History Acetaminophen TAB* [Tylenol TAB*] 650 mg PO Q8H PRN tab 10/30/18 Rx Carboxymethylcellulose/Glyceri 1 applic BOTH EYES BID #1 ophth.gel 10/30/18 Rx [Refresh OPTIVE GEL EYE gel] Divalproex DR TAB(*) [Depakote DR 250 mg PO BID #60 tab.dr 10/30/18 Rx TAB(*)] HYDROmorphone TAB* [Dilaudid Tab*] 4 mg PO Q4H PRN #60 tab MDD 6 tabs *replaces PRN oxycodone 10/30/18 Rx LORazepam TAB(*) [Ativan 0.5 MG 0.25 mg PO TID PRN #90 tab MDD 3 10/30/18 Rx TAB (*)] tabs Letrozole (NF) [Femara (NF)] 2.5 mg PO DAILY #30 tab 01/10/19 Rx oxyCODONE SR TAB(*) [Oxycontin 20 20 mg PO BID #60 tab.sr MDD 2 tabs 10/30/18 Rx mg (*)] *dose reduced predniSONE TAB* [Deltasone 10 MG 20 mg PO DAILY #21 tab 10/30/18 Rx TAB*] *discuss taper in 1 week at Hospital Course: Please see admission not for full H&P, however briefly Mrs. Brown is known to our service due to her diagnosis of MGUS, last seen in the office 07/[address] Matute with stable labs. She presented to the ER with wording finding difficulty on 10/17 which started 4 days prior. In the ER she had a CT of the brain without contrast which was negative and Dr. Kim of neurology recommended admission for CVA work-up. She had a f/u brain MRI without contrast that day which was negative as well. During work-up she was found to have an elevated Calcium of 13.3, initially felt to be related to Vit. D toxicity. She was given aggressive hydration and then treated with Zoledronic acid on 10/19. Oncology consult was requested on 10/19 d/t thrombocytopenia and known history of MGUS. Dr. Quinn saw the patient on 10/20 at which time it was felt her presentation was most consistent with multiple myeloma transition (ARF, Hypercalcemia, and cytopenias); bone marrow biopsy, skeletal survey, and SPEP and light chains were obtained. Due to concern for infectious process or underlying cardiac dysfunction she also received an echo, EEG, and lumbar puncture on 10/20. Her echo was unremarkable. EEG revealed left frontal lobe sharp wave focus. Her LP revealed elevated glucose and protein with no malignant cells noted and the culture was ultimately negative. Dr. Mercedes saw the patient on 10/20 in follow-up regarding her known rheumatologic disease and further labs were recommended. Dr. Marsh of neurology saw her in consultation and due to focal area on EEG a repeat MRI of the brain with contrast was ordered; she was started on anti-seizure medications. Skeletal survey on 10/20 was consistent with lytic lesions. Her m-spike and light chains were consistent with October labs. Repeat MRI of the brain on 10/22 with contrast was negative. Bone marrow biopsy preliminary results revealed adenocarcinoma on 10/22/[address] Chest/Abd/Pelvis with contrast was ordered for the following AM. The following day CT was unrevealing (beyond further lytic lesions) and a mammogram was requested. Mammogram was obtained 10/24/18 with subsequent US and biopsy of the left breast. On 10/25/18 a Ca 15-3 and Ca 27-29 were ordered and review of preliminary path revealing metastatic breast cancer was discussed. At this time consideration for possible palliative Taxol was reviewed, however over the next several days Mrs. Brown continued to have intermittent confusion and therefore on 10/27/18 Letrozole PO was initiated. Her seizure and pain medications were all adjusted with goal of decreasing confusion/delerium. A repeat LP was obtained on 10/28 to review cytology, this was negative for carcinomatosis and showed decreased protein and glucose. Mrs. Carranza has been followed by PT and is moving with family safely. Her labs have stabilized and there is a question of mild early dementia causing some of her intermittent confusion as well as a diagnosis of metabolic toxic encephalitis related to hypercalcemia. She is stable for d/c home and we reviewed her new diagnosis of metastatic cancer at length. Mrs. Brown is adamant that she does not want to prolong her life if she has progressive dementia, however states good understanding of the plan to f/u with Dr. Pires of neurology in 3-4 weeks for repeat EEG and possible further imaging/ work-up. Her metastatic disease appears somewhat aggressive (in that she did not have any evidence of disease in July), however hormone receptor possible breast cancer to the bone is often very treatable, therefore we do not recommend she stop therapy until it is determined how she does at home. For now we have recommended continuation of anti-seizure meds per neurology (with f/ u this month) as well as hormone therapy with f/u in our office next week at which time dependent on her performance status at home additional treatment ( consideration of Ibrance) will be discussed. On discharge her labs have stabilized (leading to a question of medication induced cytopenias) and paraneoplastic work-up is pending (send out lab). She will discharged with some modifications to her pain medications and a taper of prednisone (started for RA). She will f/u with Dr. Quinn (per her request) on 11/06 with repeat labs and we have requested she contact Dr. Mercedes to further discuss RA management in 2-[address] Saada will contact her with neuro f/u plan. Plan of care was reviewed at length with all questions answered. >45 min spent with pt. and family with >50% face to face counseling
--- NOTE | 2018-10-30 09:57 | PN ---
Subjective Date of Service: 10/30/18 Length of Stay: 13 Days Neurology is following for confusion, dementia, possible seizure. Interval History: She did not sleep well overnight. She kept contemplating about her future medical care and if she wants to move forward with any aggressive management, especially if she has dementia. She is feeding herself this morning. She denied any headaches or visual disturbance. Mr. Brown informed me that she has chronic visual loss involving the right visual field due to glaucoma. There has been no reported seizures. Valproic acid has caused some fatigue. Review of Systems: Denied CP, SOB, or palpitations. Family History: Unchanged from Admission Social History: Unchanged from Admission Past Medical History: Unchanged from Admission Objective Active Medications: Acetaminophen (Tylenol Tab*) 650 mg PO Q8H [facility] Last Admin: 10/30/18 03:24 Dose: 650 mg Brimonidine Tartrate (Alphagan 0.2%) 1 drop BOTH EYES BID [facility] Last Admin: 10/30/18 07:58 Dose: 1 drp Carboxymethylcellulose/Glycerin (Refresh Optive Gel Eye Gel) 1 applic BOTH EYES BID [facility] Last Admin: 10/30/18 07:58 Dose: 1 applic Divalproex Sodium (Depakote Dr Tab(*)) 500 mg PO BID [facility] Last Admin: 10/30/18 07:59 Dose: 500 mg Folic Acid (Folvite Tab*) 1 mg PO QAM [facility] Last Admin: 10/30/18 07:58 Dose: 1 mg Hydromorphone HCl (Dilaudid Tab*) 4 mg PO Q4H PRN PRN Reason: PAIN Last Admin: 10/30/18 03:24 Dose: 4 mg Letrozole (Femara (Nf)) 2.5 mg PO DAILY [facility]; Protocol Last Admin: 10/30/18 07:59 Dose: 2.5 mg Levothyroxine Sodium (Synthroid Tab*) 88 mcg PO DAILY@0600 [facility] Last Admin: 10/30/18 05:34 Dose: 88 mcg Lorazepam (Ativan Tab(*)) 0.25 mg PO 1400 [facility] Last Admin: 10/29/18 13:13 Dose: 0.25 mg Lorazepam (Ativan Tab(*)) 0.25 mg PO BEDTIME [facility] Last Admin: 10/29/18 23:13 Dose: Not Given Metoprolol Succinate (Toprol Xl Tab*) 25 mg PO QAM [facility] Last Admin: 10/30/18 07:58 Dose: 25 mg Morphine Sulfate (Morphine Vial*) 3 mg IV Q2H PRN PRN Reason: PAIN Last Admin: 10/30/18 05:32 Dose: 3 mg Ondansetron HCl (Zofran Inj*) 4 mg IV Q6H PRN PRN Reason: NAUSEA Last Admin: 10/26/18 17:33 Dose: 4 mg Oxycodone HCl (Oxycontin(*)) 20 mg PO BID [facility] Last Admin: 10/30/18 07:59 Dose: 20 mg Prednisone (Deltasone Tab*) 30 mg PO DAILY [facility] Last Admin: 10/30/18 07:58 Dose: 30 mg Vital Signs 10/29/18 10/29/18 10/29/18 10:58 10:59 13:13 Temperature Pulse Rate Respiratory 18 18 18 Rate Blood Pressure (mmHg) O2 Sat by Pulse Oximetry 10/29/18 10/29/18 10/29/18 15:00 15:13 17:56 Temperature 97.5 F Pulse Rate 84 Respiratory 19 16 20 Rate Blood Pressure 149/63 (mmHg) O2 Sat by Pulse 97 Oximetry 10/29/18 10/29/18 10/29/18 19:10 19:17 19:19 Temperature 98.0 F Pulse Rate 86 Respiratory 16 15 16 Rate Blood Pressure 161/72 (mmHg) O2 Sat by Pulse 98 Oximetry 10/29/18 10/29/18 10/29/18 20:44 21:43 23:24 Temperature Pulse Rate Respiratory 16 16 16 Rate Blood Pressure (mmHg) O2 Sat by Pulse Oximetry 10/29/18 10/30/18 10/30/18 23:39 00:13 03:24 Temperature 98.0 F Pulse Rate 85 Respiratory 16 16 18 Rate Blood Pressure 140/55 (mmHg) O2 Sat by Pulse 96 Oximetry 10/30/18 10/30/18 10/30/18 05:32 07:11 07:25 Temperature Pulse Rate Respiratory 18 18 18 Rate Blood Pressure (mmHg) O2 Sat by Pulse Oximetry 10/30/18 10/30/18 10/30/18 07:32 07:38 07:47 Temperature 98.3 F Pulse Rate 112 Respiratory 17 16 Rate Blood Pressure 178/82 166/78 (mmHg) O2 Sat by Pulse 97 Oximetry 10/30/18 07:59 Temperature Pulse Rate Respiratory 17 Rate Blood Pressure (mmHg) O2 Sat by Pulse Oximetry Intake and Output Last 24 Hours 10/28/18 10/29/18 10/30/18 10/31/18 06:59 06:59 06:59 06:59 Intake Total 860 240 360 Output Total 0 0 Balance 860 240 360 Intake: Oral 860 240 360 Output: Urine 0 0 Other: Estimated Void Medium # Bowel Movements 0 0 # Voids 1 1 2 Oxygen Devices in Use Now: None Neurology Exam: General: Ill appearing frail female in no acute distress. Pleasantly mildly confused. HEENT: Normocephalic/atraumatic, sclera anicteric, mucous membranes moist Neck: Supple Extremities: No clubbing, cyanosis, or edema Neurological Findings: Awake, alert to self, place, but not year. She knew who the president was but not the exact name. MOCA () testing was done at bedside yesterday on 10/29/2018." She was unable to do the puzzle, or place the hands on the clock. She was able to name and read. Fluency was impaired. She was unable to calculate using simple serial 7s. She only was able to recall 2/5 words." Speech: fluent without dysrhythmia, repetition intact Cranial Nerve: PERRL, EOM intact, mild left sided non-fatigable ptosis. Negative Curtain sign. She has a right, inferior quadrantonopia on examination. No nystagmus, face symmetric bilaterally, facial sensation intact , hearing intact to finger rub bilaterally, palate elevates symmetrically, tongue midline, SCM and Trapezius s/s. Motor: s/s throughout, proximal and distal extremities x4 tone/bulk normal Sensation: intact to LT/PP bilaterally upper and lower extremities Deep Tendon Reflex: 2+ on the left with 3+ on the right and absent at the ankles bilaterally. Babinski - down going Finger to nose, rapid alternating movements intact without tremor, no dysdiadochokinesia Gait: wide based gait,swaying to the right but not falls. She did not require a walker. Result Diagrams: 10/28/18 05:56 10/28/18 05:56 Additional Lab and Data: Laboratory results ESR: 84 (10/27/18) Ammonia: 42 (10/20/2018) CRP: 43 (10/20/2018) Vitamin B12: >1450 (10/20/18) 25-OH Vitamin D: 78 (10/17/18) RF: 35 CCP: 63 SPEP: [place] 3.38 Lyme disease: negative CSF analysis: Protein: 72 WBC: 1 [id number] Negative CSF VDRL, cryptococcus, HSV I, herpes II. Cytology 10/29/2018: no malignant cells. Microbiology and Other Data: Microbiology 10/19/18 16:32 Stool Occult Blood (MAR[facility]) - Final Stool Diagnostic Imaging: MRI brain without contrast: 10/17/2018: no acute brain infarct. age related atrophy. Reviewed. There is extensive T1 holes suggestive of small vessel disease involving the temporal lobes bilaterally. MRI brain with and without contrast 10/22/2018: Diffuse involutional change with chronic small vessel ischemic changes. CT abdomen/pelvis: 2cm osteolytic lesion of the lateral margin of the L4 vertebral body, concerning for osseous metastatic disease. Assessment/Plan 1. Mild subacute encephalopathy manifesting as cognitive decline associated with left eye ptosis, intermittent headaches, and ataxia- Extensive workup so far has been unrevealing. I suspect this is related to a combination of toxic-metabolic encephalopathy ( hypercalcemia, side effects related to Xeljanz and levetiracetam). Pending paraneoplastic syndrome; however , since the protein has improved, I suspect she may have had transient elevated CSF protein due to possible seizure. Acethylcholine receptor antibodies are pending. CSF cytology negative for malignant cells. Given the abnormal EEG, the patient was treated for seizures. She has not had any clinical seizures and her cognition is slowly improving. She was unable to tolerate levetiracetam. She was switched to valproic acid which is not the best choice for her (side effects consist of thrombocytopenia, interaction with multiple drugs). I don't think she needs to be on long-term EEG monitoring as the presumed seizures may have been provoked by hypercalcemia (calcium level > 13). 2. Suspect underlying undiagnosed dementia- repeat cognitive testing to be done as outpatient. B12 and TSH were checked and are unremarkable. Repeat MOCA in 3- 4 weeks as an outpatient. 3. Asymmetrical reflexes, gait ataxia, and right inferior quadrantanopia- all point towards a left hemispheric (parietal) lesion but repeat MRI is negative. Not sure if this is cortical irritation from possible seizures, or she has an underlying process (metastatic disease) which is not yet visualized on MRI. Recommend repeating an MRI in 6 weeks. Recommendations: - pending: paraneoplastic syndrome (cerebellar degeneration related to Anti- Yo or [id number] (Anti-Ri), acetylcholine receptor antibody ( binding, blocking, modulating). Reduce valproic acid to 250 mg twice daily. Goal is to wean off in 4-6 weeks. If she develops symptoms related to seizures, then we can start her on Vimpat 100 g twice daily. She does not operate any heavy machinery due to her history of memory loss. Discharge home today. - Repeat MRI brain with and without contrast in 6 weeks, or earlier if she has new neurological deficits. - D/w Colleen who agreed with the above recommendations. I will sign off but note that we are available for any questions or concerns.
[2018-10-30] MEDS ORDERED: Divalproex DR TAB(*) 250 MG PO SCH (21:00)
[2018-11-10 16:28] LABS: Anti-Striated Muscle Antibody Negative titer (<1:120)
[2018-11-11 07:49] LABS: Anti-Glial/Neuronal Nuc Ab-1 A Negative titer (<1:240); Anti-Neuronal Nuclear Ab Type1 Negative titer (<1:240); Anti-Neuronal Nuclear Ab Type2 Negative titer (<1:240); Anti-Neuronal Nuclear Ab Type3 Negative titer (<1:240); Anti-Striated Muscle Antibody Negative titer (<1:120); CRMP-5 IgG Antibody Negative titer (<1:240); Purkinje Cell Cytoplasm Typ Tr Negative titer (<1:240); Purkinje Cell Cytoplasm Type 1 Negative titer (<1:240); Purkinje Cell Cytoplasm Type 2 Negative titer (<1:240); Voltage-Gated Potassium Chann 0.06 nmol/L (<=0.02)
== END 2018-10-30 13:39 | disposition home health service (06) | DRG 640 ==
LOC: ED 13:41 → MEDTELE 16:33 → OBSVTOIN 10-19 12:00
PROVIDERS: ADMIT Internal Medicine; ATTEND Internal Medicine Hematology & Oncology
PROC: 009U3ZX Drainage of Spinal Canal, Percutaneous Approach, Diagnostic (ICD-10-PCS; 2018-10-20)
PROC: 30233R1 Transfusion of Nonautologous Platelets into Peripheral Vein, Percutaneous Approach (ICD-10-PCS; 2018-10-20)
PROC: 4A00X4Z Measurement of Central Nervous Electrical Activity, External Approach (ICD-10-PCS; 2018-10-20)
PROC: 07DR3ZX Extraction of Iliac Bone Marrow, Percutaneous Approach, Diagnostic (ICD-10-PCS; principal; 2018-10-20 18:00)
DX: E83.52 Hypercalcemia (principal); G92 Toxic encephalopathy; C79.52 Secondary malignant neoplasm of bone marrow; C79.51 Secondary malignant neoplasm of bone; N17.9 Acute kidney failure, unspecified; F03.90 Unspecified dementia, unspecified severity, without behavioral disturbance, psychotic disturbance, mood disturbance, and anxiety; E67.3 Hypervitaminosis D; I10 Essential (primary) hypertension; K21.9 Gastro-esophageal reflux disease without esophagitis; H40.9 Unspecified glaucoma; M19.90 Unspecified osteoarthritis, unspecified site; Z96.1 Presence of intraocular lens; M54.9 Dorsalgia, unspecified; M85.80 Other specified disorders of bone density and structure, unspecified site; D69.6 Thrombocytopenia, unspecified; F41.9 Anxiety disorder, unspecified; R00.0 Tachycardia, unspecified; R25.1 Tremor, unspecified; D47.2 Monoclonal gammopathy; T45.2X5A Adverse effect of vitamins, initial encounter; G89.29 Other chronic pain; M81.0 Age-related osteoporosis without current pathological fracture; M06.9 Rheumatoid arthritis, unspecified; R29.702 NIHSS score 2; K58.9 Irritable bowel syndrome, unspecified; E78.1 Pure hyperglyceridemia; E03.2 Hypothyroidism due to medicaments and other exogenous substances; G43.909 Migraine, unspecified, not intractable, without status migrainosus; Z82.49 Family history of ischemic heart disease and other diseases of the circulatory system; Z90.710 Acquired absence of both cervix and uterus; Z98.42 Cataract extraction status, left eye; Z88.8 Allergy status to other drugs, medicaments and biological substances; Z98.41 Cataract extraction status, right eye; Z87.440 Personal history of urinary (tract) infections; Z87.891 Personal history of nicotine dependence; Z80.0 Family history of malignant neoplasm of digestive organs; Y92.009 Unspecified place in unspecified non-institutional (private) residence as the place of occurrence of the external cause; I34.0 Nonrheumatic mitral (valve) insufficiency; D63.8 Anemia in other chronic diseases classified elsewhere; H02.402 Unspecified ptosis of left eyelid; Z17.0 Estrogen receptor positive status [ER+]; R56.9 Unspecified convulsions; C50.912 Malignant neoplasm of unspecified site of left female breast
CPT/HCPCS: 36415; 38222; 62270; 70450; 70551; 70553; 71260; 74177; 77061; 77062; 77066; 77075; 80048; 80053; 80061; 80320; 81003; 81015; 82140; 82272; 82306; 82397; 82607; 82728; 82803; 82945; 83036; 83516; 83519; 83520; 83540; 83550; 83605; 83735; 83883; 83970; 84100; 84155; 84157; 84165; 84436; 84443; 84479; 84484; 85025; 85049; 85060; 85097; 85390; 85610; 85611; 85613; 85652; 85670; 85730; 86038; 86140; 86146; 86147; 86200; 86255; 86256; 86300; 86431; 86592; 86618; 86644; 86645; 86900; 86901; 87070; 87086; 87205; 87529; 87899; 88112; 88184; 88185; 88187; 88188; 88189; 88271; 88274; 88305; 88311; 88313; 88341; 88342; 88360; 89051; 93005; 93306; 95819; 99232; 99233; 99239; 99284; A9270-GY; A9579; G0279; G0480; G8978-GP-CK; G8979-GP-CJ; G8987-GO-CK; G8987-GO-CL; G8988-GO-CI; J0360; J0630; J1644; J2060; J2250; J2270; J2405; J3010; J3475; J3480; J3489; J3490; J7512; P9035; Q9967

== ENCOUNTER 2019-11-06 10:35 | Inpatient (IN) | payer MEDICARE, OTHER ==
--- OUTSIDE RECORDS SUMMARY | 2019-11-06 10:45 | XMS REPORT | Continuity of Care Document ---
:1940 External Reference #:[id number] Author Name David Hicks M.D. Address [address] [place] [address] Care Team Providers Name Role Phone Valentin Sam M.D. - Internal Care Team Information Clinic Physician Medicine Valentin Graham O.D. - Catalogue Librarian Care Team Information Clinic Physician Cherry Forde M.D. - Hematology & Care Team Information Clinic Physician Oncology David Mercedes MD - Rheumatology Care Team Information Clinic Physician Main Urena M.D. - Urology Care Team Information Clinic Physician [phone] Manoj Heller MD - Cardiovascular Care Team Information Clinic Physician [phone] Disease Sukhwinder Turcios M.D. - Anesthesiology Care Team Information Clinic Physician Problems Active Problems Provider Date Rheumatoid arthritis David Hicks M.D. Onset: 05/10/2015 Chronic back pain David Hicks M.D. Onset: 05/10/2015 Hypothyroidism David Hicks M.D. Onset: 05/10/2015 Essential hypertension David Hicks M.D. Onset: 05/10/2015 Cellulitis David Hicks M.D. Onset: 05/10/2015 Primary open angle glaucoma David Hicks M.D. Onset: 05/10/2015 Nuclear senile cataract David Hicks M.D. Onset: 05/10/2015 Severe / Advanced / End Stage Glaucoma David Hicks M.D. Onset: 2014 Pseudophakia David Hicks M.D. Onset: 05/10/2015 Combined form of senile cataract David Hicks M.D. Onset: 09/02/2015 Presence of intraocular lens David Hicks M.D. Onset: 03/29/2016 Bilateral primary open angle glaucoma David Hicks M.D. Onset: 11/20/2016 Breast cancer Onset: Myopia Vangie Magallon O.D. Onset: 01/13/2019 Presbyopia Vangie Magallon O.D. Onset: 01/13/2019 Regular astigmatism Vangie Magallon O.D. Onset: 01/13/2019 Social History Type Date Description Comments Sex Unknown ETOH Use Denies alcohol use Tobacco Use Start: Unknown Patient has never smoked Recreational Drug Use Denies Drug Use Smoking Status Reviewed: 10/01/19 Patient has never smoked Allergies, Adverse Reactions, Alerts Active Allergies Reaction Severity Comments Date Macrodantin 05/10/2015 Azopt Itching 10/01/2019 Medications Active Medications SIG Qnty Indications Ordering Date Provider Travatan Z 1 drop both eyes 15ml H40.1133 David Moise 07/09/2019 0.004% Solution every night Dameon Hicks Artificial Tears 1 drop both eyes as David Moise 04/11/2016 1.4% needed Dameon Hicks Solution Morphine Sulfate ER Unknown Beads 30mg Caps ER 24HR Folic Acid Unknown 1mg Tablets Nitroglycerin as needed Unknown 0.3mg Tablets Sub Multivitamin Adult Unknown Tablets Hydromorphone HCL as needed Unknown 4mg Tablets Temazepam Unknown 15mg Capsules Miralax dissolve 17gm in Unknown [id number] Powder 4-8ox liquid and drink twice a day as needed for constipation Zomenta Unknown Letrozole Unknown 2.5mg Tablets Cherry Ron 100mg Capsules M.DJason Biotin Unknown 3000mcg Chewtabs Iron Unknown 325(65Fe) mg Tablets Metoprolol Succinate ER Unknown 25mg Tablets ER 24HR Isosorbide Dinitrate Mauser, 5mg MD Manoj Tablets Levothyroxine Sodium Take One Tablet By Unknown 88mcg Mouth Every Day Tablets Cyclobenzaprine HCL Shallish, Valentin 10mg M.D. Tablets Immunizations Description No Information Available Vital Signs Date Vital Result Comment 01/06/2018 3:08pm BP Systolic 122 mmHg BP Diastolic 75 mmHg Heart Rate 74 /min Respiratory Rate 16 /min 12/25/2016 2:50pm BP Systolic 126 mmHg BP Diastolic 74 mmHg Heart Rate 64 /min Respiratory Rate 12 /min Results Description No Information Available Procedures Date Code Description Status 07/09/2019 32090 Est Patient Intermediate Exam Completed 04/09/2019 16263 Visual Field Exam Extended Completed 04/09/2019 89108 Est Patient Intermediate Exam Completed Medical Devices Description No Information Available Encounters Description No Information Available Assessments Date Code Description Provider 10/01/2019 H40.1133 Primary open-angle glaucoma, bilateral, David Hicks M.D. severe stage 07/09/2019 H40.1133 Primary open-angle glaucoma, bilateral, David Hicks M.D. severe stage 07/09/2019 Z96.1 Presence of intraocular lens David Hicks M.D. 04/09/2019 H40.1133 Primary open-angle glaucoma, bilateral, David Hicks M.D. severe stage 04/09/2019 Z96.1 Presence of intraocular lens David Hicks M.D. Plan of Treatment Future Appointment(s):12/08/2019 1:30 pm - David Hicks M.D. at David Hicks MD, 10/01/2019 - David Hicks M.D.H40.1133 Primary open-angle glaucoma, [...] at this time. Please continue your treatment.Follow up:2 Month Follow Up IOP Check At your next visit, we are not planning to dilate your eyes. However, if you have any changes in your vision or new symptoms, there are certain situations that require us to dilate your eyes. If Dr. Hicks requests any additional testing, that may require extra time. If you have any questions before your next appointment, please call our office at . Functional Status Description No Information Available Mental Status Description No Information Available Referrals Description No Information Available
--- NOTE | 2019-11-06 10:56 | ED ---
Altered Mental Status - HPI Summary HPI Summary: Patient is a 79 y/o F presenting to the ED for a chief complaint of altered mental status. Patient is present with her . Patient was to be seen at [facility] recommended by Dr. Forde, her oncologist. For the last 3 days, patient reports being lucid and having difficulty expressing her thoughts. Her states the patient has been sleepwalking and pulled her shower curtain recently. Patient reports she remembers she went to the bathroom and felt she would fall, holding onto her shower curtain to prevent from falling. Patient denies fever, weakness, chest pain, abdominal pain, nausea, vomiting, or constipation. She notes similar symptoms in the past when she was seen at [facility] and noted to have elevated calcium levels at that time. Her states that one week ago, patient was seen at her oncologists office for edema and had an US. She was started on Bactrim on 10/28/19 for the edema. She was recently taken off a hormone medication on 10/28/19. PMHx is significant for HTN, thyroid problem, rheumatoid arthritis, and stage IV breast cancer with metastases to the bone. She denies tobacco, alcohol, or drug use. She takes pain medications. Medications reviewed. Allergies noted. - History Of Current Complaint Chief Complaint: EDAltMentalStatus Stated Complaint: AMS PER PT Time Seen by Provider: 11/06/19 10:44 Hx Obtained From: Patient, Family/[employer] Outseamer - Onset/Duration: Suddenly Timing: Intermittent, Lasting Days - 3 days Severity Initially: Moderate Severity Currently: Moderate Character: Confusion Aggravating Factor(s): Medication Change Alleviating Factor(s): Nothing Associated Signs And Symptoms: Negative: Nausea, Vomiting, Fever, Weakness Related History: Recent Illness - Breast cancer - Allergies/Home Medications Allergies/Adverse Reactions: Allergies Allergy/AdvReac Type Severity Reaction Status Date / Time nitrofurantoin Allergy Severe See Comment Verified 11/06/19 10:43 [From Macrodantin] Home Medications: Home Medications Acetaminophen TAB* [Tylenol TAB*] 650 mg PO Q4H PRN 11/06/19 [History Confirmed 11/06/19] Ferrous Sulfate 325 mg PO DAILY 11/06/19 [History Confirmed 11/06/19] Magnesium Oxide TAB* [MagOx 400 TAB*] 400 mg PO DAILY 11/06/19 [History Confirmed 11/06/19] Morphine Sulfate [Morphine Sulfate ER] 60 mg PO BEDTIME PRN 11/06/19 [History Confirmed 11/06/19] Multivitamins/Minerals TAB* [Theragran/minerals TAB*] 1 tab PO DAILY 11/06/19 [ History Confirmed 11/06/19] Nitroglycerin TAB 0.4 MG* 0.4 mg SL Q5M PRN 11/06/19 [History Confirmed 11/06/19 ] Potassium Chlor TAB* [Klor Con ER TAB*] 20 meq PO DAILY 11/06/19 [History Confirmed 11/06/19] PMH/Surg Hx/FS Hx/Imm Hx Previously Healthy: Yes Endocrine/Hematology History: Reports: Hx Thyroid Disease - had a goiter removed , Hx Anemia - MILD ANEMIA Denies: Hx Diabetes Cardiovascular History: Reports: Hx Hypertension - ON MEDS, Hx Valvular Heart Disease - very small leakage from mitral valve- not remarkable Denies: Hx Angina, Hx Pacemaker/ICD Respiratory History: Denies: Hx Asthma, Hx Chronic Obstructive Pulmonary Disease (COPD) GI History: Reports: Hx Gastroesophageal Reflux Disease, Hx Irritable Bowel, Other GI Disorders - ESOPHAGEAL STRICTURE CORRECTED Denies: Hx Ulcer History: Reports: Other Problems/Disorders - CHRONIC UTI Denies: Hx Renal Disease Musculoskeletal History: Reports: Hx Arthritis - osteoarthritis, Hx Back Problems - chronic back pain, surgery done on 07/24/17 Dr Persaud, Hx Osteoporosis, Other Musculoskeletal History - RHUMATOID ARTHRITIS Sensory History: Reports: Hx Cataracts, Hx Contacts or Glasses - glasses, Hx Glaucoma Denies: Hx Legally Blind, Hx Deafness, Hx Hearing Aid Opthamlomology History: Reports: Hx Cataracts, Hx Contacts or Glasses - glasses , Hx Glaucoma Denies: Hx Legally Blind EENT History: Denies: Hx Deafness Neurological History: Reports: Hx Migraine - IN THE DISTANT PAST, Other Neuro Impairments/Disorders - PAIN CLINIC PATIENT Denies: Hx Dementia, Hx Developmental Delay, Hx Nerve Disease, Hx Seizures, Hx Spinal Cord Injury, Hx Transient Ischemic Attacks (TIA) Psychiatric History: Denies: Hx Panic Disorder - Cancer History Cancer Type, Location and Year: Goiter, breast with metastases to the bone, stage IV. Hx Chemotherapy: No Hx Radiation Therapy: No - Surgical History Surgical History: Yes Surgery Procedure, Year, and Place: Rt shoulder reverse Total x2, 2011 removal of screw from right shoulder, Laminectomy, disc removal x2, Rt foot surgery. hysterectomy 1985, goiter removed 50 years ago, use radiative iodine,. 2016 right eye cataract surgery with IOL and I-stent - Population Diagnostics - [id number] - MR CONDIOTNAL 5 - HEAD - TRANS/REC COIL ONLY - FIRST LEVEL MODE - STATIC MAGNETIC FIELD - 7T,MAX SPAT GRAD - 10,000 GAUSS/cm -( OK'S BY DR SWIFT) , left eye cataract surgery Hx Anesthesia Reactions: No - Immunization History Date of Tetanus Vaccine: Up to date Date of Influenza Vaccine: Fall 2011 Infectious Disease History: No Infectious Disease History: Reports: Hx Shingles - 2010 Denies: Hx Clostridium Difficile, Hx Hepatitis, Hx Human Immunodeficiency Virus (HIV), Hx of Known/Suspected MRSA, Hx Tuberculosis, Hx Known/Suspected VRE , Hx Known/Suspected VRSA, History Other Infectious Disease, Traveled Outside the in Last 30 Days - Family History Known Family History: Positive: Hypertension, Other - colon cancer - Social History Occupation: Retired Lives: With Family Alcohol Use: None Hx Substance Use: No Substance Use Type: Reports: None Hx Tobacco Use: Yes Smoking Status (MU): Former Smoker Type: Cigarettes Amount Used/How Often: 1-1/2 PPD, smoked for 5 years Length of Time of Smoking/Using Tobacco: 6 YEARS Have You Smoked in the Last Year: No Review of Systems Negative: Fever Negative: Chest Pain Negative: Abdominal Pain, Vomiting, Nausea, Other - Negative constipation Positive: Edema Neurological: Other - Positive difficulty expressing thoughts Negative: Weakness All Other Systems Reviewed And Are Negative: Yes Physical Exam - Summary Physical Exam Summary: Constitutional: Well-developed, Well-nourished, Alert. (-) Distressed Skin: Warm, Dry HENT: Normocephalic; Atraumatic Eyes: Conjunctiva normal Neck: Musculoskeletal ROM normal neck. (-) JVD, (-) Stridor, (-) Tracheal deviation Cardio: Rhythm regular, rate normal, Heart sounds normal; Intact distal pulses. Radial pulses are 2+ and symmetric. (-) Murmur Pulmonary/Chest wall: Effort normal. (-) Respiratory distress, (-) Wheezes, (-) Rales Abd: Soft. (-) Tenderness, (-) Distension, (-) Guarding, (-) Rebound Musculoskeletal: (-) Edema Lymph: (-) Cervical adenopathy Neuro: Alert, Oriented x3, Strength normal, Cranial nerves II-XII are grossly intact. (-) Dysmetria, (-) Nystagmus, (-) Ataxia by finger to nose testing, (-) Sensory deficit. Some issue with naming objects, but is able to name most objects. Psych: Mood and affect Normal Triage Information Reviewed: Yes Vital Signs On Initial Exam: Initial Vitals Temp Pulse Resp BP Pulse Ox 96.9 F 80 16 169/80 95 11/06/19 10:39 11/06/19 10:39 11/06/19 10:39 11/06/19 10:39 11/06/19 10:39 Vital Signs Reviewed: Yes - [place] Coma Scale Best Eye Response: 4 - Spontaneous Best Motor Response: 6 - Obeys Commands Best Verbal Response: 5 - Oriented Coma Scale Total: 15 Procedures - Sedation Patient Received Moderate/Deep Sedation with Procedure: No Diagnostics - Vital Signs Vital Signs Temp Pulse Resp BP Pulse Ox 11/06/19 10:39 96.9 F 80 16 169/80 95 - Laboratory Result Diagrams: 11/06/19 11:05 11/06/19 11:05 Lab Statement: Any lab studies that have been ordered have been reviewed, and results considered in the medical decision making process. - CT Brain CT CT Interpretation Completed By: Radiologist Summary of CT Findings: Brain CT IMPRESSION: 1. No acute intracranial abnormality. 2. No large space-occupying lesion (Brain MRI with contrast is more sensitive for. metastatic disease). 3. 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 4. Chronic small vessel ischemic disease is likely. Reviewed by Dr. Peoples. - EKG 11:04 Cardiac Rate: Other Rate - [address] Segment: Normal Ectopy: None Summary of EKG Findings: EKG at 11:04 shows sinus arrhythmia with 77 BPM, QRSD is 109, QTc is 452, no STEMI. Reviewed and interpreted by Dr. Peoples. Altered Mental Statu Course/Dx - Course Course Of Treatment: Patient is here with expressive aphasia and some balance issues. Patient has similar issues when she was diagnosed with breast cancer roughly 13 months ago. Patient has a normal neurologic exam outside of some expressive aphasia. Patient's CT scan of her brain showed no acute abnormality. Patient will performed which showed slight elevation in her creatinine, allergies, and calcium. Oncology was called and admitted the patient. - Diagnoses Provider Diagnoses: Expressive aphasia, Hypercalcemia, Elevated LFTs, Breast cancer - Provider Notifications Discussed Care Of Patient With: Maxwell Matute - At 12:11, Dr. Matute will assess the patient. At 13:30, Dr. Matute agrees to admit the patient to [facility]. Time Discussed With Above Provider: 12:11 Instructed by Provider To: Admit As Inpatient Discharge ED - Sign-Out/Discharge Documenting (check all that apply): Patient Departure - Admit - Discharge Plan Condition: Stable Disposition: ADMITTED TO [facility] - Billing Disposition and Condition Condition: STABLE Disposition: Admitted to [facility] - Attestation Statements Document Initiated by Lizzy: Yes Documenting Scribe: Coco Turner Provider For Whom Lizzy is Documenting (Include Credential): Kris Peoples MD Scribe Attestation: Coco Paulino, scribed for Kris Peoples MD on 11/06/19 at 2004. Scribe Documentation Reviewed: Yes Provider Attestation: The documentation as recorded by the Coco martin accurately reflects the service I personally performed and the decisions made by Kris del real MD Status of Scribe Document: Viewed
[2019-11-06] MEDS ORDERED: NS 0.9% 1000 ML** 1,000 ML IV ONE (11:07)
[2019-11-06 11:35] LABS: Albumin 4.1 g/dL (3.2-5.2); Albumin/Globulin Ratio 1.3 (1-3); BUN/Creatinine Ratio 11.9 (8-20); Calcium 10.6 mg/dL (8.6-10.3); EGFR African American 40.4 (>60); EGFR Non-African American 33.4 (>60); Globulin 3.1 g/dL (2-4); Potassium 4.2 mmol/L (3.5-5.0); Total Bilirubin 0.8 mg/dL (0.2-1.0); Total Protein 7.2 g/dL (6.4-8.9)
[2019-11-06 12:05] LABS: ABS Lymphocytes 1.6 10^3/ul (1.0-4.8); ABS Monocytes 0.4 10^3/ul (0-0.8); ABS Neutrophils 3.7 10^3/ul (1.5-7.7); ABS Nucleated RBC 0.2 10^3/ul; Hematocrit 32 % (35-47); Hemoglobin 11.1 g/dL (12.0-16.0); Mean Corpuscular HGB Conc 34 g/dL (31-36); Mean Corpuscular Hemoglobin 38 pg (27-31); Mean Corpuscular Volume 110 fL (80-97); Nucleated Red Blood Cells % 3.6; Platelet Count 87 10^3/uL (150-450); Polychromasia 2+; Red Blood Count 2.94 10^6 /uL (3.70-4.87); Red Cell Distribution Width 17 % (10-15); White Blood Count 5.8 10^3/uL (3.5-10.8)
[2019-11-06 12:07] LABS: Schistocytes 1+
[2019-11-06 12:09] LABS: TSH (Thyroid Stimulating Horm) 19.06 mcIU/mL (0.34-5.60)
[2019-11-06 12:13] LABS: Free T4 1.27 ng/dL (0.61-1.12)
[2019-11-06] MEDS ORDERED: Acetaminophen TAB* 325 MG PO PRN (13:02)
[2019-11-06] MEDS ORDERED: Isosorbide Dinitrate TAB* 5 MG PO PRN (13:06)
[2019-11-06] MEDS ORDERED: Temazepam CAP* 15 MG PO PRN (13:06)
[2019-11-06] MEDS ORDERED: Cyclobenzaprine TAB* 10 MG PO PRN (13:06)
[2019-11-06] MEDS ORDERED: Morphine TAB Extended Release (*) 30 MG TAB.ER PO PRN ×2 (13:06)
[2019-11-06] MEDS: Enoxaparin(*) 30 MG/0.3 ML SYR SUBCUT SCH ×2 (14:41→15:01)
[2019-11-06] MEDS: HYDROmorphone TAB* 4 MG PO PRN (14:45)
[2019-11-06] MEDS: NS 0.9% 1000 ML** 1,000 ML IV SCH (15:01)
[2019-11-06 18:26] LABS: Urine Appearance Clear; Urine Bilirubin Negative (Negative); Urine Blood Negative (Negative); Urine Color Yellow; Urine Glucose Negative (Negative); Urine Ketones Negative (Negative); Urine Nitrite Negative (Negative); Urine Protein Negative (Negative); Urine Specific Gravity 1.011 (1.010-1.030); Urine Urobilinogen Negative (Negative)
[2019-11-06] MEDS ORDERED: Lorazepam PYXIS KEY PRN (19:37)
[2019-11-06] MEDS ORDERED: LORazepam INJ* 2 MG/ML 1 ML VIAL IV PUSH ONE (19:37)
[2019-11-06] MEDS: Latanoprost 0.005%* 2.5 ml BTL BOTH EYES SCH (19:52)
--- NOTE | 2019-11-06 20:18 | HP ---
CC: Dr. Valentin Sam; Dr. Cherry Forde * ADMISSION HISTORY AND PHYSICAL: DATE OF ADMISSION: 11/06/19 PRIMARY CARE PROVIDER: Dr. Valentin Sam. PRIMARY ONCOLOGIST: Dr. Cherry Forde. ATTENDING PHYSICIAN: Dr. Maxwell Matute.* (DICTATED BY LURDES WELLINGTON) ADMITTING PROVIDER: LURDES Wellington CHIEF COMPLAINT: Weakness and confusion. HISTORY OF PRESENT ILLNESS: This is a 79-year-old female with known metastatic breast cancer with primary bony metastasis, currently treated with Ibrance and letrozole, who presented to the emergency department with progressive weakness and confusion. The patient was seen in the clinic on a couple of occasions with left leg swelling and erythema over the last couple of weeks. She had a Doppler ultrasound completed, which was negative for DVT and when symptoms became progressive, she was subsequently treated for cellulitis with Bactrim starting 10/28/19. The patient has taken Bactrim prescribed and has a couple of left of this prescription. She also reports that her leg has improved significantly and is no longer symptomatic since starting the antibiotic. Her reports that over the last 3 days, he has noted a significant decline in her energy level and seems to be intermittently confused and certainly is not herself. She at times has had difficulty speaking somewhat of a garbled speech pattern. The patient denies any headaches, fevers, cough, chills, abdominal pain, nausea, vomiting or diarrhea. No focal weakness or numbness. As noted above, her lower leg symptoms have improved. She has been instructed to hold her Ibrance since 10/28/19 and has been compliant with that recommendation. PAST MEDICAL HISTORY: 1. Rheumatoid arthritis. 2. Metastatic breast cancer. 3. Hypertension. 4. Thyroid dysfunction, currently hypothyroid. 5. Hyperlipidemia. 6. Irritable bowel syndrome. PAST SURGICAL HISTORY: 1. Midfoot fusion in 2013. 2. Shoulder surgery in 2011. 3. Tonsillectomy. 4. CTS in 2001. MEDICATIONS: Home Medications: 1. Acetaminophen 650 mg p.o. q.4 hours as needed for pain or fever. 2. Biotin Gummies 3000 mcg p.o. daily. 3. Flexeril 10 mg p.o. 3 times daily as needed. 4. Ferrous sulfate 325 mg p.o. daily. 5. Folic acid 1 mg p.o. daily. 6. Levothyroxine 88 mcg p.o. daily. 7. Magnesium oxide 400 mg p.o. daily. 8. Metoprolol succinate 25 mg p.o. daily. 9. Morphine sulfate 30 mg q.a.m. and 60 mg q.p.m. 10. Multivitamin 1 tablet p.o. daily. 11. Nitroglycerin 0.4 mg sublingual q.5 minutes as needed for chest pain. 12. Ibrance 100 mg p.o. daily. 13. Potassium chloride 20 mEq p.o. daily. 14. Temazepam 15 to 30 mg p.o. at bedtime as needed for insomnia. 15. Travoprost eye drops 1 drop in both eyes twice daily. 16. Dilaudid 4 mg p.o. q.4 hours as needed for pain. 17. Letrozole 2.5 mg p.o. daily. FAMILY HISTORY: The patient's father had colon cancer diagnosed at the age of 63 and a maternal grandmother with colon cancer as well. SOCIAL HISTORY: The patient is , currently retired. A very remote smoking history, quit nearly 50 years ago and no regular alcohol consumption. REVIEW OF SYSTEMS: Full review of systems completed and negative except as noted in the HPI. PHYSICAL EXAMINATION GENERAL: This is a 79-year-old female who appears mildly ill and lethargic, but in no acute distress and accompanied by her . VITAL SIGNS: Initial vitals; temperature 96.9 degrees Fahrenheit, pulse 80 beats per minute, respiratory rate 16, oxygen saturation 95% on room air and blood pressure 169/80 mmHg. HEENT: Head is normocephalic, atraumatic. Mucous membranes are pink and moist. RESPIRATORY: Lungs are clear to auscultation without wheezes, crackles or rhonchi. CARDIOVASCULAR: Heart has a regular rate and rhythm without murmurs, rubs or gallops. ABDOMEN: Soft and nontender to palpation. EXTREMITIES: Trace lower extremity edema bilaterally. SKIN: No rashes. MUSCULOSKELETAL: Stigmata of rheumatoid arthritis, most notable in the hands. PSYCH: The patient is alert and appropriately oriented. NEUROLOGIC: Nonfocal and speech is clear at the time of evaluation. LABORATORY EVALUATION: CBC shows a white blood cell count of 5800, hemoglobin of 11.1 g/dL, platelet count of 87,000. Comprehensive metabolic panel shows a sodium of 134 mmol/L. Potassium 4.2, creatinine 1.51 with BUN 18. Calcium 10.6. Total bilirubin normal at 0.8. AST and ALT elevated at 170 and 61 respectively. Alk phos 162. Ammonia normal at 40. TSH elevated at 19.06. Free T4 high at 1.27. HOSPITAL IMAGING: CT brain without contrast shows no acute process. ASSESSMENT AND PLAN: This is a 79-year-old female with metastatic breast cancer treated with Ibrance, who presented to the emergency department with acute weakness, intermittent fatigue and intermittent speech changes. CT of the head shows nothing remarkable. Labs, however, demonstrate mild hyperkalemia, acute on chronic renal insufficiency, markedly elevated TSH, transaminitis and moderate thrombocytopenia along with a mild anemia. The patient's neurologic exam is nonfocal at the time of evaluation in the emergency department. Differential diagnoses include an acute viral illness versus symptomatic hypothyroidism versus occult brain metastasis. The patient would benefit from hospitalization for supportive management and further evaluation. 1. Acute weakness and expressive aphasia - MRI of the brain with and without contrast as soon as possible to evaluate for subacute cerebrovascular accident versus brain metastasis. Again, the patient has a nonfocal neurologic exam at the time of evaluation in the emergency department and no emergent intervention is necessary. 2. Hypercalcemia - unsure of the clinical significance of this. She is treated monthly with Zometa for her bony metastasis, most recent infusion was and she has no history of hypercalcemia since initiating treatment for her breast cancer just over a year ago. We will start with a PTH to evaluate for hyperparathyroidism. She had recent restaging scans including a CT chest, abdomen and pelvis and bone scan, which appeared stable as of approximately 4 weeks ago without any progressive disease noted. We will support her with IV fluids and repeat labs in the morning. 3. Transaminitis - possible that she has an occult viral illness, although has no focal symptoms to support this. No known liver metastasis. We are going to start with an ultrasound of the liver to evaluate further and repeat labs tomorrow. 4. Thrombocytopenia - again, this may be related to her Ibrance therapy, although somewhat atypical as she has been off of it for nearly 10 days and has no prior history of thrombocytopenia with Ibrance therapy. Again, may be related to an occult viral illness that is driving these changes. 5. Rheumatoid arthritis. 6. Metastatic breast cancer - Ibrance has been held. Continue letrozole. 7. Chronic pain secondary to rheumatoid arthritis and bony metastases. 8. Code status. The patient would like to remain full code. 9. DVT prophylaxis with subcu Lovenox daily. 10. Disposition: The patient is being admitted as an inpatient to the hospital with anticipated length of stay to be greater than 2 midnights. LURDES WELLINGTON [id number]/[facility] #: [id number] EDD
[2019-11-06] MEDS ORDERED: Gadobenate* (CONTRAST) 529 MG/ML 10 ML SDV IV ONE (21:00)
[2019-11-07] MEDS: HYDROmorphone TAB* 4 MG PO PRN ×2 (03:38→09:45)
[2019-11-07] MEDS ORDERED: Levothyroxine TAB* 150 MCG TAB PO SCH (06:00)
[2019-11-07 07:13] LABS: Albumin 3.4 g/dL (3.2-5.2); Albumin/Globulin Ratio 1.3 (1-3); BUN/Creatinine Ratio 10.3 (8-20); Calcium 9.4 mg/dL (8.6-10.3); EGFR African American 49.8 (>60); EGFR Non-African American 41.2 (>60); Globulin 2.7 g/dL (2-4); Potassium 4.6 mmol/L (3.5-5.0); Total Bilirubin 0.8 mg/dL (0.2-1.0); Total Protein 6.1 g/dL (6.4-8.9)
[2019-11-07 07:31] LABS: ABS Basophils 0.1 10^3/ul (0-0.2); ABS Lymphocytes 1.9 10^3/ul (1.0-4.8); ABS Monocytes 0.4 10^3/ul (0-0.8); ABS Neutrophils 3.5 10^3/ul (1.5-7.7); ABS Nucleated RBC 0.3 10^3/ul; Hematocrit 28 % (35-47); Hemoglobin 9.9 g/dL (12.0-16.0); Lymphocyte % 32.2 %; Mean Corpuscular HGB Conc 35 g/dL (31-36); Mean Corpuscular Hemoglobin 39 pg (27-31); Mean Corpuscular Volume 110 fL (80-97); Mean Platelet Volume 9.1 fL (7.4-10.4); Nucleated Red Blood Cells % 4.3; Platelet Count 73 10^3/uL (150-450); Red Blood Count 2.58 10^6 /uL (3.70-4.87); Red Cell Distribution Width 17 % (10-15); White Blood Count 5.8 10^3/uL (3.5-10.8)
[2019-11-07 07:35] LABS: Polychromasia 1+
[2019-11-07] MEDS ORDERED: Metoprolol Succinate XL TAB* 25 MG PO SCH (09:00)
[2019-11-07] MEDS ORDERED: Magnesium Oxide TAB* 400 MG PO SCH (09:00)
[2019-11-07] MEDS ORDERED: Potassium Chlor TAB* 20 MEQ TAB.ER PO SCH (09:00)
[2019-11-07] MEDS ORDERED: Folic Acid TAB* 1 MG PO SCH (09:00)
[2019-11-07] MEDS ORDERED: Ferrous Sulfate TAB* 325 MG PO SCH (09:00)
[2019-11-07] MEDS: Latanoprost 0.005%* 2.5 ml BTL BOTH EYES SCH (09:31)
[2019-11-07] MEDS: NS 0.9% 1000 ML** 1,000 ML IV SCH (09:46)
[2019-11-07 14:41] VITALS: BP 163/64
--- NOTE | 2019-11-07 19:52 | DS ---
CC: Dr. Valentin Sam; Dr. Fored * DISCHARGE SUMMARY: DATE OF ADMISSION: 11/06/19 DATE OF DISCHARGE: 11/07/19 PRIMARY CARE PROVIDER: Dr. Valentin Sam. PRIMARY ONCOLOGIST: Dr. Cherry Forde. ATTENDING PHYSICIAN: Dr. Maxwell Matute.* (DICTATED BY LURDES WELLINGTON) DISCHARGING PROVIDER: LURDES Wellington PRIMARY DISCHARGE DIAGNOSES: 1. Unspecified weakness likely secondary to hypothyroid state. 2. Mild hypercalcemia - resolved with IV fluids. 3. Thrombocytopenia of uncertain etiology - potentially chemotherapy related. 4. Transaminitis with new findings of multiple hypoechoic liver lesions, which may represent metastatic disease, pending outpatient liver biopsy. 5. Metastatic breast cancer. DISCHARGE MEDICATIONS: 1. Acetaminophen 650 mg p.o. q.4 hours as needed for pain or fever. 2. Biotin 3000 mcg p.o. daily. 3. Flexeril 10 mg p.o. 3 times daily as needed. 4. Ferrous sulfate 325 mg p.o. daily. 5. Folic acid 1 mg p.o. daily. 6. Levothyroxine 150 mcg p.o. daily. 7. Magnesium oxide 400 mg p.o. daily. 8. Metoprolol succinate 25 mg p.o. daily. 9. Morphine sulfate 30 mg in the morning and 60 mg in the evening. 10. Multivitamin 1 tablet p.o. daily. 11. Nitroglycerin 0.4 mg sublingual q.5 minutes as needed for chest pain. 12. Ibrance 100 mg p.o. daily - currently held and we will resume with next cycle in 10 days, pending liver biopsy results. 13. Potassium chloride 20 mEq p.o. daily. 14. Temazepam 15 to 30 mg p.o. at bedtime as needed for insomnia. 15. Travoprost 0.004% eye drops 1 drop in both eyes once daily. 16. Dilaudid 4 mg p.o. q.4 hours as needed for pain. 17. Femara 2.5 mg p.o. daily. HOSPITAL IMAGIN. CT brain is unremarkable shows old ischemic changes, but nothing acute. 2. MRI brain, 11/06/19, shows no acute intracranial abnormality. 3. Liver ultrasound, 11/06/19, shows multiple hypoechoic areas throughout the liver, largest measuring approximately 1 cm. HOSPITAL COURSE: This is a 79-year-old female, well known to the oncology service with metastatic breast cancer treated with Ibrance and an aromatase inhibitor, who presented to the emergency department with generalized weakness and intermittent episodes of what sounded consistent with an expressive aphasia. Her did note a decline over the proceeding few days and was subsequently instructed to bring her to the emergency department. Initial CT imaging of the brain was negative. Labs demonstrated a mild hypercalcemia with a calcium of 10.6. Followup PTH showed appropriate suppression down to 6.8. Labs also demonstrated a moderate thrombocytopenia with platelet count of 87, 000 and a mild anemia as well as slight elevation of her creatinine from baseline to 1.5 and mild transaminitis, approximately 3 times upper limit of normal. The patient was subsequently admitted for further support and evaluation. She underwent MRI of the brain, which was negative for any ischemic or metastatic disease and an ultrasound of the liver, which showed multiple hypoechoic lesions concerning for possible metastatic disease. The patient's calcium corrected to 9.4 with hydration support and as mentioned before had an appropriately depressed PTH. Creatinine improved back to baseline , but transaminitis and thrombocytopenia remained persistent. The patient was noted to have an elevated TSH to 19.06, but also free T4 that was slightly elevated to 1.27. Her levothyroxine was increased from 88 mcg to 150 mcg this hospitalization. The patient had been seen as an outpatient with unilateral leg swelling at which point a Doppler ultrasound was completed and negative for DVT. She was subsequently treated for cellulitis with Bactrim and noted significant improvement in her legs. She had completed approximately 8 days of Bactrim at that time of admission and was held during this hospitalization. Etiology specifically explaining her acute episode of weakness is not clear, but may be due to her hypothyroid state versus adverse reaction to the Bactrim. The transaminitis and subsequent liver ultrasound findings were incidental in nature, but do require further outpatient followup with a liver biopsy to determine whether this represents a progression of her metastatic breast cancer. DISPOSITION AND FOLLOWUP PLAN: The patient is being discharged to home in stable condition where she lives with her . She was prescribed a higher dose of levothyroxine and an ultrasound-guided liver biopsy will be arranged sometime in the next week with subsequent followup with Dr. Forde to review results. She had been instructed to hold her Ibrance for recent cellulitis, which she will continue to hold at this time. Resuming this medication will depend on results of the biopsy. LURDES WELLINGTON [id number]/[facility] #: [id number] [facility] MEDICAL CENTERMarlee
== END 2019-11-07 13:25 | disposition home or self-care (01) | DRG 644 ==
LOC: ED 10:35 → MEDTELE 13:02
PROVIDERS: ADMIT Internal Medicine Hematology & Oncology; ATTEND Internal Medicine Hematology & Oncology
DX: E03.9 Hypothyroidism, unspecified (principal); C79.51 Secondary malignant neoplasm of bone; R47.01 Aphasia; C50.919 Malignant neoplasm of unspecified site of unspecified female breast; M06.9 Rheumatoid arthritis, unspecified; I10 Essential (primary) hypertension; E78.5 Hyperlipidemia, unspecified; K58.9 Irritable bowel syndrome, unspecified; E83.52 Hypercalcemia; R74.0 Nonspecific elevation of levels of transaminase and lactic acid dehydrogenase [LDH]; G89.29 Other chronic pain; K21.9 Gastro-esophageal reflux disease without esophagitis; M19.90 Unspecified osteoarthritis, unspecified site; H40.9 Unspecified glaucoma; G43.909 Migraine, unspecified, not intractable, without status migrainosus; T36.8X5A Adverse effect of other systemic antibiotics, initial encounter; D69.59 Other secondary thrombocytopenia; T45.1X5A Adverse effect of antineoplastic and immunosuppressive drugs, initial encounter; Y92.9 Unspecified place or not applicable; Z79.899 Other long term (current) drug therapy; Z87.891 Personal history of nicotine dependence; Z79.890 Hormone replacement therapy; Z28.21 Immunization not carried out because of patient refusal
CPT/HCPCS: 36415; 70450; 70553; 76705; 80053; 81003; 82140; 83970; 84439; 84443; 85025; 85060; 93005; 99284; A9270-GY; A9577; J1650; J2060